=== PATIENT | female | born 1980 | race Two or more races ===

== ENCOUNTER 2020-04-18 07:44 | Outpatient (REF) | payer OTHER, SELFPAY ==
--- NOTE | 2020-04-18 | US_ITS ---
EXAMINATION: PELVIC ULTRASOUND CLINICAL INFORMATION: Post hysterectomy. Pelvic pain. COMPARISON: Previous pelvic ultrasound December [address] of the abdomen and pelvis November 2018 TECHNIQUE: Transabdominal and transvaginal pelvic ultrasound was performed. Transvaginal exam was performed for better visualization of the uterus and ovaries. FINDINGS: The uterus has been removed. The right ovary has been removed. The left ovary is slightly enlarged measuring 3.8 x 4.4 x 1.8 cm and contains multiple simple cysts or follicles. There is no fluid in the pelvis. No pelvic mass is seen. The bladder is not fully distended. The bladder appears irregularly-shaped and the bladder wall may be slightly thickened. There is a hypoechoic area that extends from the right posterior bladder wall posteriorly toward the rectum. This area measures 3 x 1.2 x 0.5 cm in sagittal AP and transverse dimension. It is uncertain whether this represents postsurgical scarring or could represent possible fistula tract or fluid collection/abscess. US/US pelvic complete IMPRESSION:o No pelvic mass post hysterectomy and right oophorectomy. Slightly enlarged left ovary with multiple follicles. Irregularly-shaped bladder which may be slightly thick walled. Hypoechoic area adjacent to the right posterior bladder wall extending to the rectum questionable for postsurgical change, small postoperative fluid collection or abscess, or fistula tract. This could be better evaluated with CT cystogram if clinically indicated.
--- NOTE | 2020-04-18 07:59 | US_ITS ---
EXAMINATION: PELVIC ULTRASOUND CLINICAL INFORMATION: Post hysterectomy. Pelvic pain. COMPARISON: Previous pelvic ultrasound December [address] of the abdomen and pelvis November 2018 TECHNIQUE: Transabdominal and transvaginal pelvic ultrasound was performed. Transvaginal exam was performed for better visualization of the uterus and ovaries. FINDINGS: The uterus has been removed. The right ovary has been removed. The left ovary is slightly enlarged measuring 3.8 x 4.4 x 1.8 cm and contains multiple simple cysts or follicles. There is no fluid in the pelvis. No pelvic mass is seen. The bladder is not fully distended. The bladder appears irregularly-shaped and the bladder wall may be slightly thickened. There is a hypoechoic area that extends from the right posterior bladder wall posteriorly toward the rectum. This area measures 3 x 1.2 x 0.5 cm in sagittal AP and transverse dimension. It is uncertain whether this represents postsurgical scarring or could represent possible fistula tract or fluid collection/abscess. US/US transvaginal IMPRESSION:o No pelvic mass post hysterectomy and right oophorectomy. Slightly enlarged left ovary with multiple follicles. Irregularly-shaped bladder which may be slightly thick walled. Hypoechoic area adjacent to the right posterior bladder wall extending to the rectum questionable for postsurgical change, small postoperative fluid collection or abscess, or fistula tract. This could be better evaluated with CT cystogram if clinically indicated.
--- NOTE | 2020-04-18 07:59 | US_ITS ---
EXAMINATION: US ABDOMEN COMPLETE CLINICAL INFORMATION: Pelvic and perineal pain. COMPARISON: Renal ultrasound 03/01/2019. CT abdomen and pelvis 12/06/2018. Ultrasound abdomen complete 05/31/2015. KUB 05/24/2013. TECHNIQUE: Real-time imaging of the abdominal viscera. FINDINGS: PANCREAS: Normal. ABDOMINAL AORTA: The proximal, mid, and distal segments are normal in caliber. INFERIOR VENA CAVA: Visualized portions are normal. LIVER: Normal. The liver is normal in size. The liver contour is normal. Parenchymal echogenicity is normal. No focal hepatic lesion. There is no intrahepatic biliary duct dilatation seen. GALLBLADDER: Surgically absent. COMMON BILE DUCT: Normal in caliber measuring 0.4 cm in diameter. RIGHT KIDNEY: Normal. No hydronephrosis. No renal calculi or focal parenchymal lesions. The kidney measures 10.1 cm in maximum dimension. LEFT KIDNEY: Normal. No hydronephrosis. No renal calculi or focal parenchymal lesions. The kidney measures 11.2 cm in maximum dimension. SPLEEN: Normal. The spleen measures 10.9 cm in maximum dimension. FREE FLUID: None. US/US abdomen complete IMPRESSION: Unremarkable complete abdominal ultrasound.
[2020-04-18 09:52] LABS: MANUAL DIFF FLAG NO
[2020-04-18 10:09] LABS: Basophils Absolute Auto 0.1 X10*3/uL (0.0-0.2); Basophils Percent Auto 0.5 % (0-2); Eosinophils Absolute Auto 0.3 X10*3/uL (0.0-0.4); Eosinophils Percent Auto 2.5 % (0-4); Hematocrit 41.8 % (37-47); Imm Gran Abs Auto 0.05 X10*3/uL (0.00-0.03); Imm Gran Pct Auto 0.5 % (0.0-0.4); Lymphocytes Absolute Auto 2.9 X10*3/uL (1.2-4.9); Lymphocytes Percent Auto 27.2 % (20-40); Mean Corpuscular HGB Conc 33.5 g/dl (31.0-35.0); Mean Corpuscular Hemoglobin 28.7 pg (27.0-33.0); Mean Corpuscular Volume 85.7 fL (80-98); Mean Platelet Volume 11.1 fL (9.4-12.3); Monocytes Absolute Auto 0.7 X10*3/uL (0.1-1.2); Monocytes Percent Auto 6.3 % (2-11); Neutrophils Absolute Auto 6.7 X10*3/uL (2.0-8.3); Platelet Count 367 X10*3/uL (160-400); Red Blood Count 4.88 X10*6/uL (4.20-5.50); Red Cell Distribution Width 13.1 % (11.0-16.0); White Blood Count 10.6 X10*3/uL (4.8-10.8)
[2020-04-18 10:17] LABS: Alanine Aminotransferase 10 U/L (0-31); Albumin Level 4.9 g/dL (3.5-5.0); Alkaline Phosphatase 91 U/L (39-117); Anion Gap 11 (12-20); Aspartate Amino Transferase 14 U/L (5-31); Bilirubin Total 1.2 mg/dL (0.0-1.0); Blood Urea Nitrogen 11 mg/dL (9-16); Calcium 9.5 mg/dL (8.4-10.2); Carbon Dioxide 27 mmol/L (22-29); Chloride 104 mmol/L (96-108); Estimated Glomerular Filt Rate > 60; Glucose Fasting 98 mg/dL (60-99); Iron 86 mcg/dL (30-160); Percent Iron Saturation 20 % (15-50); Potassium 4.2 mmol/l (3.3-5.1); Sodium 138 mmol/L (135-145); Total Iron Binding Capacity 428 mcg/dL (228-428); Total Protein 7.9 g/dL (6.5-8.0); Unsaturated Iron Binding 342 ug/dL
[2020-04-18 10:42] LABS: TSH reflex Free T4 1.21 mIU/mL (0.32-4.0)
[2020-04-18 10:43] LABS: Estimated Average Glucose 103 mg/dL; Hemoglobin A1c % 5.2 %
== END 2020-04-18 07:45 | disposition home or self-care (01) ==
LOC: HO.US 07:44
PROVIDERS: PCP Physician Assistant; Visit Provider Physician Assistant
DX: R10.2 Pelvic and perineal pain (principal); R10.11 Right upper quadrant pain
CPT/HCPCS: 36415; 76700; 76830; 76856; 80053; 83036; 83540; 84443; 85025

== ENCOUNTER → 2020-05-07 10:52 | Outpatient (BNVA) | payer OTHER, SELFPAY | PROVIDERS: PCP Physician Assistant; Visit Provider Surgery | DX: R10.9 Unspecified abdominal pain (principal); G89.29 Other chronic pain | CPT/HCPCS: 99202 ==

== ENCOUNTER → 2020-05-24 09:53 | Outpatient (BNVA) | payer OTHER, SELFPAY | PROVIDERS: PCP Physician Assistant; Visit Provider Urology | DX: N32.2 Vesical fistula, not elsewhere classified (principal) | CPT/HCPCS: 81002; 99202 ==

== ENCOUNTER 2020-05-25 09:07 | Outpatient (REF) | payer OTHER, SELFPAY ==
--- NOTE | 2020-05-25 09:10 | CT_ITS ---
EXAMINATION: CT ABDOMEN AND PELVIS WITH CONTRAST CLINICAL INFORMATION: Abdominal pain COMPARISON: Previous abdomen and pelvic ultrasound March [address] of the abdomen and pelvis November 2018 TECHNIQUE: Multidetector volumetric images were obtained from the superior aspect of the liver through the pubic symphysis following administration 85 mL of Omnipaque 350 intravenous contrast. Sagittal and coronal reformatted images were obtained on the technologist's workstation. Oral contrast: Yes This CT examination was performed using dose optimization techniques as appropriate, variously including the following: *Automated exposure control *Adjustment of mA and/or kV according to patient size (this includes techniques or standardized protocols for targeted exams where dose is matched to indication/reason for exam; i.e. extremities or head) *Use of iterative reconstruction technique DLP: 476 mGy-cm FINDINGS: LUNG BASES: The visualized lung bases are unremarkable. LIVER, GALLBLADDER, AND BILIARY TREE: There is a small 1 cm low-attenuation lesion high in the dome of the liver that is stable probably representing a cyst. The liver is otherwise unremarkable. The gallbladder has been. There is no biliary duct dilatation. PANCREAS: Unremarkable. SPLEEN: Unremarkable. ADRENAL GLANDS: Unremarkable. KIDNEYS AND URETERS: There is a 1 cm cyst in the right kidney. Kidneys are otherwise unremarkable. BLADDER: There is high attenuation seen dependently in the bladder. Presumably this represents excreted contrast. No air in the bladder is seen. GASTROINTESTINAL TRACT: The small and large bowel are unremarkable. The appendix is unremarkable. ABDOMINAL WALL: No significant hernia is appreciated. LYMPH NODES: Normal. VASCULAR: Unremarkable. PELVIC VISCERA: The uterus has been removed. There is a complex cystic lesion posterior to the bladder in the surgical bed post hysterectomy. This measures approximately 3 cm. It is uncertain whether this could represent a postoperative fluid collection or possibly related to an ovarian cyst. OSSEOUS STRUCTURES: Unremarkable. CT/CT abdomen pelvis w con IMPRESSION: 3 cm complex cystic collection posterior to the bladder in the uterine bed, question representing postoperative fluid collection versus ovarian cyst.
[2020-05-25] MEDS: iohexoL 350 MG/ML 100 ML INFUS..BTL 85 ML IV (10:21)
== END 2020-05-25 09:08 | disposition home or self-care (01) ==
LOC: HO.CT 09:07
PROVIDERS: PCP Physician Assistant; Visit Provider Surgery
DX: R10.9 Unspecified abdominal pain (principal); G89.29 Other chronic pain
CPT/HCPCS: 74177; Q9967

== ENCOUNTER 2020-06-13 10:50 | Outpatient (REF) | payer OTHER, SELFPAY | END 2020-06-13 10:51 | disposition home or self-care (01) | LOC: HO.CT 10:50 | PROVIDERS: Visit Provider Urology | DX: Z13.89 Encounter for screening for other disorder (principal) ==

== ENCOUNTER 2020-06-25 | Outpatient (REF) | payer OTHER, SELFPAY ==
[2020-06-27 09:10] LABS: BV Int Neg Control Negative (Negative); BV Int Pos Control Positive (Positive)
== END 2020-06-25 00:01 | disposition home or self-care (01) ==
LOC: HO.LAB
PROVIDERS: Physician Assistant; Visit Provider Urology
DX: N32.2 Vesical fistula, not elsewhere classified (principal)
CPT/HCPCS: 87480; 87510; 87660

== ENCOUNTER → 2020-07-25 10:35 | Outpatient (BNVA) | payer OTHER, SELFPAY | PROVIDERS: Visit Provider Urology ==

== ENCOUNTER → 2020-07-25 10:36 | Outpatient (BNVA) | payer OTHER, SELFPAY | PROVIDERS: Visit Provider Urology | DX: R39.12 Poor urinary stream (principal) | CPT/HCPCS: 52000; 52332; 81002; Q3014 ==

== ENCOUNTER 2020-09-05 08:00 | Outpatient (RCR) | payer OTHER, SELFPAY ==
--- NOTE | 2020-07-16 11:54 | MHC.PT.EP ---
[facility] [place] Office [place] Office [place] Office [address] Melissa Sosa [address] [phone] F: [phone] F: [phone] F: [phone] F: [phone] Physical Therapy Plan of Care Date of Evaluation: 07/16/20 Date of Surgery: Diagnosis: thoracic and lumbar pain c radiculopathy Assessment: 40 y/o F referred to PT with thoracic and lumbar pain with radiculopathy. 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 Recommend PT 2x/week for 5 weeks to address impairments, implement HEP and optimize functional mobility. Frequency and Duration: The patient will be seen 2x/week for 5 weeks Short Term Goals: 3 weeks: 1. Initiate HEP 2. Pt will improve lumbar AROM to [facility] Group Home Goals: 5 weeks: 1. I with HEP and self management of sx 2. Pt will be able to ambulate > 60min with pain < 3/10 3. Pt will improve B LE strength by one MMT grade to facilitate transitional movements. Treatment Plan: Modalities to reduce pain, spasms and effusion. Manual therapy to restore motion and function. Therapeutic exercise to improve strength and flexibility. Neuromuscular re-education for posture and balance. Therapeutic activities to return to functional activities of daily living. Electronically signed by: Yisel Chavez PT Please sign and return to therapist. Thank you for your referral.
--- NOTE | 2020-09-14 08:51 | MHC.PT.DC ---
[facility] [place] Office [place] Office [place] Office [address] Melissa Sosa [address] [phone] F: [phone] F: [phone] F: [phone] F: [phone] Physical Therapy Discharge Report Diagnosis: thoracic and lumbar pain c radiculopathy Date of Surgery: Date of Evaluation: 07/16/20 Date of Discharge: 09/14/20 Treatments to Date: 7 Cancellations to Date: 0 No Shows to Date: 0 Discharge Status: Improved Function Independent with HEP Discharge Summary: Pt reports improved tolerance for sitting, standing, and walking. She would like to come for neck pain soon and will d/c this chart at this time. Electronically signed by: Yisel Chavez PT Please sign and return to therapist. Thank you for your referral.
== END 2020-09-14 08:53 | disposition home or self-care (01) ==
LOC: HO.PTCHIC 08:00
PROVIDERS: PCP Physician Assistant; Visit Provider Physician Assistant
DX: M54.16 Radiculopathy, lumbar region (principal); M51.9 Unspecified thoracic, thoracolumbar and lumbosacral intervertebral disc disorder
CPT/HCPCS: 97014; 97110; 97112; 97140; 97162

== ENCOUNTER 2021-04-12 11:03 | Emergency (ER) | payer OTHER, SELFPAY ==
[2021-04-12] VITALS (7 sets, daily range): BP systolic 83–123; BP diastolic 40–65; PULSE 65–93; RESP 14–18; TEMP 36.8–37.1; O2SAT 96–99; BMI 32.3
--- NOTE | ~2021-04-12 | US_ITS ---
EXAMINATION: US VENOUS ULTRASOUND WITH DOPPLER LOWER EXTREMITY, RIGHT CLINICAL INFORMATION: Right leg pain COMPARISON: None TECHNIQUE: Ultrasound of the deep veins is performed from the hip to the calf with compression sonography and color and pulse Doppler assessment. Spectral analysis with color-flow imaging is performed. FINDINGS: There is normal venous compression and respiratory variation and augmented flow. The visualized common femoral vein, superficial femoral vein, profunda femoral vein, popliteal vein, and the trifurcation region shows no evidence of deep venous thrombosis. There is no significant popliteal fossa cyst. No popliteal artery aneurysm. If the patient's symptoms persist, followup ultrasound in 5 days 7 days might be of value to exclude proximal propagation from a non-visualized calf vein. US/US venous duplex LE RT IMPRESSION: No acute DVT demonstrated in the right lower extremity.
--- NOTE | ~2021-04-12 | CT_ITS ---
EXAMINATION: CT ABDOMEN AND PELVIS WITH CONTRAST CLINICAL INFORMATION: Diffuse abdominal pain, greatest in the right lower quadrant and nausea and vomiting COMPARISON: Previous CT of the abdomen and pelvis most recent April 2020 TECHNIQUE: Multidetector volumetric images were obtained from the superior aspect of the liver through the pubic symphysis following administration 85 mL of Omnipaque 350 intravenous contrast. Sagittal and coronal reformatted images were obtained on the technologist's workstation. Oral contrast: Yes This CT examination was performed using dose optimization techniques as appropriate, variously including the following: *Automated exposure control *Adjustment of mA and/or kV according to patient size (this includes techniques or standardized protocols for targeted exams where dose is matched to indication/reason for exam; i.e. extremities or head) *Use of iterative reconstruction technique DLP: 722 mGy-cm FINDINGS: LUNG BASES: The visualized lung bases are unremarkable. LIVER, GALLBLADDER, AND BILIARY TREE: The liver is normal in size, shape, and attenuation. There is a 0.8 cm low-attenuation lesion high in the dome of the right lobe of the liver axial image 13 series 3. This is not compatible with a cyst. This is stable from previous exam suggestive of a benign finding. No other focal hepatic lesion or biliary ductal dilatation is present. The gallbladder has been removed. PANCREAS: Unremarkable. SPLEEN: Unremarkable. ADRENAL GLANDS: Unremarkable. KIDNEYS AND URETERS: The kidneys are normal in size, shape, and attenuation. No hydronephrosis, hydroureter, or calculi seen. There is a small 5 mm low-attenuation lesion in the lower pole the right kidney probably representing a cyst. This is stable from previous exam. No imaging follow-up needed. BLADDER: Unremarkable. GASTROINTESTINAL TRACT: The small and large bowel are unremarkable. The appendix is unremarkable. The stomach is unremarkable. ABDOMINAL WALL: No significant hernia is appreciated. LYMPH NODES: There are no enlarged lymph nodes. There are small, small bowel mesentery lymph nodes. This appears unchanged. No other adenopathy. No ascites. VASCULAR: Unremarkable. PELVIC VISCERA: The uterus has been removed. There is a small fluid collection seen just superior to the vaginal cuff that measures 1.5 x 2 cm axial image 67 series 3. This is decreased in size and complexity from previous exam April 2020 when this area measured approximately 2.5 x 3 cm. OSSEOUS STRUCTURES: Unremarkable. CT/CT abdomen pelvis w con IMPRESSION: No acute findings. Normal-appearing appendix. Stable small, small bowel mesentery lymphadenopathy. No enlarged lymph nodes seen. Resolving probable postoperative fluid collection post hysterectomy chest superior to the vaginal cuff now measuring 1.5 cm. Fleischner guidelines were followed.
--- NOTE | ~2021-04-12 | XR_ITS ---
EXAMINATION: XR HIP, RIGHT CLINICAL INFORMATION: Right hip pain COMPARISON: Previous CT of the abdomen and pelvis from earlier the same day TECHNIQUE: Two views of the right hip. FINDINGS: Bone alignment is normal. No fracture or dislocation is seen. Bones of the pelvis are normal. The left hip joint is normal. There is excreted contrast in the bladder. Soft tissues are normal. XR/XR hip RT w PEL1V IMPRESSION: Normal right hip.
--- NOTE | 2021-04-12 11:34 | ED.GENADULT ---
HPI - General Adult General Chief complaint: General Medical <OLIVIA Lee - Last Filed: 04/12/21 22:53> Stated complaint: r leg pain, vomiting/fever <OLIVIA Lee - Last Filed: 04/12/21 22:53> Time Seen by Provider: 04/12/21 11:24 <OLIVIA Lee - Last Filed: 04/12/21 22:53> Source: patient <OLIVIA Lee - Last Filed: 04/12/21 22:53> Mode of arrival: ambulatory <OLIVIA Lee - Last Filed: 04/12/21 22:53> Limitations: no limitations and other (Poor historian) <OLIVIA Lee - Last Filed: 04/12/21 22:53> History of Present Illness HPI narrative: 40-year-old female past medical history significant for recurrent UTIs, GERD, anxiety, iron deficiency anemia, herniated discs, sciatic, asthma presents to the emergency department for multiple complaints including back pain, abdominal pain, right hip pain, fevers/chills and nausea and vomiting X2 days. Patient tells me that she has been experiencing 10-10 back pain that feels like her typical sciatica that is not going away, it radiates down to her right knee, she also tells me that she is having severe right hip pain, she denies trauma to the area. She tells me that this morning was so bad that she could not walk. She tells me that yesterday she had a fever of 110F. And she has been having chills ever since then. She tells me that she is very nauseous, and has been vomiting since yesterday, but she cannot quantify how many times she has vomited. Patient is not an IV drug user. Patient denies chest pain, shortness of breath, paresthesias, numbness or tingling, urinary incontinence, diarrhea, constipation, recent sick contacts, weakness. <OLIVIA Lee Last Filed: 04/12/21 22:53> Onset (ago): day(s) (2) <OLIVIA Lee Last Filed: 04/12/21 22:53> Location: abdomen, right and lower extremity <OLIVIA Lee - Last Filed: 04/12/21 22:53> Radiation: other (back pain radiates to RLE just above the knee ) <OLIVIA Lee - Last Filed: 04/12/21 22:53> Severity: moderate and similar to prior episodes <OLIVIA Lee - Last Filed: 04/12/21 22:53> Severity scale (1-10): 10 <OLIVIA Lee - Last Filed: 04/12/21 22:53> Quality: constant <OLIVIA Lee - Last Filed: 04/12/21 22:53> Pain Consistency: constant <OLIVIA Lee - Last Filed: 04/12/21 22:53> Relieving factors: none <OLIVIA Lee - Last Filed: 04/12/21 22:53> Exacerbating factors: none <OLIVIA Lee - Last Filed: 04/12/21 22:53> Associated symptoms: fever/chills ( my temperature was 110F ), nausea/vomiting and other (abdominal pain ) <OLIVIA Lee - Last Filed: 04/12/21 22:53> Treatments prior to arrival: none <OLIVIA Lee - Last Filed: 04/12/21 22:53> Related Data Home medications: Home Medications Medication Instructions Recorded Confirmed loratadine 10 mg tablet 10 mg PO DAILY 07/25/20 Previous Rx's Medication Instructions Recorded naproxen sodium 220 mg tablet 220 mg PO Q12H PRN 15 Days #30 tab 03/15/20 (Flanax (naproxen)) sennosides 8.6 mg tablet (Natural 17.2 mg PO BEDTIME 30 Days #60 tab 03/28/20 Senna Laxative) albuterol sulfate 2.5 mg (3 mL) INHALATION QID PRN 03/29/20 30 Days #180 ml fluticasone propionate 50 1 spray INTRANASAL DAILY 30 Days 04/23/20 mcg/actuation nasal #9.9 ml spray,suspension docusate sodium 100 mg capsule 100 mg PO DAILY 30 Days #30 cap 06/26/20 (Colace) hydroxyzine HCl 25 mg tablet 25 mg PO BEDTIME 30 Days #30 tab 06/26/20 linaclotide 72 mcg capsule 72 mcg PO DAILY 30 Days #30 cap 06/26/20 (Linzess) metronidazole 500 mg tablet 500 mg PO BID 7 Days #14 tab 06/27/20 triamcinolone acetonide 0.1 % 1 appl TOPICAL DAILY 15 Days #30 g 06/27/20 topical cream lactulose 10 gram/15 mL (15 mL) 10 g (15 mL) PO DAILY 15 Days #225 07/05/20 oral solution ml tamsulosin 0.4 mg capsule 0.4 mg PO BEDTIME 90 Days #90 cap 07/25/20 loratadine 10 mg capsule 10 mg PO DAILY 90 Days #90 cap 08/30/20 albuterol sulfate 90 mcg/actuation 2 puff INHALATION Q6H PRN 30 Days 11/28/20 aerosol inhaler #8.5 g gabapentin 300 mg capsule 300 mg PO BEDTIME 30 Days #30 cap 11/28/20 omeprazole 20 mg capsule,delayed 20 mg PO DAILY #60 cap 11/28/20 release tramadol 50 mg tablet 50 mg PO DAILY PRN 7 Days #7 tab 11/28/20 tizanidine 2 mg tablet 2 mg PO TID #90 tab 02/18/21 cyclobenzaprine 10 mg tablet 10 mg PO BEDTIME PRN #7 tab 04/12/21 lidocaine 5 % topical patch 1 patch TOPICAL DAILY PRN #15 ea 04/12/21 morphine 15 mg immediate release 15 mg PO Q8H PRN #8 tab 04/12/21 tablet <OLVIIA Lee - Last Filed: 04/12/21 22:53> Allergies/adverse reactions: Allergies Allergy/AdvReac Type Severity Reaction Status Date / Time No Known Allergies Allergy Verified 06/26/20 16:58 [No Known Allergies*] <OLIVIA Lee - Last Filed: 04/12/21 22:53> Review of Systems Review of Systems: Constitutional : No Weight loss, + Fever, + Chills, No Fatigue, No Malaise ENT/Mouth : No sore throat, No Rhinorrhea Eyes: No Eye Pain, No Swelling, No Redness Cardiovascular : No Chest Pain, No SOB, No Dyspnea on Exertion, No Orthopnea, No Edema, No Palpitations Respiratory : No Cough, No Sputum, No Wheezing Gastrointestinal : + Nausea, + Vomiting, No Diarrhea, No Constipation, + abdominal Pain, No Hematochezia, No Melena Genitourinary : No Dysuria, No Urinary Frequency, No Hematuria, Musculoskeletal : No joint pain, No Myalgias, No Joint Swelling, + extremity pain Skin : No Skin Lesions, No rash Neuro : No Weakness, No Numbness, No Dizziness, No Headache Psych : No Anxiety/Panic, No Depression All other systems reviewed and are negative <OLIVIA Lee - Last Filed: 04/12/21 22:53> Yes all other systems are reviewed and are negative <OLIVIA Lee - Last Filed: 04/12/21 22:53> [facility] Past Medical History Attestation statement: The following information was validated with the patient. <OLIVIA Lee - Last Filed: 04/12/21 22:53> Source: old records reviewed and nursing notes reviewed <OLIVIA Lee - Last Filed: 04/12/21 22:53> Medical History: Medical History Anxiety Chronic abdominal pain GERD (gastroesophageal reflux disease) UTI (urinary tract infection) <OLIVIA Lee - Last Filed: 04/12/21 22:53> Surgical History: Surgical History History of cholecystectomy History of foot surgery History of hysterectomy <OLIVIA Lee - Last Filed: 04/12/21 22:53> Family History Family History: Family History Father No problems noted. Mother No problems noted. Maternal Grandfather Throat cancer Maternal Aunt Breast cancer <OLIVIA Lee - Last Filed: 04/12/21 22:53> Social History Social History: Social History Alcohol intake: never Patient Tobacco Use Status: Never used Tobacco Use of substances other than those prescribed or required for medical reasons: No Advance Directives: Yes Advance Directives on File: Yes Advance Directives Date on File: 04/13/21 Current occupational status: unemployed and disabled <OLIVIA Lee - Last Filed: 04/12/21 22:53> Physical Exam Vital Signs: Vital Signs: Last Vital Signs Temp 98.3 F 04/13/21 21:53 Pulse 75 04/13/21 21:53 Resp 16 04/13/21 21:53 BP 104/61 04/13/21 21:53 Pulse Ox 98 04/13/21 21:53 BMI result Body Mass Index 32.3 Vital signs stable. <OLIVIA Lee - Last Filed: 04/12/21 22:53> Vital Signs: Last Vital Signs Temp 98.3 F 04/13/21 21:53 Pulse 75 04/13/21 21:53 Resp 16 04/13/21 21:53 BP 104/61 04/13/21 21:53 Pulse Ox 98 04/13/21 21:53 BMI result Body Mass Index 32.3 <OLIVIA Jensen - Last Filed: 04/13/21 11:33> Vital Signs: Last Vital Signs Temp 98.3 F 04/13/21 21:53 Pulse 75 04/13/21 21:53 Resp 16 04/13/21 21:53 BP 104/61 04/13/21 21:53 Pulse Ox 98 04/13/21 21:53 BMI result Body Mass Index 32.3 <Yuli Kam MD - Last Filed: 04/13/21 23:21> Appearance: Alert.? Oriented X3.? No acute distress.? Head: Normocephalic, atraumatic, no step-offs or deformities Eyes: Pupils equal, round and reactive to light.? ENT: Pharynx normal.? Neck: Normal inspection.? Neck supple.? CVS: Normal heart rate and rhythm.? Pulses normal.? Respiratory: No respiratory distress.? Breath sounds normal.? Abdomen: Soft and + diffusely tender.? Skin: Skin warm and dry.? Normal skin color.? Normal skin turgor.? Extremities: No lower extremity edema.?+ right sided calf tenderness on palpation. 5/5 strength to bilateral upper and left lower extremity. Patient unable to lift right leg off of stretcher due to pain. 2+ reflexes equal and bilateral (patellar). Rectal: normal rectal tone Back: No midline tenderness, no C-spine tenderness, full range of motion, no CVA tenderness bilaterally Neuro: Oriented X 3.? No motor deficit.? No sensory deficit. <OLIVIA Lee - Last Filed: 04/12/21 22:53> Course Course Course Narrative: I was informed by the patient's nurse that the patient was seen walking in her room with steady gait. Then, patient eloped. Patient was seen walking with steady gait towards the exit by the patient's nurse and techs. <Yuli Kam MD - Last Filed: 04/13/21 23:21> Reevaluation(s) Reevaluation #1: A baseline anemia is noted, no leukocytosis. Patient's bilirubin is noted to be elevated at 1.7, on April 18, 2020 was 1.2, this does not appear to be new in nature. Patient is having abdominal pain so CT of the abdomen will be done. Urine clean. Patient is COVID negative. Ultrasound negative for DVT. CT of the abdomen and pelvis with no acute findings, however, there is a little bit of postoperative fluid noted status post hysterectomy ( done at [facility] oophorectomy/salpingectomy @ [facility] In June 2019) . It appears as though patient has seen surgery on an outpatient basis for chronic abdominal pain since the hysterectomy. Appears as though at that time patient's pain was generalized and worse in the right lower quadrant, similar to today's presentation. 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 I went back to speak to the patient she tells me that she is having normal bowel movements and she is urinating with decreased urinary stream. She has not noted any changes in the color of her urine, she denies dysuria or recent UTIs. <OLIVIA Lee - Last Filed: 04/12/21 22:53> Time: 15:21 <OLIVIA Lee - Last Filed: 04/12/21 22:53> Reevaluation #2: Spoke to Dr. Turner and shared with him the CT, labs and patients history and physical exam he states this appears to be chronic in nature and can follow up with him on an out patient basis. Normal rectal tone, rectal exam chaperoned by Trever PHOENIX. Very unlikely that this is cauda equina, no midline tenderness, unlikely epidural abscess Patient tells me she is in 10/10 pain to her abdomen and right hip <OLIVIA Lee - Last Filed: 04/12/21 22:53> Time: 15:45 <OLIVIA Lee - Last Filed: 04/12/21 22:53> Reevaluation #3: Xray r. hip normal Went to re-evaluate patient's she still reports 10/10 who right hip pain. He tells me she does not feel comfortable to go home. Patient has gotten morphine, and Dilaudid. I have asked patient multiple times if patient has fallen in patient told me now. Patient also reported to the nurse that she has had no trauma to the area and she has not fallen. She now tells me she was scared to tell me that she fell earlier today. Patient is unable to move, and tells me that she has been this way since this morning, she tells me she fell out of her bed, when she was trying to go to the bathroom. <OLIVIA Lee - Last Filed: 04/12/21 22:53> Time: 20:00 <OLIVIA Lee - Last Filed: 04/12/21 22:53> Additional Reevaluation(s): 2129 Went back into the room to evaluate patient she now tells me that she is having 10/10 pain to the right anterior thigh. Family member at the bedside who is quite upset, requesting that she be given Valium, prednisone and morphine. Explained to the family member that the story has changed about 5-6 times since patient arrived at the emergency department. Initially her main concern was abdominal pain, then she tells me it has back pain, then it was right hip/pain overlying her femur and out is right and. Thigh pain. I also explained to the family member that is unsafe for me to keep administering pain medicines to this patient as her blood pressure is very low, and this can continue to lower her blood pressure. Family member understanding. I gave patient 2 options going to rehab and becoming a case management patient. Her being discharged home. Patient tells me that she needs to speak to her thermoscrew operator before making a decision. 2199 Reevaluated patient again with at the bedside. Patient continues to report 10/10 pain right anterior thigh pain. She continues to make the decision as to what she wants to do. Dr. Falk recommends adding inflammatory markers. Ordered CRP just slightly elevated, not significantly high. ESR pending. 2246 At this time report has been given to Farhana BAKER. only thing pending on this patient is an ESR. At this time I will place patient in physician observation to allow more time to be evaluated by Case Management and Physical therapy as patient desires to go to a intermediate. At time that physician observation was started patient continues to report right anterior thigh pain, worse with movement. No focal neuro deficits. Physical examination unchanged. Vital signs are stable. I have just medicated patient with Toradol. <OLIVIA Lee - Last Filed: 04/12/21 22:53> 2129 Went back into the room to evaluate patient she now tells me that she is having 10/10 pain to the right anterior thigh. Family member at the bedside who is quite upset, requesting that she be given Valium, prednisone and morphine. Explained to the family member that the story has changed about 5-6 times since patient arrived at the emergency department. Initially her main concern was abdominal pain, then she tells me it has back pain, then it was right hip/pain overlying her femur and out is right and. Thigh pain. I also explained to the family member that is unsafe for me to keep administering pain medicines to this patient as her blood pressure is very low, and this can continue to lower her blood pressure. Family member understanding. I gave patient 2 options going to rehab and becoming a case management patient. Her being discharged home. Patient tells me that she needs to speak to her thermoscrew operator before making a decision. 2199 Reevaluated patient again with at the bedside. Patient continues to report 10/10 pain right anterior thigh pain. She continues to make the decision as to what she wants to do. Dr. Falk recommends adding inflammatory markers. Ordered CRP just slightly elevated, not significantly high. ESR pending. 2246 At this time report has been given to Farhana BAKER. only thing pending on this patient is an ESR. At this time I will place patient in physician observation to allow more time to be evaluated by Case Management and Physical therapy as patient desires to go to a intermediate. At time that physician observation was started patient continues to report right anterior thigh pain, worse with movement. No focal neuro deficits. Physical examination unchanged. Vital signs are stable. I have just medicated patient with Toradol. 04/13/21 10am - physician observation continued. Seen by PT today who is recommending short term rehab. Case management to discuss options today. Will continue to monitor. <OLIVIA Jensen - Last Filed: 04/13/21 11:33> Medical Decision Making MDM Narrative Medical decision making narrative: [id number] YO F pmhx recurrent UTIs, GERD, anxiety, iron deficiency anemia, asthma presents to the emergency department for multiple complaints including severe back pain, severe abdominal pain, right hip pain, nausea and vomiting x2 days. Patient tells me she cannot pinpoint her main concern, and she tells me that everything is bothering her. Physical examination with generalized abdominal tenderness upon palpation. She reports pain with range of motion of back, no midline tenderness. She also reports right-sided calf pain upon palpation, positive Homans sign. Lungs are clear. Regular rate and rhythm. Patient tells me she cant lift right leg secondary to pain. No focal neuro deficits. No saddle paresthesias. Sensory intact. Plan at this time is to obtain basic labs, urine, urine , LE US. Patient will be given fluids and Zofran for nausea. Will rule out appendicitis, cholecystitis, DVT although unlikely I will hold on pain medicine as she received 15 mg of IV Toradol on the ambulance. Unlikely that this is a epidural abscess, no midline tenderness, patient is afebrile, she is not an IV drug abuser Unlikely cauda equina patient does not report urinary or bowel incontinence, weakness, no sensory or motor deficits, no focal neuro deficits, no saddle paresthesias. <OLIVIA Lee - Last Filed: 04/12/21 22:53> Lab Data Result diagrams: : 04/12/21 12:05 04/12/21 12:05 <OLIVIA Lee - Last Filed: 04/12/21 22:53> Labs: Lab Results 04/12/21 04/12/21 04/12/21 Range/Units 11:59 12:05 12:05 WBC 9.8 (4.8-10.8) X10*3/uL RBC 4.12 L (4.20-5.50) X10*6/uL Hgb 11.9 L (12.0-16.0) g/dl Hct 35.6 L (37.0-47.0) % MCV 86.4 (80.0-98.0) fL MCH 28.9 (27.0-33.0) pg MCHC 33.4 (31.0-35.0) g/dl RDW 13.2 (11.0-16.0) % Plt Count 244 (160-400) X10*3/uL MPV 10.8 (9.4-12.3) fL Immature Gran % (Auto) 0.5 H (0.0-0.4) % Neut % (Auto) 79.3 H (45-73) % Lymph % (Auto) 12.3 L (20-40) % [place] % (Auto) 6.1 (2-11) % Eos % (Auto) 1.6 (0-4) % Baso % (Auto) 0.2 (0-2) % Lymph # (Auto) 1.2 (1.2-4.9) X10*3/uL [place] # (Auto) 0.6 (0.1-1.2) X10*3/uL Eos # (Auto) 0.2 (0.0-0.4) X10*3/uL Baso # (Auto) 0.0 (0.0-0.2) X10*3/uL Abs Immat Gran (auto) 0.05 H (0.00-0.03) X10*3/uL Absolute Neuts (auto) 7.8 (2.0-8.3) x10*3/uL Absolute Nucleated RBC 0.000 (0.0-0.012) X10*3/uL Nucleated RBC % (auto) 0.0 (0.0-0.2) /100WBC ESR (0-20) MM/HR Sodium 137 (135-145) mmol/L Potassium 3.7 (3.3-5.1) mmol/L Chloride 109 H (96-108) mmol/L Carbon Dioxide 22 (22-29) mmol/L Anion Gap 10 L (12-20) BUN 7 L (9-16) mg/dL Creatinine 0.68 (0.5-1.4) mg/dL Estim Creat Clear Calc 94.4 Estimated GFR > 60 Random Glucose 99 (60-115) mg/dL Calcium 8.0 L D (8.4-10.2) mg/dL Magnesium 1.8 (1.6-2.6) mg/dL Total Bilirubin 1.7 H (0.0-1.0) mg/dL AST 14 (5-31) U/L ALT 14 (0-31) U/L Alkaline Phosphatase 79 (39-117) U/L C-Reactive Protein 0.63 H (< or = 0.50) mg/dL Total Protein 6.0 L D (6.5-8.0) g/dL Albumin 3.7 D (3.5-5.0) g/dL Amylase 38 (28-100) U/L Lipase 16 (8-78) U/L Urine Color Urine Appearance Urine pH (5.0-8.0) Ur Specific [place] (1.005-1.025) Urine Protein (NEG-TRACE) MG/DL Urine Glucose (UA) (NEG) MG/DL Urine Ketones (NEG) MG/DL Urine Blood (NEG) Urine Nitrite (NEG) Ur Leukocyte Esterase (NEG) Urine Test (NEGATIVE) COVID-19 (FELISA) Negative (Negative) COVID-19 Clin Com See Note 04/12/21 04/12/21 04/12/21 Range/Units 13:08 13:08 21:52 WBC (4.8-10.8) X10*3/uL RBC (4.20-5.50) X10*6/uL Hgb (12.0-16.0) g/dl Hct (37.0-47.0) % MCV (80.0-98.0) fL MCH (27.0-33.0) pg MCHC (31.0-35.0) g/dl RDW (11.0-16.0) % Plt Count (160-400) X10*3/uL MPV (9.4-12.3) fL Immature Gran % (Auto) (0.0-0.4) % Neut % (Auto) (45-73) % Lymph % (Auto) (20-40) % [place] % (Auto) (2-11) % Eos % (Auto) (0-4) % Baso % (Auto) (0-2) % Lymph # (Auto) (1.2-4.9) X10*3/uL [place] # (Auto) (0.1-1.2) X10*3/uL Eos # (Auto) (0.0-0.4) X10*3/uL Baso # (Auto) (0.0-0.2) X10*3/uL Abs Immat Gran (auto) (0.00-0.03) X10*3/uL Absolute Neuts (auto) (2.0-8.3) x10*3/uL Absolute Nucleated RBC (0.0-0.012) X10*3/uL Nucleated RBC % (auto) (0.0-0.2) /100WBC ESR 12 (0-20) MM/HR Sodium (135-145) mmol/L Potassium (3.3-5.1) mmol/L Chloride (96-108) mmol/L Carbon Dioxide (22-29) mmol/L Anion Gap (12-20) BUN (9-16) mg/dL Creatinine (0.5-1.4) mg/dL Estim Creat Clear Calc Estimated GFR Random Glucose (60-115) mg/dL Calcium (8.4-10.2) mg/dL Magnesium (1.6-2.6) mg/dL Total Bilirubin (0.0-1.0) mg/dL AST (5-31) U/L ALT (0-31) U/L Alkaline Phosphatase (39-117) U/L C-Reactive Protein (< or = 0.50) mg/dL Total Protein (6.5-8.0) g/dL Albumin (3.5-5.0) g/dL Amylase (28-100) U/L Lipase (8-78) U/L Urine Color YELLOW Urine Appearance CLEAR Urine pH 6.0 (5.0-8.0) Ur Specific [place] <= 1.005 (1.005-1.025) Urine Protein NEG (NEG-TRACE) MG/DL Urine Glucose (UA) NEG (NEG) MG/DL Urine Ketones NEG (NEG) MG/DL Urine Blood NEG (NEG) Urine Nitrite NEG (NEG) Ur Leukocyte Esterase NEG (NEG) Urine Test NEGATIVE (NEGATIVE) COVID-19 (FELISA) (Negative) COVID-19 Clin Com <OLIVIA Lee - Last Filed: 04/12/21 22:53> Lab Results 04/12/21 04/12/21 04/12/21 Range/Units 11:59 12:05 12:05 WBC 9.8 (4.8-10.8) X10*3/uL RBC 4.12 L (4.20-5.50) X10*6/uL Hgb 11.9 L (12.0-16.0) g/dl Hct 35.6 L (37.0-47.0) % MCV 86.4 (80.0-98.0) fL MCH 28.9 (27.0-33.0) pg MCHC 33.4 (31.0-35.0) g/dl RDW 13.2 (11.0-16.0) % Plt Count 244 (160-400) X10*3/uL MPV 10.8 (9.4-12.3) fL Immature Gran % (Auto) 0.5 H (0.0-0.4) % Neut % (Auto) 79.3 H (45-73) % Lymph % (Auto) 12.3 L (20-40) % [place] % (Auto) 6.1 (2-11) % Eos % (Auto) 1.6 (0-4) % Baso % (Auto) 0.2 (0-2) % Lymph # (Auto) 1.2 (1.2-4.9) X10*3/uL [place] # (Auto) 0.6 (0.1-1.2) X10*3/uL Eos # (Auto) 0.2 (0.0-0.4) X10*3/uL Baso # (Auto) 0.0 (0.0-0.2) X10*3/uL Abs Immat Gran (auto) 0.05 H (0.00-0.03) X10*3/uL Absolute Neuts (auto) 7.8 (2.0-8.3) x10*3/uL Absolute Nucleated RBC 0.000 (0.0-0.012) X10*3/uL Nucleated RBC % (auto) 0.0 (0.0-0.2) /100WBC ESR (0-20) MM/HR Sodium 137 (135-145) mmol/L Potassium 3.7 (3.3-5.1) mmol/L Chloride 109 H (96-108) mmol/L Carbon Dioxide 22 (22-29) mmol/L Anion Gap 10 L (12-20) BUN 7 L (9-16) mg/dL Creatinine 0.68 (0.5-1.4) mg/dL Estim Creat Clear Calc 94.4 Estimated GFR > 60 Random Glucose 99 (60-115) mg/dL Calcium 8.0 L D (8.4-10.2) mg/dL Magnesium 1.8 (1.6-2.6) mg/dL Total Bilirubin 1.7 H (0.0-1.0) mg/dL AST 14 (5-31) U/L ALT 14 (0-31) U/L Alkaline Phosphatase 79 (39-117) U/L C-Reactive Protein 0.63 H (< or = 0.50) mg/dL Total Protein 6.0 L D (6.5-8.0) g/dL Albumin 3.7 D (3.5-5.0) g/dL Amylase 38 (28-100) U/L Lipase 16 (8-78) U/L Urine Color Urine Appearance Urine pH (5.0-8.0) Ur Specific [place] (1.005-1.025) Urine Protein (NEG-TRACE) MG/DL Urine Glucose (UA) (NEG) MG/DL Urine Ketones (NEG) MG/DL Urine Blood (NEG) Urine Nitrite (NEG) Ur Leukocyte Esterase (NEG) Urine Test (NEGATIVE) COVID-19 (FELISA) Negative (Negative) COVID-19 Clin Com See Note 04/12/21 04/12/21 04/12/21 Range/Units 13:08 13:08 21:52 WBC (4.8-10.8) X10*3/uL RBC (4.20-5.50) X10*6/uL Hgb (12.0-16.0) g/dl Hct (37.0-47.0) % MCV (80.0-98.0) fL MCH (27.0-33.0) pg MCHC (31.0-35.0) g/dl RDW (11.0-16.0) % Plt Count (160-400) X10*3/uL MPV (9.4-12.3) fL Immature Gran % (Auto) (0.0-0.4) % Neut % (Auto) (45-73) % Lymph % (Auto) (20-40) % [place] % (Auto) (2-11) % Eos % (Auto) (0-4) % Baso % (Auto) (0-2) % Lymph # (Auto) (1.2-4.9) X10*3/uL [place] # (Auto) (0.1-1.2) X10*3/uL Eos # (Auto) (0.0-0.4) X10*3/uL Baso # (Auto) (0.0-0.2) X10*3/uL Abs Immat Gran (auto) (0.00-0.03) X10*3/uL Absolute Neuts (auto) (2.0-8.3) x10*3/uL Absolute Nucleated RBC (0.0-0.012) X10*3/uL Nucleated RBC % (auto) (0.0-0.2) /100WBC ESR 12 (0-20) MM/HR Sodium (135-145) mmol/L Potassium (3.3-5.1) mmol/L Chloride (96-108) mmol/L Carbon Dioxide (22-29) mmol/L Anion Gap (12-20) BUN (9-16) mg/dL Creatinine (0.5-1.4) mg/dL Estim Creat Clear Calc Estimated GFR Random Glucose (60-115) mg/dL Calcium (8.4-10.2) mg/dL Magnesium (1.6-2.6) mg/dL Total Bilirubin (0.0-1.0) mg/dL AST (5-31) U/L ALT (0-31) U/L Alkaline Phosphatase (39-117) U/L C-Reactive Protein (< or = 0.50) mg/dL Total Protein (6.5-8.0) g/dL Albumin (3.5-5.0) g/dL Amylase (28-100) U/L Lipase (8-78) U/L Urine Color YELLOW Urine Appearance CLEAR Urine pH 6.0 (5.0-8.0) Ur Specific [place] <= 1.005 (1.005-1.025) Urine Protein NEG (NEG-TRACE) MG/DL Urine Glucose (UA) NEG (NEG) MG/DL Urine Ketones NEG (NEG) MG/DL Urine Blood NEG (NEG) Urine Nitrite NEG (NEG) Ur Leukocyte Esterase NEG (NEG) Urine Test NEGATIVE (NEGATIVE) COVID-19 (FELISA) (Negative) COVID-19 Clin Com <OLIVIA Jensen - Last Filed: 04/13/21 11:33> Lab Results 04/12/21 04/12/21 04/12/21 Range/Units 11:59 12:05 12:05 WBC 9.8 (4.8-10.8) X10*3/uL RBC 4.12 L (4.20-5.50) X10*6/uL Hgb 11.9 L (12.0-16.0) g/dl Hct 35.6 L (37.0-47.0) % MCV 86.4 (80.0-98.0) fL MCH 28.9 (27.0-33.0) pg MCHC 33.4 (31.0-35.0) g/dl RDW 13.2 (11.0-16.0) % Plt Count 244 (160-400) X10*3/uL MPV 10.8 (9.4-12.3) fL Immature Gran % (Auto) 0.5 H (0.0-0.4) % Neut % (Auto) 79.3 H (45-73) % Lymph % (Auto) 12.3 L (20-40) % [place] % (Auto) 6.1 (2-11) % Eos % (Auto) 1.6 (0-4) % Baso % (Auto) 0.2 (0-2) % Lymph # (Auto) 1.2 (1.2-4.9) X10*3/uL [place] # (Auto) 0.6 (0.1-1.2) X10*3/uL Eos # (Auto) 0.2 (0.0-0.4) X10*3/uL Baso # (Auto) 0.0 (0.0-0.2) X10*3/uL Abs Immat Gran (auto) 0.05 H (0.00-0.03) X10*3/uL Absolute Neuts (auto) 7.8 (2.0-8.3) x10*3/uL Absolute Nucleated RBC 0.000 (0.0-0.012) X10*3/uL Nucleated RBC % (auto) 0.0 (0.0-0.2) /100WBC ESR (0-20) MM/HR Sodium 137 (135-145) mmol/L Potassium 3.7 (3.3-5.1) mmol/L Chloride 109 H (96-108) mmol/L Carbon Dioxide 22 (22-29) mmol/L Anion Gap 10 L (12-20) BUN 7 L (9-16) mg/dL Creatinine 0.68 (0.5-1.4) mg/dL Estim Creat Clear Calc 94.4 Estimated GFR > 60 Random Glucose 99 (60-115) mg/dL Calcium 8.0 L D (8.4-10.2) mg/dL Magnesium 1.8 (1.6-2.6) mg/dL Total Bilirubin 1.7 H (0.0-1.0) mg/dL AST 14 (5-31) U/L ALT 14 (0-31) U/L Alkaline Phosphatase 79 (39-117) U/L C-Reactive Protein 0.63 H (< or = 0.50) mg/dL Total Protein 6.0 L D (6.5-8.0) g/dL Albumin 3.7 D (3.5-5.0) g/dL Amylase 38 (28-100) U/L Lipase 16 (8-78) U/L Urine Color Urine Appearance Urine pH (5.0-8.0) Ur Specific [place] (1.005-1.025) Urine Protein (NEG-TRACE) MG/DL Urine Glucose (UA) (NEG) MG/DL Urine Ketones (NEG) MG/DL Urine Blood (NEG) Urine Nitrite (NEG) Ur Leukocyte Esterase (NEG) Urine Test (NEGATIVE) COVID-19 (FELISA) Negative (Negative) COVID-19 Clin Com See Note 04/12/21 04/12/21 04/12/21 Range/Units 13:08 13:08 21:52 WBC (4.8-10.8) X10*3/uL RBC (4.20-5.50) X10*6/uL Hgb (12.0-16.0) g/dl Hct (37.0-47.0) % MCV (80.0-98.0) fL MCH (27.0-33.0) pg MCHC (31.0-35.0) g/dl RDW (11.0-16.0) % Plt Count (160-400) X10*3/uL MPV (9.4-12.3) fL Immature Gran % (Auto) (0.0-0.4) % Neut % (Auto) (45-73) % Lymph % (Auto) (20-40) % [place] % (Auto) (2-11) % Eos % (Auto) (0-4) % Baso % (Auto) (0-2) % Lymph # (Auto) (1.2-4.9) X10*3/uL [place] # (Auto) (0.1-1.2) X10*3/uL Eos # (Auto) (0.0-0.4) X10*3/uL Baso # (Auto) (0.0-0.2) X10*3/uL Abs Immat Gran (auto) (0.00-0.03) X10*3/uL Absolute Neuts (auto) (2.0-8.3) x10*3/uL Absolute Nucleated RBC (0.0-0.012) X10*3/uL Nucleated RBC % (auto) (0.0-0.2) /100WBC ESR 12 (0-20) MM/HR Sodium (135-145) mmol/L Potassium (3.3-5.1) mmol/L Chloride (96-108) mmol/L Carbon Dioxide (22-29) mmol/L Anion Gap (12-20) BUN (9-16) mg/dL Creatinine (0.5-1.4) mg/dL Estim Creat Clear Calc Estimated GFR Random Glucose (60-115) mg/dL Calcium (8.4-10.2) mg/dL Magnesium (1.6-2.6) mg/dL Total Bilirubin (0.0-1.0) mg/dL AST (5-31) U/L ALT (0-31) U/L Alkaline Phosphatase (39-117) U/L C-Reactive Protein (< or = 0.50) mg/dL Total Protein (6.5-8.0) g/dL Albumin (3.5-5.0) g/dL Amylase (28-100) U/L Lipase (8-78) U/L Urine Color YELLOW Urine Appearance CLEAR Urine pH 6.0 (5.0-8.0) Ur Specific [place] <= 1.005 (1.005-1.025) Urine Protein NEG (NEG-TRACE) MG/DL Urine Glucose (UA) NEG (NEG) MG/DL Urine Ketones NEG (NEG) MG/DL Urine Blood NEG (NEG) Urine Nitrite NEG (NEG) Ur Leukocyte Esterase NEG (NEG) Urine Test NEGATIVE (NEGATIVE) COVID-19 (FELISA) (Negative) COVID-19 Clin Com <Yuli Kam MD - Last Filed: 04/13/21 23:21> Imaging Data Venous US: Attestation: I personally reviewed and interpreted this imaging study as follows: <OLIVIA Lee - Last Filed: 04/12/21 22:53> Radiologist's impression: US/US venous duplex LE RT IMPRESSION: No acute DVT demonstrated in the right lower extremity. <OLIVIA Lee - Last Filed: 04/12/21 22:53> CT scan - abdomen: Attestation: I personally reviewed and interpreted this imaging study as follows: <OLIVIA Lee - Last Filed: 04/12/21 22:53> Radiologist's impression: CT/CT abdomen pelvis w con IMPRESSION: No acute findings. Normal-appearing appendix. Stable small, small bowel mesentery lymphadenopathy. No enlarged lymph nodes seen. Resolving probable postoperative fluid collection post hysterectomy chest superior to the vaginal cuff now measuring 1.5 cm. ? Fleischner guidelines were followed. <OLIVIA Lee - Last Filed: 04/12/21 22:53> Right hip x-ray: Attestation: I personally reviewed and interpreted this imaging study as follows: <OLIVIA Lee - Last Filed: 04/12/21 22:53> Radiologist's impression: FINDINGS: Bone alignment is normal. No fracture or dislocation is seen. Bones of the pelvis are normal. The left hip joint is normal. There is excreted contrast in the bladder. Soft tissues are normal.? XR/XR hip RT w PEL1V IMPRESSION: Normal right hip. ? <OLIVIA Lee - Last Filed: 04/12/21 22:53> Critical Care Time Critical Care Time Critical Care Time: No <OLIVIA Lee - Last Filed: 04/12/21 22:53> Discharge Plan Discharge Clinical Impression: Sciatica, Chronic abdominal pain, Hip pain, right <OLIVIA Lee - Last Filed: 04/12/21 22:53> Patient Disposition: Elopement <OLIVIA Lee - Last Filed: 04/12/21 22:53> Instructions: Sciatica (ED), Abdominal Pain (ED), Hip Pain (ED) <OLIVIA Lee - Last Filed: 04/12/21 22:53> Additional Instructions: Take your medications as prescribed. If you were prescribed antibiotics today, it is important that you take your medication to their entirety, do not skip any doses, do not finish them early. Cyclobenzaprine, and morphine or 2 medications that can make you drowsy, please do not drive or operate anything while on these medications. Morphine is a narcotic, it can cause dependence, you have been educated on alternative treatments such as ibuprofen and Tylenol. X-ray of her right hip was normal, the ultrasound of the right lower extremity showed no blood clot, the CT of the abdomen had no acute findings. Follow-up with your primary care provider this week. You can follow-up with surgery on an outpatient basis. Return to the emergency department with new or worsening symptoms. In case of emergency call 911 <OLIVIA Lee Last Filed: 04/12/21 22:53> Prescriptions: New cyclobenzaprine 10 mg tablet 10 mg PO BEDTIME PRN (Reason: muscle spasm) Qty: 7 RF: 0 lidocaine 5 % adhesive patch,medicated 1 patch topical DAILY PRN (Reason: pain) Qty: 15 RF: 0 morphine 15 mg tablet 15 mg PO Q8H PRN (Reason: pain) Qty: 8 RF: 0 No Action naproxen sodium [Flanax (naproxen)] 220 mg tablet 220 mg PO Q12H PRN (Reason: pain) 15 Days Qty: 30 RF: 1 albuterol sulfate 2.5 mg /3 mL (0.083 %) solution for nebulization 2.5 mg inhalation QID PRN (Reason: shortness of breath or wheezing) 30 Days Qty: 180 RF: 1 fluticasone propionate 50 mcg/actuation spray,suspension 1 spray intranasal DAILY 30 Days Qty: 9.9 RF: 1 triamcinolone acetonide 0.1 % cream 1 appl topical DAILY 15 Days Qty: 30 RF: 0 metronidazole 500 mg tablet 500 mg PO BID 7 Days Qty: 14 RF: 0 lactulose 10 gram/15 mL (15 mL) solution 10 g PO DAILY 15 Days Qty: 225 RF: 0 loratadine 10 mg capsule 10 mg PO DAILY 90 Days Qty: 90 RF: 1 gabapentin 300 mg capsule 300 mg PO BEDTIME 30 Days Qty: 30 RF: 3 albuterol sulfate 90 mcg/actuation HFA aerosol inhaler 2 puff inhalation Q6H PRN (Reason: shortness of breath or wheezing) 30 Days Qty: 8.5 RF: 3 tramadol 50 mg tablet 50 mg PO DAILY PRN (Reason: pain) 7 Days Qty: 7 RF: 0 Hold Instructions: Doctor's Order omeprazole 20 mg capsule,delayed release(DR/EC) 20 mg PO DAILY Qty: 60 RF: 3 tizanidine 2 mg tablet 2 mg PO TID Qty: 90 RF: 2 hydroxyzine HCl 25 mg tablet 25 mg PO BEDTIME 30 Days Qty: 30 RF: 3 docusate sodium [Colace] 100 mg capsule 100 mg PO DAILY 30 Days Qty: 30 RF: 5 Linzess 72 mcg capsule 72 mcg PO DAILY 30 Days Qty: 30 RF: 3 sennosides [Natural Senna Laxative] 8.6 mg tablet 17.2 mg PO BEDTIME 30 Days Qty: 60 RF: 1 tamsulosin 0.4 mg capsule 0.4 mg PO BEDTIME 90 Days Qty: 90 RF: 1 <OLIVIA Lee - Last Filed: 04/12/21 22:53> Referrals: Ad Burrell PA-C [Primary Care Provider] - 2 days Jordan Turner MD [Physician] - 1 week <OLIVIA Lee - Last Filed: 04/12/21 22:53> Stand Alone Forms: Work/School Release <OLIVIA Lee - Last Filed: 04/12/21 22:53>
[2021-04-12 12:11] LABS: MANUAL DIFF FLAG NO
[2021-04-12 12:13] LABS: Basophils Percent Auto 0.2 % (0-2); Eosinophils Absolute Auto 0.2 X10*3/uL (0.0-0.4); Eosinophils Percent Auto 1.6 % (0-4); Hematocrit 35.6 % (37.0-47.0); Hemoglobin 11.9 g/dl (12.0-16.0); Imm Gran Abs Auto 0.05 X10*3/uL (0.00-0.03); Imm Gran Pct Auto 0.5 % (0.0-0.4); Lymphocytes Absolute Auto 1.2 X10*3/uL (1.2-4.9); Lymphocytes Percent Auto 12.3 % (20-40); Mean Corpuscular HGB Conc 33.4 g/dl (31.0-35.0); Mean Corpuscular Hemoglobin 28.9 pg (27.0-33.0); Mean Corpuscular Volume 86.4 fL (80.0-98.0); Mean Platelet Volume 10.8 fL (9.4-12.3); Monocytes Absolute Auto 0.6 X10*3/uL (0.1-1.2); Monocytes Percent Auto 6.1 % (2-11); Neutrophils Absolute Auto 7.8 x10*3/uL (2.0-8.3); Neutrophils Percent Auto 79.3 % (45-73); Platelet Count 244 X10*3/uL (160-400); Red Blood Count 4.12 X10*6/uL (4.20-5.50); Red Cell Distribution Width 13.2 % (11.0-16.0); White Blood Count 9.8 X10*3/uL (4.8-10.8)
[2021-04-12] MEDS: 0.9 % Sodium Chloride 1,000 ML 999 ML IV ×2 (12:16→13:33)
[2021-04-12 12:29] LABS: Alanine Aminotransferase 14 U/L (0-31); Albumin Level 3.7 g/dL (3.5-5.0); Alkaline Phosphatase 79 U/L (39-117); Anion Gap 10 (12-20); Aspartate Amino Transferase 14 U/L (5-31); Bilirubin Total 1.7 mg/dL (0.0-1.0); Blood Urea Nitrogen 7 mg/dL (9-16); Carbon Dioxide 22 mmol/L (22-29); Chloride 109 mmol/L (96-108); Creatinine Clr Calc Pharmacy 94.4; Estimated Glomerular Filt Rate > 60; Glucose Random 99 mg/dL (60-115); Lipase 16 U/L (8-78); Magnesium 1.8 mg/dL (1.6-2.6); Potassium 3.7 mmol/L (3.3-5.1); Sodium 137 mmol/L (135-145)
[2021-04-12 12:30] LABS: COVID-19 Test Negative (Negative)
[2021-04-12] MEDS: ondansetron HCL 4 MG/2 ML VIAL IVPUSH (13:17)
[2021-04-12 13:19] LABS: Appearance Urine CLEAR; Color Urine YELLOW; Glucose Urine UA NEG (NEG); Leukocyte Esterase Urine NEG (NEG); Nitrite Urine NEG (NEG); Specific Gravity - Urine <= 1.005 (1.005-1.025); Urine Blood NEG (NEG); Urine Ketones NEG (NEG); Urine Protein NEG (NEG-TRACE)
[2021-04-12 13:20] LABS: UPreg QC Valid YES; Urine Pregnancy NEGATIVE (NEGATIVE)
[2021-04-12] MEDS: Morphine Sulfate 2 MG/ML CARTRIDGE IVPUSH (13:33)
[2021-04-12 14:16] LABS: Amylase 38 U/L (28-100)
[2021-04-12] MEDS: iohexoL 350 MG/ML 100 ML INFUS..BTL IV (14:20)
[2021-04-12] MEDS: HYDROmorphone HCl 0.5 MG/0.5 ML SYRINGE IVPUSH (17:30)
--- NOTE | 2021-04-12 20:50 | PC.NURSE ---
THIS RN GOING IN WITH HENRRY BAKER TO WITNESS CONVERSATION WITH PATIENT AND MOTHER. HENRRY BAKER EXPLAINING TO THEM EVERY PART OF PATIENTS CARE TODAY. PATIENT AND MOTHER VERBALIZED UNDERSTANDING OF TREATMENT THEY HAVE RECEIVED TODAY. PROVIDER STATING THREATENING EMERGENCY CAN BE FOUND. PATIENT IS UNDERSTANDING BUT CONTINUES TO REPORT PAIN. PATIENT NOW STATING THE PAIN IS IN HER THIGH AND THAT IS WHERE IT HAS ALWAYS BEEN. PATIENT PREVIOUSLY TOLD PROVIDER, ABD THEN BACK, THEN HIP ONCE ALL THE IMAGING AND LABS WERE WITHIN NORMAL LIMITS. MOTHER OFFERING FOR PATIENT TO STAY AT HERE HOME SO SHE DOES NOT HAVE TO WALK UP MANY STAIRS FOR HER HOME. PATIENT STATING SHE NEEDS TO TALK WITH HER PRESERVATIONIST WHO WAS HERE TO VISIT AND COME IN FROM THE WAITING ROOM TO TALK WITH PATIENT.
[2021-04-12 21:52] LABS: C Reactive Protein 0.63 mg/dL (< or = 0.50)
[2021-04-12] MEDS: Ketorolac Tromethamine 30 MG/ML VIAL 15 MG IVPUSH (22:23)
[2021-04-12 23:37] LABS: Erythrocyte Sedimentation Rate 12 MM/HR (0-20)
[2021-04-13 04:53] VITALS: BP 95/54; PULSE 82; RESP 16; TEMP 37.5; O2SAT 95
[2021-04-13 07:33] VITALS: BP 108/55; PULSE 81; RESP 16; TEMP 37.1; O2SAT 97
[2021-04-13] MEDS: Acetaminophen 325 MG TABLET 650 MG PO (12:20)
--- NOTE | 2021-04-13 13:24 | MHC.CM.ED ---
Received case management consult overnight. Patient came to the ER due to leg pain. Work up essentially negative. Physical therapy eval completed. Short term rehab is recommended. Met with patient in regards to discharge planning. Patient is primarily [place]ralt[place] speaking but understand and speaks Thai. 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 PCP verified. Copy of HCP verified to be on file. Patient received 2 Moderna vaccines. List of facilities contracted with [facility] provided. [facility] and [facility] are first 2 choices. Referral made via [employer]. Continue to monitor for d/c needs.
[2021-04-13 15:30] VITALS: BP 95/62; PULSE 70; RESP 16; TEMP 36.8; O2SAT 98
--- NOTE | 2021-04-13 15:40 | MHC.CM.ED ---
[facility] is able to offer a bed. Referral broadcasted in [employer]. No bed offers have been made at this time. Patient aware she will be spending another night in the ER. Continue to monitor for d/c needs.
[2021-04-13 16:14] VITALS: BP 102/67; PULSE 71; RESP 20; TEMP 36.8; O2SAT 98
--- NOTE | 2021-04-13 17:34 | PC.NURSE ---
patient able to ambulate with out difficulty or assist to bathroom using walker. was able to get her self out of bed as well. nurse stood by patient while she ambulated.
[2021-04-13 21:53] VITALS: BP 104/61; PULSE 75; RESP 16; TEMP 36.8; O2SAT 98
--- NOTE | 2021-04-13 23:37 | PC.NURSE ---
At 2315, patient became angry that she hadn't received any pain medication. It was explained to patient that this RN would be in, however, patient ripped out her IV and walked out. No further issues
== END 2021-04-13 23:15 | disposition left against medical advice (07) ==
PROVIDERS: Physician Assistant; Emergency Provider Emergency Medicine; PCP Physician Assistant
DX: M54.41 Lumbago with sciatica, right side (principal); R10.9 Unspecified abdominal pain; M25.551 Pain in right hip; M79.604 Pain in right leg; R50.9 Fever, unspecified; R60.0 Localized edema; Z20.822 Contact with and (suspected) exposure to COVID-19; Z79.899 Other long term (current) drug therapy
CPT/HCPCS: 36415; 73502; 74177; 80053; 81003; 81025; 82150; 83690; 83735; 85025; 85652; 86140; 87635; 93971; 96361; 96374; 96375; 97161; 99284; 99285; J1170; J1885; J2270; J2405; Q9967

== ENCOUNTER 2021-08-10 21:30 | Emergency (ER) | payer OTHER, SELFPAY ==
--- NOTE | 2021-08-10 | ECG_ITS ---
Test Reason : CHEST PAIN Blood Pressure : / mmHG Vent. Rate : 066 BPM Atrial Rate : 066 BPM P-R Int : 150 ms QRS Dur : 080 ms QT Int : 408 ms P-R-T Axes : 068 067 053 degrees QTc Int : 427 ms Normal sinus rhythm Possible Left atrial enlargement Borderline ECG When compared with ECG of 11-OCT-2018 11:50, No significant change was found Referred By: Generic ED Physician Electronically Signed By:Steve Avalos
--- NOTE | ~2021-08-10 | XR_ITS ---
EXAMINATION: XR CHEST CLINICAL INFORMATION: CPR. Chest pain. COMPARISON: None TECHNIQUE: 2 views of the chest were obtained. FINDINGS: Normal symmetric lung volumes. No parenchymal consolidation. No pleural effusion. No pneumothorax. Cardiomediastinal silhouette and pulmonary vascularity are within normal limits. No acute osseous abnormalities. No displaced rib fractures. XR/XR chest 2V IMPRESSION: Unremarkable examination.
[2021-08-10 21:48] VITALS: BP 135/72; PULSE 75; RESP 14; TEMP 36.5; O2SAT 95; BMI 33.3
[2021-08-10 22:55] LABS: MANUAL DIFF FLAG NO
[2021-08-10 22:56] LABS: Basophils Absolute Auto 0.1 X10*3/uL (0.0-0.2); Basophils Percent Auto 0.5 % (0-2); Eosinophils Absolute Auto 0.4 X10*3/uL (0.0-0.4); Eosinophils Percent Auto 3.7 % (0-4); Hematocrit 38.1 % (37.0-47.0); Imm Gran Abs Auto 0.05 X10*3/uL (0.00-0.03); Imm Gran Pct Auto 0.5 % (0.0-0.4); Lymphocytes Percent Auto 28.3 % (20-40); Mean Corpuscular HGB Conc 34.1 g/dl (31.0-35.0); Mean Corpuscular Volume 84.9 fL (80.0-98.0); Monocytes Absolute Auto 0.7 X10*3/uL (0.1-1.2); Monocytes Percent Auto 6.9 % (2-11); Neutrophils Absolute Auto 6.4 x10*3/uL (2.0-8.3); Neutrophils Percent Auto 60.1 % (45-73); Platelet Count 306 X10*3/uL (160-400); Red Blood Count 4.49 X10*6/uL (4.20-5.50); Red Cell Distribution Width 13.1 % (11.0-16.0); White Blood Count 10.7 X10*3/uL (4.8-10.8)
[2021-08-10 23:15] LABS: Alanine Aminotransferase 13 U/L (0-31); Albumin Level 4.4 g/dL (3.5-5.0); Alkaline Phosphatase 86 U/L (39-117); Anion Gap 13 (12-20); Aspartate Amino Transferase 14 U/L (5-31); Bilirubin Total 0.9 mg/dL (0.0-1.0); Blood Urea Nitrogen 10 mg/dL (9-16); Calcium 9.4 mg/dL (8.4-10.2); Carbon Dioxide 22 mmol/L (22-29); Chloride 107 mmol/L (96-108); Creatinine Clr Calc Pharmacy 82.8; Estimated Glomerular Filt Rate > 60; Glucose Random 101 mg/dL (60-115); Potassium 3.9 mmol/L (3.3-5.1); Sodium 138 mmol/L (135-145); Total Protein 7.3 g/dL (6.5-8.0)
[2021-08-10 23:17] LABS: Troponin-I High Sensitivity < 3.5 ng/L (<3.5-17.0)
--- NOTE | 2021-08-10 23:52 | ED_ITS ---
HPI - Chest Pain General Chief Complaint: Chest Pain Stated Complaint: sob chest pain Time Seen by Provider: 08/10/21 23:23 Source: patient Mode of arrival: ambulatory Limitations: language barrier ( patient's 1st language is Indian, she does speak Iraqi, per diem interpreter was used) History of Present Illness HPI narrative: 41-year-old female who presents emergency department for evaluation of chest pain and syncope. Patient states that she was [place] when she got some of setting news 20:00 hours. She states that she then developed a electric shock in her chest pain. She felt like her heart was racing. She then became short of breath in used her inhaler with no relief. She then developed numbness in her hands and feet and eventually developed cramping in these areas. She had no perioral numbness. She then passed out. The fiberglass laminator felt that the patient was unresponsive in started CPR for approximately 2 minutes and the patient woke up. The fiberglass laminator then drove the patient to the emergency department for evaluation. Patient denied being ill in any way prior to developing these symptoms this evening. MD complaint: chest pain Pertinent past history: asthma Onset (ago): hour(s) (3) Timing of current episode: constant Prior episodes: No Onset: other ( Stressful news) Pain location: substernal Pain radiation: none Severity: moderate Pain scale (0-10): 5 Quality: other ( electric shock sensation) Relieving factors: nothing Exacerbating factors: stress Associated symptoms: dyspnea, palpitations ( heart racing) and other ( carpal pe silvia spasm and numbness) Treatment prior to arrival: other ( albuterol inhaler) Risk Factors Coronary artery disease risk factors: none Thoracic aortic dissection risk factors: none Related Data On Oral Contraceptives: No Home Medications Medication Instructions Recorded Confirmed loratadine 10 mg tablet 10 mg PO DAILY 07/25/20 Previous Rx's Medication Instructions Recorded naproxen sodium 220 mg tablet 220 mg PO Q12H PRN 15 Days #30 tab 03/15/20 (Flanax (naproxen)) sennosides 8.6 mg tablet (Natural 17.2 mg PO BEDTIME 30 Days #60 tab 03/28/20 Senna Laxative) albuterol sulfate 2.5 mg (3 mL) INHALATION QID PRN 03/29/20 30 Days #180 ml fluticasone propionate 50 1 spray INTRANASAL DAILY 30 Days 04/23/20 mcg/actuation nasal #9.9 ml spray,suspension docusate sodium 100 mg capsule 100 mg PO DAILY 30 Days #30 cap 06/26/20 (Colace) hydroxyzine HCl 25 mg tablet 25 mg PO BEDTIME 30 Days #30 tab 06/26/20 linaclotide 72 mcg capsule 72 mcg PO DAILY 30 Days #30 cap 06/26/20 (Linzess) metronidazole 500 mg tablet 500 mg PO BID 7 Days #14 tab 06/27/20 triamcinolone acetonide 0.1 % 1 appl TOPICAL DAILY 15 Days #30 g 06/27/20 topical cream lactulose 10 gram/15 mL (15 mL) 10 g (15 mL) PO DAILY 15 Days #225 07/05/20 oral solution ml tamsulosin 0.4 mg capsule 0.4 mg PO BEDTIME 90 Days #90 cap 07/25/20 loratadine 10 mg capsule 10 mg PO DAILY 90 Days #90 cap 08/30/20 gabapentin 300 mg capsule 300 mg PO BEDTIME 30 Days #30 cap 11/28/20 omeprazole 20 mg capsule,delayed 20 mg PO DAILY #60 cap 11/28/20 release tramadol 50 mg tablet 50 mg PO DAILY PRN 7 Days #7 tab 11/28/20 tizanidine 2 mg tablet 2 mg PO TID #90 tab 02/18/21 cyclobenzaprine 10 mg tablet 10 mg PO BEDTIME PRN #7 tab 04/12/21 lidocaine 5 % topical patch 1 patch TOPICAL DAILY PRN #15 ea 04/12/21 morphine 15 mg immediate release 15 mg PO Q8H PRN #8 tab 04/12/21 tablet albuterol sulfate 90 mcg/actuation 2 puff INHALATION Q6H PRN 30 Days 07/18/21 aerosol inhaler #8.5 g Allergies Allergy/AdvReac Type Severity Reaction Status Date / Time No Known Allergies Allergy Verified 06/26/20 16:58 [No Known Allergies*] Review of Systems Review of Systems: Yes all other systems are reviewed and are negative [facility] Past Medical History [facility] Narrative: social history: She denies tobacco, alcohol and drug use. Medical History Anxiety Chronic abdominal pain GERD (gastroesophageal reflux disease) UTI (urinary tract infection) Surgical History History of cholecystectomy History of foot surgery History of hysterectomy Family History Family History Father No problems noted. Mother No problems noted. Maternal Grandfather Throat cancer Maternal Aunt Breast cancer Social History Social History Alcohol intake: never Patient Tobacco Use Status: Never used Tobacco Use of substances other than those prescribed or required for medical reasons: No Advance Directives: Yes Advance Directives on File: Yes Advance Directives Date on File: 04/13/21 Current occupational status: unemployed and disabled Physical Exam Vital Signs: Vital Signs: Last Vital Signs Temp 97.7 F 08/10/21 21:48 Pulse 61 08/11/21 00:35 Resp 20 08/11/21 00:35 BP 123/61 08/11/21 00:35 Pulse Ox 95 08/11/21 00:35 BMI result Body Mass Index 33.3 Const: General: cooperative and no acute distress Orientation/consciousness: oriented to person and oriented to place Limitations: no limitations HEENT: Head: Yes normal to inspection, Yes normocephalic and Yes atraumatic Ears: external ears normal General nose exam: Normal external nose present Face and sinus: Yes normal facial exam Mouth: Normal oral and palatal mucosa present Throat: Yes posterior oropharynx normal Eyes: General: appearance normal, both eyes and all related structures Pupils: Equal, round and reactive pupils present Neck: Neck: Yes normal visual inspection, Yes no lymphadenopathy, Yes trachea midline and Yes supple Chest: Chest palpation & inspection: normal inspection of the chest and tenderness ( anterior chest) Resp: Effort & Inspection: normal respiratory effort and able to speak in complete sentences Auscultation: clear to auscultation bilaterally Cardio: Rate: regular rate Rhythm: regular rhythm Heart sounds: S1 normal heart sound present, S2 normal heart sound present and no murmurs GI: Inspection: Yes normal to inspection Palpation (GI): Soft to palpation, nontender and no guarding Auscultation: normal bowel sounds : General: Yes no CVA tenderness Back/Spine/Pelvis: Back: no CVA tenderness Skin: General skin exam: no rashes or lesions noted Neuro: General: oriented to person and oriented to place Cranial nerves: Yes CN's II-XII intact bilaterally and Yes Equal, round and reactive pupils present Cognition (Neuro): normal cognition Motor exam (neuro): 5/5 motor strength present throughout Extrem: General: Yes normal to inspection Psych: Appearance: grossly normal Speech and movement: Normal speech and movement present Affect: normal affect Attitude: cooperative Thought pr ocess: Normal thought process present Thought content: Normal thought content present Course Course Course Narrative: 41-year-old female who presents emergency department for evaluation of syncopal episode after getting stressful news while she was in [place]. after getting this news, the patient developed tachycardia and dyspnea. She then developed pedal spasm and had syncope episode. She was given 2 minutes of CPR by her fiberglass laminator. Vital signs were normal. Physical examination did reveal chest wall tenderness otherwise was unremarkable. Did order laboratory evaluation EKG and chest x-ray on the patient. Patient was also ordered to get Tylenol 975 mg oral ly and Ativan 2 mg orally. 0001: Laboratory evaluation: CBC and CMP were normal. High sensitivity troponin I was below detectable limits. Twelve EKG was unremarkable. 0131: Patient's chest x-ray revealed no pneumothorax or hemothorax. Patient is feeling better after the above treatment. The patient was discharged home with printed and verbal instructions. MDM - Chest Pain Lab Data Result diagrams: 08/10/21 22:50 08/10/21 22:50 Labs: Lab Results 08/10/21 08/10/21 08/10/21 Range/Units 22:50 22:50 22:50 WBC 10.7 (4.8-10.8) X10*3/uL RBC 4.49 (4.20-5.50) X10*6/uL Hgb 13.0 (12.0-16.0) g/dl Hct 38.1 (37.0-47.0) % MCV 84.9 (80.0-98.0) fL MCH 29.0 (27.0-33.0) pg MCHC 34.1 (31.0-35.0) g/dl RDW 13.1 (11.0-16.0) % Plt Count 306 D (160-400) X10*3/uL MPV 11.0 (9.4-12.3) fL Immature Gran % (Auto) 0.5 H (0.0-0.4) % Neut % (Auto) 60.1 (45-73) % Lymph % (Auto) 28.3 (20-40) % [place] % (Auto) 6.9 (2-11) % Eos % (Auto) 3.7 (0-4) % Baso % (Auto) 0.5 (0-2) % Lymph # (Auto) 3.0 (1.2-4.9) X10*3/uL [place] # (Auto) 0.7 (0.1-1.2) X10*3/uL Eos # (Auto) 0.4 (0.0-0.4) X10*3/uL Baso # (Auto) 0.1 (0.0-0.2) X10*3/uL Abs Immat Gran (auto) 0.05 H (0.00-0.03) X10*3/uL Absolute Neuts (auto) 6.4 (2.0-8.3) x10*3/uL Absolute Nucleated RBC 0.000 (0.0-0.012) X10*3/uL Nucleated RBC % (auto) 0.0 (0.0-0.2) /100WBC Sodium 138 (135-145) mmol/L Potassium 3.9 (3.3-5.1) mmol/L Chloride 107 (96-108) mmol/L Carbon Dioxide 22 (22-29) mmol/L Anion Gap 13 (12-20) BUN 10 (9-16) mg/dL Creatinine 0.78 (0.5-1.4) mg/dL Estim Creat Clear Calc 82.8 Estimated GFR > 60 Random Glucose 101 (60-115) mg/dL Calcium 9.4 D (8.4-10.2) mg/dL Total Bilirubin 0.9 (0.0-1.0) mg/dL AST 14 (5-31) U/L ALT 13 (0-31) U/L Alkaline Phosphatase 86 (39-117) U/L Troponin I High Sens < 3.5 (<3.5-17.0) ng/L Total Protein 7.3 D (6.5-8.0) g/dL Albumin 4.4 (3.5-5.0) g/dL ECG Data ECG #1: Ischemic changes: other Interpretation: 2146 All normal sinus rhythm with a rate of 66, normal CO interval QRS interval and QTC interval, no ST segment elevation, no ST segment depression, no PACs, no PVCs. Discharge Plan Discharge Clinical Impression: Acute hyperventilation, Anxiety, Syncope Patient Disposition: Home, Self-Care Instructions: Hyperventilation (ED) Additional Instructions: Your laboratory evaluation was unremarkable. Your EKG was normal. Your chest x-ray was normal. Your presentation and findings are consistent with hyperventilation syndrome/anxiety which caused due to pass out. Take ibuprofen 200 mg pills, 3 pills every 6 hours as needed for pain. Take Tylenol (acetaminophen) 500 mg pills, 2 pills every 4 to 6 hours as needed for pain. Follow-up with your doctor in 2 days. Please return to the emergency department if your symptoms get worse or if you develop any symptoms that are concerning to you. Prescriptions: No Action naproxen sodium [Flanax (naproxen)] 220 mg tablet 220 mg PO Q12H PRN (Reason: pain) 15 Days Qty: 30 1RF albuterol sulfate 2.5 mg /3 mL (0.083 %) solution for nebulization 2.5 mg inhalation QID PRN (Reason: shortness of breath or wheezing) 30 Days Qty: 180 1RF fluticasone propionate 50 mcg/actuation spray,suspension 1 spray intranasal DAILY 30 Days Qty: 9.9 1RF Rx Instructions: administer into each nostril triamcinolone acetonide 0.1 % cream 1 appl topical DAILY 15 Days Qty: 30 0RF metronidazole 500 mg tablet 500 mg PO BID 7 Days Qty: 14 0RF lactulose 10 gram/15 mL (15 mL) solution 10 g PO DAILY 15 Days Qty: 225 0RF loratadine 10 mg capsule 10 mg PO DAILY 90 Days Qty: 90 1RF gabapentin 300 mg capsule 300 mg PO BEDTIME 30 Days Qty: 30 3RF tramadol 50 mg tablet 50 mg PO DAILY PRN (Reason: pain) 7 Days Qty: 7 0RF Hold Instructions: Doctor's Order omeprazole 20 mg capsule,delayed release(DR/EC) 20 mg PO DAILY Qty: 60 3RF tizanidine 2 mg tablet 2 mg PO TID Qty: 90 2RF albuterol sulfate 90 mcg/actuation HFA aerosol inhaler 2 puff inhalation Q6H PRN (Reason: shortness of breath or wheezing) 30 Days Qty: 8.5 3RF cyclobenzaprine 10 mg tablet 10 mg PO BEDTIME PRN (Reason: muscle spasm) Qty: 7 0RF lidocaine 5 % adhesive patch,medicated 1 patch topical DAILY PRN (Reason: pain) Qty: 15 0RF Rx Instructions: leave on most painful area for up to 12 hrs morphine 15 mg tablet 15 mg PO Q8H PRN (Reason: pain) Qty: 8 0RF hydroxyzine HCl 25 mg tablet 25 mg PO BEDTIME 30 Days Qty: 30 3RF docusate sodium [Colace] 100 mg capsule 100 mg PO DAILY 30 Days Qty: 30 5RF Linzess 72 mcg capsule 72 mcg PO DAILY 30 Days Qty: 30 3RF sennosides [Natural Senna Laxative] 8.6 mg tablet 17.2 mg PO BEDTIME 30 Days Qty: 60 1RF tamsulosin 0.4 mg capsule 0.4 mg PO BEDTIME 90 Days Qty: 90 1RF Print Language: Indian
[2021-08-10] MEDS: Acetaminophen 325 MG TABLET 975 MG PO (23:59)
[2021-08-10] MEDS: LORazepam 1 MG TABLET 2 MG PO (23:59)
[2021-08-11 00:35] VITALS: BP 123/61; PULSE 61; RESP 20; O2SAT 95
== END 2021-08-11 02:06 | disposition home or self-care (01) ==
PROVIDERS: Emergency Provider Emergency Medicine Emergency Medical Services; PCP Physician Assistant
DX: R55 Syncope and collapse (principal); F41.9 Anxiety disorder, unspecified; R06.4 Hyperventilation; R07.9 Chest pain, unspecified; J45.909 Unspecified asthma, uncomplicated
CPT/HCPCS: 36415; 71046; 80053; 84484; 85025; 93005; 99283; 99285

== ENCOUNTER 2022-03-18 11:24 | Emergency (ER) | payer OTHER, SELFPAY ==
[2022-03-18 11:29] VITALS: BP 132/65; PULSE 63; RESP 18; TEMP 36.1; O2SAT 97; BMI 32.3
[2022-03-18 11:44] LABS: Appearance Urine Cloudy; Color Urine Yellow; Glucose Urine UA Negative (Negative); Leukocyte Esterase Urine Small (1+) (Negative); Nitrite Urine Negative (Negative); PH 5.5 (5.0-9.0); Specific Gravity - Urine 1.025 (1.005-1.025); UMIC TRIGGER UA YES; Urine Blood Negative (Negative); Urine Ketones Negative (Negative); Urine Protein Negative (Neg-Trace)
[2022-03-18 11:46] LABS: Bacteria Urine 4+ (None Seen); Hemoglobin 13.9 g/dl (12.0-16.0); Hyaline Casts Urine 0-2 /LPF (0-2); Mean Corpuscular HGB Conc 33.9 g/dl (31.0-35.0); Mean Corpuscular Hemoglobin 29.6 pg (27.0-33.0); Mean Corpuscular Volume 87.2 fL (80.0-98.0); Mean Platelet Volume 10.9 fL (9.4-12.3); Platelet Count 310 X10*3/uL (160-400); RBC Urine 0-2 /HPF (0-2); Red Cell Distribution Width 12.8 % (11.0-16.0); Squamous Epithelial Cell Urine >20 /HPF (0-2); White Blood Count 7.8 X10*3/uL (4.8-10.8)
[2022-03-18 11:57] LABS: Alanine Aminotransferase 14 U/L (0-31); Albumin Level 4.6 g/dL (3.5-5.0); Alkaline Phosphatase 81 U/L (39-117); Anion Gap 13 (12-20); Aspartate Amino Transferase 14 U/L (5-31); Bilirubin Total 0.8 mg/dL (0.0-1.0); Blood Urea Nitrogen 14 mg/dL (9-16); Calcium 9.4 mg/dL (8.4-10.2); Carbon Dioxide 24 mmol/L (22-29); Chloride 108 mmol/L (96-108); Creatinine Clr Calc Pharmacy 81.4; Estimated Glomerular Filt Rate > 60; Glucose Random 103 mg/dL (60-115); Potassium 4.4 mmol/L (3.3-5.1); Sodium 141 mmol/L (135-145); Total Protein 7.3 g/dL (6.5-8.0)
--- NOTE | 2022-03-18 13:05 | ED_ITS ---
HPI - General Adult General Chief complaint: General Medical Stated complaint: Back pain Time Seen by Provider: 03/18/22 11:35 Source: patient Mode of arrival: ambulatory Limitations: no limitations History of Present Illness HPI narrative: 41-year-old female came in for evaluation of lower back pain and left lower abdominal pain with dysuria and frequency urination symptoms started about 2 days ago, no vaginal bleed or discharge, patient is sexually active with 1 partner with no risk for STD., no fever, no chills. No nausea, no vomiting, no diarrhea, no loss of weight. Related Data Home Medications Medication Instructions Recorded Confirmed loratadine 10 mg tablet 10 mg PO DAILY 07/25/20 Previous Rx's Medication Instructions Recorded naproxen sodium 220 mg tablet 220 mg PO Q12H PRN pain 15 days 03/15/20 (Flanax (naproxen)) #30 tabs sennosides 8.6 mg tablet (Natural 17.2 mg PO BEDTIME 30 days #60 tabs 03/28/20 Senna Laxative) albuterol sulfate 2.5 mg/3 mL 2.5 mg (3 mL) inhalation QID PRN 03/29/20 (0.083 %) solution for nebulization shortness of breath or wheezing 30 days #180 mL fluticasone propionate 50 1 spray intranasal DAILY 30 days 04/23/20 mcg/actuation nasal #9.9 mL spray,suspension linaclotide 72 mcg capsule 72 mcg PO DAILY 30 days #30 caps 06/26/20 (Linzess) metronidazole 500 mg tablet 500 mg PO BID 7 days #14 tabs 06/27/20 triamcinolone acetonide 0.1 % 1 appl topical DAILY 15 days #30 06/27/20 topical cream grams lactulose 10 gram/15 mL (15 mL) 10 g (15 mL) PO DAILY 15 days #225 07/05/20 oral solution mL tamsulosin 0.4 mg capsule 0.4 mg PO BEDTIME 90 days #90 caps 07/25/20 gabapentin 300 mg capsule 300 mg PO BEDTIME 30 days #30 caps 11/28/20 omeprazole 20 mg capsule,delayed 20 mg PO DAILY #60 caps 11/28/20 release tizanidine 2 mg tablet 2 mg PO TID #90 tabs 02/18/21 cyclobenzaprine 10 mg tablet 10 mg PO BEDTIME PRN muscle spasm 04/12/21 #7 tabs lidocaine 5 % topical patch 1 patch topical DAILY PRN pain #15 04/12/21 ea morphine 15 mg immediate release 15 mg PO Q8H PRN pain #8 tabs 04/12/21 tablet albuterol sulfate 90 mcg/actuation 2 puff inhalation Q6H PRN 07/18/21 aerosol inhaler shortness of breath or wheezing 30 days #8.5 grams docusate sodium 100 mg capsule 100 mg PO DAILY 30 days #30 caps 08/13/21 (Colace) hydroxyzine HCl 25 mg tablet 25 mg PO BEDTIME 30 days #30 tabs 08/13/21 loratadine 10 mg capsule 10 mg PO DAILY 90 days #90 caps 08/13/21 tramadol 50 mg tablet 50 mg PO DAILY PRN pain 7 days #7 08/13/21 tabs levofloxacin 750 mg tablet 750 mg PO DAILY #10 tabs 03/18/22 Allergies Allergy/AdvReac Type Severity Reaction Status Date / Time No Known Allergies Allergy Verified 06/26/20 16:58 [No Known Allergies*] Review of Systems Review of Systems: All other systems are reviewed and are negative Constitutional: Reports as per HPI and Reports no additional constitutional complaints Eyes: Reports as per HPI and Reports no additional eye complaints Reports system reviewed and no additional complaints, except as documented Cardiovascular: Reports as per HPI and Reports no additional cardiovascular complaints Respiratory: Reports as per HPI and Reports no additional respiratory complaints Gastrointestinal: Reports as per HPI and Reports no additional gastrointestinal complaints Genitourinary: Reports no additional female genitourinary complaints Musculoskeletal: Reports no additional musculoskeletal complaints Skin/Breast: Reports system reviewed and no additional complaints, except as docu Psychiatric: Reports no additional psychiatric complaints Endocrine: Reports no additional endocrine complaints Hematologic/Lymphatic: Reports no additional hematologic/lymphatic complaints Allergic/Immunologic: Reports no additional allergic/immunologic complaints Reports system reviewed and no additional complaints, except as documented and Reports Abnormal speech present [facility] Past Medical History Medical History Anxiety Chronic abdominal pain GERD (gastroesophageal reflux disease) UTI (urinary tract infection) Surgical History History of cholecystectomy History of foot surgery History of hysterectomy Family History Family History Father No problems noted. Mother No problems noted. Maternal Grandfather Throat cancer Maternal Aunt Breast cancer Social History Social History Alcohol intake: never Patient Tobacco Use Status: Never used Tobacco Advance Directives: Yes Advance Directives on File: Yes Advance Directives Date on File: 04/13/21 Current occupational status: unemployed and disabled Physical Exam ED Vital Signs: Vital Signs - 24 hr 03/18/22 11:29 Temperature 96.9 F Pulse Rate 63 Respiratory Rate 18 Blood Pressure 132/65 Pulse Oximetry 97 Oxygen Delivery Method Room Air BMI result Body Mass Index 32.3 Vital signs have been reviewed as appeared to be correct. Blood pressure normal. Heart rate normal. Respiration rate normal. Temperature normal. Oxygen saturation normal. Appearance: Alert. Oriented X3. No acute distress. Head: Normal external exam. Normocephalic. Atraumatic. No [place] signs noted. No raccoon eyes noted Eyes: PERRLA. EOMI. Conjunctiva and sclera normal. Eyelids normal. ENT: TM's Normal. Pharynx normal. Uvula midline. Moist mucous membranes. No trismus noted. No drooling noted. No muffled voice noted. Neck: Normal inspection. Neck supple. FROM. No adenopathy. Thyroid Normal. No meningeal signs. No neck mass noted. CVS: Normal heart rate and rhythm. Heart sound normal. No murmurs noted. Pulses normal throughout. Respiratory: No respiratory distress. Painless inspiration. Breath sounds normal. No wheezes/rales/rhonchi noted. Chest nontender. No accessory muscle usage noted or decreased air movement noted. Abdomen: Soft and nontender. Bowel sounds normal in all 4 quadrants. No distention noted. No organomegaly noted. No visible injury noted. Back: No CVA tenderness. Full range of motion noted. Skin: Skin warm and dry. Normal skin color. Normal skin turgor. No rashe s/lesions/lacerations noted. Extremities: No lower extremity edema. Extremities exhibit normal range of motion. Extremities nontender. Neuro: Oriented X 3. Cranial nerve exam: II-XII are grossly intact No motor deficit. No sensory deficit. Reflexes normal. Course Course Course Narrative: Simple non complicated UTI or start the patient on Levaquin for 10 days with encouraged to drink plenty of fluid. Medical Decision Making Lab Data Lab results reviewed: Yes I reviewed the patient's lab results. Result diagrams: 03/18/22 11:37 03/18/22 11:37 Labs: Lab Results 03/18/22 03/18/22 03/18/22 Range/Units 11:37 11:37 11:37 WBC 7.8 (4.8-10.8) X10*3/uL RBC 4.70 (4.20-5.50) X10*6/uL Hgb 13.9 (12.0-16.0) g/dl Hct 41.0 (37.0-47.0) % MCV 87.2 (80.0-98.0) fL MCH 29.6 (27.0-33.0) pg MCHC 33.9 (31.0-35.0) g/dl RDW 12.8 (11.0-16.0) % Plt Count 310 (160-400) X10*3/uL MPV 10.9 (9.4-12.3) fL Absolute Nucleated RBC 0.000 (0.0-0.012) X10*3/uL Nucleated RBC % (auto) 0.0 (0.0-0.2) /100WBC Sodium 141 (135-145) mmol/L Potassium 4.4 (3.3-5.1) mmol/L Chloride 108 (96-108) mmol/L Carbon Dioxide 24 (22-29) mmol/L Anion Gap 13 (12-20) BUN 14 (9-16) mg/dL Creatinine 0.78 (0.5-1.4) mg/dL Estim Creat Clear Calc 81.4 Estimated GFR > 60 Random Glucose 103 (60-115) mg/dL Calcium 9.4 (8.4-10.2) mg/dL Total Bilirubin 0.8 (0.0-1.0) mg/dL AST 14 (5-31) U/L ALT 14 (0-31) U/L Alkaline Phosphatase 81 (39-117) U/L Total Protein 7.3 (6.5-8.0) g/dL Albumin 4.6 (3.5-5.0) g/dL Urine Color Yellow Urine Appearance Cloudy Urine pH 5.5 (5.0-9.0) Ur Specific [place] 1.025 (1.005-1.025) Urine Protein Negative (Neg-Trace) mg/dL Urine Glucose (UA) Negative (Negative) mg/dL Urine Ketones Negative (Negative) mg/dL Urine Blood Negative (Negative) Urine Nitrite Negative (Negative) Ur Leukocyte Esterase Small (1+) H (Negative) Urine RBC 0-2 (0-2) /HPF Urine WBC 11-20 H (0-5) /HPF Ur Squamous Epith Cells >20 (0-2) /HPF Urine Bacteria 4+ (None Seen) Hyaline Casts 0-2 (0-2) /LPF Discharge Plan Discharge Clinical Impression: Urinary tract infection Patient Disposition: Home, Self-Care Instructions: Urinary Tract Infection in Women (ED) Prescriptions: New levofloxacin 750 mg tablet 750 mg PO DAILY Qty: 10 0RF No Action naproxen sodium [Flanax (naproxen)] 220 mg tablet 220 mg PO Q12H PRN (Reason: pain) 15 Days Qty: 30 1RF albuterol sulfate 2.5 mg /3 mL (0.083 %) solution for nebulization 2.5 mg inhalation QID PRN (Reason: shortness of breath or wheezing) 30 Days Qty: 180 1RF fluticasone propionate 50 mcg/actuation spray,suspension 1 spray intranasal DAILY 30 Days Qty: 9.9 1RF Rx Instructions: administer into each nostril triamcinolone acetonide 0.1 % cream 1 appl topical DAILY 15 Days Qty: 30 0RF metronidazole 500 mg tablet 500 mg PO BID 7 Days Qty: 14 0RF lactulose 10 gram/15 mL (15 mL) solution 10 g PO DAILY 15 Days Qty: 225 0RF gabapentin 300 mg capsule 300 mg PO BEDTIME 30 Days Qty: 30 3RF omeprazole 20 mg capsule,delayed release(DR/EC) 20 mg PO DAILY Qty: 60 3RF tizanidine 2 mg tablet 2 mg PO TID Qty: 90 2RF albuterol sulfate 90 mcg/actuation HFA aerosol inhaler 2 puff inhalation Q6H PRN (Reason: shortness of breath or wheezing) 30 Days Qty: 8.5 3RF hydroxyzine HCl 25 mg tablet 25 mg PO BEDTIME 30 Days Qty: 30 3RF docusate sodium [Colace] 100 mg capsule 100 mg PO DAILY 30 Days Qty: 30 3RF loratadine 10 mg capsule 10 mg PO DAILY 90 Days Qty: 90 1RF tramadol 50 mg tablet 50 mg PO DAILY PRN (Reason: pain) 7 Days Qty: 7 0RF Hold Instructions: Doctor's Order cyclobenzaprine 10 mg tablet 10 mg PO BEDTIME PRN (Reason: muscle spasm) Qty: 7 0RF lidocaine 5 % adhesive patch,medicated 1 patch topical DAILY PRN (Reason: pain) Qty: 15 0RF Rx Instructions: leave on most painful area for up to 12 hrs morphine 15 mg tablet 15 mg PO Q8H PRN (Reason: pain) Qty: 8 0RF Linzess 72 mcg capsule 72 mcg PO DAILY 30 Days Qty: 30 3RF sennosides [Natural Senna Laxative] 8.6 mg tablet 17.2 mg PO BEDTIME 30 Days Qty: 60 1RF tamsulosin 0.4 mg capsule 0.4 mg PO BEDTIME 90 Days Qty: 90 1RF Referrals: Ad Burrell PA-C [Primary Care Provider] -
== END 2022-03-18 13:19 | disposition home or self-care (01) ==
PROVIDERS: Emergency Provider Emergency Medicine; PCP Physician Assistant
DX: N39.0 Urinary tract infection, site not specified (principal); M54.50 Low back pain, unspecified; R35.0 Frequency of micturition; R30.0 Dysuria; Z79.899 Other long term (current) drug therapy
CPT/HCPCS: 36415; 80053; 81001; 85027; 99282; 99283

== ENCOUNTER 2022-03-27 14:24 | Outpatient (REF) | payer MEDICARE, MEDICAID, SELFPAY ==
[2022-03-28 01:22] LABS: CT PCR NOT DETECTED (Not Detect.); NG PCR NOT DETECTED (Not Detect.)
[2022-03-28 13:04] LABS: BV Int Neg Control Negative (Negative); BV Int Pos Control Positive (Positive)
[2022-04-01 07:39] LABS: HPV mRNA E6/E7 rflx Not Detected (Not Detected)
== END 2022-03-27 14:25 | disposition home or self-care (01) ==
LOC: HO.LNP 14:24
PROVIDERS: Visit Provider Advanced Practice Midwife
DX: Z01.419 Encounter for gynecological examination (general) (routine) without abnormal findings (principal); Z11.51 Encounter for screening for human papillomavirus (HPV); R33.9 Retention of urine, unspecified; Z86.19 Personal history of other infectious and parasitic diseases; Z11.3 Encounter for screening for infections with a predominantly sexual mode of transmission
CPT/HCPCS: 87480; 87491; 87510; 87591; 87624; 87660; 88142; 99212

== ENCOUNTER 2022-04-10 08:36 | Emergency (ER) | payer MEDICARE, MEDICAID, SELFPAY ==
[2022-04-10 08:51] VITALS: O2SAT 99
[2022-04-10 08:53] VITALS: BP 123/80; PULSE 67; RESP 16; TEMP 36.7; O2SAT 97; BMI 32.3
--- NOTE | 2022-04-10 09:15 | ED.URI ---
HPI - URI/Sore Throat General Chief Complaint: Upper Respiratory Symptoms Stated Complaint: COLD SYMP,COUGH,FEVER,EXPOSE TO RSV Time Seen by Provider: 04/10/22 08:55 Source: patient Mode of arrival: ambulatory Limitations: no limitations History of Present Illness HPI Narrative: 41 yo female presenting to the ER with cough and congestion for the last 3-4 days. She reports she has been around her granddaughter who has had RSV. She reports diffuse body aches, muscle aches, headaches, congestion in her nose and chest. She has been taking DayQuil and NyQuil along with Motrin and Tylenol with minimal affect. She denies any shortness of breath or chest pain. No nausea, vomiting, abdominal pain. MD elicited complaint: cough and nasal congestion Onset (ago): day(s) (3) Consistency: constant and progressively worsening Severity: severe Description of mucous: clear and watery Exacerbating factors: nothing Relieving factors: nothing Context: sick contacts Associated symptoms: chills, myalgias, headache, rhinorrhea, nasal congestion and cough Treatments prior to arrival: none Related Data Home Medications Medication Instructions Recorded Confirmed loratadine 10 mg tablet 10 mg PO DAILY 07/25/20 Previous Rx's Medication Instructions Recorded sennosides 8.6 mg tablet (Natural 17.2 mg PO BEDTIME 30 days #60 tabs 03/28/20 Senna Laxative) albuterol sulfate 2.5 mg/3 mL 2.5 mg (3 mL) inhalation QID PRN 03/29/20 (0.083 %) solution for nebulization shortness of breath or wheezing 30 days #180 mL fluticasone propionate 50 1 spray intranasal DAILY 30 days 04/23/20 mcg/actuation nasal #9.9 mL spray,suspension linaclotide 72 mcg capsule 72 mcg PO DAILY 30 days #30 caps 06/26/20 (Linzess) lactulose 10 gram/15 mL (15 mL) 10 g (15 mL) PO DAILY 15 days #225 07/05/20 oral solution mL gabapentin 300 mg capsule 300 mg PO BEDTIME 30 days #30 caps 11/28/20 omeprazole 20 mg capsule,delayed 20 mg PO DAILY #60 caps 11/28/20 release tizanidine 2 mg tablet 2 mg PO TID #90 tabs 02/18/21 cyclobenzaprine 10 mg tablet 10 mg PO BEDTIME PRN muscle spasm 04/12/21 #7 tabs lidocaine 5 % topical patch 1 patch topical DAILY PRN pain #15 04/12/21 ea albuterol sulfate 90 mcg/actuation 2 puff inhalation Q6H PRN 07/18/21 aerosol inhaler shortness of breath or wheezing 30 days #8.5 grams docusate sodium 100 mg capsule 100 mg PO DAILY 30 days #30 caps 08/13/21 (Colace) hydroxyzine HCl 25 mg tablet 25 mg PO BEDTIME 30 days #30 tabs 08/13/21 tramadol 50 mg tablet 50 mg PO DAILY PRN pain 7 days #7 08/13/21 tabs levofloxacin 750 mg tablet 750 mg PO DAILY #10 tabs 03/18/22 metronidazole 500 mg tablet 500 mg PO BID 7 days #14 tabs 03/28/22 benzonatate 100 mg capsule 100 mg PO TID PRN cough #20 caps 04/10/22 hydrocodone-homatropine 5 mg-1.5 5 ml PO Q4-6H PRN cough #60 mL 04/10/22 mg/5 mL (5 mL) oral syrup (Hycodan) Allergies Allergy/AdvReac Type Severity Reaction Status Date / Time No Known Allergies Allergy Verified 03/27/22 13:36 [No Known Allergies*] Review of Systems Review of Systems: Constitutional: No Fever, +Chills ENT/Mouth: No sore throat, +Rhinorrhea, No Swallowing Difficulty, +Nasal congestion Eyes: No Eye Pain, No Swelling, No Redness Cardiovascular: No Chest Pain, No SOB, No Orthopnea, No Edema Respiratory: + Cough, No Sputum, No Wheezing, No dyspnea Gastrointestinal: No Nausea, No Vomiting, No Diarrhea, No abdominal Pain Genitourinary: No Dysuria, No Urinary Frequency, No Hematuria Musculoskeletal: + joint pain, + Myalgias Skin: No Skin Lesions, No rash Neuro: + Weakness, No Numbness, No Dizziness, + Headache Heme/Lymph: No Lymphadenopathy PMFSH Past Medical History Medical History (Updated 04/10/22 @ 10:00 by OLIVIA Jensen) Anxiety Chronic abdominal pain GERD (gastroesophageal reflux disease) UTI (urinary tract infection) Surgical History (Updated 03/27/22 @ 14:33 by Katie Shukla CNM) History of cholecystectomy History of foot surgery History of hysterectomy Family History Family History (Updated 03/27/22 @ 13:40 by ADELINE Law) Father No problems noted. Mother No problems noted. Maternal Grandfather Throat cancer Maternal Aunt Breast cancer Paternal Uncle Stomach cancer Paternal Aunt Colon cancer Social History Social History Alcohol intake: never Patient Tobacco Use Status: Never used Tobacco Advance Directives: Yes Advance Directives on File: Yes Advance Directives Date on File: 04/13/21 Current occupational status: unemployed and disabled Physical Exam Vital Signs: Vital Signs: Last Vital Signs Temp 98.1 F 04/10/22 08:53 Pulse 67 04/10/22 08:53 Resp 16 04/10/22 08:53 BP 123/80 04/10/22 08:53 Pulse Ox 97 04/10/22 08:53 O2 Del Method 04/10/22 08:53 BMI result Body Mass Index 32.3 Appearance: Alert. Oriented X3. years like she does not feel well Eyes: Pupils equal, round and reactive to light. ENT: Pharynx normal. Uvula midline, no tonsillar swelling or exudate. nasal congestion with clear nasal discharge Neck: Normal inspection. Neck supple. No lymphadenopathy CVS: Normal heart rate and rhythm. Pulses normal. Respiratory: No respiratory distress. Breath sounds normal. Skin: Skin warm and dry. Normal skin color. Normal skin turgor. No rashes. Extremities: No lower extremity edema. No calf tenderness Neuro: Oriented X 3. Nonfocal Course Course Course Narrative: 41-year-old female presents to the ER for evaluation of cough, congestion, body aches for the last 3-4 days in the setting of being around her granddaughter with RSV. VSS on arrival and lungs are clear throughout. Viral PCR is pending. Reevaluation(s) Reevaluation #1: Viral PCR is negative. We discussed results and symptomatic management of viral illness. Two prescriptions for antitussive agents sent to her pharmacy. She was counseled. Questions were answered. She is stable for discharge home. Patient agrees with plan Medical Decision Making Lab Data Labs: Lab Results 04/10/22 Range/Units 08:56 Influenza Type A (PCR) NEGATIVE (Negative) Influenza Type B (PCR) NEGATIVE (Negative) RSV RNA Qual (PCR) NEGATIVE (Negative) SARS-CoV-2 RNA (RT-PCR) NEGATIVE (Negative) Discharge Plan Discharge Clinical Impression: Acute viral syndrome Patient Disposition: Home, Self-Care Instructions: Viral Syndrome (ED) Additional Instructions: You tested negative for COVID-19, influenza and RSV. You most likely have another viral illness. Treatment is rest and supportive care. Take over the counter cold/flu medications as needed for your symptoms. Take the prescribed medications as needed for cough. Rest and stay hydrated. Make sure you are drinking plenty of water. Follow up with your doctor as needed. If you develop new or worsening symptoms call 911 or come back to the ER for further evaluation. Prescriptions: New benzonatate 100 mg capsule 100 mg PO TID PRN (Reason: cough) Qty: 20 0RF hydrocodone-homatropine [Hycodan] 5-1.5 mg/5 mL (5 mL) syrup 5 ml PO Q4-6H PRN (Reason: cough) Qty: 60 0RF Rx Instructions: Partial Fill upon patient request. No Action albuterol sulfate 2.5 mg /3 mL (0.083 %) solution for nebulization 2.5 mg inhalation QID PRN (Reason: shortness of breath or wheezing) 30 Days Qty: 180 1RF fluticasone propionate 50 mcg/actuation spray,suspension 1 spray intranasal DAILY 30 Days Qty: 9.9 1RF Rx Instructions: administer into each nostril lactulose 10 gram/15 mL (15 mL) solution 10 g PO DAILY 15 Days Qty: 225 0RF gabapentin 300 mg capsule 300 mg PO BEDTIME 30 Days Qty: 30 3RF omeprazole 20 mg capsule,delayed release(DR/EC) 20 mg PO DAILY Qty: 60 3RF tizanidine 2 mg tablet 2 mg PO TID Qty: 90 2RF albuterol sulfate 90 mcg/actuation HFA aerosol inhaler 2 puff inhalation Q6H PRN (Reason: shortness of breath or wheezing) 30 Days Qty: 8.5 3RF hydroxyzine HCl 25 mg tablet 25 mg PO BEDTIME 30 Days Qty: 30 3RF docusate sodium [Colace] 100 mg capsule 100 mg PO DAILY 30 Days Qty: 30 3RF tramadol 50 mg tablet 50 mg PO DAILY PRN (Reason: pain) 7 Days Qty: 7 0RF Hold Instructions: Doctor's Order metronidazole 500 mg tablet 500 mg PO BID 7 Days Qty: 14 0RF Rx Instructions: Take with food, Avoid alcohol and vinegar products cyclobenzaprine 10 mg tablet 10 mg PO BEDTIME PRN (Reason: muscle spasm) Qty: 7 0RF lidocaine 5 % adhesive patch,medicated 1 patch topical DAILY PRN (Reason: pain) Qty: 15 0RF Rx Instructions: leave on most painful area for up to 12 hrs levofloxacin 750 mg tablet 750 mg PO DAILY Qty: 10 0RF Linzess 72 mcg capsule 72 mcg PO DAILY 30 Days Qty: 30 3RF sennosides [Natural Senna Laxative] 8.6 mg tablet 17.2 mg PO BEDTIME 30 Days Qty: 60 1RF
[2022-04-10 09:51] LABS: Influenza A PCR NEGATIVE (Negative); Influenza B PCR NEGATIVE (Negative); Resp Syncy Virus RNA Qual PCR NEGATIVE (Negative); SARS COV2 PCR INHOUSE NEGATIVE (Negative)
[2022-04-10] MEDS: guaiFEN/Codeine SF 200/20/10ML 10 ML LIQUID PO (10:01)
[2022-04-10] MEDS: Ibuprofen 600 MG TABLET PO (10:01)
== END 2022-04-10 10:20 | disposition home or self-care (01) ==
PROVIDERS: Physician Assistant; Emergency Provider Student in an Organized Health Care Education/Training Program; PCP Physician Assistant
DX: B34.9 Viral infection, unspecified (principal); M79.10 Myalgia, unspecified site; R51.9 Headache, unspecified; R05.9 Cough, unspecified; Z20.822 Contact with and (suspected) exposure to COVID-19
CPT/HCPCS: 0241U; 99283

== ENCOUNTER 2022-05-12 10:34 | Outpatient (REF) | payer OTHER, SELFPAY ==
--- NOTE | ~2022-05-12 | US_ITS ---
EXAMINATION: US PELVIS CLINICAL INFORMATION: Urinary retention; history of prior hysterectomy and right oophorectomy. COMPARISON: Pelvic ultrasound dated 04/18/2020. TECHNIQUE: Ultrasound of the pelvis is performed using both transabdominal and transvaginal transducers along with Doppler. Transvaginal imaging is performed due to inadequate visualization transabdominally. FINDINGS: Uterus: The uterus is surgically absent. Adnexa: The right ovary is surgically absent. There is normal color flow to the left adnexa. The left ovary measures 4.1 x 4.0 x 4.5 cm (volume 37.7 mL). The left ovary contains a 3.5 x 2.4 x 3.4 cm dominant, simple cyst. There is no left ovarian torsion. There is no pelvic ascites or fluid collection. US/US pelvic and transvaginal IMPRESSION: 1. The uterus and right ovary are surgically absent. 2. A 3.5 cm dominant, simple left ovarian cyst is incidentally noted. 3. No adnexal mass or pelvic free fluid is seen.
== END 2022-05-12 10:35 | disposition home or self-care (01) ==
LOC: HO.US 10:34
PROVIDERS: PCP Physician Assistant; Visit Provider Advanced Practice Midwife
DX: N32.89 Other specified disorders of bladder (principal); R33.9 Retention of urine, unspecified; Z98.890 Other specified postprocedural states; Z86.19 Personal history of other infectious and parasitic diseases
CPT/HCPCS: 76830; 76856

== ENCOUNTER 2022-09-01 10:36 | Outpatient (REF) | payer OTHER, MEDICAID, SELFPAY ==
[2022-09-01 12:45] LABS: Hematocrit 42.3 % (37.0-47.0); Hemoglobin 13.5 g/dl (12.0-16.0); Mean Corpuscular HGB Conc 31.9 g/dl (31.0-35.0); Mean Corpuscular Volume 87.8 fL (80.0-98.0); Mean Platelet Volume 11.6 fL (9.4-12.3); Platelet Count 283 X10*3/uL (160-400); Red Blood Count 4.82 X10*6/uL (4.20-5.50); Red Cell Distribution Width 13.2 % (11.0-16.0); White Blood Count 9.2 X10*3/uL (4.8-10.8)
[2022-09-01 13:15] LABS: Alanine Aminotransferase 14 U/L (0-31); Albumin Level 4.4 g/dL (3.5-5.0); Alkaline Phosphatase 77 U/L (39-117); Anion Gap 12 (12-20); Aspartate Amino Transferase 14 U/L (5-31); Bilirubin Total 1.1 mg/dL (0.0-1.0); Blood Urea Nitrogen 9 mg/dL (9-16); Calcium 9.1 mg/dL (8.4-10.2); Carbon Dioxide 25 mmol/L (22-29); Chloride 109 mmol/L (96-108); Estimated Glomerular Filt Rate > 60; Glucose Fasting 89 mg/dL (60-99); Iron 89 mcg/dL (30-160); Percent Iron Saturation 28 % (15-50); Potassium 4.7 mmol/L (3.3-5.1); Sodium 141 mmol/L (135-145); Total Iron Binding Capacity 316 mcg/dL (228-428); Unsaturated Iron Binding 227 ug/dL
== END 2022-09-01 10:37 | disposition home or self-care (01) ==
LOC: HO.LAB 10:36
PROVIDERS: PCP Physician Assistant; Visit Provider Physician Assistant
DX: Z13.1 Encounter for screening for diabetes mellitus (principal); D50.9 Iron deficiency anemia, unspecified; J45.20 Mild intermittent asthma, uncomplicated
CPT/HCPCS: 36415; 80053; 83540; 85027

== ENCOUNTER 2023-09-10 09:33 | Emergency (ER) | payer OTHER, SELFPAY ==
[2023-09-10 09:48] VITALS: BP 129/76; PULSE 73; RESP 16; TEMP 36.6; O2SAT 97; BMI 43.5
[2023-09-10 10:05] LABS: MANUAL DIFF FLAG NO
[2023-09-10 10:08] LABS: Basophils Percent Auto 0.2 % (0-2); Eosinophils Absolute Auto 0.1 X10*3/uL (0.0-0.4); Eosinophils Percent Auto 1.1 % (0-4); Hematocrit 41.7 % (37.0-47.0); Hemoglobin 14.5 g/dl (12.0-16.0); Imm Gran Abs Auto 0.04 X10*3/uL (0.00-0.03); Imm Gran Pct Auto 0.6 % (0.0-0.4); Lymphocytes Absolute Auto 1.1 X10*3/uL (1.2-4.9); Lymphocytes Percent Auto 17.2 % (20-40); Mean Corpuscular HGB Conc 34.8 g/dl (31.0-35.0); Mean Corpuscular Hemoglobin 29.6 pg (27.0-33.0); Mean Corpuscular Volume 85.1 fL (80.0-98.0); Mean Platelet Volume 10.7 fL (9.4-12.3); Monocytes Absolute Auto 0.6 X10*3/uL (0.1-1.2); Monocytes Percent Auto 9.2 % (2-11); Neutrophils Absolute Auto 4.8 x10*3/uL (2.0-8.3); Neutrophils Percent Auto 71.7 % (45-73); Platelet Count 316 X10*3/uL (160-400); White Blood Count 6.6 X10*3/uL (4.8-10.8)
[2023-09-10 10:30] LABS: Anion Gap 14 (12-20); Blood Urea Nitrogen 10 mg/dL (9-16); Calcium 9.1 mg/dL (8.4-10.2); Carbon Dioxide 25 mmol/L (22-29); Chloride 104 mmol/L (96-108); Creatinine Clr Calc Pharmacy 93.2; Estimated Glomerular Filt Rate > 60; Glucose Random 106 mg/dL (60-115); Sodium 139 mmol/L (135-145)
[2023-09-10 12:00] VITALS: BP 107/68; PULSE 63; RESP 17; TEMP 36.7; O2SAT 98
--- NOTE | 2023-09-10 12:06 | ED_ITS ---
HPI - Female Genitourinary General Chief complaint: Urogenital-Female Stated complaint: Abd pain, vomiting Time Seen by Provider: 09/10/23 12:06 Source: patient Mode of arrival: ambulatory Limitations: no limitations History of Present Illness HPI Narrative: Patient is a 43 year old assigned female at with a history of recurrent UTI, GERD, and MDD presenting to the emergency department today with foul smelling urine and nausea. Patient states that over the last few days she has had bilateral low back pain that she is concerned are her kidneys, nausea, and foul smelling urine. Patient denies any dizziness, lightheadedness, abdominal pain, fever, chills, blurry vision, double vision, loss of vision, chest pain, difficulty breathing, shortness of breath, night sweats, pain with urination, increased urinary frequency, increased urinary urgency, blood in her urine or stool, syncope or a near syncopal episode, recent trauma or falls, bowel incontinence, bladder incontinence, bowel retention, bladder retention, or any other complaints at this time. MD elicited complaint: flank pain Severity: mild Female Urogenital Radiation: Non-Radiating Severity scale (1-10): 3 Quality of pain: dull Consistency: constant Vaginal discharge: none Vaginal bleeding: none Urinary symptoms: Foul Smelling Urine Exacerbating factors: none Relieving factors: none Associated symptoms: nausea Treatment prior to arrival: none Related Data Previous Rx's ?Medication ?Instructions ?Recorded linaclotide 72 mcg capsule 72 mcg PO DAILY 30 days #30 caps 06/26/20 (Linzess) docusate sodium 100 mg capsule 100 mg PO DAILY 30 days #30 caps 08/13/21 (Colace) albuterol sulfate 2.5 mg/3 mL 2.5 mg (3 mL) inhalation QID PRN 07/28/22 (0.083 %) solution for nebulization shortness of breath or wheezing 30 days #180 mL omeprazole 20 mg capsule,delayed 20 mg PO DAILY #60 caps 09/01/22 release albuterol sulfate 90 mcg/actuation 2 puff inhalation Q6H PRN 11/17/22 aerosol inhaler shortness of breath or wheezing 30 days #8.5 grams cyclobenzaprine 10 mg tablet 10 mg PO BEDTIME PRN muscle spasm 11/17/22 15 days #15 tabs hydroxyzine HCl 25 mg tablet 25 mg PO BEDTIME 30 days #30 tabs 11/27/22 clonazepam 1 mg tablet 1 mg PO DAILY PRN anxiety 30 days 04/01/23 #8 tabs fluticasone propionate 50 1 spray intranasal DAILY 30 days 04/01/23 mcg/actuation nasal #9.9 mL spray,suspension gabapentin 300 mg capsule 300 mg PO BEDTIME 30 days #30 caps 04/01/23 loratadine 10 mg tablet 10 mg PO DAILY 90 days #90 tabs 04/01/23 tramadol 50 mg tablet 50 mg PO DAILY PRN pain 7 days #7 04/01/23 tabs triamcinolone acetonide 0.1 % 1 appl topical DAILY 30 days #80 04/01/23 topical cream grams cefuroxime axetil 250 mg tablet 250 mg PO BID 7 days #14 tabs 09/10/23 Allergies Allergy/AdvReac Type Severity Reaction Status Date / Time No Known Allergies Allergy Verified 09/10/23 09:51 [No Known Allergies*] Review of Systems 2 Constitutional: Constitutional: Reports no additional constitutional complaints, Denies chills, Denies fever(s) and Denies night sweats Eyes: Eyes: Reports no additional eye complaints, Denies blurry vision, Denies change in vision, Denies diplopia, Denies eye discharge, Denies loss of vision and Denies eye pain ENT: Denies dizziness Cardiovascular: Cardiovascular: Reports no additional cardiovascular complaints, Denies chest pain, Denies lightheadedness, Denies Loss of Consciousness and Denies dyspnea Respiratory: Respiratory: Reports no additional respiratory complaints and Denies dyspnea Gastrointestinal: Gastrointestinal: Reports no additional gastrointestinal complaints, Denies abdominal pain, Denies melena, Denies hematochezia, Denies change in bowel habits, Denies change in stool character and Reports nausea Genitourinary: Genitourinary: Denies hematuria, Denies urinary frequency, Denies dysuria, Reports flank pain, Denies urinary incontinence, Denies urinary hesitancy and Denies urinary urgency Musculoskeletal: Musculoskeletal: Reports no additional musculoskeletal complaints, Reports back pain, Denies numbness and Denies tingling Neurologic: Denies dizziness, Denies loss of vision, Denies numbness and Denies tingling Psychiatric: Psychiatric: Reports no additional psychiatric complaints Endocrine: Endocrine: Reports no additional endocrine complaints Hematologic/Lymphatic: Hematologic/Lymphatic: Reports no additional hematologic/lymphatic complaints Allergic/Immunologic: Allergic/Immunologic: Reports no additional allergic/immunologic complaints [facility] Past Medical History Attestation statement: The following information was validated with the patient. Source: old records reviewed and nursing notes reviewed Medical History Chronic abdominal pain GERD (gastroesophageal reflux disease) UTI (urinary tract infection) Surgical History History of hysterectomy History of foot surgery History of cholecystectomy Family History Family History Father No problems noted. Mother No problems noted. Maternal Grandfather Throat cancer Maternal Aunt Breast cancer Paternal Uncle Stomach cancer Paternal Aunt Colon cancer Social History Social History Housing: Apartment Alcohol intake: never Patient Tobacco Use Status: Never used Tobacco e-Cigarette/Vaping Use: Never Used Second Hand Smoke Exposure: No Advance Directives: Yes Advance Directives on File: Yes Advance Directives Date on File: 04/13/21 service: No Current occupational status: unemployed and disabled Cognitive needs: No Hearing needs: No Vision needs: No Physical Exam 2 Vital Signs: Vital Signs: Last Vital Signs Temp 98.1 F 09/10/23 13:13 Pulse 63 09/10/23 13:13 Resp 17 09/10/23 13:13 BP 107/68 09/10/23 13:13 Pulse Ox 98 09/10/23 13:13 O2 Del Method Room Air 09/10/23 13:13 BMI result Body Mass Index 43.5 Const: General: cooperative, no acute distress, alert and awake Nutritional Appearance: well nourished Orientation/consciousness: patient oriented x3 Limitations: no limitations HEENT: Head: Yes normal to inspection and Yes atraumatic Ears: hearing grossly normal bilaterally and external ears normal General nose exam: Normal external nose present, no nasal discharge noted and no epistaxis Face and sinus: Yes normal facial exam, No abrasion and No laceration Mouth: Normal oral and palatal mucosa present, no drooling and no muffled voice Eyes: General: appearance normal, both eyes and all related structures P eriorbital: periorbital findings normal Eyelids: Yes eyelids normal C onjunctivae: conjunctivae normal Pupils: Equal, round and reactive pupils present EOM: EOMs intact bilaterally Neck: Neck: Yes normal visual inspection, Yes full ROM and Yes no lymphadenopathy Chest: Chest palpation & inspection: normal inspection of the chest Resp: Effort & Inspection: normal respiratory effort and able to speak in complete sentences GI: Inspection: Yes normal to inspection Palpation (GI): Soft to palpation, not firm, nontender and no guarding : General: Yes no CVA tenderness Back/Spine/Pelvis: Back: no CVA tenderness Neuro: General: patient oriented x3 and moves all extremities Cranial nerves: Yes Equal, round and reactive pupils present Cognition (Neuro): n ormal cognition Motor exam (neuro): 5/5 motor strength present throughout Sensory Exam: Normal double simultaneous stimulation for sensation C oordination: [id number] test normal Extrem: General: Yes normal to inspection, Yes full ROM and Yes capillary refill normal Psych: Appearance: grossly normal Mental Status: mental status grossly normal Affect: normal affect Attitude: cooperative Thought process: N ormal thought process present Thought content: Normal thought content present Insight: Good insight present (Psych) Medications Administered Discontinued Medications Generic Name Dose Route Start Last Admin Trade Name Freq PRN Reason Stop Dose Admin Sodium Chloride 1,000 mls @ 999 mls/hr 09/10/23 12:15 09/10/23 12:22 Ns IV 09/10/23 13:15 999 mls/hr .Q1H1M TOMMY Administration Ketorolac Tromethamine 15 mg 09/10/23 12:06 09/10/23 12:20 Ketorolac Tromethamine 15 Mg/Ml Vial IVPUSH 09/10/23 12:07 15 mg ONCE ONE Administration Ondansetron HCl 4 mg 09/10/23 12:06 09/10/23 12:20 Ondansetron Hcl 4 Mg/2 Ml Vial IVPUSH 09/10/23 12:07 4 mg ONCE ONE Administration Medical Decision Making Medical Decision Making MDM Narrative: Patient is a 43 year old assigned female at with a history of recurrent UTI, GERD, and MDD presenting to the emergency department today with flank pain and foul smelling urine. Patient's physical exam was unremarkable. Patient's blood work was unremarkable. Patient's urine showed an acute infection. I explained my physical exam findings as well as all test results to the patient. I answered all questions asked by the patient. Patient received IV fluids and pain medication which she stated helped her symptoms significantly. I stressed the importance of the patient taking her medication as prescribed. I stressed the importance of the patient following up with her primary care provider. I stressed the importance of the patient returning to the emergency department immediately if her symptoms were to worsen or if she were to develop any dizziness, shortness of breath, difficulty breathing, chest pain, blurry vision, loss of vision, nausea, vomiting, abdominal pain, fever, chills, back pain, or any other complaints. Patient verbalized agreement and understanding with this treatment plan and discharge. Differential Diagnosis Differential Diagnoses: The differential diagnosis associated with the presentation includes UTI Dysuria Flank pain Admission/Observation Consideration of admission/observation: Escalation of care including admission/observation considered Patient would have been admitted to the hospital had her work up had any findings where hospital admission was appropriate and her clinical presentation warranted hospital admission. Lab Data [facility] Lab Attestation statement: I reviewed the patient's lab results. My interpretation of these results are in the [facility] Rationale portion of this note. 09/10/23 10:03 09/10/23 10:03 Labs: Lab Results 09/10/23 09/10/23 Range/Units 10:03 12:25 WBC 6.6 (4.8-10.8) X10*3/uL RBC 4.90 (4.20-5.50) X10*6/uL Hgb 14.5 (12.0-16.0) g/dl Hct 41.7 (37.0-47.0) % MCV 85.1 (80.0-98.0) fL MCH 29.6 (27.0-33.0) pg MCHC 34.8 (31.0-35.0) g/dl RDW 13.0 (11.0-16.0) % Plt Count 316 (160-400) X10*3/uL MPV 10.7 (9.4-12.3) fL Immature Gran % (Auto) 0.6 H (0.0-0.4) % Neut % (Auto) 71.7 (45-73) % Lymph % (Auto) 17.2 L (20-40) % [place] % (Auto) 9.2 (2-11) % Eos % (Auto) 1.1 (0-4) % Baso % (Auto) 0.2 (0-2) % Lymph # (Auto) 1.1 L (1.2-4.9) X10*3/uL [place] # (Auto) 0.6 (0.1-1.2) X10*3/uL Eos # (Auto) 0.1 (0.0-0.4) X10*3/uL Baso # (Auto) 0.0 (0.0-0.2) X10*3/uL Abs Immat Gran (auto) 0.04 H (0.00-0.03) X10*3/uL Absolute Neuts (auto) 4.8 (2.0-8.3) x10*3/uL Absolute Nucleated RBC 0.000 (0.0-0.012) X10*3/uL Nucleated RBC % (auto) 0.0 (0.0-0.2) /100WBC Sodium 139 (135-145) mmol/L Potassium 4.0 (3.3-5.1) mmol/L Chloride 104 (96-108) mmol/L Carbon Dioxide 25 (22-29) mmol/L Anion Gap 14 (12-20) BUN 10 (9-16) mg/dL Creatinine 0.79 (0.5-1.4) mg/dL Estim Creat Clear Calc 93.2 Estimated GFR > 60 Random Glucose 106 (60-115) mg/dL Calcium 9.1 (8.4-10.2) mg/dL Urine Color Dark Yellow Urine Appearance Cloudy Urine pH 5.5 (5.0-9.0) Ur Specific [place] >= 1.030 H (1.005-1.025) Urine Protein Trace (Neg-Trace) mg/dL Urine Glucose (UA) Negative (Negative) mg/dL Urine Ketones Trace (Negative) mg/dL Urine Blood Negative (Negative) Urine Nitrite Positive H (Negative) Ur Leukocyte Esterase Negative (Negative) Urine RBC 0-2 (0-2) /HPF Urine WBC 6-10 H (0-5) /HPF Ur Squamous Epith Cells >20 (0-2) /HPF Urine Bacteria 4+ (None Seen) Hyaline Casts 0-2 (0-2) /LPF Urine Test NEGATIVE (NEGATIVE) Tests considered The following testing was considered but not selected: I considered a CT of the abdomen/pelvis however, the patient's current clinical presentation does not warrant it. I discussed this with the patient who verbalized understanding and agreement. Prescription Management I considered prescription management with: Antibiotic (patient is prescribed an antibiotic for UTI) Critical Care Time Critical Care Time Critical Care Time: Yes Total Critical Care Time: 66 Attestation: I spent 66 minutes of Critical Care Time with this patient. This does not include time spent on separately reported billable procedures. Discharge Plan Discharge Clinical Impression: Urinary tract infection Patient Disposition: Home, Self-Care Instructions: Urinary Tract Infection in Women (DC) Additional Instructions: Take your antibiotic as prescribed. Follow up with your primary care provider. Return to the emergency department immediately if your symptoms worsen or if you develop any dizziness, shortness of breath, difficulty breathing, chest pain, blurry vision, loss of vision, nausea, vomiting, abdominal pain, fever, chills, back pain, or any other complaints. Prescriptions: New cefuroxime axetil 250 mg tablet 250 mg PO BID 7 Days Qty: 14 0RF No Action docusate sodium [Colace] 100 mg capsule 100 mg PO DAILY 30 Days Qty: 30 3RF albuterol sulfate 2.5 mg /3 mL (0.083 %) solution for nebulization 2.5 mg inhalation QID PRN (Reason: shortness of breath or wheezing) 30 Days Qty: 180 1RF albuterol sulfate 90 mcg/actuation HFA aerosol inhaler 2 puff inhalation Q6H PRN (Reason: shortness of breath or wheezing) 30 Days Qty: 8.5 3RF cyclobenzaprine 10 mg tablet 10 mg PO BEDTIME PRN (Reason: muscle spasm) 15 Days Qty: 15 1RF hydroxyzine HCl 25 mg tablet 25 mg PO BEDTIME 30 Days Qty: 30 0RF tramadol 50 mg tablet 50 mg PO DAILY PRN (Reason: pain) 7 Days Qty: 7 0RF Hold Instructions: Doctor's Order clonazepam 1 mg tablet 1 mg PO DAILY PRN (Reason: anxiety) 30 Days Qty: 8 0RF gabapentin 300 mg capsule 300 mg PO BEDTIME 30 Days Qty: 30 3RF loratadine 10 mg tablet 10 mg PO DAILY 90 Days Qty: 90 1RF fluticasone propionate 50 mcg/actuation spray,suspension 1 spray intranasal DAILY 30 Days Qty: 9.9 3RF Rx Instructions: administer into each nostril triamcinolone acetonide 0.1 % cream 1 appl topical DAILY 30 Days Qty: 80 2RF Linzess 72 mcg capsule 72 mcg PO DAILY 30 Days Qty: 30 3RF omeprazole 20 mg capsule,delayed release(DR/EC) 20 mg PO DAILY Qty: 60 3RF Referrals: Ad Burrell PA-C [Primary Care Provider] - Stand Alone Forms: Work/School Release Interventions: ED Discharge Assessment Last Done: 09/10/23 13:13 Discharge Date/Time: 09/10/23 13:14 Print Language: Nepali
[2023-09-10] MEDS: Ketorolac Tromethamine 15 MG/ML VIAL IVPUSH (12:20)
[2023-09-10] MEDS: ondansetron HCL 4 MG/2 ML VIAL IVPUSH (12:20)
[2023-09-10] MEDS: 0.9 % Sodium Chloride 1,000 ML 999 ML IV (12:22)
[2023-09-10 12:34] LABS: Appearance Urine Cloudy; Color Urine Dark Yellow; Glucose Urine UA Negative (Negative); Leukocyte Esterase Urine Negative (Negative); Nitrite Urine Positive (Negative); PH 5.5 (5.0-9.0); UMIC TRIGGER UACC YES; Urine Blood Negative (Negative); Urine Ketones Trace mg/dL (Negative); Urine Protein Trace mg/dL (Neg-Trace)
[2023-09-10 12:37] LABS: UPreg QC Valid YES; Urine Pregnancy NEGATIVE (NEGATIVE)
[2023-09-10 13:00] LABS: Bacteria Urine 4+ (None Seen); Hyaline Casts Urine 0-2 /LPF (0-2); RBC Urine 0-2 /HPF (0-2); Squamous Epithelial Cell Urine >20 /HPF (0-2); UACC Culture Trigger YES
[2023-09-10 13:01] LABS: Specific Gravity - Urine >= 1.030 (1.005-1.025)
[2023-09-10 13:13] VITALS: BP 107/68; PULSE 63; RESP 17; TEMP 36.7; O2SAT 98
== END 2023-09-10 13:14 | disposition home or self-care (01) ==
PROVIDERS: Emergency Provider Student in an Organized Health Care Education/Training Program; PCP Physician Assistant
DX: N39.0 Urinary tract infection, site not specified (principal)
CPT/HCPCS: 36415; 80048; 81001; 81025; 85025; 87086; 87088; 87186; 96374; 96375; 99284; J1885; J2405

== ENCOUNTER 2023-09-23 13:45 | Outpatient (AMB) | payer OTHER, SELFPAY ==
--- NOTE | 2023-09-23 13:52 | A.OFFVIS_ITS ---
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 Allergies No Known Allergies [No Known Allergies*] Allergy (Verified 09/23/23 13:54) Medication List - Last Reconciled 09/23/23 by Katie Shukla CNM albuterol sulfate 2.5 mg (3 mL) inhalation QID PRN 30 days albuterol sulfate 90 mcg/actuation 2 puffs inhalation Q6H PRN 30 days cefuroxime axetil 250 mg PO BID 7 days clonazepam 1 mg PO DAILY PRN 30 days cyclobenzaprine 10 mg PO BEDTIME PRN 15 days docusate sodium (Colace) 100 mg PO DAILY 30 days fluticasone propionate 50 mcg/actuation 1 spray intranasal DAILY 30 days gabapentin 300 mg PO BEDTIME 30 days hydroxyzine HCl 25 mg PO BEDTIME 30 days linaclotide (Linzess) 72 mcg PO DAILY 30 days loratadine 10 mg PO DAILY 90 days omeprazole 20 mg PO DAILY tramadol 50 mg PO DAILY PRN 7 days triamcinolone acetonide 0.1% 1 appl topical DAILY 30 days Is last menstrual period known: No HPI HPI [employer] annual exam: Details: Patient is here for her backbreaker annual exam her daughter made this appointment as she has been uncomfortable on her left side for quite some time and is scared and thinking it might be cancer from her memory she thought that her hysterectomy removal of her ovary had something to do with something that was ?almost cancer? and so she is afraid. She also is constipated she does use MiraLax but not all the time. She does not like to drink water. She also was not feeling good recently and went to the emergency room about a week ago and she has bruises from where the IV was started in the left arm. She says she is feeling better now she has on the last day of the antibiotics which are blue. [facility] Medical History Chronic abdominal pain GERD (gastroesophageal reflux disease) UTI (urinary tract infection) Surgical History History of hysterectomy History of foot surgery History of cholecystectomy Family History Father No problems noted. Mother No problems noted. Maternal Grandfather Throat cancer Maternal Aunt Breast cancer Paternal Uncle Stomach cancer Paternal Aunt Colon cancer Social History Housing: Apartment Alcohol intake: never Patient Tobacco Use Status: Never used Tobacco e-Cigarette/Vaping Use: Never Used Second Hand Smoke Exposure: No Advance Directives Date on File: 04/13/21 service: No Current occupational status: unemployed and disabled Cognitive needs: No Hearing needs: No Vision needs: No Female Reproductive History Menstrual Age of Menarche: 7 Duration of menses: <3 days control method: none Total pregnancies: 8 Full term: 4 Date of last pap smear: 03/28/22 (negative) History of abnormal pap smear: Yes (11/23/2016) Physical Exam Vital Signs: Last Vital Signs BP 118/62 09/23/23 13:53 BMI result Body Mass Index 33.3 Const General: healthy appearing, comfortable, no acute distress, well developed and alert Nutritional Appearance: average body habitus Orientation/consciousness: patient oriented x3 Limitations: no limitations HEENT Head: Yes normocephalic Neck Neck: Yes normal visual inspection Chest Chest palpation & inspection: normal inspection of the chest Breast/axilla inspection: normal inspection of the breasts and normal inspection of the axillae Breast/axilla palpation: normal palpation of the breasts and normal palpation of the axillae Resp Effort & Inspection: normal respiratory effort GI Inspection: Yes normal to inspection, No Abdominal wall edema and No distended Palpation (GI): Soft to palpation and nontender Other: Uterus and right ovary are surgically absent. Patient is very tender at the scar from vaginal cuff. Discharge was scant and white. External Female Exam: normal external appearance and normal appearance of the urethra Speculum Exam - Vagina: normal appearance of the vagina and normal vaginal discharge Bimanual Exam- Adnexa, other: normal adnexae, no masses, normal and No adnexal tenderness Neuro General: patient oriented x3 Assessment & Plan Assessment & Plan (1) History of hysterectomy: Comment: w bladder ? lift? at [facility] ( multispecialty surgery per pt), followed by urinary retention challenges Code(s): Z90.710 - Acquired absence of both cervix and uterus Category: Surgical (2) History of bladder surgery: Comment: at [facility] w hysterectomy/ removal of 1 ovary Code(s): Z98.890 - Other specified postprocedural states Category: Surgical (3) Breast cancer screening: Code(s): Z12.39 - Encounter for other screening for malignant neoplasm of breast Category: Medical Qualifiers: Breast cancer screening modality: mammogram Qualified Code(s): Z12.31 - Encounter for screening mammogram for malignant neoplasm of breast (4) Hx of human papillomavirus infection: Code(s): Z86.19 - Personal history of other infectious and parasitic diseases Category: Medical (5) Cervical cancer screening: Comment: (patient previously cited history of abnormal paps) 03/27/2022 Pap is negative with negative HPV. Code(s): Z12.4 - Encounter for screening for malignant neoplasm of cervix Category: Medical (6) Pelvic pain: Code(s): R10.2 - Pelvic and perineal pain Category: Medical (7) UTI (urinary tract infection): Comment: Is on last day of antibiotics from er, feels much better. Code(s): N39.0 - Urinary tract infection, site not specified Category: Medical Qualifiers: Urinary tract infection type: site unspecified Hematuria presence: without hematuria Qualified Code(s): N39.0 - Urinary tract infection, site not specified Plan -----Discussed in this visit the following: healthy balanced diet, regular and consistent exercise, getting recommended health screens, doing the best she can for her particular health concerns, kegel exercises, pap smear screening and followup recommendations, mammography screening and SBE, normal changes in cycles in her life stage--- . Reviewed her past records as best I could signed what is in the system,([facility] ) I could not find actual records indicating how she might have been referred to [facility] or if she was or why the surgery was done and what was the finding. patient indicates that there was a lot of people telling her lots of things and it was scary in there was some question about it was almost cancer , so now that she is having less abdominal pain for some time she is afraid that it is cancer and she burst into tears she says her daughter ended up making the appointment because she was worried about her. We will have her sign for records of hysterectomy from [facility] to ascertain details and see her after records are in the ultrasound is done. I am also ordering. Also you that it be discomfort related to other body parts or scar tissue or constipation or certainly from the UTI she is just recovered from. She says she does not drink a lot a water she does not like it. I suggested she invest in a hema filter-- sometimes 1 can be found in [employer] or good- will for less money and then she can save money on buying water. Note after the patient left I was able to find records referral from [facility], to [facility] urogynecology in 2019. I did not find records of the surgery. Orders: Orders CT NG by PCR Today Z20.2 - Contact with and (suspected) exposure to infections with a predominantly sexual mode of transmission MM tomosynthesis screening BI Today N39.0 - Urinary tract infection, site not specified, Z12.31 - Encounter for screening mammogram for malignant neoplasm of breast, Z12.4 - Encounter for screening for malignant neoplasm of cervix, Z86.19 - Personal history of other infectious and parasitic diseases, Z90.710 - Acquired absence of both cervix and uterus, Z98.890 - Other specified postprocedural states US pelvic and transvaginal Today R10.2 - Pelvic and perineal pain, Z12.31 - Encounter for screening mammogram for malignant neoplasm of breast, Z12.4 - Encounter for screening for malignant neoplasm of cervix, Z86.19 - Personal history of other infectious and parasitic diseases, Z90.710 - Acquired absence of both cervix and uterus, Z98.890 - Other specified postprocedural states Pap Smear Today Z01.419 - Encounter for gynecological examination (general) (routine) without abnormal findings Bacterial Vaginosis Panel Today R10.2 - Pelvic and perineal pain Coding Level of Care Code Est Pt Prev Care 40-64y(88432) Diagnoses History of hysterectomy Z90.710 History of bladder surgery Z98.890 Encounter for screening mammogram for malignant neoplasm of breast Z12.31 Breast cancer screening modality: mammogram Hx of human papillomavirus infection Z86.19 Cervical cancer screening Z12.4 Pelvic pain R10.2 Urinary tract infection without hematuria, site unspecified N39.0 Urinary tract infection type: site unspecified Hematuria presence: without hematuria
[2023-09-23 13:53] VITALS: BP 118/62; BMI 33.3
== END 2023-09-23 15:17 | disposition home or self-care (01) ==
PROVIDERS: PCP Physician Assistant; Visit Provider Advanced Practice Midwife
DX: Z01.419 Encounter for gynecological examination (general) (routine) without abnormal findings (principal); N39.0 Urinary tract infection, site not specified; R10.2 Pelvic and perineal pain
CPT/HCPCS: 99396

== ENCOUNTER 2023-09-23 13:45 | Outpatient (REF) | payer OTHER, SELFPAY ==
[2023-09-24 02:38] LABS: CT PCR NOT DETECTED (Not Detect.); NG PCR NOT DETECTED (Not Detect.)
[2023-09-24 09:02] LABS: Bacterial Vaginosis PCR POSITIVE (Negative); Candida Group PCR NOT DETECTED (Not Detect); Candida glab krusei PCR NOT DETECTED (Not Detect); Trichomonas vaginalis PCR NOT DETECTED (Not Detect)
[2023-10-01 07:59] LABS: HPV mRNA E6/E7 rflx Not Detected (Not Detected)
== END 2023-09-23 13:46 | disposition home or self-care (01) ==
LOC: HO.LAB 13:45
PROVIDERS: PCP Physician Assistant; Visit Provider Advanced Practice Midwife
DX: Z01.419 Encounter for gynecological examination (general) (routine) without abnormal findings (principal); R10.2 Pelvic and perineal pain; N39.0 Urinary tract infection, site not specified; Z86.19 Personal history of other infectious and parasitic diseases; Z90.710 Acquired absence of both cervix and uterus; Z98.890 Other specified postprocedural states; Z20.2 Contact with and (suspected) exposure to infections with a predominantly sexual mode of transmission
CPT/HCPCS: 0352U; 0353U; 87624; 88142

== ENCOUNTER 2023-12-02 07:57 | Outpatient (AMB) | payer OTHER, SELFPAY ==
[2023-12-02 08:48] VITALS: BP 112/80; BMI 34.1
--- NOTE | 2023-12-02 08:48 | MHC.PC.OV ---
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 Accompanied by: Significant Other Allergies No Known Allergies [No Known Allergies*] Allergy (Verified 12/02/23 09:00) Medication List - Last Reconciled 12/02/23 by Ad Burrell PA-C albuterol sulfate 90 mcg/actuation 2 puffs inhalation Q6H PRN 30 days albuterol sulfate 2.5 mg (3 mL) inhalation QID PRN 30 days clonazepam 1 mg PO DAILY PRN 30 days cyclobenzaprine 10 mg PO BEDTIME PRN 15 days docusate sodium (Colace) 100 mg PO DAILY 30 days fluticasone propionate 50 mcg/actuation 1 spray intranasal DAILY 30 days gabapentin 300 mg PO BEDTIME 30 days hydroxyzine HCl 25 mg PO BEDTIME 30 days linaclotide (Linzess) 72 mcg PO DAILY 30 days loratadine 10 mg PO DAILY 90 days omeprazole 20 mg PO DAILY triamcinolone acetonide 0.1% 1 appl topical DAILY 30 days Tobacco use date assessed: 12/02/23 Dental Screening Dental Screen Date: 12/02/23 Did you have a dental visit in the last 12 months?: Yes Did you have a dental problem in the last 6 months where you did not have access to dental care?: No Was dental information given to patient?: Patient has dentist HPI PE HPI Details Patient is a 43-year-old female here today for a an annual physical.? Patient has a past medical history significant for asthma, chronic lumbar back pain, anxiety, GERD. .. Concern--> reports having some blurred vision over the last several months. Will like to see an employment program representative for eyes. Did discuss possibly having to see an pitting machine operator for possible corrective lenses. She also reports having right elbow and forearm numbness and tingling over the last few weeks. He denies any trauma to her right upper extremities. PLAN: Will send for EMG testing to evaluate for a cubital tunnel neuropathy .. ..Generalized anxiety disorder: Patient now speaking with a mental therapist though has not been able to see a psychiatrist to prescribe her medication. She reports her anxiety has gotten worse due to a few family deaths. .. ..?Anemia:? Was likely secondary to her dysfunctional uterine bleeding, most recent CBC, iron studies are normalized.? Advised to stop iron supplement.. Has gotten a full hysterectomy with apparently a bladder lift. Having difficulty with urinating s/p surgery. Has followed up with Urology 1 recommended pelvic floor therapy though patient has not done so. Also reporting having chronic abdominal pain secondary to her constipation.? She does use her mother's Linzess and Colace which does help reduce better bowel movements.? Will try to give Rx for Linzess. .. ..Lumbar spine pain:? She does report continued lumbar spine pain even with the use of NSAID and p.r.n. tramadol.? She is willing to return to physical therapy as she was unable to complete a full course.? She has found gabapentin has been helpful. She is also asking for refill on tramadol to use on an as needed basis for her pain Breast cancer screening: Needs mammogram Vaccines: Up-to-date with COVID vaccine, needs Tdap PFSH Medical History Chronic abdominal pain GERD (gastroesophageal reflux disease) UTI (urinary tract infection) Surgical History History of hysterectomy History of foot surgery History of cholecystectomy Family History Father No problems noted. Mother No problems noted. Maternal Grandfather Throat cancer Maternal Aunt Breast cancer Paternal Uncle Stomach cancer Paternal Aunt Colon cancer Social History Housing: Apartment Alcohol intake: never Patient Tobacco Use Status: Never used Tobacco e-Cigarette/Vaping Use: Never Used Second Hand Smoke Exposure: No Advance Directives Date on File: 04/13/21 service: No Current occupational status: unemployed and disabled Cognitive needs: No Hearing needs: No Vision needs: No Female Reproductive History Menstrual Age of Menarche: 7 Questionnaire PHQ-9 Over the last 2 weeks, how often have you been bothered by any of the following problems? 1. Little interest or pleasure in doing things: several days 2. Feeling down, depressed, or hopeless: more than half the days 3. Trouble falling or staying asleep, or sleeping too much: nearly every day 4. Feeling tired or having little energy: more than half the days 5. Poor appetite or overeating: not at all 6. Feeling bad about yourself - or that you are a failure or have let yourself or your family down: not at all 7. Trouble concentrating on things, such as reading the newspaper or watching television: not at all 8. Moving or speaking so slowly that other people could have noticed. Or the opposite - being so fidgety or restless that you have been moving around a lot more than usual: not at all 9. Thoughts that you would be better off or of hurting yourself in some way: not at all Total score: 8 Depression Screening Interpretation: Positive Depression Screening Follow-up: Existing condition and In treatment Depression Screening Done: Yes 10007 - PHQ-9 Billing: Yes Source: Developed by Drs. oRni Alberts, Eugenie Lockett, Ty Becker and colleagues, with an educational rochelle from [employer]. Thrive Questionnaire Date Thrive assessed: 12/02/23 I am a: Patient What is your living situation today?: I have a steady place to live Within the past 12 months, did the food you bought not last and you didn't have the money to get more?: Never true Within the past 12 months, did you worry whether your food would run out before you got money to buy more?: Never true Do you have trouble paying for medicines?: No Do you have trouble getting transportation to medical appointments?: No Do you have trouble paying your heating and electricity bill?: No Do you have trouble taking care of your child, family member or friend?: No Do you have trouble with day-to-day activities such as bathing, preparing meals, shopping, managing finances, etc.?: No Are you currently unemployed and looking for a job?: No Are you interested in more education?: No Please select the resources that you would like help with: None Currently or been in a relationship where the following occur: No concerns reported THRIVE Score: 0 AUDIT C Alcohol Use Questionnaire (AUDIT-C) 1. How often do you have a drink containing alcohol?: Never Total Score: 0 DEON-7 AMB Questionnaire DEON-7 Date DEON - 7 assessed: 12/02/23 Feeling nervous, anxious, or on edge: 1 = Several days Not being able to stop or control worryin = Not at all Worrying too much about different things: 1 = Several days Trouble relaxin = Several days Being so restless that it is hard to sit still: 0 = Not at all Becoming easily annoyed or irritable: 1 = Several days Feeling afraid as if something awful might happen: 1 = Several days Total DEON-7 score (0-4 normal; 5-9 mild; 10-14 moderate; 15-21 severe): 5 Source: Developed by Drs. Roni Alberts, Eugenie Lockett, Ty Becker and colleagues, with an educational rochelle from [employer]. DEON-7 Assessment Billing DEON-7 Assessment Tool: DEON-7 Assessment 84827 Review of Systems Const Reports body aches, Denies chills, Denies excessive sweating, Denies fatigue, Denies fever(s) and Denies headache(s) Eyes Denies blurry vision ENT Denies dysphagia, Denies vertigo, Denies dizziness, Denies headache(s), Denies hearing loss and Denies tinnitus Card Denies chest pain, Denies chest pain with activity, Denies syncope, Denies irregular heart rhythm and Denies dyspnea Resp Denies chest congestion, Denies cough, Denies hemoptysis, Denies dyspnea and Denies wheezing GI Reports abdominal pain, Denies melena, Denies hematochezia, Denies coffee ground emesis, Denies dysphagia, Denies diarrhea, Denies nausea and Denies vomiting Denies urinary frequency, Denies dysuria, Reports pelvic pain, Denies urinary hesitancy and Denies urinary urgency Musc Reports back pain, Reports arthralgias, Denies limited range of motion, Reports muscle cramps, Denies muscle weakness, Reports numbness and Reports radiating pain into limb Skin/Breast Denies rash and Denies skin ulcer Neuro Denies Abnormal speech present, Denies confusion, Denies vertigo, Denies dizziness, Denies syncope, Denies headache(s), Denies memory loss, Reports numbness and Denies seizure-like activity Psych Denies anxiety, Denies confusion, Denies depression, Denies memory loss, Denies panic attacks and Denies paranoia Endo Denies excessive sweating, Denies fatigue, Denies flushing, Denies polydipsia and Denies polyuria Aller/Immun Denies wheezing Physical exam (Primary Care) Vital Signs: Last Vital Signs BP 112/80 12/02/23 08:48 BMI result Body Mass Index 34.1 Tobacco/Smoking Status: Tobacco use Status Tobacco use date assessed 12/02/23 12/02/23 08:56 Patient Tobacco Use Status Never used Tobacco 12/02/23 08:49 e-Cigarette/Vaping Use Never Used 12/02/23 08:49 PHQ-9: PHQ-9 Score PHQ-9: Total score 8 12/02/23 09:29 Depression Screening Interpretation: Positive Depression Screening Follow-up: Existing condition and In treatment Thrive Assessment: Date of Thrive Assessment Date Thrive assessed 12/02/23 12/02/23 08:56 Currently or been in a relationship where the following occur: No concerns reported Const General: cooperative, comfortable, no acute distress, alert and awake; No confusion Orientation/consciousness: oriented to person, oriented to place, patient oriented x3 and No confusion HENMT Head: Yes normocephalic Ears: external ears normal and TM's normal bilaterally Face and sinus: No sinus tenderness Mouth: Normal oral and palatal mucosa present and tongue normal Teeth and gingiva: dentition normal and gingiva normal Throat: Yes posterior oropharynx normal, Yes tonsils normal and Yes uvula midline Eyes Conjunctivae: conjunctivae normal Sclerae: sclerae normal Pupils: Equal, round and reactive pupils present EOM: EOMs intact bilaterally Direct Ophthalmoscopy: No no photophobia Neck Neck: Yes no lymphadenopathy, No tender and Yes no JVD Thyroid: Thyroid normal Carotids: no bruits Chest Chest palpation & inspection: no tenderness Resp Effort & Inspection: normal respiratory effort, no audible wheezes, not labored and no stridor Auscultation: no crackles, no rales, no rhonchi and no wheezes Cardio Jugular venous distension: no JVD Rate: regular rate, not bradycardic and not tachycardic Rhythm: regular rhythm Bruits: no carotid bruits Peripheral pulses: Peripheral pulses 2+ throughout GI Inspection: Yes normal to inspection, No abdominal wall ecchymosis and No visible herniation Palpation (GI): Soft to palpation, nontender, no guarding, not rigid and No hepatosplenomegaly present Auscultation: normoactive bowel sounds General: Yes no CVA tenderness Back/Spine/Pelvis Back: no CVA tenderness and No back tenderness Cervical Spine: cervical ROM normal Thoracic/Lumbar Spine: thoracic and lumbar spine normal to inspection, straight leg raise negative bilaterally, No thoraco-lumbar ROM limited and No lumbar spinal tenderness Skin Lesions: no lesions Rashes: no rashes Wounds: no wounds Neuro General: oriented to person, oriented to place, patient oriented x3, CN's II-XI intact bilaterally and No confusion Cranial nerves: Yes Equal, round and reactive pupils present and Yes Normal accommodation reflex present Cognition (Neuro): normal cognition Speech: No Abnormal speech present Gait exam (Neuro): Normal gait present Motor exam (neuro): 5/5 motor strength present throughout Extrem Right upper extremity: full ROM; no cyanosis Left upper extremity: full ROM; no cyanosis Right lower extremity: no edema Left lower extremity: no edema Psych Appearance: grossly normal Mental Status: mental status grossly normal Affect: normal affect Attitude: cooperative Thought process: Normal thought process present Immunizations Boostrix Tdap 2.5 Lf unit-8 mcg-5 Lf/0.5 mL intramuscular syringe Performing Provider: Ad Burrell PA-C [facility] Administered by: CAL Howell on 12/02/23 09:40 Dose Route Admin Location Dispensed Lot Number Expiration Date 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 Eligible 12/02/23 Private Assessment and Plan Assessment & Plan (1) Annual physical exam: Code(s): Z00.00 - Encounter for general adult medical examination without abnormal findings (2) Anxiety: Code(s): F41.9 - Anxiety disorder, unspecified Plan: Patient reports it anxiety has been elevated as of late. Does report some recent in her family. Has been speaking with a mental health therapist whom she likes. She does have clonazepam to which he uses on an as needed basis. We did discuss the habit-forming nature of benzodiazepines and patient does not understand the long-term effects of these medications (3) Cervical disc disease: Code(s): M50.90 - Cervical disc disorder, unspecified, unspecified cervical region Plan: Patient has a history of cervical disc disease. Does report some left-sided neck pain that radiates into the left side of her head with some decreased range of motion of the cervical spine. Will consider physical therapy though would like to do physical therapy for her pelvic floor. Continues with gabapentin p.r.n. use of tramadol. Likely benefit from some formal physical therapy for her neck. (4) History of hysterectomy: Comment: 2019, bladder ? lift? at [facility] ( multispecialty surgery per pt), followed by urinary retention challenges Code(s): Z90.710 - Acquired absence of both cervix and uterus Plan: Patient is history of full hysterectomy with bladder lift. Reports having incomplete better emptying and difficulties with initiating urine. She would like to do some therapy for her pelvic floor for her urinary retention. (5) Incomplete emptying of bladder: Code(s): R33.9 - Retention of urine, unspecified Plan: As above patient has had a full hysterectomy with a bladder lift. Since surgery has been having difficulties with incomplete bladder emptying and initiating urination. (6) Asthma: Code(s): J45.909 - Unspecified asthma, uncomplicated Qualifiers: Asthma complication type: uncomplicated Asthma persistence: intermittent Asthma severity: mild Qualified Code(s): J45.20 - Mild intermittent asthma, uncomplicated Plan: Patient's asthma has been fairly well controlled though during seasonal allergy times her asthma worsens. Does have an albuterol inhaler that she uses on a p.r.n. basis. Does have a nebulizer at home to which she seldomly uses. (7) Breast cancer screening: Code(s): Z12.39 - Encounter for other screening for malignant neoplasm of breast Qualifiers: Breast cancer screening modality: mammogram Qualified Code(s): Z12.31 - Encounter for screening mammogram for malignant neoplasm of breast Plan: Needs up-to-date mammogram (8) MDD (major depressive disorder), recurrent episode, moderate: Code(s): F33.1 - Major depressive disorder, recurrent, moderate Plan: Patient PHQ-9 positive for major depressive disorder which has been existing condition for her. Not interested in in starting SSRI therapy though would like her anxiety managed by medication. She is now seeing a psychiatrist. Otherwise denies any SI or HI (9) Right hand paresthesia: Code(s): R20.2 - Paresthesia of skin Plan: Patient reporting right hand forearm and elbow numbness and tingling. Will send for EMG testing to evaluate for carpal or cubital tunnel neuropathy. (10) Blurred vision, bilateral: Code(s): H53.8 - Other visual disturbances Orders: Orders OT Evaluation and Treatment Today R20.2 - Paresthesia of skin XR cervical spine 3V Today M50.90 - Cervical disc disorder, unspecified, unspecified cervical region Comprehensive [place]. Panel Fast Today Z13.1 - Encounter for screening for diabetes mellitus IRON PROFILE Today D50.9 - Iron deficiency anemia, unspecified TDaP Immunization Today H53.8 - Other visual disturbances, Z23 - Encounter for immunization NE electromyogram (EMG) Today R20.2 - Paresthesia of skin Complete Blood Count no Diff Today D50.9 - Iron deficiency anemia, unspecified PT Evaluation and Treatment Today R33.9 - Retention of urine, unspecified Referrals Gastroenterology Referral K59.09 - Other constipation Ophthalmology Referral H53.8 - Other visual disturbances Medications: New tramadol 50 mg PO BID 7 days PRN 14 tabs 0RF pain M50.90 - Cervical disc disorder, unspecified, unspecified cervical region Refilled triamcinolone acetonide 0.1% 1 appl topical DAILY 30 days 80 grams 2RF L30.9 - Dermatitis, unspecified albuterol sulfate 2.5 mg (3 mL) inhalation QID 30 days PRN 180 mL 1RF shortness of breath or wheezing J45.909 - Unspecified asthma, uncomplicated linaclotide (Linzess) 72 mcg PO DAILY 30 days 30 caps 3RF K59.09 - Other constipation omeprazole 20 mg PO DAILY 60 caps 3RF albuterol sulfate 90 mcg/actuation 2 puffs inhalation Q6H 30 days PRN 8.5 grams 3RF shortness of breath or wheezing J45.909 - Unspecified asthma, uncomplicated gabapentin 300 mg PO BEDTIME 30 days 30 caps 3RF M54.16 - Radiculopathy, lumbar region fluticasone propionate 50 mcg/actuation administer into each nostril 1 spray intranasal DAILY 30 days 9.9 mL 3RF H10.13 - Acute atopic conjunctivitis, bilateral, J30.9 - Allergic rhinitis, unspecified docusate sodium (Colace) 100 mg PO DAILY 30 days 30 caps 3RF K59.09 - Other constipation loratadine 10 mg PO DAILY 90 days 90 tabs 1RF T78.40XA - Allergy, unspecified, initial encounter Coding Level of Care Code Est Pt Prev Care 40-64y(20613) Diagnoses Annual physical exam Z00.00 Anxiety F41.9 Cervical disc disease M50.90 History of hysterectomy Z90.710 Incomplete emptying of bladder R33.9 Mild intermittent asthma without complication J45.20 Asthma complication type: uncomplicated Asthma persistence: intermittent Asthma severity: mild Encounter for screening mammogram for malignant neoplasm of breast Z12.31 Breast cancer screening modality: mammogram MDD (major depressive disorder), recurrent episode, moderate F33.1 Right hand paresthesia R20.2 Blurred vision, bilateral H53.8 Additional Codes DEON-7 Assessment Billing - DEON-7 Assessment Tool: DEON-7 Assessment [id number] ([id number])
== END 2023-12-02 09:30 | disposition home or self-care (01) ==
PROVIDERS: PCP Physician Assistant; Visit Provider Physician Assistant
DX: Z00.00 Encounter for general adult medical examination without abnormal findings (principal); F33.1 Major depressive disorder, recurrent, moderate; F41.9 Anxiety disorder, unspecified; Z23 Encounter for immunization; M50.90 Cervical disc disorder, unspecified, unspecified cervical region; Z90.710 Acquired absence of both cervix and uterus; R33.9 Retention of urine, unspecified; J45.20 Mild intermittent asthma, uncomplicated; Z12.31 Encounter for screening mammogram for malignant neoplasm of breast; R20.2 Paresthesia of skin; H53.8 Other visual disturbances
CPT/HCPCS: 90471; 90715; 99396

== ENCOUNTER 2023-12-02 09:37 | Outpatient (REF) | payer OTHER, SELFPAY ==
--- NOTE | ~2023-12-02 | XR_ITS ---
EXAMINATION: CERVICAL SPINE 3 VIEWS CLINICAL INFORMATION: Cervical disc disease. COMPARISON: None. TECHNIQUE: Frontal, odontoid and lateral views of the cervical spine are submitted. FINDINGS: Vertebral body heights and alignment are normal. There is mild reversal of the normal lordotic curvature. The cervical disc spaces are well-maintained. No acute fracture or spondylolisthesis is seen. The posterior elements are intact. The dens is intact. No prevertebral soft tissue swelling is seen. XR/XR cervical spine 3V IMPRESSION: 1. There is mild reversal of the normal lordotic curvature, which can be associated with muscle spasm. 2. The cervical disc spaces are well-maintained. 3. No acute fracture or spondylolisthesis is seen. Electronically signed by: Doroteo Flores MD 12/30/2023 08:48 PM EDT
[2023-12-02 10:21] LABS: Hematocrit 39.7 % (37.0-47.0); Hemoglobin 13.4 g/dl (12.0-16.0); Mean Corpuscular HGB Conc 33.8 g/dl (31.0-35.0); Mean Corpuscular Hemoglobin 29.3 pg (27.0-33.0); Mean Corpuscular Volume 86.9 fL (80.0-98.0); Mean Platelet Volume 11.1 fL (9.4-12.3); Platelet Count 327 X10*3/uL (160-400); Red Blood Count 4.57 X10*6/uL (4.20-5.50); Red Cell Distribution Width 13.2 % (11.0-16.0); White Blood Count 8.5 X10*3/uL (4.8-10.8)
[2023-12-02 10:57] LABS: Alanine Aminotransferase 13 U/L (0-31); Albumin Level 4.4 g/dL (3.5-5.0); Alkaline Phosphatase 90 U/L (39-117); Anion Gap 11 (12-20); Aspartate Amino Transferase 14 U/L (5-31); Bilirubin Total 0.5 mg/dL (0.0-1.0); Blood Urea Nitrogen 12 mg/dL (9-16); Carbon Dioxide 28 mmol/L (22-29); Chloride 106 mmol/L (96-108); Estimated Glomerular Filt Rate > 60; Glucose Fasting 104 mg/dL (60-99); Iron 52 mcg/dL (30-160); Percent Iron Saturation 17 % (15-50); Potassium 3.9 mmol/L (3.3-5.1); Sodium 141 mmol/L (135-145); Total Iron Binding Capacity 302 mcg/dL (228-428); Total Protein 7.5 g/dL (6.5-8.0); Unsaturated Iron Binding 250 ug/dL
== END 2023-12-02 09:38 | disposition home or self-care (01) ==
LOC: HO.XRAY 09:37
PROVIDERS: PCP Physician Assistant; Visit Provider Physician Assistant
DX: Z13.1 Encounter for screening for diabetes mellitus (principal); D50.9 Iron deficiency anemia, unspecified; M50.90 Cervical disc disorder, unspecified, unspecified cervical region
CPT/HCPCS: 36415; 72040; 80053; 83540; 85027

== ENCOUNTER 2023-12-04 10:24 | Outpatient (REF) | payer OTHER, SELFPAY ==
--- NOTE | ~2023-12-04 | US_ITS ---
EXAMINATION: US PELVIS CLINICAL INFORMATION: Pelvic pain COMPARISON: Ultrasound examination of the pelvis on 05/12/2022 TECHNIQUE: Ultrasound of the pelvis is performed using both transabdominal and transvaginal transducers along with Doppler. Transvaginal imaging is performed due to inadequate visualization transabdominally. FINDINGS: Transabdominal and transvaginal ultrasound examination of the pelvis were performed. Uterus: Surgically absent. Right ovary: Surgically absent. Left ovary: 2.8 x 2.1 x 2.4 cm (SAG x AP x TRV), calculated volume of 4.2 mL, with normal echotexture. Previously 4.1 x 4.0 x 4.5 cm (SAG x AP x TRV), calculated volume of 37.7 mL Left ovarian simple cyst is seen measuring 2.2 x 1.3 x 2.2 cm in size (previously 3.5 x 2.4 x 3.4 cm). Interval appearance of left adnexal hypoechoic tubular shaped lesion measuring 2.4 cm in AP diameter, 4.8 cm in width, 5.4 cm in vertical height. Small left adnexal free fluid is present. Limited view of the urinary bladder shows no abnormality. US/US pelvic and transvaginal IMPRESSION: 1. Interval appearance of left adnexal hypoechoic tubular shaped lesion. Findings may represent hydrosalpinx. 2. Interval appearance of Small left adnexal free fluid collection. 3. Unchanged, Status post hysterectomy and right oophorectomy. 4. Interval decrease in size of left ovarian simple cyst. Electronically signed by: Ara Rubio MD 12/22/2023 11:07 AM EDT
== END 2023-12-04 10:25 | disposition home or self-care (01) ==
LOC: HO.US 10:24
PROVIDERS: PCP Physician Assistant; Visit Provider Advanced Practice Midwife
DX: R10.2 Pelvic and perineal pain (principal); Z90.710 Acquired absence of both cervix and uterus; Z98.890 Other specified postprocedural states; Z86.19 Personal history of other infectious and parasitic diseases
CPT/HCPCS: 76830; 76856

== ENCOUNTER 2024-01-13 10:20 | Outpatient (AMB) | payer OTHER, SELFPAY ==
[2024-01-13 10:22] VITALS: BP 118/70; BMI 34.1
--- NOTE | 2024-01-13 10:22 | MHC.OFFVIS ---
Vital Signs 01/13/24 10:22 Height 4 ft 11 in Weight 169 lb BMI 34.1 BP 118/70 Intake Visit Reasons: ultrasound results Information Interpreted: clinical only Area Attendant: Area Attendant Present Allergies No Known Allergies [No Known Allergies*] Allergy (Verified 01/13/24 10:26) Is last menstrual period known: No Post menopausal: Yes HPI HPI ultrasound results: Details: Patient is here for follow-up of pelvic pain that she had when she was seen in August of 2023 I ordered an ultrasound to follow-up on that as she had been nervous that perhaps there was something scary that was going on after her hysterectomy she remembered having a complicated hysterectomy with lots of surgeons involved and she said that she was told there was something that could have been cancerous. She then did not have the ultrasound until the end of November of this year she reports that she went away in the interim She is here to discuss the results of the ultrasound but says that she is not having the pain anymore [facility] Medical History Chronic abdominal pain GERD (gastroesophageal reflux disease) UTI (urinary tract infection) Surgical History History of hysterectomy History of foot surgery History of cholecystectomy Family History Father No problems noted. Mother No problems noted. Maternal Grandfather Throat cancer Maternal Aunt Breast cancer Paternal Uncle Stomach cancer Paternal Aunt Colon cancer Social History Housing: Apartment Alcohol intake: never Patient Tobacco Use Status: Never used Tobacco e-Cigarette/Vaping Use: Never Used Second Hand Smoke Exposure: No Advance Directives Date on File: 04/13/21 service: No Current occupational status: unemployed and disabled Cognitive needs: No Hearing needs: No Vision needs: No Female Reproductive History Menstrual Age of Menarche: 7 control method: none Total pregnancies: 8 Full term: 4 Date of last pap smear: 03/28/22 (negative) History of abnormal pap smear: Yes Physical Exam Vital Signs: Last Vital Signs BP 118/70 01/13/24 10:22 BMI result Body Mass Index 34.1 Results Reviewed Results Reviewed: Name: Cielo Barreto Age/Sex: 43/F Attending: Katie Shukla CNM : 1980 Submitted by: Katie Shukla CNM Copies to: Ad Burrell PA-C MR #: [id number] Status: DEP REF Collected: 09/23/23 Location: .LAB Received: 09/24/23 Interpretation Satisfactory for evaluation. No endocervical cells seen. Negative for intraepithelial lesion or malignancy. Coccobacilli consistent with shift in vaginal jewels. HPV mRNA E6/E7: NOT DETECTED This assay detects E6/E7 viral messenger RNA (mRNA) from 14 high-risk HPV types (16, 18, 31, 33, 35, 39, 45, 51, 52, 56, 58, 59, 66, 68) HPV testing performed by [facility], [place], [place]. See reference laboratory portion of the EMR for entire report. Clinical Information LMP: Postmenopausal Previous PAP test: 2021, , 2016, abnormal Material Received ThinPrep-Cervical Copies To Ad Burrell PA-C [address] [place] [address] Dr[address] [place] [address] Katie Shukla CNM [address] [address] Electronically Signed By: Essie Espinal 10/12/23 3914 The Pap Test is a screening procedure with the inherent possibility of both false negative and false positive results. Results should be interpreted in the context of historic and current clinical findings. Reliability of the Pap Test is enhanced by performing the test on a Patient: Cielo Barreto Age/Sex: 43/F MR#: [id number] Page 1 of 2 Gynecologic Cytology [id number] regular repetitive basis. Patient: Cielo Barreto Age/Sex: 43/F MR#: [id number] Patient: Cielo Barreto MR#: [id number] : 1980 Acct:[id number] Age/Sex: 43 / F ADM Date: 12/04/23 Loc: HO.US Attending Dr: Katie Shukla CNM Ordering Physician: Katie Shukla CNM Date of Service: 12/04/23 Procedure(s): US pelvic and transvaginal Accession Number(s): [id number] cc: Ad Burrell PA-C; Katie Shukla CNM~ EXAMINATION: US PELVIS CLINICAL INFORMATION: Pelvic pain COMPARISON: Ultrasound examination of the pelvis on 05/12/2022 TECHNIQUE: Ultrasound of the pelvis is performed using both transabdominal and transvaginal transducers along with Doppler. Transvaginal imaging is performed due to inadequate visualization transabdominally. FINDINGS: Transabdominal and transvaginal ultrasound examination of the pelvis were performed. Uterus: Surgically absent. Right ovary: Surgically absent. Left ovary: 2.8 x 2.1 x 2.4 cm (SAG x AP x TRV), calculated volume of 4.2 mL, with normal echotexture. Previously 4.1 x 4.0 x 4.5 cm (SAG x AP x TRV), calculated volume of 37.7 mL Left ovarian simple cyst is seen measuring 2.2 x 1.3 x 2.2 cm in size (previously 3.5 x 2.4 x 3.4 cm). Interval appearance of left adnexal hypoechoic tubular shaped lesion measuring 2.4 cm in AP diameter, 4.8 cm in width, 5.4 cm in vertical height. Small left adnexal free fluid is present. Limited view of the urinary bladder shows no abnormality. US/US pelvic and transvaginal IMPRESSION: 1. Interval appearance of left adnexal hypoechoic tubular shaped lesion. Findings may represent hydrosalpinx. 2. Interval appearance of Small left adnexal free fluid collection. 3. Unchanged, Status post hysterectomy and right oophorectomy. 4. Interval decrease in size of left ovarian simple cyst. Electronically signed by: Ara Rubio MD 12/22/2023 11:07 AM EDT Dictated By: Ara Rubio Signed By: <Electronically signed by Ara Rubio in OV> 12/22/23 1107 DD/ 1031 TD/TT: 12/04/23 1042 [employer] De[employer] Operator: Patient: Cielo Barreto MR#: [id number] : 1980 Acct:[id number] Age/Sex: 41 / F ADM Date: 05/12/22 Loc: HO.US Attending Dr: Katie Shukla CNM Ordering Physician: Katie Shukla CNM Date of Service: 05/12/22 Procedure(s): US pelvic and transvaginal Accession Number(s): [id number] cc: Katie Shukla CNM~ EXAMINATION: US PELVIS CLINICAL INFORMATION: Urinary retention; history of prior hysterectomy and right oophorectomy. COMPARISON: Pelvic ultrasound dated 04/18/2020. TECHNIQUE: Ultrasound of the pelvis is performed using both transabdominal and transvaginal transducers along with Doppler. Transvaginal imaging is performed due to inadequate visualization transabdominally. FINDINGS: Uterus: The uterus is surgically absent. Adnexa: The right ovary is surgically absent. There is normal color flow to the left adnexa. The left ovary measures 4.1 x 4.0 x 4.5 cm (volume 37.7 mL). The left ovary contains a 3.5 x 2.4 x 3.4 cm dominant, simple cyst. There is no left ovarian torsion. There is no pelvic ascites or fluid collection. US/US pelvic and transvaginal IMPRESSION: 1. The uterus and right ovary are surgically absent. 2. A 3.5 cm dominant, simple left ovarian cyst is incidentally noted. 3. No adnexal mass or pelvic free fluid is seen. Dictated By: Doroteo Flores MD Signed By: <Electronically signed by Doroteo Flores MD in OV> 05/14/22 1350 DD/ 1131 TD/TT: [employer] De[employer] Operator: KEN Assessment & Plan Assessment & Plan (1) Hydrosalpinx: Comment: left; Discussed with supply chain analyst. Plan is to have patient sign for records of surgery from [facility], follow-up ultrasound 3 months from the original finding and follow-up with Dr. Armas. Code(s): N70.11 - Chronic salpingitis Category: Medical (2) History of hysterectomy: Comment: bladder ? lift? at [facility] ( multispecialty surgery per pt), followed by urinary retention challenges Code(s): Z90.710 - Acquired absence of both cervix and uterus Category: Surgical (3) History of bladder surgery: Comment: at [facility] w hysterectomy/ removal of 1 ovary Code(s): Z98.890 - Other specified postprocedural states Category: Surgical Plan Patient reported that her hysterectomy was in June of 2018 however I can not find records a referral that would have occurred at that time patient says her primary care provider has all the records however I can not find them anywhere in this current system and I also searched in [employer] for records of surgery or referral for surgery. Review of the records reveals that she had a visit in February of 2019 for a colposcopy for an abnormal Pap. I reviewed her ultrasound findings with her and the findings of the possible hydrosalpinx. She is concerned and wants to know what to do about this. I reviewed this finding with Dr. Armas. We will have her sign for the records which could not be found in [employer] or in the current [employer] system. And we will also repeat the ultrasound in 3 months from the previous ultrasound and she will have a follow-up visit with Dr. Zerbe it is possible the hydrosalpinx may resolve she is not in any pain at this current time. Patient is in agreement with this plan. Patient accompanied to the front desk assistant to sign for request of records in to order everything. Orders: Orders US pelvic and transvaginal 2 Months N70.11 - Chronic salpingitis, Z90.710 - Acquired absence of both cervix and uterus, Z98.890 - Other specified postprocedural states Coding Level of Care Code Est Pt Level 3 (53207) Diagnoses Hydrosalpinx N70.11 History of hysterectomy Z90.710 History of bladder surgery Z98.890 Time Spent (min) 50 Comment 100% of time spent trying to review patient history and find the records and consult and mohinder
== END 2024-01-13 11:42 | disposition home or self-care (01) ==
PROVIDERS: PCP Physician Assistant; Visit Provider Advanced Practice Midwife
DX: N70.11 Chronic salpingitis (principal); Z90.710 Acquired absence of both cervix and uterus; Z98.890 Other specified postprocedural states
CPT/HCPCS: 99213

== ENCOUNTER → 2024-01-13 10:20 | Outpatient (BNVA) | payer OTHER, SELFPAY | PROVIDERS: PCP Physician Assistant; Visit Provider Advanced Practice Midwife | DX: N70.11 Chronic salpingitis (principal); Z90.710 Acquired absence of both cervix and uterus; Z98.890 Other specified postprocedural states | CPT/HCPCS: 99212 ==

== ENCOUNTER 2024-02-20 22:41 | Emergency (ER) | payer OTHER, SELFPAY ==
--- NOTE | 2024-02-20 | ECG_ITS ---
Test Reason : WEAKNESS Blood Pressure : / mmHG Vent. Rate : 073 BPM Atrial Rate : 073 BPM P-R Int : 140 ms QRS Dur : 074 ms QT Int : 370 ms P-R-T Axes : 058 047 046 degrees QTc Int : 407 ms Normal sinus rhythm Possible Left atrial enlargement Borderline ECG When compared with ECG of 10-AUG-2021 21:46, No significant change was found Referred By: Generic ED Physician Electronically Signed By:Steve Avalos
[2024-02-20 22:44] VITALS: BP 150/93; PULSE 80; RESP 18; TEMP 36.6; O2SAT 96; BMI 35.1
[2024-02-20 23:20] LABS: MANUAL DIFF FLAG NO
[2024-02-20 23:25] LABS: Basophils Absolute Auto 0.1 X10*3/uL (0.0-0.2); Basophils Percent Auto 0.5 % (0-2); Eosinophils Absolute Auto 0.8 X10*3/uL (0.0-0.4); Eosinophils Percent Auto 6.6 % (0-4); Hematocrit 40.5 % (37.0-47.0); Imm Gran Abs Auto 0.08 X10*3/uL (0.00-0.03); Imm Gran Pct Auto 0.7 % (0.0-0.4); Lymphocytes Absolute Auto 2.4 X10*3/uL (1.2-4.9); Lymphocytes Percent Auto 19.8 % (20-40); Mean Corpuscular HGB Conc 34.6 g/dl (31.0-35.0); Mean Corpuscular Hemoglobin 29.2 pg (27.0-33.0); Mean Corpuscular Volume 84.6 fL (80.0-98.0); Mean Platelet Volume 10.6 fL (9.4-12.3); Monocytes Absolute Auto 0.4 X10*3/uL (0.1-1.2); Neutrophils Absolute Auto 8.3 x10*3/uL (2.0-8.3); Neutrophils Percent Auto 69.4 % (45-73); Platelet Count 352 X10*3/uL (160-400); Red Blood Count 4.79 X10*6/uL (4.20-5.50)
--- NOTE | 2024-02-20 23:33 | ED.GENADULT ---
HPI - General Adult General Chief complaint: Weakness Stated complaint: left sided body pain Time Seen by Provider: 02/20/24 23:24 History of Present Illness ED Provider: Murphy RAMSEY narrative: The patient is a 43-year-old woman who says that she was at [employer] this evening. She has been feeling well and had participated in singing with the choir. She says that after singing there was preaching. She says that while the preacher was preaching she started to feel pain in the left side of her head and also on the left side of her body. She also felt a sense of blurred vision and a pulsing pain left side of her head. She had nausea but no vomiting. She says that she is somewhat photophobic. She says she has never had an episode like this before. Related Data Previous Rx's ?Medication ?Instructions ?Recorded cyclobenzaprine 10 mg tablet 10 mg PO BEDTIME PRN muscle spasm 11/17/22 15 days #15 tabs hydroxyzine HCl 25 mg tablet 25 mg PO BEDTIME 30 days #30 tabs 11/27/22 clonazepam 1 mg tablet 1 mg PO DAILY PRN anxiety 30 days 04/01/23 #8 tabs albuterol sulfate 2.5 mg/3 mL 2.5 mg (3 mL) inhalation QID PRN 12/02/23 (0.083 %) solution for nebulization shortness of breath or wheezing 30 days #180 mL albuterol sulfate 90 mcg/actuation 2 puff inhalation Q6H PRN 12/02/23 aerosol inhaler shortness of breath or wheezing 30 days #8.5 grams docusate sodium 100 mg capsule 100 mg PO DAILY 30 days #30 caps 12/02/23 (Colace) fluticasone propionate 50 1 spray intranasal DAILY 30 days 12/02/23 mcg/actuation nasal #9.9 mL spray,suspension gabapentin 300 mg capsule 300 mg PO BEDTIME 30 days #30 caps 12/02/23 linaclotide 72 mcg capsule 72 mcg PO DAILY 30 days #30 caps 12/02/23 (Linzess) omeprazole 20 mg capsule,delayed 20 mg PO DAILY #60 caps 12/02/23 release tramadol 50 mg tablet 50 mg PO BID PRN pain 7 days #14 12/02/23 tabs triamcinolone acetonide 0.1 % 1 appl topical DAILY 30 days #80 12/02/23 topical cream grams loratadine 10 mg tablet 10 mg PO DAILY 90 days #90 tabs 12/17/23 Allergies Allergy/AdvReac Type Severity Reaction Status Date / Time No Known Allergies Allergy Verified 02/20/24 22:44 [No Known Allergies*] Review of Systems Review of Systems: Yes all other systems are reviewed and are negative [facility] Past Medical History Medical History Chronic abdominal pain GERD (gastroesophageal reflux disease) UTI (urinary tract infection) Surgical History History of hysterectomy History of foot surgery History of cholecystectomy Family History Family History Father No problems noted. Mother No problems noted. Maternal Grandfather Throat cancer Maternal Aunt Breast cancer Paternal Uncle Stomach cancer Paternal Aunt Colon cancer Social History Social History Housing: Apartment Alcohol intake: never Patient Tobacco Use Status: Never used Tobacco e-Cigarette/Vaping Use: Never Used Second Hand Smoke Exposure: No Advance Directives: Yes Advance Directives on File: Yes Advance Directives Date on File: 04/13/21 service: No Current occupational status: unemployed and disabled Cognitive needs: No Hearing needs: No Vision needs: No Physical Exam ED Vital Signs: Vital Signs - 24 hr 02/20/24 22:44 02/21/24 00:32 02/21/24 01:15 Temperature 97.8 F 97.4 F 97.4 F Pulse Rate 80 68 79 Respiratory Rate 18 18 16 Blood Pressure 150/93 H 105/57 L 110/64 Pulse Oximetry 96 98 98 Oxygen Delivery Method Room Air Room Air Room Air BMI result Body Mass Index 35.1 Const Other: The patient is awake and alert. She does not appear in obvious distress. Her mental status seems clear. His speech seems clear. She did not seem obviously uncomfortable or in any respiratory difficulty. HENMT Other: Face is symmetrical. Mucous membranes moist. Tongue is midline. Eyes Other: Pupils are round, equal, and reactive to light. Extraocular movements are intact. Conjunctivae clear. Resp Effort & Inspection: normal respiratory effort Auscultation: clear to auscultation bilaterally Cardio Rate: regular rate Rhythm: regular rhythm Heart sounds: S1 normal heart sound present and S2 normal heart sound present GI Other: Abdomen is soft and seems nontender Skin Other: Skin is dry and unremarkable Neuro Other: The patient is awake and alert. Mental status seems normal. Orientation seems normal. There is no facial asymmetry. Pupils are round equal. Eye movements are intact. Face is symmetrical. Speech is clear. She seems to move her extremities symmetrically. She walked steadily and without a footdrop. Extrem Other: No peripheral edema. No calf swelling or tenderness. No calf asymmetry. She seems to have generalized tenderness in the left arm and the left leg without any particular focal area of tenderness. Medications Administered Discontinued Medications Generic Name Dose Route Start Last Admin Trade Name Freq PRN Reason Stop Dose Admin Diphenhydramine HCl 25 mg 02/20/24 23:38 02/20/24 23:58 Diphenhydramine Hcl 50 Mg/Ml Vial IVPUSH 02/20/24 23:39 25 mg ONCE ONE Administration Ketorolac Tromethamine 10 mg 02/20/24 23:38 02/20/24 23:57 Ketorolac Tromethamine 15 Mg/Ml Vial IVPUSH 02/20/24 23:39 10 mg ONCE ONE Administration Lorazepam 1 mg 02/20/24 23:38 02/20/24 23:58 Lorazepam 2 Mg/Ml Vial IVPUSH 02/20/24 23:39 1 mg ONCE ONE Administration Metoclopramide HCl 10 mg 02/20/24 23:38 02/20/24 23:58 Metoclopramide Hcl 10 Mg/2 Ml Vial IVPUSH 02/20/24 23:39 10 mg ONCE ONE Administration Medical Decision Making Medical Decision Making [facility] Narrative: The patient is a 43-year-old female who presents to the emergency room after develop symptoms while at [employer] this evening. She describes left-sided headache associated with dizziness and also associated with pain in the left arm in the left leg. She also said that she felt weak on the left side of her body. There is a associated nausea, dizziness, and blurred vision. Her exam was complicated because it was difficult to distinguish any weakness in her extremities from pain. Seemed to me that she was moving the left side of her body fairly normally. I did not feel there was any left-sided facial weakness and when doing simple tasks she seemed to be moving her left arm normally. My overall impression was that this was not some kind of a stroke syndrome. Perhaps this is some kind of migraine phenomenon. She was treated with a IV metoclopramide, diphenhydramine, ketorolac, and lorazepam. She fell asleep and was sleeping quite heavily. I went to re-evaluate her. I was able to wake her up. She said that she was feeling better. I felt she was appropriate for discharge to follow up with the regular doctor. At discharge she was observed to walk without significant assistance and to walk without a footdrop or other signs of obvious left leg weakness. Lab Data 02/20/24 23:08 02/20/24 23:08 Labs: Lab Results 02/20/24 Range/Units 23:08 WBC 12.0 H (4.8-10.8) X10*3/uL RBC 4.79 (4.20-5.50) X10*6/uL Hgb 14.0 (12.0-16.0) g/dl Hct 40.5 (37.0-47.0) % MCV 84.6 (80.0-98.0) fL MCH 29.2 (27.0-33.0) pg MCHC 34.6 (31.0-35.0) g/dl RDW 13.0 (11.0-16.0) % Plt Count 352 (160-400) X10*3/uL MPV 10.6 (9.4-12.3) fL Immature Gran % (Auto) 0.7 H (0.0-0.4) % Neut % (Auto) 69.4 (45-73) % Lymph % (Auto) 19.8 L (20-40) % [place] % (Auto) 3.0 (2-11) % Eos % (Auto) 6.6 H (0-4) % Baso % (Auto) 0.5 (0-2) % Lymph # (Auto) 2.4 (1.2-4.9) X10*3/uL [place] # (Auto) 0.4 (0.1-1.2) X10*3/uL Eos # (Auto) 0.8 H (0.0-0.4) X10*3/uL Baso # (Auto) 0.1 (0.0-0.2) X10*3/uL Abs Immat Gran (auto) 0.08 H (0.00-0.03) X10*3/uL Absolute Neuts (auto) 8.3 (2.0-8.3) x10*3/uL Absolute Nucleated RBC 0.000 (0.0-0.012) X10*3/uL Nucleated RBC % (auto) 0.0 (0.0-0.2) /100WBC Hold Purple Top SEE NOTE Hold Blue Top SEE NOTE Sodium 139 (135-145) mmol/L Potassium 3.7 (3.3-5.1) mmol/L Chloride 106 (96-108) mmol/L Carbon Dioxide 23 (22-29) mmol/L Anion Gap 14 (12-20) BUN 9 (9-16) mg/dL Creatinine 0.79 (0.5-1.4) mg/dL Estim Creat Clear Calc 82.4 Estimated GFR > 60 Random Glucose 124 H (60-115) mg/dL Calcium 9.3 D (8.4-10.2) mg/dL Total Bilirubin 0.9 (0.0-1.0) mg/dL AST 28 (5-31) U/L ALT 20 (0-31) U/L Alkaline Phosphatase 86 (39-117) U/L Troponin I High Sens 4.3 (<3.5-17.0) ng/L Total Protein 7.8 (6.5-8.0) g/dL Albumin 4.6 (3.5-5.0) g/dL Beta HCG, Quant < 2 mIU/mL Independent Interpretation I performed an independent interpretation of an: EKG Interpretation: EKG at 23:01 shows normal sinus rhythm at 73 beats per minute. No definite acute changes. Similar to a previous EKG. Discharge Plan Discharge Clinical Impression: Headache, Left arm pain, Left leg pain Patient Disposition: Home, Self-Care Additional Instructions: Please rest and take it easy tonight. Resume your normal medications in the morning. Please plan on following up with your regular doctor to discuss this episode further. Return to the emergency room if significantly worse. Prescriptions: No Action cyclobenzaprine 10 mg tablet 10 mg PO BEDTIME PRN (Reason: muscle spasm) 15 Days Qty: 15 1RF hydroxyzine HCl 25 mg tablet 25 mg PO BEDTIME 30 Days Qty: 30 0RF clonazepam 1 mg tablet 1 mg PO DAILY PRN (Reason: anxiety) 30 Days Qty: 8 0RF loratadine 10 mg tablet 10 mg PO DAILY 90 Days Qty: 90 1RF triamcinolone acetonide 0.1 % cream 1 appl topical DAILY 30 Days Qty: 80 2RF albuterol sulfate 90 mcg/actuation HFA aerosol inhaler 2 puff inhalation Q6H PRN (Reason: shortness of breath or wheezing) 30 Days Qty: 8.5 3RF albuterol sulfate 2.5 mg /3 mL (0.083 %) solution for nebulization 2.5 mg inhalation QID PRN (Reason: shortness of breath or wheezing) 30 Days Qty: 180 1RF tramadol 50 mg tablet 50 mg PO BID PRN (Reason: pain) 7 Days Qty: 14 0RF gabapentin 300 mg capsule 300 mg PO BEDTIME 30 Days Qty: 30 3RF fluticasone propionate 50 mcg/actuation spray,suspension 1 spray intranasal DAILY 30 Days Qty: 9.9 3RF Rx Instructions: administer into each nostril docusate sodium [Colace] 100 mg capsule 100 mg PO DAILY 30 Days Qty: 30 3RF Linzess 72 mcg capsule 72 mcg PO DAILY 30 Days Qty: 30 3RF omeprazole 20 mg capsule,delayed release(DR/EC) 20 mg PO DAILY Qty: 60 3RF Referrals: Ad Burrell PA-C [Primary Care Provider] - (Left-sided body pain) Interventions: ED Discharge Assessment Last Done: 02/21/24 01:15 Discharge Date/Time: 02/21/24 01:16 Print Language: Azeri
[2024-02-20 23:41] LABS: Alanine Aminotransferase 20 U/L (0-31); Albumin Level 4.6 g/dL (3.5-5.0); Alkaline Phosphatase 86 U/L (39-117); Anion Gap 14 (12-20); Aspartate Amino Transferase 28 U/L (5-31); Bilirubin Total 0.9 mg/dL (0.0-1.0); Blood Urea Nitrogen 9 mg/dL (9-16); Calcium 9.3 mg/dL (8.4-10.2); Carbon Dioxide 23 mmol/L (22-29); Chloride 106 mmol/L (96-108); Creatinine Clr Calc Pharmacy 82.4; Estimated Glomerular Filt Rate > 60; Glucose Random 124 mg/dL (60-115); Potassium 3.7 mmol/L (3.3-5.1); Sodium 139 mmol/L (135-145); Total Protein 7.8 g/dL (6.5-8.0)
[2024-02-20 23:46] LABS: Troponin-I High Sensitivity 4.3 ng/L (<3.5-17.0)
[2024-02-20] MEDS: Ketorolac Tromethamine 15 MG/ML VIAL 10 MG IVPUSH (23:57)
[2024-02-20] MEDS: Metoclopramide HCl 10 MG/2 ML VIAL IVPUSH (23:58)
[2024-02-20] MEDS: LORazepam 2 MG/ML VIAL 1 MG IVPUSH (23:58)
[2024-02-20] MEDS: diphenhydrAMINE HCL 50 MG/ML VIAL 25 MG IVPUSH (23:58)
[2024-02-21 00:17] LABS: HCG Quantitative < 2 mIU/mL
[2024-02-21 00:32] VITALS: BP 105/57; PULSE 68; RESP 18; TEMP 36.3; O2SAT 98
[2024-02-21 01:15] VITALS: BP 110/64; PULSE 79; RESP 16; TEMP 36.3; O2SAT 98
== END 2024-02-21 01:16 | disposition home or self-care (01) ==
PROVIDERS: Emergency Provider Emergency Medicine; PCP Physician Assistant
DX: R51.9 Headache, unspecified (principal); M79.602 Pain in left arm; M79.605 Pain in left leg; D50.9 Iron deficiency anemia, unspecified; R10.2 Pelvic and perineal pain; Z79.899 Other long term (current) drug therapy
CPT/HCPCS: 36415; 80053; 84484; 84702; 85025; 93005; 96374; 96375; 99284; J1200; J1885; J2060; J2765

== ENCOUNTER → 2024-02-20 23:01 | Outpatient (BNV) | payer OTHER, SELFPAY | PROVIDERS: Emergency Provider Emergency Medicine; PCP Physician Assistant; Visit Provider Internal Medicine Cardiovascular Disease | DX: R94.31 Abnormal electrocardiogram [ECG] [EKG] (principal); R53.1 Weakness | CPT/HCPCS: 93010 ==

== ENCOUNTER 2024-03-07 11:03 | Outpatient (REF) | payer OTHER, SELFPAY | END 2024-03-07 11:04 | disposition home or self-care (01) | LOC: HO.US 11:03 | PROVIDERS: PCP Physician Assistant; Visit Provider Advanced Practice Midwife | DX: N70.11 Chronic salpingitis (principal); Z90.710 Acquired absence of both cervix and uterus; Z98.890 Other specified postprocedural states | CPT/HCPCS: 76830; 76856 ==

== ENCOUNTER 2024-06-14 08:45 | Outpatient (AMB) | payer OTHER, SELFPAY ==
[2024-06-14 08:47] VITALS: BP 110/76; BMI 34.9
--- NOTE | 2024-06-14 08:47 | MHC.OFFVIS ---
Vital Signs 06/14/24 08:47 Height 4 ft 11 in Weight 173 lb BMI 34.9 BP 110/76 Intake Visit Reasons: US follow up/DO NOT RS Audioprosthologist Required: No Information Interpreted: non-clinical & clinical Accompanied by: Spouse Allergies No Known Allergies [No Known Allergies*] Allergy (Verified 06/14/24 08:48) Is last menstrual period known: No (hysterectomy) HPI Comments Details: The patient is presenting for follow-up after admission and emergency room visit from [facility] in [facility]. Pelvic ultrasound done on 03/07 at [facility] showed the following The uterus is not seen as it has been removed The right ovary is not seen as it has been removed The left ovary measures 3.9 x 3.8 x 2.6 cm for a volume of 20.2 cc and contains a 2.7 cm cyst. There is a tubular cystic structure seen in the left adnexa measuring 8.9 x 1.8 x 4.2 cm consistent with a hydrosalpinx which appears larger than prior when it measured 2.4 x 4.8 x 5.4 cm. There is no free pelvic fluid. The patient recently started developing left pelvic pain went to the emergency room at [facility] where an ultrasound showed a complex 6 ovarian cyst measuring 6.7 cm this was followed by a CT scan of abdomen and pelvis which showed 7.2 x 6 tubular fluid attenuation collection measuring up to 2.6 cm suspect hydrosalpinx but the impression was large left adnexal or pelvic complex cyst or large cyst with the adjacent hydro salpinx as described. Last vaginal co testing was done in 09/17 and was negative No recent screening mammogram [facility] Medical History (Updated 06/14/24 @ 09:31 by Luis Armas MD) Chronic abdominal pain GERD (gastroesophageal reflux disease) UTI (urinary tract infection) Surgical History (Updated 06/14/24 @ 09:30 by Luis Armas MD) History of hysterectomy History of foot surgery History of cholecystectomy Family History Father No problems noted. Mother No problems noted. Maternal Grandfather Throat cancer Maternal Aunt Breast cancer Paternal Uncle Stomach cancer Paternal Aunt Colon cancer Social History Housing: Apartment Alcohol intake: never Patient Tobacco Use Status: Never used Tobacco e-Cigarette/Vaping Use: Never Used Second Hand Smoke Exposure: No Advance Directives Date on File: 04/13/21 service: No Current occupational status: unemployed and disabled Cognitive needs: No Hearing needs: No Vision needs: No Female Reproductive History Menstrual Age of Menarche: 7 Review of Systems Const All systems reviewed & are unremarkable except as noted in HPI and below Reports as per HPI and Reports no additional complaints GI Reports no additional complaints Reports no additional complaints Physical Exam Vital Signs: Last Vital Signs BP 110/76 06/14/24 08:47 BMI result Body Mass Index 34.9 Assessment & Plan Assessment & Plan (1) Adnexal mass: Comment: Left side Code(s): N94.89 - Other specified conditions associated with female genital organs and menstrual cycle Category: Medical Plan: Will order screening mammogram and tumor markers including CA 125, CEA, CA 19-9, LDH, AFP. Discussed with the patient the left adnexal complex mass by Ultrasound and CT scan. The differential diagnosis discussed with the patient includes the following but not limited to: benign and malignant gynecological and non-gynecological. Will refer to Gyne Onc for further management. Appointment scheduled with Dr. Horn on 06/26/2024 at 10:00, the patient is aware Orders: Orders MM tomosynthesis screening BI Today N94.89 - Other specified conditions associated with female genital organs and menstrual cycle, Z12.31 - Encounter for screening mammogram for malignant neoplasm of breast Alpha Fetoprotein Today N83.299 - Other ovarian cyst, unspecified side, N94.89 - Other specified conditions associated with female genital organs and menstrual cycle Lactate Dehydrogenase Today N83.299 - Other ovarian cyst, unspecified side, N94.89 - Other specified conditions associated with female genital organs and menstrual cycle Inhibin B Today N94.89 - Other specified conditions associated with female genital organs and menstrual cycle CA-125 Today N83.299 - Other ovarian cyst, unspecified side, N94.89 - Other specified conditions associated with female genital organs and menstrual cycle Carcinoembryonic Antigen Today N83.299 - Other ovarian cyst, unspecified side, N94.89 - Other specified conditions associated with female genital organs and menstrual cycle Carbohydrate Antigen 19-9 Today N83.299 - Other ovarian cyst, unspecified side, N94.89 - Other specified conditions associated with female genital organs and menstrual cycle Inhibin A Today N94.89 - Other specified conditions associated with female genital organs and menstrual cycle Coding Level of Care Code Est Pt Level 3 (74394) Diagnoses Adnexal mass N94.89
--- OUTSIDE RECORDS SUMMARY | 2024-06-14 09:15 | XMS_ITS | Continuity of Care Document ---
Author Organization [facility] ter Address [address] [place] [id number]- Care Team Providers Care Newspaper Correspondent Name Role Phone [place] ALYCIA Nadine Primary Care Physician Encounter [facility] Date(s): 06/09/24 - 06/11/[address] [address]- Discharge Disposition: A-D/C Home Attending Physician: Abraham Turner DO Admitting Physician: Abraham Turner DO Referring Physician: Not on Staff, Referring MD Encounter Type: Disch Obv Allergies, Adverse Reactions, Alerts No Known Allergies Medications albuterol 0.083% inhalation solution 3 mL = 2.5 mg, Inhalation, Every 6 hours, PRN Wheezing/Shortness of Breath, # 120 each, 0 Refills, Maintenance, 06/13/19 11:30:00 AM EST, Solution Start Date: 06/13/19 Status: Ordered Quantity: 120.0 Unit: each Repeat number: 1 busPIRone 10 mg oral tablet 10 mg, 1, tablet, By Mouth, 2 times a day Start Date: 06/10/24 Status: Ordered Repeat number: 1 clonazePAM 1 mg oral tablet 1 tablet = 1 mg, By Mouth, 2 times a day, PRN as needed Start Date: 06/10/24 Status: Ordered Repeat number: 1 FLUoxetine 20 mg oral capsule 20 mg, 1, capsule, By Mouth, Daily in AM, Maintenance, 06/10/24 9:07:00 AM EST, Partial fill upon patient request if the prescription is for a schedule II opioid drug. Start Date: 06/10/24 Status: Ordered Repeat number: 1 fluticasone 50 mcg/inh nasal spray 1 sprays = 50 mcg, Nares, Both, Daily, Maintenance, 06/10/24 9:08:00 AM EST, [place], Partial fill upon patient request if the prescription is for a schedule II opioid drug. Start Date: 06/10/24 Status: Ordered Repeat number: 1 gabapentin 300 mg oral capsule 300 mg, 1, capsule, By Mouth, Daily at bedtime, Maintenance, 06/10/24 9:05:00 AM EST, Partial fill upon patient request if the prescription is for a schedule II opioid drug. Start Date: 06/10/24 Status: Ordered Repeat number: 1 ibuprofen 600 mg oral tablet 600 mg, 1, tablet, By Mouth, 4 times a day, PRN, # 30 tablet, Refills 0, Tot. Refills 0, Maintenance, for pain, 06/11/24 9:51:00 AM EST, Route to Pharmacy Electronically, [facility]/pharmacy #[id number], Partial fill upon patient request if the prescription is for a schedule II opioid drug., 150, cm, 06/11/24 7:12:00 EST, Height, 73, kg, 06/10/24 10:34:00 EST, Dry Weight Start Date: 06/11/24 Status: Ordered Quantity: 30.0 Unit: tablet Repeat number: 1 loratadine 10 mg oral tablet 10 mg, 1, tablet, By Mouth, Daily, Maintenance, 06/10/24 9:09:00 AM EST, Partial fill upon patient request if the prescription is for a schedule II opioid drug. Start Date: 06/10/24 Status: Ordered Repeat number: 1 MiraLax oral powder for reconstitution = 17 Gm, By Mouth, Daily, PRN Constipation, dissolve in 4 to 8 oz of beverage, # 510 Gm, 0 Refills,Maintenance, 06/11/24 9:53:00 AM EST, REC Powder, [facility]/pharmacy #[id number], Partial fill upon patient request if the prescription is for a schedule II opioid drug., 17 Gm By Mouth Daily,PRN:Constipation,Instr:dissolve in 4 to 8 oz of beverage, 150, cm, 06/11/24 7:12:00 EST, Height, 73, kg, 06/10/24 10:34:00 EST, Dry Weight Start Date: 06/11/24 Status: Ordered Quantity: 510.0 Unit: g Repeat number: 1 ondansetron 4 mg oral tablet 1 tablet = 4 mg, By Mouth, Every 8 hours, # 12 tablet, 0 Refills, Maintenance, 06/11/24 9:52:00 AM EST, Tablet, [facility]/pharmacy #[id number], Partial fill upon patient request if the prescription is for a schedule II opioid drug., 150, cm, 06/11/24 7:12:00 EST, Height, 73, kg, 06/10/24 10:34:00 EST, Dry Weight Start Date: 06/11/24 Status: Ordered Quantity: 12.0 Unit: tablet Repeat number: 1 oxyCODONE 5 mg oral capsule 1 capsule = 5 mg, By Mouth, Every 6 hours, PRN as needed for pain, # 7 capsule, 0 Refills, Maintenance, 06/11/24 9:51:00 AM EST, Capsule, [facility]/pharmacy #[id number], Partial fill upon patient request if the prescription is for a schedule II opioid drug., 150, cm, 06/11/24 7:12:00 EST, Height, 73, kg, 06/10/24 10:34:00 EST, Dry Weight Start Date: 06/11/24 Status: Ordered Quantity: 7.0 Unit: capsule Repeat number: 1 oxyCODONE 5 mg oral tablet 5 mg, Tablet, By Mouth, Every 6 hours, PRN for Pain , Severe, Routine, 06/10/24 8:40:00 AM EST Start Date: 06/10/24 Stop Date: 06/12/24 Status: Discontinued Repeat number: 1 PredniSONE By Mouth, Daily in AM, 0 Refills, Maintenance, 06/17/19 9:09:00 AM EST Start Date: 06/17/19 Status: Ordered Repeat number: 1 PriLOSEC OTC 20 mg oral delayed release tablet 1 tablet = 20 mg, By Mouth, Daily, 0 Refills, Maintenance, 06/17/19 9:08:00 AM EST, CR Tablet Start Date: 06/17/19 Status: Ordered Repeat number: 1 ProAir HFA 90 mcg/inh inhalation aerosol with adapter 2, puffs, Inhalation, Every 4 hours, PRN, # 8.5 Gm, Refills 0, Maintenance, 06/17/19 9:03:00 AM EST,Aerosol Start Date: 06/17/19 Status: Ordered Quantity: 8.5 Unit: g Repeat number: 1 Tramadol = 50 mg, By Mouth, 2 times a day, PRN Pain , Moderate, 0 Refills, Maintenance, 06/13/19 11:30:00 AM EST Start Date: 06/13/19 Status: Ordered Repeat number: 1 triamcinolone 0.1% topical cream 1 application, Topically, Daily, Maintenance, 06/10/24 9:06:00 AM EST, [place], Partial fill upon patient request if the prescription is for a schedule II opioid drug. Start Date: 06/10/24 Stop Date: 07/10/24 Status: Ordered Repeat number: 1 Tylenol 325 mg oral tablet 975 mg, By Mouth, Every 6 hours, PRN, # 50 tablet, Refills 0, Tot. Refills 0, Maintenance, Pain , Moderate, 06/11/24 9:51:00 AM EST, Route to Pharmacy Electronically, [facility]/pharmacy #[id number], Partial fill upon patient request if the prescription is for a schedule II opioid drug., 150, cm, 06/11/24 7:12:00 EST, Height, 73, kg, 06/10/24 10:34:00 EST, Dry Weight Start Date: 06/11/24 Status: Ordered Quantity: 50.0 Unit: tablet Repeat number: 1 Vitamin D3 1000 intl units oral capsule 1 capsule = 1,000 International_Units, By Mouth, Daily, # 100 capsule, 0 Refills, Maintenance, 06/17/19 9:06:00 AM EST, Capsule Start Date: 06/17/19 Status: Ordered Quantity: 100.0 Unit: capsule Repeat number: 1 Problem List Condition Confirmation Course Effective Dates Status [facility] at Informant Obese class I Confirmed Active Results Radiology Reports * Exam Date Time Procedure Performing Provider Status 06/10/24 3:38 AM US Pelvic Doppler Comp Usha Saravia (Verified) Notes: (US Pelvic Doppler Comp) Reason For Exam: Pelvic Pain;Other: RESULT: US Pelvic Doppler Comp US Pelvic Transabdominal, US Pelvic Doppler Comp Hx of Present Illness: abd pain; Reason: Other:; Pelvic Pain; Clinical Question(s): Torsion; Order Comment: US Pelvic Non-Ob Comp Prep COMPARISON: None TECHNIQUE: Transabdominal pelvic ultrasound with grayscale, color Doppler, and spectral Doppler analysis. FINDINGS: UTERUS: Surgically absent. RIGHT OVARY: Surgically absent. LEFT OVARY: Size: 8.8 x 6.3 x 5.9 cm, volume 172.8 cc. Morphology: Normal echotexture. Normal arterial and venous waveforms. A few cysts within the left ovary with internal septation. The largest measures up to 6.7 cm with linear reticular echoes but no internal vascularity. ADNEXA: Trace free fluid in the left adnexa, likely physiologic. IMPRESSION: No evidence of ovarian torsion. A few cysts within the left ovary measuring up to 6.7 cm with linear internal echoes, may be hemorrhagic cysts. O-RADS Category 2. Recommend follow-up US in 2-3 months. Reference: ACR O-RADS US v2022. https://pubs.rsna.org/doi/10.1148/radiol.594188 I have personally reviewed the images and I agree with this report. WSN: [id number] Ordering Physician: Wei Marino Dictated By: Cody Nelson MD Dictated Date/Time: 06/10/24 7:28 am Reviewed By: Hung Amador MD Signed By: Hung Amador MD Signed Date/Time: 06/10/24 7:33 am Transcribed By: LYLA Transcribed Date/Time: 06/10/24 4:00 am * Exam Date Time Procedure Performing Provider Status 06/10/24 3:38 AM US Pelvic Transabdominal Lo Saravia; Auth (Verified) Notes: (US Pelvic Transabdominal) Reason For Exam: Pelvic Pain;Other: RESULT: US Pelvic Transabdominal US Pelvic Transabdominal, US Pelvic Doppler Comp Hx of Present Illness: abd pain; Reason: Other:; Pelvic Pain; Clinical Question(s): Torsion; Order Comment: US Pelvic Non-Ob Comp Prep COMPARISON: None TECHNIQUE: Transabdominal pelvic ultrasound with grayscale, color Doppler, and spectral Doppler analysis. FINDINGS: UTERUS: Surgically absent. RIGHT OVARY: Surgically absent. LEFT OVARY: Size: 8.8 x 6.3 x 5.9 cm, volume 172.8 cc. Morphology: Normal echotexture. Normal arterial and venous waveforms. A few cysts within the left ovary with internal septation. The largest measures up to 6.7 cm with linear reticular echoes but no internal vascularity. ADNEXA: Trace free fluid in the left adnexa, likely physiologic. IMPRESSION: No evidence of ovarian torsion. A few cysts within the left ovary measuring up to 6.7 cm with linear internal echoes, may be hemorrhagic cysts. O-RADS Category 2. Recommend follow-up US in 2-3 months. Reference: ACR O-RADS US v2022. https://pubs.rsna.org/doi/10.1148/radiol.474557 I have personally reviewed the images and I agree with this report. WSN: [id number] Ordering Physician: Wei Marino Dictated By: Cody Nelson MD Dictated Date/Time: 06/10/24 7:28 am Reviewed By: Hung Amador MD Signed By: Hung Amador MD Signed Date/Time: 06/10/24 7:33 am Transcribed By: LYLA Transcribed Date/Time: 06/10/24 4:00 am Vital Signs Most recent to oldest [Reference Range]: 1 2 3 Height 150 cm (06/11/24 7:12 AM) 150 cm (06/11/24 4:06 AM) 150 cm (06/10/24 8:24 PM) Weight 73 kg (06/10/24 10:34 AM) 80.2 kg (06/10/24 8:58 AM) 80.2 kg (06/10/24 2:14 AM) Oxygen Saturation [94-100 %] 97 % (06/11/24 7:12 AM) 97 % (06/11/24 4:06 AM) 99 % (06/10/24 8:24 PM) Pulse Rate [55-90 bpm] 70 bpm (06/11/24 7:12 AM) 61 bpm (06/11/24 4:06 AM) 64 bpm (06/10/24 8:24 PM) Body Mass Index [18.5-24.99 kg/m2] 32.44 kg/m2 *>HHI* (06/10/24 10:34 AM) 35.64 kg/m2 *>HHI* (06/10/24 8:58 AM) 35.64 kg/m2 *>HHI* (06/10/24 2:14 AM) Blood Pressure [90-138/55-84 mm Hg] 108/73mm Hg (06/11/24 7:12 AM) 106/61mm Hg (06/11/24 4:06 AM) 121/82mm Hg (06/10/24 8:24 PM) Respiratory Rate [16-30 br/min] 19 br/min (06/11/24 7:12 AM) 18 br/min (06/11/24 5:27 AM) 20 br/min (06/11/24 4:06 AM) Temperature [96.8-100.4 DegF] 97.7 DegF (06/11/24 7:12 AM) 97.8 DegF (06/11/24 4:06 AM) 97.9 DegF (06/10/24 8:24 PM) Mode of Delivery (Oxygen) Room air (06/11/24 7:12 AM) Room air (06/11/24 4:06 AM) Room air (06/10/24 8:24 PM) Blood pressure sites Arm, right (06/11/24 4:06 AM) Arm, right (06/10/24 8:24 PM) Arm, right (06/10/24 3:46 PM) Temperature Route Oral (06/11/24 7:12 AM) Oral (06/11/24 4:06 AM) Oral (06/10/24 8:24 PM) Dry Weight 73 kg (06/10/24 10:34 AM) 80.2 kg (06/10/24 8:58 AM) 80.2 kg (06/10/24 2:14 AM) Weight Obtained Via Patient/family state d (06/09/24 10:39 PM) Dry Weight Obtained Via Patient/family s tated (06/09/24 10:39 PM) Social History Social History Type Response Smoking Status Former smoker, quit more than 30 days ago entered on: 12/24/18 Sex Sex Representation Female (finding) History and physical note * Stacey HOLT, Katya: PERFORM, MODIFY, MODIFY Event Display: History and Physical Hospital Authored Date: [id number] Patient: ??CEDRIC WEBER ? Age:??44 Years?Sex:??Female?:??1980?? History of Present Illness The patient is a 44 year-old female who presents following a visit at [facility] for LLQ pain and evaluation of left ovarian cyst. They did a CT and ultrasound at [facility] which noted a left adnexalcyst. She was told that they would not be able to operate on her at [facility] as there was concern thatthe cyst could be malignant. She was discharged from the ED and was told to present to [facility] forevaluation.??The patient has been having pain for the past 1 week, the pain feels similar to contractions and she feels like she needs to push. She??has??also experiencing pain with urination for thepast 1 week. At first she thought??she was constipated but she has since had several??bowel movements. Last bowel movement was yesterday. She is reporting dizziness and nausea, improved after anti-emetics. She denies fevers, chills, chest pain, shortness of breath.? Medical History: Asthma, Chronic back pain Medications: Gabapentin, Claritin, Bisacodyl,??Albuterol Surgical History:?? - Transvaginal hysterectomy, RSO, LS, Guevara's culdoplasty, AP repair, mid- urethral sling, cystoscopy??(2019) - Gallbladder () Allergies: No known drug allergies Obstetrical History: Review of Systems Review of systems as per HPI Physical Exam Vitals & Measurements T:??97.7?F?? HR:??71??(Peripheral)?? RR:??16?? BP:??115/64?? SpO2:??95%?? HT:??150??cm?? WT:??80.2??kg?? BMI:??35.64?? Constitutional:??Appears uncomfortable,??constantly shifting positions on exam bed,??moaning??in pain Respirations:??Saturating appropriately on room air?? Abdomen/GI:??Soft, tender to palpation of the LLQ,?? no guarding, no rebound tenderness.?? Gynecologic:?External Genitalia: normal exam, without lesions, without atrophic changes ??Bimanual examination: Surgically absent cervix, fullness to palpation of the left adnexa. Tender to palpation??of the??left adnexa.?? Skin:??No rash or jaundice. Normal for ethnicity. Neurological/Psychiatric:??Appearance appropriate, mood and affect stable. Assessment/Plan Assessment:??The patient is a 44 year-old female who presents to the [facility] Emergency Department from [facility] for evaluation of LLQ pain. The patient is afebrile, normotensive to mildly hypertensive, regular rate. Labs obtained by the Emergency Department showed:??WBC 11.1, H/H 12.7/37.0, 292. BMP WNL. CA-125 9 (WNL), Blood <1.??On review of records from [facility], a CTscan demonstrated a large left adnexal or pelvic complex cyst with the adjacent hydrosalpinx. No other acute abnormalities were noted within the abdomen or pelvis. A repeat pelvic ultrasound that wasobtained at [facility] showed a 6.7cm left ovarian cyst with linear internal echoes without evidence of ovarian torsion. On both the radiology read and on review of images with attending physician, theovarian cyst appears to be hemorrhagic in nature. We discussed with the patient that we suspect thecyst to be hemorrhagic and there is low suspicion at this time for malignancy based on images. We discussed that hemorrhagic cysts can resolve on their own without intervention. Acknowledged that hemorrhagic cysts can be painful, but many patients get relief over time with supportive pain control. In some cases, they can rupture which leads to a drop in hemoglobin. Discussed that ovarian cysts can lead to ovarian torsion which would require surgical management. At this time, plan to admit the patient for pain control with serial CBC to monitor H/H. She was instructed to be NPO in the event she need surgical management.? Abdominal pain (R10.9):? - Admit for pain control - Pain: Tylenol/Ibuprofen/Oxycodone - Nausea: IV Zofran - Diet: NPO in case she needs surgical management - IVF 125 ml/hr while NPO - Serial CBC q6 hours (p) UA with reflex culture ?? Ovarian cyst (N83.209):? Pelvic ultrasound 06/10/2024:??No evidence of ovarian torsion.??A few??cysts??within the left ovary measuring up to 6.7cm??with linear internal echoes,??may be hemorrhagic cysts.??O-RADS??Category??2.Recommend follow-up US in 2-3??months. ?? Seen and discussed with Dr. Lloyd, PGY4, and Dr. Turner, attending physician. Active Problem List Active Problem List Obese class II: (Medical) Allergies NKA No Known Medication Allergies Family History Father (): Hypertension Mother: High cholesterol; Hypertension Other (Uncle): Heart attack; Stroke Other (Aunt): Cancer of breast; Cancer of colon; Cancer of ovary; Cancer of skin Hospital Progress note * Seng Felix DO: PERFORM Event Display: Progress Note Hospital Authored Date: [id number] Patient: ??CEDRIC WEBER ? Age:??44 Years?Sex:??Female?:??1980?? Subjective In to see patient now that she is on Ayala 3B. Reporting 9/10 pain described as contraction-like and come in waves. Each episode lasts about 3-6 minutes. Pain located on left side. Patient voices she does not want morphine again as it made her nauseous. She is accompanied by a close family friend who she sees as a mother to her.?? Physical Exam Vitals & Measurements T:??97.4?F?? HR:??67??(Peripheral)?? RR:??16?? BP:??120/82?? SpO2:??99%?? HT:??150??cm?? WT:??80.2??kg?? BMI:??35.64?? Constitutional: Well-nourished, well-developed. Ooxe-yt-jvazayas distress in setting of pain. Alertand oriented to person, place, and time. HEENT: Head normocephalic, atraumatic. External ears and nose are unremarkable. Cardiovascular: Chest is symmetric, with no visible pulsations or deformities. Pulmonary: Breathing is unlabored.??Good air movement. Gastrointestinal: Patient pointed to left flank pain that radiates a bit to her lower back. Deferred palpation for now. Musculoskeletal: Bilateral upper and lower extremities are without deformity. Psychiatric: Alert and cooperative. Mood, affect, and speech are congruent and stable. Assessment/Plan Assessment:? The patient is a 44 year-old female who presented??to the [facility] Emergency Department from [facility] for evaluation of LLQ pain. Pelvic U/S done here revealed likely hemorrhagic cyst. Results were discussed with her.??Acknowledged that hemorrhagic cysts can be painful, but many patients get relief over time with supportive pain control. In some cases, they can rupture which leads to a drop in hemoglobin. Discussed that ovarian cysts can lead to ovarian torsion which would require surgical management. At this time, plan to admit the patient for pain control with serial CBC to monitorH/H. ?? Ovarian cyst (N83.209):? - Pelvic U/S from 06/10/2024:??No evidence of ovarian torsion.??A few??cysts??within the left ovary measuring up to 6.7cm??with linear internal echoes,??may be hemorrhagic cysts.??O-RADS??Category??2. - Recommend follow-up US in 2-3??months. ?? Abdominal pain (R10.9):? - Admitted for pain control - Pain: Tylenol/Toradol/Oxycodone - Nausea: IV Zofran - Diet: Regular - Serial CBC q6 hours - UA with reflex culture (p) ?? Intake and Output Intake and Output Results?? No results in record. ? Radiology: ?? (06/10/2024 03:38 EST US Pelvic Transabdominal) Reason For Exam Pelvic Pain;Other: ?? RESULT: US Pelvic Transabdominal US Pelvic Transabdominal, US Pelvic Doppler Comp ?? Hx of Present Illness: abd pain; Reason: Other:; Pelvic Pain; Clinical Question(s): Torsion; Order Comment: US Pelvic Non-Ob Comp Prep ?? COMPARISON: None ?? TECHNIQUE: Transabdominal pelvic ultrasound with grayscale, color Doppler, and spectral Doppler analysis. ?? FINDINGS: ?? UTERUS:?? Surgically absent. ?? RIGHT OVARY:?? Surgically absent. ?? LEFT OVARY:?? Size: 8.8 x 6.3 x 5.9 cm, volume 172.8 cc. ?? Morphology: Normal echotexture. Normal arterial and venous waveforms. ?? A few cysts within the left ovary with internal septation. The largest measures up to 6.7 cm with linear reticular echoes but no internal vascularity. ?? ADNEXA: Trace free fluid in the left adnexa, likely physiologic. ? IMPRESSION:? No evidence of ovarian torsion. ?? A few cysts within the left ovary measuring up to 6.7 cm with linear internal echoes, may be hemorrhagic cysts. O-RADS Category 2. Recommend follow-up US in 2-3 months. Reference: ACR O-RADS US v2022. https://pubs.rsna.org/doi/10.1148/radiol.071960 ? I have personally reviewed the images and I agree with this report. WSN: [id number] ? Ordering Physician: Wei Marino? Signature Line Dictated By: ?Cody Nelson MD Dictated Date/Time: ?06/10/24 7:28 am Reviewed By: ?Hung Amador MD Signed By: ? Hung Amador MD Signed Date/Time: ? 06/10/24 7:33 am Transcribed By: ? CSB Transcribed Date/Time: ?06/10/24 4:00 am [1] [1]??US Pelvic Transabdominal; Hung Amador MD 06/10/2024 03:38 EST Note * Peyton Sanders RN: PERFORM Event Display: Discharge/Transfer Note Hospital Authored Date: [id number] Nursing Discharge Note Entered On: 06/11/2024 11:05 EST Performed On: 06/11/2024 11:04 EST by Peyton Sanders RN Nursing Discharge Note 2 Discharge Time : 06/11/2024 10:44 EST Discharge Level of Care at Discharge : Home/Skilled Nursing/Foster Care Patient Left Unit Via : Wheelchair Patient Accompanied Off Unit with : Responsible adult DC Instructions Provided & Signed by Pt : Yes Patient Understands D/C Instructions : Yes Patient Instructions Discharge Signed : Yes Did Pt have Specialty Bed or Wound Vac : No Peyton Sanders RN - 06/11/2024 11:04 EST * Elysia Mendez MD: PERFORM Event Display: Discharge/Transfer Note Hospital Authored Date: [id number] Patient: ??CEDRIC WEBER ? Age:??44 Years?Sex:??Female?:??1980?? Admit Date Admission Date: 06/09/2024 Discharge Date 06/11/2024 Discharge Diagnoses Abdominal pain, 06/10/2024 Ovarian cyst, 06/10/2024 [facility] Course Cedric Weber is a 44 yo who presented to the [facility] Emergency Department from [facility] forevaluation of LLQ pain in the setting of an ovarian cyst. Pelvic U/S done here revealed likely hemorrhagic cyst, ORADS 2. 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 Her pain was well controlled on Tylenol, Ibuprofen, and Oxycodone. Her Hgb remained stable throughouther admission. 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 Objective/Physical Exam on Day of Discharge Vitals & Measurements T:??97.7?F?? HR:??70??(Peripheral)?? RR:??19?? BP:??108/73?? SpO2:??97%?? HT:??150??cm?? WT:??73??kg?? BMI:??32.44?? Constitutional:??Well-appearing. No acute distress. Respiratory:??Comfortable work of breathing on room air Cardiovascular:??No signs of fluid overload, skin warm and well perfused Abdomen/GI:??Soft, non-distended, mildly tender to palpation in RLQ without rebound or guarding.?? Extremities:??Normal ROM Skin:??No rash or jaundice. Neurological/Psychiatric:??Mood and affect congruent and stable.?? Assessment/Plan Assessment:??The patient is a 44 year-old female who presented??to the [facility] Emergency Department from [facility] for evaluation of LLQ pain. Pelvic U/S done here revealed likely hemorrhagic cyst. Results were discussed with her.??Acknowledged that hemorrhagic cysts can be painful, but many patients get relief over time with supportive pain control. In some cases, they can rupture which leads to a drop in hemoglobin. Discussed that ovarian cysts can lead to ovarian torsion which would require surgical management.??Her Hgb is stable and her pain is well controlled. No indication for surgical intervention at this time.??Return precautions reviewed. Plan for discharge with outpatient follow-up with ObGyn provider, Dr. Armas. ?? Ovarian cyst (N83.209):? Pelvic U/S from 06/10/2024:??No evidence of ovarian torsion.??A few??cysts??within the left ovary measuring up to 6.7cm??with linear internal echoes,??may be hemorrhagic cysts.??O-RADS??Category??2. Recommend follow-up US in 2-3??months.??No need for surgical intervention at this time.??Patient follo ws with Dr. Armas??and has her next appointment on 06/14. - Pain: Tylenol/Ibuprofen/Oxycodone - Nausea: PO Zofran - Hgb stable - UA with reflex culture pending, will call with positive results ?? Patient was seen by and plan of care discussed with Dr. Nicole,??attending physician Discharge Medications ???Acetaminophen (Tylenol 325 mg oral tablet)???Albuterol (ProAir HFA 90 mcg/inh inhalation aerosolwith adapter)???Albuterol (albuterol 0.083% inhalation solution)???BusPIRone (busPIRone 10 mg oral tablet)???Cholecalciferol (Vitamin D3 1000 intl units oral capsule)???Clonazepam (clonazePAM 1 mg oral tablet)???Fluoxetine (FLUoxetine 20 mg oral capsule)???Fluticasone Nasal (fluticasone 50 mcg/inh nasal spray)???Gabapentin (gabapentin 300 mg oral capsule)???Ibuprofen (ibuprofen 600 mg oral tablet)???Loratadine (loratadine 10 mg oral tablet)???Omeprazole (PriLOSEC OTC 20 mg oral delayed release t ablet)???Ondansetron (ondansetron 4 mg oral tablet)???Oxycodone (oxyCODONE 5 mg oral capsule)???Polyethylene Glycol 3350 (MiraLax oral powder for reconstitution)???PredniSONE???Tramadol???Triamcinolone Topical (triamcinolone 0.1% topical cream) Patient Instructions You were seen for pain in your left lower abdomen and found to have a suspected hemorrhagic ovariancyst. Your blood levels remained stable and your pain was controlled with Tylenol, Ibuprofen, and Oxycodone. You??had??a sample of??your urine sent to check for infection. This has??not??resulted yetbut??we will??call??you??if it does show??signs of infection.??You were discharged with plan for outpatient follow-up with your ObGyn Dr.??Chanda,??which you have scheduled for 06/14. Please call his office with any increasing pain, dizziness, lightheadedness, or significant nausea and vomiting.?? * Essie Bourne RN: PERFORM Event Display: Patient Education/Instruction Authored Date: [id number] Inpatient Adult Discharge Instructions. [address] [address] Name: CEDRIC WEBER : 1980?? Visit: 06/09/2024 22:34?? Current Date: 06/11/2024 10:07 ?? Account: [id number]?? Inpatient Adult Discharge Instructions We would like to thank you for allowing us to assist you with your healthcare needs. The following includes patient education materials and information regarding your injury/illness. Our entire staffstrives to provide an excellent experience for our patients and their families. PLEASE ENSURE YOU FOLLOW-UP PER THE INSTRUCTIONS BELOW! ?? YOUR OPINION IS IMPORTANT TO US! Please complete the survey you may receive by mail or email. Your feedback will be used to make improvements to the healthcare experiences of our patients and their families. Surveys are administered by [employer] ?? If further treatment with your primary care physician or another doctor is recommended, it is important for you to keep the appointment. Call your primary care physician or return to the Emergency Department immediately if your condition worsens, fails to improve, or new symptoms develop. If you need to find a doctor, you can call [facility] [employer] Link for a referral at [phone] or toll free at [phone] ([phone]) or log in to [email or web address].. ?? [facility], in keeping with [facility] guidance, no longer requires face masks for staff, patientsor visitors in most situations. Similiar to time spent indoors at other locations, there is the chance that you were exposed to repiratory viruses during your time with us (such as flu or COVID-19). If you develop symptoms concerning for a viral respiratory infection, please seek testing (and treatment if indicated) from your medical provider or home test kit. ?? You can view and manage your care through the patient portal or by using a health care donte of your choosing. [employer] is a website that allows you to securely view your medical information including your hospital discharge summary, office visit summaries, medications and follow-up visits. You can also request appointments, renew medications, and request access to your medical information using a health care donte of your choosing, or just ask a question. You can enroll at [email or web address] or register during your next office visit. You have been discharged from [facility], Patient Care Unit: D3B??. If you have any questions regarding these instructions, including results of studies pending, afteryou leave, please call us and we will be happy to assist you 17/11. [facility] Your Care Team Attending Physician Abraham Turner DO?? Consulting Providers Abraham Turner DO?? Discharging Providers Elysia Mendez MD Your Diagnosis Abdominal pain Ovarian cyst Tests Performed Below is a partial list of the tests performed during your hospitalization. You may have had other tests and procedures not included in this list. Please discuss all test results with your provider. Basic Metabolic Panel CA 125 CBC CBC w/ Differential Complete Urinalysis/Reflex Culture HOLD GREEN TUBE Serum Quantitative US Pelvic Doppler Comp US Pelvic Transabdominal Basic Metabolic Panel?? Beta HCG Serum (Females Only) ( Serum Quantitative)?? CA 125?? CBC?? CBC w/ Differential?? Complete Urinalysis/Reflex Culture?? Hold Green Top Tube (HOLD GREEN TUBE)?? Hold Lavender Tube (BB)?? US Pelvic Doppler Comp?? US Pelvic Transabdominal?? Primary Care Provider Nadine Brink CRNA? Advance Directive Health Care Proxy on File No Discharge Vitals Temperature: 97.7 DegF Height: 150 cm Pulse Rate: 70 bpm Weight: 73 kg Respiratory Rate: 19 br/min Body Mass Index:??32.44 kg/m2??Critical Systolic Blood Pressure: 108 mm Hg Body surface area: 1.74 Diastolic Blood Pressure: 73 mm Hg ?? Oxygen Saturation: 97 % ?? Studies Pending All studies ordered during this hospital stay have been completed unless listed below. Please discuss all pending results with your provider listed above in these instructions. ?? CBC?? Hold Lavender Tube (BB)?? What to do next Instructions From Your Doctor You were seen for pain in your left lower abdomen and found to have a suspected hemorrhagic ovariancyst. Your blood levels remained stable and your pain was controlled with Tylenol, Ibuprofen, and Oxycodone. You??had??a sample of??your urine sent to check for infection. This has??not??resulted yetbut??we will??call??you??if it does show??signs of infection.??You were discharged with plan for outpatient follow-up with your ObGyn Dr.??Chanda,??which you have scheduled for 06/14. Please call his office with any increasing pain, dizziness, lightheadedness, or significant nausea and vomiting.? Orders? 06/11/24 9:56:00 EST?? Discharge Medications WEBERCEDRIC :1980 Visit Date:06/09/2024 Medications: Please continue your medications until treatment is completed or stopped by your provider. Medications not listed below should be discontinued. Discuss any questions related to medications with your provider. What How Much When Instructions Next Dose New Acetaminophen (Tylenol 325 mg oral tablet) 975 Milligram Oral Every 6 hours as needed for Pain , Moderate Pickup at [facility]/pharmacy #06/11 11am New Ondansetron (ondansetron 4 mg oral tablet) 1 tab(s) Oral Every 8 hours Pickup at [facility]/pharmacy #[id number] as needed New Polyethylene Glycol 3350 (MiraLax oral powder for reconstitution) 17 gram Oral Daily as needed for Constipation dissolve in 4 to 8 oz of beverage ?? Pickup at [facility]/pharmacy #06/12 9am Changed Albuterol (albuterol 0.083% inhalation solution) 3 Milliliter Inhalation Every 6 hours as needed for Wheezing/Shortness of Breath resume home schedule Changed Albuterol (ProAir HFA 90 mcg/ inh inhalation aerosol with adapter) 2 puff(s) Inhalation Every 4 hours as needed for for wheezing resume home schedule Unchanged BusPIRone (busPIRone 10 mg oral tablet) 1 tab(s) Oral Twice a day resume home schedule Unchanged Cholecalciferol (Vitamin D3 1000 intl units oral capsule) 1 capsule Oral Daily resume home schedule Unchanged Clonazepam (clonazePAM 1 mg oral tablet) 1 tab(s) Oral Twice a day as needed for as needed resume home schedule Unchanged Fluoxetine (FLUoxetine 20 mg oral capsule) 1 capsule Oral Daily in the morning resume home schedule Unchanged Fluticasone Nasal (fluticasone 50 mcg/ inh nasal spray) 1 spray(s) Nares, Both Daily resume home schedule Unchanged Gabapentin (gabapentin 300 mg oral capsule) 1 capsule Oral Daily at Bedtime resume home schedule Unchanged Ibuprofen (ibuprofen 600 mg oral tablet) 1 tab(s) Oral 4 times a day as needed for for pain Pickup at [facility]/pharmacy #2070 resume home schedule Unchanged Loratadine (loratadine 10 mg oral tablet) 1 tab(s) Oral Daily resume home schedule Unchanged Omeprazole (PriLOSEC OTC 20 mg oral delayed release tablet) 1 tab(s) Oral Daily resume home schedule Unchanged Oxycodone (oxyCODONE 5 mg oral capsule) 1 capsule Oral Every 6 hours as needed for as needed for pain Pickup at [facility]/pharmacy #06/11 11 am Unchanged PredniSONE Oral Daily in the morning resume home schedule Unchanged Tramadol 50 Milligram Oral Twice a day as needed for Pain , Moderate resume home schedule Unchanged Triamcinolone Topical (triamcinolone 0.1% topical cream) 1 donte Topically Daily Duration: 30 Days resume home schedule Pharmacy Information [facility]/pharmacy #[id number]: [address], [place] [phone] Prescription Given During Visit Acetaminophen (Tylenol 325 mg oral tablet) - 975 mg, By Mouth, Every 6 hours, # 50 tablet, 0 Refills, [facility]/pharmacy #2070, [address] [place] [address] [phone]?? Ibuprofen (ibuprofen 600 mg oral tablet) - 1 tablet = 600 mg, By Mouth, 4 times a day, # 30 tablet,0 Refills, [facility]/pharmacy #2070, [address] [place] [address] [phone]?? Ondansetron (ondansetron 4 mg oral tablet) - 1 tablet = 4 mg, By Mouth, Every 8 hours, # 12 tablet,0 Refills, [facility]/pharmacy #2070, [address] [place] [address] [phone]?? Oxycodone (oxyCODONE 5 mg oral capsule) - 1 capsule = 5 mg, By Mouth, Every 6 hours, # 7 capsule, 0Refills, [facility]/pharmacy #2070, [address] [place] [address] [phone]?? Polyethylene Glycol 3350 (MiraLax oral powder for reconstitution) - 17 Gm, By Mouth, Daily, # 510 Gm, 0 Refills, dissolve in 4 to 8 oz of beverage, [facility]/pharmacy #207, [address] [place] [address] [phone]?? Laboratory Results Below is a partial list of the most recent Laboratory test results done prior to this discharge. You may have had other tests and procedures not included in this list. Please discuss all test resultswith your provider. Est Creatinine Clearance - 62.30 mL/min (06/10/2024) Basic Metabolic Panel (06/10/2024) ???Sodium - 136 mmol/L???Potassium - 3.8 mmol/L???Chloride - 101 mmol/L???Bicarbonate Level - 23 mmol/L???Anion Gap - 12 mmol/L???Glucose Level - 86 mg/dL???BUN - 13 mg/dL???Creatinine-Blood - 0.78 mg/dL???Estimated GFR Creatinine - 95 ML/MIN/1.73 M2???Calcium - 9.5 mg/dL CA 125 (06/10/2024) ???Canc Ant-125 - 9 units/mL CBC (06/11/2024) ???WBC - 7.8 k/mm3???RBC - 4.01 m/mm3???Hgb - 11.7 Gm/dL???Hct - 34.3 %???MCV - 85.5 femtoliters???MCH - 29.2 pg???MCHC - 34.1 Gm/dL???Platelet Count - 254 k/mm3???RDW-SD - 41.0 femtoliters???MPV - 10.6 femtoliters???Nucleated RBC (Automated) - 0.0 #/100 WBC'S???Abs. NRBC - 0.0 k/mm3 CBC w/ Differential (06/10/2024) ???WBC - 11.1 k/mm3???RBC - 4.36 m/mm3???Hgb - 12.7 Gm/dL???Hct - 37.0 %???MCV - 84.9 femtoliters???MCH - 29.1 pg???MCHC - 34.3 Gm/dL???Platelet Count - 292 k/mm3???RDW-SD - 40.1 femtoliters???MPV - 11.0 femtoliters???Nucleated RBC (Automated) - 0.0 #/100 WBC'S???Abs. NRBC - 0.0 k/mm3???Abs. Neut -7.0 k/mm3???Abs. Lymph - 2.7 k/mm3???Abs. [place] - 0.7 k/mm3???Abs. Eo - 0.6 k/mm3???Abs. Baso - 0.1 k/mm3???Neut % - 62.9 %???Lymph % - 24.4 %???[place]osevelt % - 6.0 %???Eos % - 5.4 %???Baso % - 0.5 %???Imm Gran - 0.8 %???Abs. Imm Gran - 0.1 k/mm3 Complete Urinalysis/Reflex Culture (06/10/2024) ???Appear/Color, Urine - LIGHT YELLOW???Clarity - CLEAR???Specific [place], Urine - 1.028???pH, Urine - 6.0???Albumin, Urine - TRACE???Glucose, Urine - NEGATIVE???Ketones, Urine - NEGATIVE???Bilirubin, Urine - NEGATIVE???Hemoglobin, Urine - NEGATIVE???Nitrite, Urine - NEGATIVE???Leukocyte, Urine - N EGATIVE???Urobilinogen - NORMAL???WBC's, Urine - NONE SEEN???RBC's, Urine - NONE SEEN???Squamous Epith - 4 /HPF???Budding Yeast - SLIGHT???Culture Indication - CULTURE NOT INDICATED HOLD GREEN TUBE (06/10/2024) ???Hold Green Top - SPECIMEN DISCARDED AFTER 1 WEEK Serum Quantitative (06/10/2024) ? ?Blood - <1 mIU/mL You will be contacted within 72 hours with your results. Allergies (NKA means No Known Allergies) NKA No Known Medication Allergies Problems Active Problems??(1) Obese class I?? Education Materials Below is the list of Educational Leaflet Providered with your Discharge Instructions. Valuables and Belongings I fully understand and agree that [facility] accepts no responsibility for all my personal property including clothing, toilet articles, radios, jewelry, dentures, hearing aids, rings, money, or any other property that is in my possession or is brought to me after admission. I understand certain valuables may be placed in a hospital safe for a short period of time. I understand that the hospital is not liable for loss or damage due to accident, fire, or other natural occurrence while said property is in the safe. I accept full responsibility for any personal property that I keep with me, and will not hold the hospital responsible in case of loss or disappearance. I acknowledge that i have been encouraged to send valuables and belongings home. ?? Date for Pt to Sign Valuables/Belongings: 06/10/24 09:03:00 ?? Other Discharge Information ? Pulmonary Rehab Status?? Pulmonary Rehab Discharge Status?? Respiratory Rate: 19 br/min ? Common Emergency Awareness Tips IS IT A STROKE? Act FAST and Check for these signs: FACE Does the face look uneven? ARM Does one arm drift down? SPEECH Does their speech sound strange? TIME Call at any sign of stroke ?? Heart Attack Signs Chest discomfort: Most heart attacks involve discomfort in the center of the chest and lasts more than a few minutes, or goes away and comes back. It can feel like uncomfortable pressure, squeezing, fullness or pain. Discomfort in upper body: Symptoms can include pain or discomfort in one or both arms, back, neck, jaw or stomach. Shortness of breath: With or without discomfort. Other signs: Breaking out in a cold sweat, nausea, or lightheaded. Remember, MINUTES DO MATTER. If you experience any of these heart attack warning signs, call to get immediate medical attention! ?? Smoking can increase your chances of developing chronic health problems and can cause harmful effects to other family members in your house. If you smoke, you are strongly encouraged to quit. Please call [facility] [employer] Link at [phone] or [phone]-[facility] ([phone]) or log in to [email or web address] for referrals to smoking cessation programs. ?? 747 Suicide & Crisis Lifeline is available 17/11 if you or someone you know needs to find a reason to keep living. By calling 085 you'll be connected to a skilled, trained counselor at a crisis center in your area. INPATIENT DISCHARGE INSTRUCTIONS SIGNATURE CEDRIC DAVIES Location:[facility] Registration Date and Time:06/09/2024 22:34 EST Primary Care Physician: Nadine Brink CRNA, Attending Physician: Abraham Turner DO, CEDRIC STARKS, have received the above patient education materials/instructions and have verbalized understanding. If ambulance or transport services are being used I further acknowledge being given a choice of service. ?? If you need to contact me, please call me at this number: . Patient/Dowel Setting Machine Operator Name: Patient/Dowel Setting Machine Operator Signature: Relationship to Patient: Witness Name/Signature: Date: Patient Care team information Care Team Personnel Name: Maritza Casas RN Position: S RN Member Role: Primary Care Nurse Name: Peyton Sanders RN Position: S RN Member Role: Primary Care Nurse Care Team Related Persons Name: LUCIANO TORRES Insurance Providers Guarantor name: CEDRIC TIA Health Plan Information #: 2 Payer: [employer] Member Number: [id number] Policy Number: BENJY Group Number: [id number] Health Plan Information #: 1 Payer: [employer] Member Number: [id number] Policy Number: BENJY Group Number: NA
--- OUTSIDE RECORDS SUMMARY | 2024-06-14 09:15 | XMS_ITS | Encounter Summary ---
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 Encounter Details Date Type Department Care Team (Late st Contact Info) Description 06/09/2024 4:18 PM EST - 06/09/2024 9:19 PM EST Emergency [facility] Emergency [address] [place] [address] Maria Antonia Duncan Rico, DO [address] [place] [address] Complex ovarian cyst (Primary Dx) Discharge Disposition: Home or Self Care Social History Tobacco Use Types Packs/Day Years Used Date Smoking Tobacco: Former Cigarettes Q uit: 12/12/2014 Smokeless Tobacco: Never Alcohol Use Standard Drinks/Week Comments No 0 (1 standard drink = 0.6 oz pur e alcohol) Comments Unknown Sex and Gender Information Value Date Recorded Sex Assigned at Female 06/09/2024 5:01 PM EST Legal Sex Female 3:32 PM EST Gender Identity Female 06/09/2024 5:01 PM EST Sexual Orientation Straight 06/09/2024 5: 01 PM EST documented as of this encounter Last Filed Vital Signs Vital Sign Reading Time Taken Comments Blood Pressure 122/76 06/09/2024 9:07 PM EST Pulse 82 06/09/2024 9:07 PM EST Temperature 36.6 ??C (97.9 ??F) 06/09/2024 9:07 PM ES T Respiratory Rate 18 06/09/2024 9:07 PM EST Oxygen Saturation 99% 06/09/2024 9:07 PM EST Inhaled Oxygen Concentration - - Weight 68 kg (150 lb) 06/09/2024 1:33 PM EST Height 149.9 cm (4' 11 ) 06/09/2024 1:33 PM EST Body Mass Index 30.3 06/09/2024 1:33 PM EST documented in this encounter Functional Status * Are you deaf or do you have serious difficulty hearing? Answer Date of Assessment Author No 06/09/2024 4:37 PM EST Wallace Jarquin RN * Are you blind or do you have serious difficulty seeing, even when wearing glasses? Answer Date of Assessment Author No 06/09/2024 4:37 PM EST Wallace Jarquin RN * Do you have serious difficulty walking or climbing stairs? Answer Date of Assessment Author No 06/09/2024 4:37 PM EST Wallace Jarquin RN * Do you have serious difficulty dressing or bathing? Answer Date of Assessment Author No 06/09/2024 4:37 PM Wallace Doherty RN * Because of a physical, mental, or emotional condition, do you have serious difficulty doing errandsalone such as visiting the doctor? Answer Date of Assessment Author No 06/09/2024 4:37 PM EST Wallace Jarquin RN documented as of this encounter Mental Status * Because of a physical, mental, or emotional condition, do you have serious difficulty concentrating, remembering, or making decisions? (5 years old or older) Answer Entry Date Author No 06/09/2024 4:37 PM Wallace Doherty RN documented in this encounter Discharge Instructions * Discharge Instructions* Maria Antonia Duncan DO - 06/09/2024 8:54 PM EST You have a large left ovarian cyst measuring up to 6.7cm. Our [employer] recommends follow up with yourgynecologist for further evaluation and potential biopsy of this ovarian cyst. Concerns that this may be oncological in nature. If your pain remains uncontrolled despite medication please return to the ED. documented in this encounter Medications at Time of Discharge acetaminophen (TYLENOL) 500 mg tablet Take 2 tablets (1,000 mg total) by mouth every 8 (eight) hours for 10 days. 60 tablet 06/09/2024 06/19/2024 ibuprofen (ADVIL,MOTRIN) 600 mg tablet Take 1 tablet (600 mg total) by mouth 3 (three) times a day for 10 days. 30 tablet 06/09/2024 06/19/2024 oxyCODONE (ROXICODONE) 5 mg immediate release tabletIndications :Complex ovarian cyst Take 1 tablet (5 mg total) by mouth every 6 (six) hours if needed for severe pain. Max Daily Amount: 20 mg 15 tablet 06/09/2024 documented as of this encounter Ordered Prescriptions Prescription Sig Dispense Quantity Refills Last Filled Start Date End Date ibuprofen (ADVIL,MOTRIN) 600 mg tablet Take 1 tablet (600 mg total) by mouth 3 (three) times a day for 10 days. 30 tablet 06/09/2024 acetaminophen (TYLENOL) 500 mg tablet Take 2 tablets (1,000 mg total) by mouth every 8 (eight) hours for 10 days. 60 tablet 06/09/2024 5 oxyCODONE (ROXICODONE) 5 mg immediate release tabletIndications: Complex ovarian cyst Take 1 tablet (5 mg total) by mouth every 6 (six) hours if needed for severe pain. Max Daily Amount: 20 mg 15 tablet 06/09/2024 acetaminophen (TYLENOL) 500 mg tablet Take 2 tablets (1,000 mg total) by mouth every 8 (eight) hours for 10 days. 60 tablet 06/09/2024 5 ibuprofen (ADVIL,MOTRIN) 600 mg tablet Take 1 tablet (600 mg total) by mouth 3 (three) times a day for 10 days. 30 tablet 06/09/2024 5 oxyCODONE (ROXICODONE) 5 mg immediate release tabletIndications: Complex ovarian cyst Take 1 tablet (5 mg total) by mouth every 6 (six) hours if needed for severe pain. Max Daily Amount: 20 mg 15 tablet 06/09/2024 5 documented in this encounter Discharge Disposition Disposition Code Departure Means Destination Comment s Home or Self Care documented in this encounter Progress Notes * Mariah Holbrook RN - 06/09/2024 1:12 PM EST She is having lower abdominal cramping and lower back pain with come numbness her legs. She was recently diagnosed with hydrosalpinx but they can't see her until July 12. She states that he pain is too bad to wait. 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 HPI: This is a 44-year-old female presented hospital today for left suprapubic pain. Patient statesthis goes on and off. This been going for past week or so. Patient was diagnosed with an ovarian cyst from her SOCIAL MEDIA ANALYST office. She does have a follow-up appointment in July 12 however the pain has been persistent and she is unable to tolerate the pain therefore she present to the ER for further evaluation. Denies any bleeding denies any vaginal discharge. ROS: I have performed a ROS with the pertinent positives and negatives documented in the history ofpresent illness. Previous History Past Medical History: Diagnosis Date Allergic rhinitis 10/12/2015 DX:Allergic rhinitis Asthma DX:Asthma Chronic pain syndrome 10/12/2015 DX:Chronic pain syndrome Constipation 07/27/2015 DX:Constipation Depression DX:Depression Foot pain 07/27/2015 DX:Foot pain; COMMENT: 05/25/15 Referred to Podiatry - Dr Doroteo Hansen GERD (gastroesophageal reflux disease) 07/27/2015 DX:GERD (gastroesophageal reflux disease) Kidney stones DX:Kidney stones Lumbago DX:Lumbago Pityriasis rosea 06/18/2016 DX:Pityriasis rosea Past Surgical History: Procedure Laterality Date BUNIONECTOMY Right 05/21/2017 PROCEDURE: BUNION SURGERY, SIMPLE REMOVAL; COMMENT: Right roberto bunionectomy CHOLECYSTECTOMY 01/1998 PROCEDURE: HISTORICAL CHOLECYSTECTOMY OTHER SURGICAL HISTORY Right 05/21/2017 PROCEDURE: KY RIGO W/WO LNGTH SHRT/CORRJ METAR XCP 1ST EA; COMMENT: Reverse roberto Woodruff's bunionectomy TUBAL LIGATION PROCEDURE: HISTORICAL TUBAL LIGATION Social History Tobacco Use Smoking status: Former Current packs/day: 0.00 Types: Cigarettes Quit date: 12/12/2014 Years since quittin.4 Smokeless tobacco: Never Substance Use Topics Alcohol use: No Drug use: No Family History Problem Relation Name Age of Onset Asthma Mother smoker, etoh use, Depression Mother Breast cancer Aunt has No Known Allergies. No current facility-administered medications on file prior to encounter. No current outpatient medications on file prior to encounter. Physical Exam ED Triage Vitals [06/09/24 1333] Temp Heart Rate Resp BP 36.5 ??C (97.7 ??F) 86 16 (!) 120/92 SpO2 Temp Source Heart Rate Source Patient Position 97 % Oral -- Sitting BP Location FiO2 (%) -- -- General: Pleasant, no distress, interacting appropriately Head: Normacephalic, atraumatic ENT: oral mucosa moist, neck supple, no tracheal deviation Cardiovascular: regular rate, regular rhythm, no murmurs, rubbing, gallops Respiratory: CTAB, no wheeze, rales, rhonchi Gastrointestinal: Soft, non distended, left suprapubic pain on palpation Extremities: No limb pain or swelling, no calf tenderness Neurological: Awake and alert, no facial droop noted Skin: Warm and dry Psychiatric: Appropriate mood and thoughts Results Labs Reviewed COMPREHENSIVE METABOLIC PANEL - Abnormal Result Value Sodium 138 Potassium 3.9 Chloride 107 CO2 23 Anion Gap 8 Glucose 119 (*) BUN 7 Creatinine 0.70 eGFR 109 BUN/Creatinine Ratio 10.0 Calcium 9.6 AST (SGOT) 14 ALT (SGPT) 17 Alkaline Phosphatase 95 Total Protein 7.2 Albumin 3.9 Total Bilirubin 0.7 CBC WITH AUTO DIFFERENTIAL - Abnormal WBC 9.1 RBC 4.70 Hemoglobin 13.4 Hematocrit 40.6 MCV 86.6 MCH 28.6 MCHC 33.0 RDW 13.0 Platelets 292 MPV 11.0 NRBC 0.0 NRBC Absolute 0.00 Neutrophils Relative 65.3 Lymphocytes Relative 21.7 Monocytes Relative 4.7 Eosinophils Relative 6.5 Basophils Relative 0.7 Immature Granulocytes Relative 1.1 Neutrophils Absolute 5.96 Lymphocytes Absolute 1.98 Monocytes Absolute 0.43 Eosinophils Absolute 0.59 (*) Basophils Absolute 0.06 Immature Granulocytes Absolute 0.10 (*) URINALYSIS WITH REFLEX MICROSCOPIC AND CULTURE - Normal Specific [place] Urine 1.016 pH, Urine 5.5 Leukocytes, Urine Negative Nitrite, Urine Negative Protein, Urine Negative Glucose, Urine Negative Ketones, Urine Negative Urobilinogen, Urine 0.2 Bilirubin, Urine Negative Blood, Urine Negative POC , URINE DIAGNOSTIC - Normal HCG, Ur POC Negative POC hCG Int QC Pass? Yes EXPIRATION DATE POC 3306019 LOT NUMBER POC [id number] CBC AND DIFFERENTIAL Narrative: The following orders were created for panel order CBC and differential. Procedure Abnormality Status --------- ------ CBC auto differential[[id number]] Abnormal Final result Please view results for these tests on the individual orders. URINALYSIS WITH REFLEX MICROSCOPIC AND CULTURE Narrative: The following orders were created for panel order Urinalysis with reflex microscopic and culture. Procedure Abnormality Status --------- ------ Urinalysis with reflex m...[[id number]] Normal Final result Woods urine culture tube[[id number]] Final result Please view results for these tests on the individual orders. Abnormal Labs Reviewed COMPREHENSIVE METABOLIC PANEL - Abnormal; Notable for the following components: Result Value Glucose 119 (*) All other components within normal limits CBC WITH AUTO DIFFERENTIAL - Abnormal; Notable for the following components: Eosinophils Absolute 0.59 (*) Immature Granulocytes Absolute 0.10 (*) All other components within normal limits CT Abdomen Pelvis w Contrast Final Result Impression: 1. Large left adnexal or pelvic complex cyst or large cyst with the adjacent hydrosalpinx as described above. This is seen on same day pelvic ultrasound and follow-up ultrasound in 3-6 months recommended. Alternatively, if further imaging characterization is clinically warranted, nonemergent MRI could be considered. 2. No other acute abnormalities within the abdomen or pelvis. This document has been electronically signed by: Earl Rod MD on 06/09/2024 19:45:16 US Pelvis Non OB Complete w Transvaginal Final Result Impression: 1. Complex left ovarian cyst measuring up to 6.7 cm. Consider follow-up ultrasound in 3-6 months. No sonographic evidence of torsion. 2. Prior hysterectomy and right oophorectomy. This document has been electronically signed by: Earl Rod MD on 06/09/2024 17:18:34 I have discussed the incidental/abnormal imaging and/or lab abnormalities with the patient and haveinstructed them the need for further evaluation and workup with their primary care doctor. I have provided the patient with a paper copy of the abnormality. The laboratory results, imaging results and other diagnostic exam results were reviewed in the EMR. EKG Interpretation Critical Care Time None ? Medical Decision Making Medications ketorolac (TORADOL) injection 15 mg (15 mg intravenous Given 06/09/24 174) oxyCODONE (ROXICODONE) immediate release tablet 5 mg (5 mg oral Given 06/09/241849) sodium chloride 0.9 % flush 10 mL (10 mL intravenous Given 06/09/241907) iopamidoL (ISOVUE-370) 370 mg iodine /mL (76 %) injection 90 mL (90 mL intravenous Given 06/09/241907) ED Course as of 06/09/242056 [facility] Jun 09, [id number] I consulted Dr. Rome. Recommend patient be worked up additional for other cause of her lower abdominal pain. Will plan to give patient additional dose of oxycodone here for her pain. Will plan to obtain CT abdomen pelvis. She recommends patient follow-up with [facility] for humane officer oncology for further evaluation of this complex cyst. She is concerned that this may be oncological in nature. [TC] 1832 This is a 44-year-old female presented hospital today for intermittent left suprapubic pain that raise to the back. Transvaginal ultrasound did show 6.7 cm complex ovarian cyst. Will obtain a CT abdomen pelvis to assess for other cause of her abdominal pain. [TC] [address] Turner at [facility] who recommends further [employer] DES[employer] evaluation at our facility to further assess this complex cyst. They unfortunately do not have any beds available for transfer. Discussed this with patient that there is option for transfer to other hospital. However she would prefer to stay locally if possible. Discussed with Dr. Rome who shared that she does not recommend any emergent gynocological procedure at this time. She recommends pain control and for patient to follow up in clinic with [facility] Block Operator Onc. Discuss this with patient. She is agree able for discharge with pain medicine. She will decide whether to go to [facility] tonight v.s. tomorrow. She is still having some pain. [TC] 2055 CT imaging shows the large left ovarian cyst no other pathologies. [TC] 2055 Patient will be discharge report will be printed and provided to her pain medicine will be sent to pharmacy. Return percaution provided. [TC] ED Course User Index [TC] Maria Antonia Duncan DO Clinical Impressions as of 06/09/242056 Complex ovarian cyst Procedures Procedures Diagnosis 1. Complex ovarian cyst oxyCODONE (ROXICODONE) 5 mg immediate release tablet Disposition Discharge ED Prescriptions Medication Sig Dispense Start Date End Date Auth. Provider oxyCODONE (ROXICODONE) 5 mg immediate release tablet Take 1 tablet (5 mg total) by mouth every 6 (six) hours if needed for severe pain. Max Daily Amount: 20 mg 15 tablet 06/09/2024 -- Maria Antonia Duncan DO ibuprofen (ADVIL,MOTRIN) 600 mg tablet Take 1 tablet (600 mg total) by mouth 3 (three) times a day for 10 days. 30 tablet 06/09/2024 06/19/2024 Maria Antonia Duncan DO acetaminophen (TYLENOL) 500 mg tablet Take 2 tablets (1,000 mg total) by mouth every 8 (eight) hours for 10 days. 60 tablet 06/09/2024 06/19/2024 Maria Antonia Duncan DO Physician Attestation Maria Antonia Duncan DO 06/09/24 1625 Maria Antonia Duncan, 06/09/24 183 Maria Antonia Duncan DO 06/09/242056 documented in this encounter Plan of Treatment Not on file documented as of this encounter Procedures Procedure Name Priority Date/Time Associated Diagnosis Comments CT ABDOMEN PELVIS W CONTRAST STAT 06/09/2024 7:19 PM EST URINALYSIS WITH REFLEX MICROSCOPIC AND CULTURE STAT 06/09/2024 5:36 PM EST WOODS URINE CULTURE TUBE STAT 06/09/2024 5:36 PM EST URINALYSIS WITH REFLEX MICROSCOPIC AND CULTURE STAT 06/09/2024 5:36 PM EST POC , URINE DIAGNOSTIC STAT 06/09/2024 5:36 PM EST US PELVIS NON OB COMPLETE W TRANSVAGINAL STAT 06/09/2024 4:56 PM EST CBC WITH AUTO DIFFERENTIAL STAT 06/09/2024 1:38 PM EST CBC AND DIFFERENTIAL STAT 06/09/2024 1:38 PM EST COMPREHENSIVE METABOLIC PANEL STAT 06/09/2024 1:38 PM EST documented in this encounter Results * CT Abdomen Pelvis w Contrast (06/09/2024 7:19 PM EST) Anatomical Region Laterality Modality Body Computed Tomogra phy 06/09/2024 7:45 PM EST Impressions 06/09/2024 7:45 PM EST Impression: 1. Large left adnexal or pelvic complex cyst or large cyst with the adjacent hydrosalpinx as described above. This is seen on same day pelvic ultrasound and follow-up ultrasound in 3-6 months recommended. Alternatively, if further imaging characterization is clinically warranted, nonemergent MRI could be considered. 2. No other acute abnormalities within the abdomen or pelvis. This document has been electronically signed by: Earl Rod MD on 06/09/2024 19:45:16 Narrative 06/09/2024 7:45 PM EST INDICATION: Abdominal abscess/infection suspected Exam: Contrast-enhanced CT abdomen and pelvis with multiplanar reformats. Comparison: Same-day pelvic ultrasound. Findings: CT abdomen: Lung bases appear clear. Liver is free of focal lesions and ductal dilatation. Gallbladder is absent. Spleen appears unremarkable. Pancreas and adrenal glands appear unremarkable. Kidneys appear unremarkable bilaterally. No free intraperitoneal fluid or retroperitoneal masses or adenopathy. Abdominal aorta is normal caliber. Bowel loops reveal no abnormal wall thickening or distention. The appendix is unremarkable. No significant diverticular disease. CT pelvis: There is a fairly large multiloculated left adnexal or pelvic cyst, versus adjacent cysts or are left hydrosalpinx, with largest cystic component measuring up to 7.2 x 6.0 cm oblique AP and transverse dimension (3; 140, 14 Hounsfield units density). Anterior to this is a somewhat tubular fluid attenuation collection measuring up to 2.6 cm (3; 132 and 602; 51), suspect hydrosalpinx. Uterus is surgically absent. No other pelvic masses or adenopathy. Urinary bladder is free of gross filling defects. Osseous structures reveal no destructive osseous lesions. Procedure Note Earl Rod MD - 06/09/2024 INDICATION: Abdominal abscess/infection suspected Exam: Contrast-enhanced CT abdomen and pelvis with multiplanarreformats. Comparison: Same-day pelvic ultrasound. Findings: CT abdomen: Lung bases appear clear. Liver is free of focal lesions and ductal dilatation. Gallbladder is absent. Spleen appears unremarkable. Pancreas and adrenal glands appear unremarkable. Kidneys appear unremarkable bilaterally. No free intraperitoneal fluid or retroperitoneal masses or adenopathy. Abdominal aorta is normal caliber. Bowel loops reveal no abnormal wall thickening or distention. Theappendix is unremarkable. No significant diverticular disease. CT pelvis: There is a fairly large multiloculated left adnexal or pelvic cyst, versus adjacent cysts or are left hydrosalpinx, with largestcystic component measuring up to 7.2 x 6.0 cm oblique AP and transversedimension (3; 140, 14 Hounsfield units density). Anterior to this is a somewhat tubular fluid attenuation collection measuring up to 2.6 cm (3; 132 and 602; 51), suspect hydrosalpinx. Uterus is surgically absent. No other pelvic masses or adenopathy. Urinary bladder is free of gross filling defects. Osseous structures reveal no destructive osseous lesions. IMPRESSION: Impression: 1. Large left adnexal or pelvic complex cyst or large cyst with the adjacent hydrosalpinx as described above. This is seen on same daypelvic ultrasound and follow-up ultrasound in 3-6 months recommended. Alternatively, if further imaging characterization is clinically warranted, nonemergent MRI could be considered. 2. No other acute abnormalities within the abdomen or pelvis. This document has been electronically signed by: Earl Rod MD on 06/09/2024 19:45:16 us Maria Antonia Duncan DO IMG CT PROCEDURES Final R esult * POC , urine manually resulted (06/09/2024 5:36 PM EST) HCG, Ur POC Negative Negative POC hCG Int QC Pass? Yes Yes EXPIRATION DATE POC [id number] LOT NUMBER POC [id number] Urine Urine specimen obtained by clean catch procedure / Unknown 06/09/2024 5:36 PM EST Chidinatalie Gómez Dakota DO POINT OF CARE TEST ENTER/ EDIT ORDERABLES Final Result * Woods urine culture tube (06/09/2024 5:36 PM EST) Pathologist [facility] Extra Tube Hold for add-ons. 06/09/2024 7:01 PM [facility] Comment:Auto resulted. Urine Urine specimen obtained by clean catch procedure / Unknown Non-blood Collection / Unknown 06/09/2024 5:36 PM EST 06/09/2024 6:00 PM EST Roni BAKER LAB URINE ORDERABLES Rain l Result [facility] [address] [place] [address], [place] [phone] * Urinalysis with reflex microscopic and culture (06/09/2024 5:36 PM EST) [facility] Specific [place] Urine 1.016 1.003 - 1.030 LAB URINALYSIS - AUTOMATED METHOD 06/09/2024 6:05 PM [facility] pH, Urine 5.5 5.0 - 8.0 pH LAB URINALYSIS - AUTOMATED METHOD 06/09/2024 6:05 PM [facility] Leukocytes, Urine Negative Negative LAB URINALYSIS - AUTOMATED METHOD 06/09/2024 6:05 PM [facility] Nitrite, Urine Negative Negative LAB URINALYSIS - AUTOMATED METHOD 06/09/2024 6:05 PM [facility] Protein, Urine Negative <=Trace mg/dL LAB URINALYSIS - AUTOMATED METHOD 06/09/2024 6:05 PM [facility] Glucose, Urine Negative Negative mg/dL LAB URINALYSIS - AUTOMATED METHOD 06/09/2024 6:05 PM [facility] Ketones, Urine Negative Negative mg/dL LAB URINALYSIS - AUTOMATED METHOD 06/09/2024 6:05 PM [facility] Urobilinogen, Urine 0.2 0.2 - 1.0 mg/dL LAB URINALYSIS - AUTOMATED METHOD 06/09/2024 6:05 PM [facility] Bilirubin, Urine Negative Negative LAB URINALYSIS - AUTOMATED METHOD 06/09/2024 6:05 PM [facility] Blood, Urine Negative Negative LAB URINALYSIS - AUTOMATED METHOD 06/09/2024 6:05 PM [facility] Urine Urine specimen obtained by clean catch procedure / Unknown Non-blood Collection / Unknown 06/09/2024 5:36 PM EST 06/09/2024 6:00 PM EST us Roni BAKER LAB URINE ORDERABLES Rain haji Result [facility] [address] [place] [address], * US Pelvis Non OB Complete w Transvaginal (06/09/2024 4:56 PM EST) Anatomical Region Laterality Modality Body, Pelvis Ultrasound 06/09/2024 5:18 PM EST Impressions 06/09/2024 5:18 PM EST Impression: 1. Complex left ovarian cyst measuring up to 6.7 cm. Consider follow-up ultrasound in 3-6 months. No sonographic evidence of torsion. 2. Prior hysterectomy and right oophorectomy. This document has been electronically signed by: Earl Rod MD on 06/09/2024 17:18:34 Narrative 06/09/2024 5:18 PM EST INDICATION: eval for torsion/cyst please US pelvis transabdominal and transvaginal Comparison: None Findings: Transabdominal scanning performed for overall anatomy. Transvaginal scanning performed for additional detail. Uterus is surgically absent. Right ovary is surgically absent. Left ovary enlarged , measuring up to 7.2 cm cm. Normal color flow . A large complex cyst measures 6.7 x 5.0 x 5.5 cm. This reveals perhaps thin internal septations and lace-like internal echotexture, possible hemorrhagic cyst. Doppler interrogation reveals no definable internal blood flow. No definable mural nodules. Consider follow-up ultrasound in 3-6 months. No free fluid Procedure Note Earl Rod MD - 06/09/2024 INDICATION: eval for torsion/cyst please US pelvis transabdominal and transvaginal Comparison: None Findings: Transabdominal scanning performed for overall anatomy. Transvaginal scanning performed for additional detail. Uterus is surgically absent. Right ovary is surgically absent. Left ovary enlarged , measuring up to 7.2 cm cm. Normal color flow . A large complex cyst measures 6.7 x 5.0 x 5.5 cm. This reveals perhapsthin internal septations and lace-like internal echotexture, possible hemorrhagic cyst. Doppler interrogation reveals no definable internal blood flow. No definable mural nodules. Consider follow-up ultrasound in 3-6 months. No free fluid IMPRESSION: Impression: 1. Complex left ovarian cyst measuring up to 6.7 cm. Consider follow-up ultrasound in 3-6 months. No sonographic evidence of torsion. 2. Prior hysterectomy and right oophorectomy. This document has been electronically signed by: Earl Rod MD on 06/09/2024 17:18:34 us Ting Mani Duncan DO IMG US PROCEDURES Final R esult * (ABNORMAL) CBC auto differential (06/09/2024 1:38 PM EST) WBC 9.1 4.8 - 10.8 K/mcL LAB HEMETOLOGY METHOD 06/09/2024 2:11 PM EST [facility] RBC 4.70 3.80 - 4.80 M/mcL LAB HEMETOLOGY METHOD 06/09/2024 2:11 PM [facility] Hemoglobin 13.4 11.5 - 16.0 g/dL LAB HEMETOLOGY METHOD 06/09/2024 2:11 PM [facility] Hematocrit 40.6 35.0 - 47.0 % LAB HEMETOLOGY METHOD 06/09/2024 2:11 PM [facility] MCV 86.6 79.0 - 98.0 FL LAB HEMETOLOGY METHOD 06/09/2024 2:11 PM [facility] MCH 28.6 27.0 - 32.0 pcg LAB HEMETOLOGY METHOD 06/09/2024 2:11 PM [facility] MCHC 33.0 32.0 - 37.0 g/dL LAB HEMETOLOGY METHOD 06/09/2024 2:11 PM [facility] RDW 13.0 11.0 - 15.0 % LAB HEMETOLOGY METHOD 06/09/2024 2:11 PM [facility] Platelets 292 130 - 400 K/mcL LAB HEMETOLOGY METHOD 06/09/2024 2:11 PM [facility] MPV 11.0 7.0 - 11.0 FL LAB HEMETOLOGY METHOD 06/09/2024 2:11 PM [facility] NRBC 0.0 <1.0 % LAB HEMETOLOGY METHOD 06/09/2024 2:11 PM [facility] NRBC Absolute 0.00 <0.10 K/mcL LAB HEMETOLOGY METHOD 06/09/2024 2:11 PM [facility] Neutrophils Relative 65.3 % LAB HEMETOLOGY METHOD 06/09/2024 2:11 PM [facility] Lymphocytes Relative 21.7 % LAB HEMETOLOGY METHOD 06/09/2024 2:11 PM [facility] Monocytes Relative 4.7 % LAB HEMETOLOGY METHOD 06/09/2024 2:11 PM EST [facility] Eosinophils Relative 6.5 % LAB HEMETOLOGY METHOD 06/09/2024 2:11 PM [facility] Basophils Relative 0.7 % LAB HEMETOLOGY METHOD 06/09/2024 2:11 PM [facility] Immature Granulocytes Relative 1.1 % LAB HEMETOLOGY METHOD 06/09/2024 2:11 PM [facility] Neutrophils Absolute 5.96 1.50 - 7.00 K/mcL LAB HEMETOLOGY METHOD 06/09/2024 2:11 PM [facility] Lymphocytes Absolute 1.98 1.00 - 5.00 K/mcL LAB HEMETOLOGY METHOD 06/09/2024 2:11 PM [facility] Monocytes Absolute 0.43 0.20 - 1.00 K/mcL LAB HEMETOLOGY METHOD 06/09/2024 2:11 PM [facility] Eosinophils Absolute 0.59(H) 0.00 - 0.50 K/mcL LAB HEMETOLOGY METHOD 06/09/2024 2:11 PM [facility] Basophils Absolute 0.06 0.00 - 0.20 K/mcL LAB HEMETOLOGY METHOD 06/09/2024 2:11 PM [facility] Immature Granulocytes Absolute 0.10(H) 0.00 - 0.03 K/mcL LAB HEMETOLOGY METHOD 06/09/2024 2:11 PM [facility] Blood Venous blood specimen / Unknown Venipuncture / Unknown 06/09/2024 1:38 PM EST 06/09/2024 1:52 PM EST us Roni BAKER LAB BLOOD ORDERABLES Rain l Result [facility] [address] [place] [address], [place] [phone] * (ABNORMAL) Comprehensive metabolic panel (06/09/2024 1:38 PM EST) Sodium 138 133 - 145 mmol/L LAB CHEMISTRY METHOD 06/09/2024 2:37 PM [facility] Potassium 3.9 3.5 - 5.5 mmol/L LAB CHEMISTRY METHOD 06/09/2024 2:37 PM [facility] Chloride 107 96 - 110 mmol/L LAB CHEMISTRY METHOD 06/09/2024 2:37 PM [facility] CO2 23 21 - 32 mmol/L LAB CHEMISTRY METHOD 06/09/2024 2:37 PM [facility] Anion Gap 8 3 - 11 LAB CHEMISTRY METHOD 06/09/2024 2:37 PM [facility] Glucose 119(H) 70 - 100 mg/dL LAB CHEMISTRY METHOD 06/09/2024 2:37 PM [facility] BUN 7 5 - 25 mg/dL LAB CHEMISTRY METHOD 06/09/2024 2:37 PM [facility] Creatinine 0.70 0.50 - 1.10 mg/dL LAB CHEMISTRY METHOD 06/09/2024 2:37 PM [facility] eGFR 109 >=60 mL/min/1. 73m2 LAB CHEMISTRY METHOD 06/09/2024 2:37 PM [facility] Comment:Calculation based on the??Chronic Kidney Disease Epidemiology Collaboration (CKD-EPI) equation refit??without adjustment for race. BUN/Creatinine Ratio 10.0 LAB CHEMISTRY METHOD 06/09/2024 2:37 PM [facility] Calcium 9.6 8.5 - 10.5 mg/dL LAB CHEMISTRY METHOD 06/09/2024 2:37 PM [facility] AST (SGOT) 14 10 - 42 unit/L LAB CHEMISTRY METHOD 06/09/2024 2:37 PM [facility] ALT (SGPT) 17 10 - 60 unit/L LAB CHEMISTRY METHOD 06/09/2024 2:37 PM EST [facility] Alkaline Phosphatase 95 42 - 121 unit/L LAB CHEMISTRY METHOD 06/09/2024 2:37 PM EST [facility] Total Protein 7.2 6.0 - 8.0 g/dL LAB CHEMISTRY METHOD 06/09/2024 2:37 PM EST [facility] Albumin 3.9 3.2 - 5.0 g/dL LAB CHEMISTRY METHOD 06/09/2024 2:37 PM [facility] Total Bilirubin 0.7 0.0 - 1.4 mg/dL LAB CHEMISTRY METHOD 06/09/2024 2:37 PM EST [facility] Blood Venous blood specimen / Unknown Venipuncture / Unknown 06/09/2024 1:38 PM EST 06/09/2024 1:52 PM EST us Roni BAKER LAB BLOOD ORDERABLES Rain haji Result [facility] [address] [place] [address], documented in this encounter Visit Diagnoses Diagnosis Complex ovarian cyst- Primary documented in this encounter Administered Medications Inactive Administered Medications - up to 3 most recent administrations Medication Order MAR Action Action Date Dose Rate Site iopamidoL (ISOVUE-370) 370 mg iodine /mL (76 %) injection 90 mL 90 mL, intravenous, Once in imaging, Starting on Ekta 06/09/24 at 1908, For 1 dose Given 06/09/2024 7:08 PM EST 90 mL ketorolac (TORADOL) injection 15 mg 15 mg, intravenous, Once, On Ekta 06/09/24 at 1629, For 1 dose Given 06/09/2024 5:40 PM EST 15 mg oxyCODONE (ROXICODONE) immediate release tablet 5 mg 5 mg, oral, Once, On Ekta 06/09/24 at 1824, For 1 dose Given 06/09/2024 6:50 PM EST 5 mg sodium chloride 0.9 % flush 10 mL 10 mL, intravenous, Once, On Ekta 06/09/24 at 1909, For 1 dose Given 06/09/2024 7:08 PM EST 10 mL documented in this encounter Discontinued Medications Medication Sig Discontinue Reason Start Date End Da te oxyCODONE (ROXICODONE) 5 mg immediate release tabletIndications:Comple x ovarian cyst Take 1 tablet (5 mg total) by mouth every 6 (six) hours if needed for severe pain. Max Daily Amount: 20 mg 06/09/2024 06/09/2024 ibuprofen (ADVIL,MOTRIN) 600 mg tablet Take 1 tablet (600 mg total) by mouth 3 (three) times a day for 10 days. 06/09/2024 06/09/2024 acetaminophen (TYLENOL) 500 mg tablet Take 2 tablets (1,000 mg total) by mouth every 8 (eight) hours for 10 days. 06/09/2024 06/09/2024 documented as of this encounter Active and Recently Administered Medications Times are shown in EST. Scheduled Medication Order 06/07/2024 06/08/2024 06/09/2024 iopamidoL (ISOVUE-370) 370 mg iodine /mL (76 %) injection 90 mL (COMPLETED) 90 mL, intravenous, Once in imaging, Starting on Ekta 06/09/24 at 1908, For 1 dose 1908 (Given - Provid er: Alison Bourgeois) ketorolac (TORADOL) injection 15 mg (COMPLETED) 15 mg, intravenous, Once, On Ekta 06/09/24 at 1629, For 1 dose 1740 (Given - Provid er: Maribel Beach RN - Comment: pt was in [place] then needed a line) oxyCODONE (ROXICODONE) immediate release tablet 5 mg (COMPLETED) 5 mg, oral, Once, On Ekta 06/09/24 at 1824, For 1 dose 1850 (Given - Provid er: Luisa Jarquin RN) sodium chloride 0.9 % flush 10 mL (COMPLETED) 10 mL, intravenous, Once, On Ekta 06/09/24 at 1909, For 1 dose 1908 (Given - Provid er: Alison Bourgeois) documented in this encounter Care Teams Tube Dispatcher Relationship Specialty Start Date End Date Physician, No Pcp PCP - General 06/09/24 documented as of this encounter
--- OUTSIDE RECORDS SUMMARY | 2024-06-14 09:15 | XMS_ITS | Clinical Summary ---
Author Organization [facility] Address [address] [place] [address] Phone Care Team Providers Care Rn Forensic Name Role Phone Physician, No Pcp Primary Care Provider Unavaila ble Allergies No known active allergies Medications oxyCODONE (ROXICODONE) 5 mg immediate release tabletIndicati ons:Complex ovarian cyst Take 1 tablet (5 mg total) by mouth every 6 (six) hours if needed for severe pain. Max Daily Amount: 20 mg 15 tablet 5 Active acetaminophen (TYLENOL) 500 mg tablet Take 2 tablets (1,000 mg total) by mouth every 8 (eight) hours for 10 days. 60 tablet 5 06/19/19 25 Active ibuprofen (ADVIL,MOTRIN) 600 mg tablet Take 1 tablet (600 mg total) by mouth 3 (three) times a day for 10 days. 30 tablet 5 06/19/19 25 Active oxyCODONE (ROXICODONE) 5 mg immediate release tabletIndicati ons:Complex ovarian cyst Take 1 tablet (5 mg total) by mouth every 6 (six) hours if needed for severe pain. Max Daily Amount: 20 mg 15 tablet 5 06/09/19 25 Discontinued ibuprofen (ADVIL,MOTRIN) 600 mg tablet Take 1 tablet (600 mg total) by mouth 3 (three) times a day for 10 days. 30 tablet 5 06/09/19 25 Discontinued acetaminophen (TYLENOL) 500 mg tablet Take 2 tablets (1,000 mg total) by mouth every 8 (eight) hours for 10 days. 60 tablet 5 06/09/19 25 Discontinued Encounters Date Type Department Care Team Description 06/09/2024 4:18 PM EST - 06/09/2024 9:19 PM EST Emergency [facility] [address] [place] [address] Dakota Chidinatalie Gómez DO Complex ovarian cyst (Primary Dx) Discharge Disposition: Home or Self Care from Last 3 Months Surgical History Surgery Date Site/Laterality Comments CHOLECYSTECTOMY 01/1998 PROCEDURE: HISTORICAL CHOLECYSTECTOMY TUBAL LIGATION PROCEDURE: HISTORICAL TUBAL LIGATION BUNIONECTOMY 05/21/2017 Right PROCEDURE: BUNION SURGERY, SIMPLE REMOVAL; COMMENT: Right roberto bunionectomy OTHER SURGICAL HISTORY 05/21/2017 Right PROCEDURE: MT OSTEOT W/WO LNGTH SHRT/CORRJ METAR XCP 1ST EA; COMMENT: Reverse roberto Woodruff's bunionectomy Medical History Medical History Date Comments Asthma DX:Asthma Depression DX:Depression Lumbago DX:Lumbago Foot pain 07/27/2015 DX:Foot pain; CO MMENT: 05/25/15 Referred to Podiatry - Dr Doroteo Hansen GERD (gastroesophageal reflux disease) 07/27/2015 DX:GERD (gastroesophageal reflux disease) Constipation 07/27/2015 DX:Constipation Allergic rhinitis 10/12/2015 DX:Allergic rh initis Chronic pain syndrome 10/12/2015 DX:Chronic pain syndrome Pityriasis rosea 06/18/2016 DX:Pityriasis r osea Kidney stones DX:Kidney stones Family History Medical History Relation Name Comments Breast cancer Aunt Asthma Mother smoker, etoh us e, Depression Mother Relation Name Status Comments Aunt Daughter 1 Alive Daughter 2 Alive Daughter 3 Alive Father Mother Alive Son Alive Social History Tobacco Use Types Packs/Day Years [...] Orientation Straight 06/09/2024 5: 01 PM EST Obstetrics History Last Filed Vital Signs Vital Sign Reading [...] Mass Index 30.3 06/09/2024 1:33 PM EST Plan of Treatment Health Maintenance Due Date Last Done Comments Breast Cancer Screening 1979 Hepatitis B Vaccines (1 of 3 - 19+ 3-dose series) 1998 Pneumococcal Vaccine: Pediatrics (0 to 5 Years) and At-Risk Patients (6 to 64 Years) (1 of 2 - PCV) 1998 Cervical Cancer Screening: Pap Smear 2000 COVID-19 Vaccine ( season) 2023 09/20/2020, 08/22/2020 Influenza Vaccine (#1) 2023 , 03/07/2019, 02/25/2018, Additional history exists Colorectal Cancer Screening: Colonoscopy 06/10/2024 Depression Screening 06/10/2024 HIV Screening 06/10/2024 Hepatitis C Screening 06/10/2024 Social Influencers of Health Screening 06/10/2024 DTaP,Tdap,and Td Vaccines (2 - Td or Tdap) 12/01/2033 12/02/2023 HIB Vaccines Aged Out No longer eligi ble based on patient's age to complete this topic HPV Vaccines Aged Out No longer eligi ble based on patient's age to complete this topic Hepatitis A Vaccines Aged Out No long er eligible based on patient's age to complete this topic IPV Vaccines Aged Out No longer eligi ble based on patient's age to complete this topic MMR Vaccines Aged Out No longer eligi ble based on patient's age to complete this topic Meningococcal ACWY Vaccine Aged Out N o longer eligible based on patient's age to complete this topic Meningococcal B Vacine Aged Out No lo nger eligible based on patient's age to complete this topic RSV Immunization Patients Under 20 months Aged Out No longer eligible based on patient's age to complete this topic Varicella Vaccines Aged Out No longer eligible based on patient's age to complete this topic Procedures Procedure Name Priority Date/Time Associated Diagnosis Comments CT ABDOMEN PELVIS W CONTRAST STAT 06/09/2024 7:19 PM EST POC , URINE DIAGNOSTIC STAT 06/09/2024 5:36 PM EST WOODS URINE CULTURE TUBE STAT 06/09/2024 5:36 PM EST URINALYSIS WITH REFLEX MICROSCOPIC AND CULTURE STAT 06/09/2024 5:36 PM EST URINALYSIS WITH REFLEX MICROSCOPIC AND CULTURE STAT 06/09/2024 5:36 PM EST US PELVIS NON OB COMPLETE W TRANSVAGINAL STAT 06/09/2024 4:56 PM EST CBC WITH AUTO DIFFERENTIAL STAT 06/09/2024 1:38 PM EST COMPREHENSIVE METABOLIC PANEL STAT 06/09/2024 1:38 PM EST CBC AND DIFFERENTIAL STAT 06/09/2024 1:38 PM EST from Last 3 Months Results * CT Abdomen Pelvis w Contrast [...] Earl Rod MD on 06/09/2024 19:45:16 us Chidi Mnai Gómez Duncan DO IMG CT PROCEDURES Final R esult * Urinalysis with reflex microscopic and culture (06/09/2024 5:36 PM EST) Specific Rodessa Urine 1.016 1.003 - 1.030 LAB URINALYSIS - AUTOMATED METHOD 06/09/2024 6:05 PM [facility] pH, Urine 5.5 5.0 - 8.0 pH LAB URINALYSIS - AUTOMATED METHOD 06/09/2024 6:05 PM [facility] Leukocytes, Urine Negative Negative LAB URINALYSIS - AUTOMATED METHOD 06/09/2024 6:05 PM [facility] Nitrite, Urine Negative Negative LAB URINALYSIS - AUTOMATED METHOD 06/09/2024 6:05 PM [facility] Protein, Urine Negative <=Trace mg/dL LAB URINALYSIS - AUTOMATED METHOD 06/09/2024 6:05 PM [facility] Glucose, Urine Negative Negative mg/dL LAB URINALYSIS - AUTOMATED METHOD 06/09/2024 6:05 PM [facility] Ketones, Urine Negative Negative mg/dL LAB URINALYSIS - AUTOMATED METHOD 06/09/2024 6:05 PM [facility] Urobilinogen, Urine 0.2 0.2 - 1.0 mg/dL LAB URINALYSIS - AUTOMATED METHOD 06/09/2024 6:05 PM [facility] Bilirubin, Urine Negative Negative LAB URINALYSIS - AUTOMATED METHOD 06/09/2024 6:05 PM [facility] Blood, Urine Negative Negative LAB URINALYSIS - AUTOMATED METHOD 06/09/2024 6:05 PM EST [facility] Urine Urine specimen obtained by clean catch procedure / Unknown Non-blood Collection / Unknown 06/09/2024 5:36 PM EST 06/09/2024 6:00 PM EST Roni BAKER LAB URINE ORDERABLES Rain l Result [facility] [address] [place] [address], [place] [phone] * Woods urine culture tube (06/09/2024 5:36 PM EST) Extra Tube Hold for add-ons. 06/09/2024 7:01 PM EST [facility] Comment:Auto resulted. Urine Urine specimen obtained by clean catch procedure / Unknown Non-blood Collection / Unknown 06/09/2024 5:36 PM EST 06/09/2024 6:00 PM EST Roni BAKER LAB URINE ORDERABLES Rain l Result Performing Organization Address City/[facility]/ZIP Co de Phone Number [facility] [address] [place] [address], [place] [phone] * POC , urine manually resulted (06/09/2024 5:36 PM EST) HCG, Ur POC Negative Negative POC hCG Int QC Pass? Yes Yes EXPIRATION DATE POC [id number] LOT NUMBER POC [id number] Urine Urine specimen obtained by clean catch procedure / Unknown 06/09/2024 5:36 PM EST Maria Antonia Duncan DO POINT OF CARE TEST ENTER/ EDIT ORDERABLES Final Result * US Pelvis Non OB Complete w [...] Earl Rod MD on 06/09/2024 17:18:34 us Maria Antonia Duncan DO IMG US PROCEDURES Final R esult * (ABNORMAL) CBC auto differential (06/09/2024 1:38 PM EST) [facility] WBC 9.1 4.8 - 10.8 K/mcL LAB HEMETOLOGY METHOD 06/09/2024 2:11 PM [facility] RBC 4.70 3.80 - 4.80 M/mcL LAB HEMETOLOGY METHOD 06/09/2024 2:11 PM [facility] Hemoglobin 13.4 11.5 - 16.0 g/dL LAB HEMETOLOGY METHOD 06/09/2024 2:11 PM [facility] Hematocrit 40.6 35.0 - 47.0 % LAB HEMETOLOGY METHOD 06/09/2024 2:11 PM [facility] MCV 86.6 79.0 - 98.0 FL LAB HEMETOLOGY METHOD 06/09/2024 2:11 PM [facility] MCH 28.6 27.0 - 32.0 pcg LAB HEMETOLOGY METHOD 06/09/2024 2:11 PM [facility] MCHC 33.0 32.0 - 37.0 g/dL LAB HEMETOLOGY METHOD 06/09/2024 2:11 PM [facility] RDW 13.0 11.0 - 15.0 % LAB HEMETOLOGY METHOD 06/09/2024 2:11 PM [facility] Platelets 292 130 - 400 K/mcL LAB HEMETOLOGY METHOD 06/09/2024 2:11 PM [facility] MPV 11.0 7.0 - 11.0 FL LAB HEMETOLOGY METHOD 06/09/2024 2:11 PM [facility] NRBC 0.0 <1.0 % LAB HEMETOLOGY METHOD 06/09/2024 2:11 PM [facility] NRBC Absolute 0.00 <0.10 K/mcL LAB HEMETOLOGY METHOD 06/09/2024 2:11 PM [facility] Neutrophils Relative 65.3 % LAB HEMETOLOGY METHOD 06/09/2024 2:11 PM [facility] Lymphocytes Relative 21.7 % LAB HEMETOLOGY METHOD 06/09/2024 2:11 PM [facility] Monocytes Relative 4.7 % LAB HEMETOLOGY METHOD 06/09/2024 2:11 PM [facility] Eosinophils Relative 6.5 % LAB HEMETOLOGY METHOD 06/09/2024 2:11 PM [facility] Basophils Relative 0.7 % LAB HEMETOLOGY METHOD 06/09/2024 2:11 PM [facility] Immature Granulocytes Relative 1.1 % LAB HEMETOLOGY METHOD 06/09/2024 2:11 PM [facility] Neutrophils Absolute 5.96 1.50 - 7.00 K/mcL LAB HEMETOLOGY METHOD 06/09/2024 2:11 PM [facility] Lymphocytes Absolute 1.98 1.00 - 5.00 K/mcL LAB HEMETOLOGY METHOD 06/09/2024 2:11 PM [facility] Monocytes Absolute 0.43 0.20 - 1.00 K/mcL LAB HEMETOLOGY METHOD 06/09/2024 2:11 PM [facility] Eosinophils Absolute 0.59(H) 0.00 - 0.50 K/mcL LAB HEMETOLOGY METHOD 06/09/2024 2:11 PM [facility] Basophils Absolute 0.06 0.00 - 0.20 K/mcL LAB HEMETOLOGY METHOD 06/09/2024 2:11 PM [facility] Immature Granulocytes Absolute 0.10(H) 0.00 - 0.03 K/mcL LAB HEMETOLOGY METHOD 06/09/2024 2:11 PM [facility] Blood Venous blood specimen / Unknown Venipuncture / Unknown 06/09/2024 1:38 PM EST 06/09/2024 1:52 PM EST us Roni BAKER LAB BLOOD ORDERABLES Rain l Result [facility] [address] [place] [address], * (ABNORMAL) Comprehensive metabolic panel (06/09/2024 1:38 PM EST) Sodium 138 133 - 145 mmol/L LAB CHEMISTRY METHOD 06/09/2024 2:37 PM [facility] Potassium 3.9 3.5 - 5.5 mmol/L LAB CHEMISTRY METHOD 06/09/2024 2:37 PM [facility] Chloride 107 96 - 110 mmol/L LAB CHEMISTRY METHOD 06/09/2024 2:37 PM [facility] CO2 23 21 - 32 mmol/L LAB CHEMISTRY METHOD 06/09/2024 2:37 PM [facility] Anion Gap 8 3 - 11 LAB CHEMISTRY METHOD 06/09/2024 2:37 PM [facility] Glucose 119(H) 70 - 100 mg/dL LAB CHEMISTRY METHOD 06/09/2024 2:37 PM [facility] BUN 7 5 - 25 mg/dL LAB CHEMISTRY METHOD 06/09/2024 2:37 PM [facility] Creatinine 0.70 0.50 - 1.10 mg/dL LAB CHEMISTRY METHOD 06/09/2024 2:37 PM [facility] eGFR 109 >=60 mL/min/1. 73m2 LAB CHEMISTRY METHOD 06/09/2024 2:37 PM [facility] Comment:Calculation based on the??Chronic Kidney Disease Epidemiology Collaboration (CKD-EPI) equation refit??without adjustment for race. BUN/Creatinine Ratio 10.0 LAB CHEMISTRY METHOD 06/09/2024 2:37 PM [facility] Calcium 9.6 8.5 - 10.5 mg/dL LAB CHEMISTRY METHOD 06/09/2024 2:37 PM [facility] AST (SGOT) 14 10 - 42 unit/L LAB CHEMISTRY METHOD 06/09/2024 2:37 PM [facility] ALT (SGPT) 17 10 - 60 unit/L LAB CHEMISTRY METHOD 06/09/2024 2:37 PM [facility] Alkaline Phosphatase 95 42 - 121 unit/L LAB CHEMISTRY METHOD 06/09/2024 2:37 PM [facility] Total Protein 7.2 6.0 - 8.0 g/dL LAB CHEMISTRY METHOD 06/09/2024 2:37 PM [facility] Albumin 3.9 3.2 - 5.0 g/dL LAB CHEMISTRY METHOD 06/09/2024 2:37 PM [facility] Total Bilirubin 0.7 0.0 - 1.4 mg/dL LAB CHEMISTRY METHOD 06/09/2024 2:37 PM [facility] Blood Venous blood specimen / Unknown Venipuncture / Unknown 06/09/2024 1:38 PM EST 06/09/2024 1:52 PM EST us Roni BAKER LAB BLOOD ORDERABLES Rain haji Result [facility] [address] [place] [address], [place] [phone] from Last 3 Months Insurance MEDICAID - [place] Care Teams Rn Forensic Relationship Specialty Start Date End Date Physician, No Pcp PCP - General 06/09/24
== END 2024-06-14 10:34 | disposition home or self-care (01) ==
LOC: HO.HWS 08:45
PROVIDERS: PCP Physician Assistant; Visit Provider Obstetrics & Gynecology
DX: N94.89 Other specified conditions associated with female genital organs and menstrual cycle (principal)
CPT/HCPCS: 99213

== ENCOUNTER → 2024-06-14 08:45 | Outpatient (BNVA) | payer OTHER, SELFPAY | PROVIDERS: PCP Physician Assistant; Visit Provider Obstetrics & Gynecology ==

== ENCOUNTER 2024-06-14 09:50 | Outpatient (REF) | payer OTHER, SELFPAY ==
--- OUTSIDE RECORDS SUMMARY | 2024-06-14 10:36 | XMS_ITS | Encounter Summary ---
Author Organization [facility] Address [address] [place] [address] Care Team Providers Care Choirmaster Name Role Phone Luis Rowan MD Primary Care Provider Un available Community, Pcp Primary Care Provider Unavailabl e Encounter Details Date Type Department Care Team Description 10/25/2015 Release of Information Medical Records [address] [place] [id number] Abstract, Provider Social History Tobacco Use Types Packs/Day Years Used Date Smoking Tobacco: Former Smokeless Tobacco: Never Comments:stopped 8 months Alcohol Use Standard Drinks/Week Comments No 0 (1 standard drink = 0.6 oz pur e alcohol) Sex Assigned at Date Recorded Not on file documented as of this encounter Plan of Treatment Not on file documented as of this encounter Visit Diagnoses Not on filedocumented in this encounter Care Teams Choirmaster Relationship Specialty Start Date End Date Luis Rowan MD PCP - General Internal Medicine 07/05/1504/21 Community, Pcp PCP - General Internal Medicine 04/22/18 documented as of this encounter
--- OUTSIDE RECORDS SUMMARY | 2024-06-14 10:36 | XMS_ITS | Encounter Summary ---
Author Organization [facility] Address [address] [place] [address] Care Team Providers Care Brazer Assembler Name Role Phone Luis Rowan MD Primary Care Provider Un available Community, Pcp Primary Care Provider Unavailabl e Encounter Details Date Type Department Care Team Description 09/14/2017 Orders Only Medical Records [address] [place] [address] Primitivo Menendez PA-C [address] [place] [address] Social History Tobacco Use Types Packs/Day Years Used Date Smoking Tobacco: Former Cigarettes Q uit: 12/12/2014 Smokeless Tobacco: Never Comments:stopped 8 months Alcohol Use Standard Drinks/Week Comments No 0 (1 standard drink = 0.6 oz pur e alcohol) Sex Assigned at Date Recorded Not on file documented as of this encounter Plan of Treatment Not on file documented as of this encounter Procedures Procedure Name Priority Date/Time Associated Diagnosis Comments OUTSIDE SLEEP STUDY Routine 09/08/2017 documented in this encounter Results * OUTSIDE SLEEP STUDY (09/08/2017) Primitivo Menendez PA-C PULMONOLOGY documented in this encounter Visit Diagnoses Not on filedocumented in this encounter Care Teams Brazer Assembler Relationship Specialty Start Date End Date Luis Rowan MD PCP - General Internal Medicine 07/05/1504/21 Community, Pcp PCP - General Internal Medicine 04/22/18 documented as of this encounter
--- OUTSIDE RECORDS SUMMARY | 2024-06-14 10:36 | XMS_ITS | Encounter Summary ---
Author Organization [employer] [employer] [facility] Address [address] [place] [address] Care Team Providers Care Chief Fundraising Officer Name Role Phone Luis Rowan MD Primary Care Provider Un available Community, Pcp Primary Care Provider Unavailabl e Encounter Details Date Type Department Care Team Description 02/26/2016 Release of Information Medical Records [address] [place] [id number] Abstract, Provider Social History Tobacco Use Types [...] on filedocumented in this encounter Care Teams Chief Fundraising Officer Relationship Specialty Start Date End Date Luis Rowan MD PCP - General Internal Medicine 07/05/1504/21 Community, Pcp PCP - General Internal Medicine 04/22/18 documented as of this encounter
--- OUTSIDE RECORDS SUMMARY | 2024-06-14 10:36 | XMS_ITS | Clinical Summary ---
Author Organization [facility] Address [address] [place] [address] Phone Care Team Providers Care Materials Clerk Name Role Phone Physician, No Pcp Primary [...] EST - 06/09/2024 9:19 PM EST Emergency [facility] Emergency [address] [place] [address] [place] Chidinatalie Gómez DO Complex ovarian cyst (Primary Dx) Discharge Disposition: Home or Self Care from Last 3 Months Surgical History Surgery Date Site/Laterality Comments CHOLECYSTECTOMY 01/1998 PROCEDURE: HISTORICAL CHOLECYSTECTOMY TUBAL LIGATION PROCEDURE: HISTORICAL TUBAL LIGATION BUNIONECTOMY 05/21/2017 Right PROCEDURE: BUNION SURGERY, SIMPLE REMOVAL; COMMENT: Right roberto bunionectomy OTHER SURGICAL HISTORY 05/21/2017 Right PROCEDURE: CO OSTEOT W/WO LNGTH SHRT/CORRJ METAR XCP 1ST [...] Rod MD on 06/09/2024 19:45:16 us Chidi Mani Gómez Duncan DO IMG CT PROCEDURES Final R esult * Urinalysis with reflex microscopic and culture (06/09/2024 5:36 PM EST) Specific [place] Urine 1.016 1.003 - 1.030 LAB URINALYSIS - AUTOMATED METHOD 06/09/2024 6:[address] [facility] pH, Urine 5.5 5.0 - 8.0 pH LAB URINALYSIS - AUTOMATED METHOD 06/09/2024 6:[address] [facility] Leukocytes, Urine Negative Negative LAB URINALYSIS - AUTOMATED METHOD 06/09/2024 6:[address] [facility] Nitrite, Urine Negative Negative LAB URINALYSIS - AUTOMATED METHOD 06/09/2024 6:[address] [facility] Protein, Urine Negative <=Trace mg/dL LAB URINALYSIS - AUTOMATED METHOD 06/09/2024 6:[address] [facility] Glucose, Urine Negative Negative mg/dL LAB URINALYSIS - AUTOMATED METHOD 06/09/2024 6:[address] [facility] Ketones, Urine Negative Negative mg/dL LAB URINALYSIS - AUTOMATED METHOD 06/09/2024 6:[address] [facility] Urobilinogen, Urine 0.2 0.2 - 1.0 mg/dL LAB URINALYSIS - AUTOMATED METHOD 06/09/2024 6:[address] [facility] Bilirubin, Urine Negative Negative LAB URINALYSIS - AUTOMATED METHOD 06/09/2024 6:[address] [facility] Blood, Urine Negative Negative LAB URINALYSIS - AUTOMATED METHOD 06/09/2024 6:05 PM EST [facility] Urine Urine specimen obtained by clean catch procedure / Unknown Non-blood Collection / Unknown 06/09/2024 5:36 PM EST 06/09/2024 6:00 PM EST Roni BAKER LAB URINE ORDERABLES Rain l Result [facility] [address] [place] [address], [place] [phone] * Woods urine culture tube (06/09/2024 5:36 PM EST) Extra Tube Hold for add-ons. 06/09/2024 7:01 PM EST [facility] Comment:Auto resulted. Urine Urine specimen obtained by clean catch procedure / Unknown Non-blood Collection / Unknown 06/09/2024 5:36 PM EST 06/09/2024 6:00 PM EST Roni BAKER LAB URINE ORDERABLES Rain l Result Performing Organization Address City/[facility]/ZIP Co de Phone Number [facility] [address] [place] [address], [place] [phone] * POC , urine manually resulted (06/09/2024 5:36 PM EST) HCG, Ur POC Negative Negative POC hCG Int QC Pass? Yes Yes EXPIRATION DATE POC [id number] LOT NUMBER POC [id number] Urine Urine specimen obtained by clean catch [...] CBC auto differential (06/09/2024 1:38 PM EST) [facility] WBC 9.1 4.8 - 10.8 K/mcL LAB HEMETOLOGY METHOD 06/09/2024 2:[address] [facility] RBC 4.70 3.80 - 4.80 M/mcL LAB HEMETOLOGY METHOD 06/09/2024 2:[address] [facility] Hemoglobin 13.4 11.5 - 16.0 g/dL LAB HEMETOLOGY METHOD 06/09/2024 2:[address] [facility] Hematocrit 40.6 35.0 - 47.0 % LAB HEMETOLOGY METHOD 06/09/2024 2:[address] [facility] MCV 86.6 79.0 - 98.0 FL LAB HEMETOLOGY METHOD 06/09/2024 2:[address] [facility] MCH 28.6 27.0 - 32.0 pcg LAB HEMETOLOGY METHOD 06/09/2024 2:[address] [facility] MCHC 33.0 32.0 - 37.0 g/dL LAB HEMETOLOGY METHOD 06/09/2024 2:[address] [facility] RDW 13.0 11.0 - 15.0 % LAB HEMETOLOGY METHOD 06/09/2024 2:[address] [facility] Platelets 292 130 - 400 K/mcL LAB HEMETOLOGY METHOD 06/09/2024 2:[address] [facility] MPV 11.0 7.0 - 11.0 FL LAB HEMETOLOGY METHOD 06/09/2024 2:[address] [facility] NRBC 0.0 <1.0 % LAB HEMETOLOGY METHOD 06/09/2024 2:[address] [facility] NRBC Absolute 0.00 <0.10 K/mcL LAB HEMETOLOGY METHOD 06/09/2024 2:[address] [facility] Neutrophils Relative 65.3 % LAB HEMETOLOGY METHOD 06/09/2024 2:[address] [facility] Lymphocytes Relative 21.7 % LAB HEMETOLOGY METHOD 06/09/2024 2:[address] [facility] Monocytes Relative 4.7 % LAB HEMETOLOGY METHOD 06/09/2024 2:[address] [facility] Eosinophils Relative 6.5 % LAB HEMETOLOGY METHOD 06/09/2024 2:[address] [facility] Basophils Relative 0.7 % LAB HEMETOLOGY METHOD 06/09/2024 2:[address] [facility] Immature Granulocytes Relative 1.1 % LAB HEMETOLOGY METHOD 06/09/2024 2:[address] [facility] Neutrophils Absolute 5.96 1.50 - 7.00 K/mcL LAB HEMETOLOGY METHOD 06/09/2024 2:[address] [facility] Lymphocytes Absolute 1.98 1.00 - 5.00 K/mcL LAB HEMETOLOGY METHOD 06/09/2024 2:[address] [facility] Monocytes Absolute 0.43 0.20 - 1.00 K/mcL LAB HEMETOLOGY METHOD 06/09/2024 2:[address] [facility] Eosinophils Absolute 0.59(H) 0.00 - 0.50 K/mcL LAB HEMETOLOGY METHOD 06/09/2024 2:[address] [facility] Basophils Absolute 0.06 0.00 - 0.20 K/mcL LAB HEMETOLOGY METHOD 06/09/2024 2:[address] [facility] Immature Granulocytes Absolute 0.10(H) 0.00 - 0.03 K/mcL LAB HEMETOLOGY METHOD 06/09/2024 2:[address] [facility] Blood Venous blood specimen / Unknown Venipuncture / Unknown 06/09/2024 1:38 PM EST 06/09/2024 1:52 PM EST us Roni BAKER LAB BLOOD ORDERABLES Rain l Result [facility] [address] [place] [address], * (ABNORMAL) Comprehensive metabolic panel (06/09/2024 1:38 PM EST) Sodium 138 133 - 145 mmol/L LAB CHEMISTRY METHOD 06/09/2024 2:[address] [facility] Potassium 3.9 3.5 - 5.5 mmol/L LAB CHEMISTRY METHOD 06/09/2024 2:[address] [facility] Chloride 107 96 - 110 mmol/L LAB CHEMISTRY METHOD 06/09/2024 2:[address] [facility] CO2 23 21 - 32 mmol/L LAB CHEMISTRY METHOD 06/09/2024 2:[address] [facility] Anion Gap 8 3 - 11 LAB CHEMISTRY METHOD 06/09/2024 2:[address] [facility] Glucose 119(H) 70 - 100 mg/dL LAB CHEMISTRY METHOD 06/09/2024 2:[address] [facility] BUN 7 5 - 25 mg/dL LAB CHEMISTRY METHOD 06/09/2024 2:[address] [facility] Creatinine 0.70 0.50 - 1.10 mg/dL LAB CHEMISTRY METHOD 06/09/2024 2:[address] [facility] eGFR 109 >=60 mL/min/1. 73m2 LAB CHEMISTRY METHOD 06/09/2024 2:[address] [facility] Comment:Calculation based on the??Chronic Kidney Disease Epidemiology Collaboration (CKD-EPI) equation refit??without adjustment for race. BUN/Creatinine Ratio 10.0 LAB CHEMISTRY METHOD 06/09/2024 2:[address] [facility] Calcium 9.6 8.5 - 10.5 mg/dL LAB CHEMISTRY METHOD 06/09/2024 2:[address] [facility] AST (SGOT) 14 10 - 42 unit/L LAB CHEMISTRY METHOD 06/09/2024 2:[address] [facility] ALT (SGPT) 17 10 - 60 unit/L LAB CHEMISTRY METHOD 06/09/2024 2:[address] [facility] Alkaline Phosphatase 95 42 - 121 unit/L LAB CHEMISTRY METHOD 06/09/2024 2:[address] [facility] Total Protein 7.2 6.0 - 8.0 g/dL LAB CHEMISTRY METHOD 06/09/2024 2:[address] [facility] Albumin 3.9 3.2 - 5.0 g/dL LAB CHEMISTRY METHOD 06/09/2024 2:[address] [facility] Total Bilirubin 0.7 0.0 - 1.4 mg/dL LAB CHEMISTRY METHOD 06/09/2024 2:[address] [facility] Blood Venous blood specimen / Unknown Venipuncture / Unknown 06/09/2024 1:38 PM EST 06/09/2024 1:52 PM EST us Roni BAKER LAB BLOOD ORDERABLES Rain haji Result [facility] [address] [place] [address], [place] [phone] from Last 3 Months Insurance MEDICAID - [place] Care Teams Materials Clerk Relationship Specialty Start Date End Date Physician, No Pcp PCP - General 06/09/24
--- OUTSIDE RECORDS SUMMARY | 2024-06-14 10:36 | XMS_ITS | Encounter Summary ---
Author Organization [facility] Address [address] [place] [address] Care Team Providers Care Licensed And Certified Midwife Name Role Phone Luis Rowan MD Primary Care Provider Un available Community, Pcp Primary Care Provider Unavailabl e Encounter Details Date Type Department Care Team Description 01/16/2017 Transfer Records Medical Records [address] [place] [address] Abstract, Provider Social History Tobacco Use Types [...] on filedocumented in this encounter Care Teams Licensed And Certified Midwife Relationship Specialty Start Date End Date Luis Rowan MD PCP - General Internal Medicine 07/05/1504/21 Community, Pcp PCP - General Internal Medicine 04/22/18 documented as of this encounter
--- OUTSIDE RECORDS SUMMARY | 2024-06-14 10:36 | XMS_ITS | Encounter Summary ---
Author Organization [employer] [facility] Address [address] [place] [address] Care Team Providers Care Sales Department Supervisor Name Role Phone Luis Rowan MD Primary Care Provider Un available Community, Pcp Primary Care Provider Unavailabl e Encounter Details Date Type Department Care Team Description 07/06/2015 Release of Information Medical Records [address] [place] [address] Abstract, Provider Social History Tobacco Use Types Packs/Day Years Used Date Smoking Tobacco: Never Assessed Sex Assigned at Date Recorded Not on file documented as of this encounter Plan of Treatment Not on file documented as of this encounter Visit Diagnoses Not on filedocumented in this encounter Care Teams Sales Department Supervisor Relationship Specialty Start Date End Date Luis Rowan MD PCP - General Internal Medicine 07/05/1504/21 Community, Pcp PCP - General Internal Medicine 04/22/18 documented as of this encounter
--- OUTSIDE RECORDS SUMMARY | 2024-06-14 10:36 | XMS_ITS | Encounter Summary ---
Author Organization [facility] Address [address] [place] [address] Care Team Providers Care Concrete Worker Name Role Phone Physician, No Pcp Primary Care Provider Unavaila ble Reason for Visit * Reason Comments Abdominal Pain Diagnosed with hydro salpinx at her [employer] SUPERINTENDENT. Encounter Details Date Type Department Care Team (Late st Contact Info) Description 06/09/2024 4:18 PM EST - 06/09/2024 9:19 PM EST Emergency [facility] Emergency [address] [place] [address] Maria Antonia Duncan Rico, DO [address] [place] [address] Complex ovarian cyst (Primary Dx) Discharge Disposition: [...] ovarian cyst measuring up to 6.7cm. Our RESEARCH PHARMACIST recommends follow up with yourgynecologist for further [...] Abdominal Pain Diagnosed with hydrosalpinx at her [employer] SUPERINTENDENT. HPI: This is a 44-year-old female presented hospital today for left suprapubic pain. Patient statesthis goes on and off. This been going for past week or so. Patient was diagnosed with an ovarian cyst from her [employer] SUPERINTENDENT office. She does have a follow-up appointment [...] CHOLECYSTECTOMY OTHER SURGICAL HISTORY Right 05/21/2017 PROCEDURE: SD RIGO W/WO LNGTH SHRT/CORRJ METAR XCP 1ST EA; COMMENT: Reverse roberto Wodoruff's bunionectomy TUBAL LIGATION PROCEDURE: HISTORICAL TUBAL LIGATION [...] REFLEX MICROSCOPIC AND CULTURE - Normal Specific [place] Urine 1.016 pH, Urine 5.5 Leukocytes, Urine Negative Nitrite, Urine Negative Protein, Urine Negative Glucose, Urine Negative Ketones, Urine Negative Urobilinogen, Urine 0.2 Bilirubin, Urine Negative Blood, Urine Negative POC , URINE DIAGNOSTIC - Normal HCG, Ur POC Negative POC hCG Int QC Pass? Yes EXPIRATION DATE POC [id number] LOT NUMBER POC [id number] CBC AND DIFFERENTIAL Narrative: The following orders were created for panel order CBC and differential. Procedure Abnormality Status --------- ------ CBC auto differential[[id number]] Abnormal Final result Please view results for these tests on the individual orders. URINALYSIS WITH REFLEX MICROSCOPIC AND CULTURE Narrative: The following orders were created for panel order Urinalysis with reflex microscopic and culture. Procedure Abnormality Status --------- ------ Urinalysis with reflex m...[[id number]] Normal Final result Woods urine culture tube[[id number]] Final result Please view results for these [...] Given 06/09/241907) ED Course as of 06/09/242056 [facility] Jun 09, [id number] I consulted Dr. Rome. Recommend patient be worked up additional for other cause of her lower abdominal pain. Will plan to give patient additional dose of oxycodone here for her pain. Will plan to obtain CT abdomen pelvis. 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 Turner at [facility] who recommends further RESEARCH PHARMACIST evaluation at our facility to further assess [...] patient to follow up in clinic with [facility] Real Estate Sales Associate Onc. Discuss this with patient. She is [...] QC Pass? Yes Yes EXPIRATION DATE POC [id number] LOT NUMBER POC [id number] Urine Urine specimen obtained by clean catch procedure / Unknown 06/09/2024 5:36 PM EST Chidinatalie Gómez Dakota DO POINT OF CARE TEST ENTER/ EDIT ORDERABLES Final Result * Woods urine culture tube (06/09/2024 5:36 PM EST) Pathologist [facility] Extra Tube Hold for add-ons. 06/09/2024 7:01 PM [facility] Comment:Auto resulted. Urine Urine specimen obtained by clean catch procedure / Unknown Non-blood Collection / Unknown 06/09/2024 5:36 PM EST 06/09/2024 6:00 PM EST Roni BAKER LAB URINE ORDERABLES Rain l Result [facility] [address] [place] [address], [place] [phone] * Urinalysis with reflex microscopic and culture (06/09/2024 5:36 PM EST) [facility] Specific [place] Urine 1.016 1.003 - 1.030 LAB URINALYSIS - AUTOMATED METHOD 06/09/2024 6:05 PM [facility] pH, Urine 5.5 5.0 - 8.0 pH LAB URINALYSIS - AUTOMATED METHOD 06/09/2024 6:05 PM [facility] Leukocytes, Urine Negative Negative LAB URINALYSIS - AUTOMATED METHOD 06/09/2024 6:05 PM [facility] Nitrite, Urine Negative Negative LAB URINALYSIS - AUTOMATED METHOD 06/09/2024 6:05 PM [facility] Protein, Urine Negative <=Trace mg/dL LAB URINALYSIS - AUTOMATED METHOD 06/09/2024 6:05 PM [facility] Glucose, Urine Negative Negative mg/dL LAB URINALYSIS - AUTOMATED METHOD 06/09/2024 6:05 PM [facility] Ketones, Urine Negative Negative mg/dL LAB URINALYSIS - AUTOMATED METHOD 06/09/2024 6:05 PM [facility] Urobilinogen, Urine 0.2 0.2 - 1.0 mg/dL LAB URINALYSIS - AUTOMATED METHOD 06/09/2024 6:05 PM [facility] Bilirubin, Urine Negative Negative LAB URINALYSIS - AUTOMATED METHOD 06/09/2024 6:05 PM [facility] Blood, Urine Negative Negative LAB URINALYSIS - AUTOMATED METHOD 06/09/2024 6:05 PM [facility] Urine Urine specimen obtained by clean catch procedure / Unknown Non-blood Collection / Unknown 06/09/2024 5:36 PM EST 06/09/2024 6:00 PM EST us Roni BAKER LAB URINE ORDERABLES Rain haji Result [facility] [address] [place] [address], * [place] Pelvis Non OB Complete w [...] This document has been electronically signed by: Eral Rod MD on 06/09/2024 17:18:34 us Ting Mani Duncan DO IMG US PROCEDURES Final R esult * (ABNORMAL) CBC auto differential (06/09/2024 1:38 PM EST) WBC 9.1 4.8 - 10.8 K/mcL LAB HEMETOLOGY METHOD 06/09/2024 2:11 PM EST [facility] RBC 4.70 3.80 - 4.80 M/mcL LAB HEMETOLOGY METHOD 06/09/2024 2:11 PM [facility] Hemoglobin 13.4 11.5 - 16.0 g/dL LAB HEMETOLOGY METHOD 06/09/2024 2:11 PM [facility] Hematocrit 40.6 35.0 - 47.0 % LAB HEMETOLOGY METHOD 06/09/2024 2:11 PM [facility] MCV 86.6 79.0 - 98.0 FL LAB HEMETOLOGY METHOD 06/09/2024 2:11 PM [facility] MCH 28.6 27.0 - 32.0 pcg LAB HEMETOLOGY METHOD 06/09/2024 2:11 PM [facility] MCHC 33.0 32.0 - 37.0 g/dL LAB HEMETOLOGY METHOD 06/09/2024 2:11 PM [facility] RDW 13.0 11.0 - 15.0 % LAB HEMETOLOGY METHOD 06/09/2024 2:11 PM [facility] Platelets 292 130 - 400 K/mcL LAB HEMETOLOGY METHOD 06/09/2024 2:11 PM [facility] MPV 11.0 7.0 - 11.0 FL LAB HEMETOLOGY METHOD 06/09/2024 2:11 PM [facility] NRBC 0.0 <1.0 % LAB HEMETOLOGY METHOD 06/09/2024 2:11 PM [facility] NRBC Absolute 0.00 <0.10 K/mcL LAB HEMETOLOGY METHOD 06/09/2024 2:11 PM [facility] Neutrophils Relative 65.3 % LAB HEMETOLOGY METHOD 06/09/2024 2:11 PM [facility] Lymphocytes Relative 21.7 % LAB HEMETOLOGY METHOD 06/09/2024 2:11 PM [facility] Monocytes Relative 4.7 % LAB HEMETOLOGY METHOD 06/09/2024 2:11 PM EST [facility] Eosinophils Relative 6.5 % LAB HEMETOLOGY METHOD 06/09/2024 2:11 PM [facility] Basophils Relative 0.7 % LAB HEMETOLOGY METHOD 06/09/2024 2:11 PM [facility] Immature Granulocytes Relative 1.1 % LAB HEMETOLOGY METHOD 06/09/2024 2:11 PM [facility] Neutrophils Absolute 5.96 1.50 - 7.00 K/mcL LAB HEMETOLOGY METHOD 06/09/2024 2:11 PM [facility] Lymphocytes Absolute 1.98 1.00 - 5.00 K/mcL LAB HEMETOLOGY METHOD 06/09/2024 2:11 PM [facility] Monocytes Absolute 0.43 0.20 - 1.00 K/mcL LAB HEMETOLOGY METHOD 06/09/2024 2:11 PM [facility] Eosinophils Absolute 0.59(H) 0.00 - 0.50 K/mcL LAB HEMETOLOGY METHOD 06/09/2024 2:11 PM [facility] Basophils Absolute 0.06 0.00 - 0.20 K/mcL LAB HEMETOLOGY METHOD 06/09/2024 2:11 PM [facility] Immature Granulocytes Absolute 0.10(H) 0.00 - 0.03 K/mcL LAB HEMETOLOGY METHOD 06/09/2024 2:11 PM [facility] Blood Venous blood specimen / Unknown Venipuncture / Unknown 06/09/2024 1:38 PM EST 06/09/2024 1:52 PM EST us Roni BAKER LAB BLOOD ORDERABLES Rain l Result [facility] [address] [place] [address], [place] [phone] * (ABNORMAL) Comprehensive metabolic panel (06/09/2024 1:38 PM EST) Sodium 138 133 - 145 mmol/L LAB CHEMISTRY METHOD 06/09/2024 2:37 PM [facility] Potassium 3.9 3.5 - 5.5 mmol/L LAB CHEMISTRY METHOD 06/09/2024 2:37 PM [facility] Chloride 107 96 - 110 mmol/L LAB CHEMISTRY METHOD 06/09/2024 2:37 PM [facility] CO2 23 21 - 32 mmol/L LAB CHEMISTRY METHOD 06/09/2024 2:37 PM [facility] Anion Gap 8 3 - 11 LAB CHEMISTRY METHOD 06/09/2024 2:37 PM [facility] Glucose 119(H) 70 - 100 mg/dL LAB CHEMISTRY METHOD 06/09/2024 2:37 PM [facility] BUN 7 5 - 25 mg/dL LAB CHEMISTRY METHOD 06/09/2024 2:37 PM [facility] Creatinine 0.70 0.50 - 1.10 mg/dL LAB CHEMISTRY METHOD 06/09/2024 2:37 PM [facility] eGFR 109 >=60 mL/min/1. 73m2 LAB CHEMISTRY METHOD 06/09/2024 2:37 PM [facility] Comment:Calculation based on the??Chronic Kidney Disease Epidemiology Collaboration (CKD-EPI) equation refit??without adjustment for race. BUN/Creatinine Ratio 10.0 LAB CHEMISTRY METHOD 06/09/2024 2:37 PM [facility] Calcium 9.6 8.5 - 10.5 mg/dL LAB CHEMISTRY METHOD 06/09/2024 2:37 PM [facility] AST (SGOT) 14 10 - 42 unit/L LAB CHEMISTRY METHOD 06/09/2024 2:37 PM [facility] ALT (SGPT) 17 10 - 60 unit/L LAB CHEMISTRY METHOD 06/09/2024 2:37 PM EST [facility] Alkaline Phosphatase 95 42 - 121 unit/L LAB CHEMISTRY METHOD 06/09/2024 2:37 PM EST [facility] Total Protein 7.2 6.0 - 8.0 g/dL LAB CHEMISTRY METHOD 06/09/2024 2:37 PM EST [facility] Albumin 3.9 3.2 - 5.0 g/dL LAB CHEMISTRY METHOD 06/09/2024 2:37 PM [facility] Total Bilirubin 0.7 0.0 - 1.4 mg/dL LAB CHEMISTRY METHOD 06/09/2024 2:37 PM EST [facility] Blood Venous blood specimen / Unknown Venipuncture / Unknown 06/09/2024 1:38 PM EST 06/09/2024 1:52 PM EST us Roni BAKER LAB BLOOD ORDERABLES Rain haji Result [facility] [address] [place] [address], documented in this encounter Visit Diagnoses Diagnosis [...] Bourgeois) documented in this encounter Care Teams Concrete Worker Relationship Specialty Start Date End Date Physician, No Pcp PCP - General 06/09/24 documented as of this encounter
--- OUTSIDE RECORDS SUMMARY | 2024-06-14 10:36 | XMS_ITS | Encounter Summary ---
Author Organization [facility] [employer] [facility] Address [address] [place] [address] Care Team Providers Care [employer] Humanities Teacher Name Role Phone Luis Rowan MD Primary Care Provider Un available Community, Pcp Primary Care Provider Unavailabl e Encounter Details Date Type Department Care Team Description 01/17/2017 Release of Information Medical Records [address] [place] [id number] Abstract, Provider Social History Tobacco Use Types [...] on filedocumented in this encounter Care Teams Middle [employer] Humanities Teacher Relationship Specialty Start Date End Date Luis Rowan MD PCP - General Internal Medicine 07/05/1504/21 Community, Pcp PCP - General Internal Medicine 04/22/18 documented as of this encounter
--- OUTSIDE RECORDS SUMMARY | 2024-06-14 10:36 | XMS_ITS | Clinical Summary ---
Author Organization [facility] Address [address] [place] [address] Care Team Providers Care Used Car Renovator Name Role Phone Community, Pcp Primary Care Provider Unavailabl e Allergies No known active allergies Medications Medication Sig Dispensed Refills Start Date End Date Status omeprazole (PRILOSEC) 20 MG capsule Take 1 Cap by mouth daily. 0 Active fluticasone 50 MCG/ACT nasal spray 1 [place] by Each Nare route 2 times daily. 0 Active hydrOXYzine (ATARAX) 10 MG/5ML syrup Take 5 mL by mouth 3 times daily. 450 mL 11 06/25/2016 Active methocarbamol (ROBAXIN) 750 MG tablet TAKE 1 TAB BY MOUTH 3 TIMES DAILY. 30 Tab 0 01/19/2017 Active ALBUTEROL SULFATE 108 (90 BASE) MCG/ACT Aero Soln Inhale 2 Puffs into the lungs every 4 hours as needed for Wheezing or Shortness of Breath. 1 Inhaler 5 05/06/2017 Active montelukast (SINGULAIR) 10 MG tablet Take 1 Tab by mouth at bedtime. 90 Tab 1 08/12/2017 Active Calcium Carbonate-Vitamin D 600-400 MG-UNIT Tab Take 1 Tab by mouth 2 times daily. TAKE 1 TAB BY MOUTH 2 TIMES DAILY. 60 Tab 5 11/25/2017 Active loratadine (CLARITIN) 10 MG tablet Take 1 Tab by mouth daily as needed for Allergies. 30 Tab 5 11/25/2017 Active ibuprofen (ADVIL,MOTRIN) 600 MG tablet Take 1 Tab by mouth every 6 hours as needed for Pain. 60 Tab 1 11/25/2017 Active polyethylene glycol (GLYCOLAX) powder Take 17 g by mouth daily. 200 g 3 11/25/2017 Active FLOVENT HFA 44 MCG/ACT inhaler INHALE 1 PUFF INTO THE LUNGS 2 TIMES DAILY. 1 Inhaler 3 01/18/2018 Active cyclobenzaprine (FLEXERIL) 10 MG tablet Take 1 Tab by mouth 3 times daily as needed for Muscle spasms. 30 Tab 0 02/25/2018 Active Active Problems Problem Noted Date Snoring 09/14/2017 Overview: 08/2017 Home Sleep Study did not reveal sleep apnea. Dermoid cyst of left ovary 03/12/2017 Allergic rhinitis 10/12/2015 Chronic pain syndrome 10/12/2015 Foot pain 07/27/2015 Overview: 05/25/15 Referred to Podiatry - Dr Doroteo Hansen GERD (gastroesophageal reflux disease) 0 07/27/2015 Constipation 07/27/2015 Asthma Depression Overview: 10/01/12 - [facility] Counseling Lumbago Resolved Problems Problem Noted Date Resolved Date Pityriasis rosea 06/18/2016 03/10/2018 Immunizations Name Administration Dates Next Due Influenza (> 6 Months) 02/27/2014 Influenza Vaccine-quadrivalent 4 Years Plus 04/2017 Family History Medical History Relation Name Comments CA Breast Aunt Asthma Mother smoker, etoh us e, Depression/Anxiety Mother Relation Name Status Comments Aunt Daughter [...] Assigned at Date Recorded Not on file Last Filed Vital Signs Vital Sign Reading Time Taken Comments Blood Pressure 100/60 02/25/2018 10:41 AM EDT Pulse 88 02/25/2018 10:41 AM EDT Temperature 36.5 ??C (97.7 ??F) 02/25/2018 10:41 AM E DT Respiratory Rate 16 02/25/2018 10:41 AM EDT Oxygen Saturation 100% 08/07/2015 9:53 AM EDT Inhaled Oxygen Concentration - - Weight 77.8 kg (171 lb 9.6 oz) 02/25/2018 10:41 AM EDT Height 149.9 cm (4' 11 ) 02/25/2018 10:41 AM EDT Body Mass Index 34.66 02/25/2018 10:41 AM EDT Plan of Treatment Health Maintenance Due Date Last Done Comments Covid-19 Vaccine (#1) 1979 DEPRESSION SCREEN 1991 DTAP/TDAP/TD (1 - Tdap) 1998 PNEUMOCOCCAL VACCINE FOR HIG H RISK PATIENTS (#1) 1998 BASELINE HEALTH EXAM 40-64 2019 07/16/2015, MAMMOGRAM 2019 CERVICAL CANCER SCREENING 02/06/2020 02/05/2017 CHOLESTEROL SCREENING 07/15/2020 07/16/2015 , 01/31/2015 (External Completion), 10/12/2012 (External Completion) INFLUENZA (#1) 2023 02/25/2018, 02/27/2014 BMI CHECK/ADVISE 04/27/2024 11/25/2017, 01/2018, 02/05/2017, Additional history exists Care Teams Used Car Renovator Relationship Specialty Start Date End Date Community, Pcp PCP - General Internal Medicine 04/22/18
--- OUTSIDE RECORDS SUMMARY | 2024-06-14 10:36 | XMS_ITS | Encounter Summary ---
Author Organization [facility] Address [address] [place] [address] Care Team Providers Care Ball Mill Mixer Name Role Phone Luis Rowan MD Primary Care Provider Un available Community, Pcp Primary Care Provider Unavailabl e Reason for Visit * Reason Onset Date Comments refill request 08/12/2017 duloxetine (CYMB ROBERT) 30 MG capsule Encounter Details Date Type Department Care Team Description 08/12/2017 Telephone Adult [address] [phone] Radha Hugo DO refill request (duloxetine (CYMBALTA) 30 MG capsule ) Social History Tobacco Use Types Packs/Day Years Used Date Smoking Tobacco: Former Cigarettes Q uit: 12/12/2014 Smokeless Tobacco: Never Comments:stopped 8 months Alcohol Use Standard Drinks/Week Comments No 0 (1 standard drink = 0.6 oz pur e alcohol) Sex Assigned at Date Recorded Not on file documented as of this encounter Miscellaneous Notes * Telephone Encounter - Kathy Briseno M.A. - 08/12/2017 3:48 PM EDT Yulissa was causing side effects per reason why it was discontinued * Telephone Encounter - Griselda Bautista - 08/12/2017 2:04 PM EDT Incoming fax states patient would like 90 day supply, this medication appears to have been discontinued. documented in this encounter Plan of Treatment Not on file documented as of this encounter Visit Diagnoses Not on filedocumented in this encounter Care Teams Ball Mill Mixer Relationship Specialty Start Date End Date Luis Rowan MD PCP - General Internal Medicine 07/05/1504/21 [facility], [facility] PCP - General Internal Medicine 04/22/18 documented as of this encounter
--- OUTSIDE RECORDS SUMMARY | 2024-06-14 10:36 | XMS_ITS | Encounter Summary ---
Author Organization [facility] Address [address] [place] [address] Care Team Providers Care Public Service Director Name Role Phone Luis Rowan MD Primary Care Provider Un available Community, Pcp Primary Care Provider Unavailabl e Reason for Visit * Reason Onset Date Comments Medical Records 01/08/2017 Encounter Details Date Type Department Care Team Description 01/08/2017 Telephone OBGYN - [place] [address] [place] [address] America Crooks CNM [address] [place] [address] Medical Records Social History Tobacco Use Types Packs/Day Years Used Date Smoking Tobacco: Former Cigarettes Q uit: 12/12/2014 Smokeless Tobacco: Never Comments:stopped 8 months Alcohol Use Standard Drinks/Week Comments No 0 (1 standard drink = 0.6 oz pur e alcohol) Sex Assigned at Date Recorded Not on file documented as of this encounter Miscellaneous Notes * Telephone Encounter - America Navarro - 01/08/2017 10:34 AM EDT Pt signed [place] for [facility], faxed accordingly documented in this encounter Plan of Treatment Not on file documented as of this encounter Visit Diagnoses Not on filedocumented in this encounter Care Teams Public Service Director Relationship Specialty Start Date End Date Luis Rowan MD PCP - General Internal Medicine 07/05/1504/21 [facility], Pcp PCP - General Internal Medicine 04/22/18 documented as of this encounter
[2024-06-14 12:13] LABS: Lactate Dehydrogenase 151 U/L (122-220)
[2024-06-14 12:35] LABS: Carcinoembryonic Antigen < 1.73 ng/mL
[2024-06-15 10:34] LABS: Alpha Fetoprotein 2.8 ng/mL
[2024-06-15 17:19] LABS: CA-125 10 U/mL (<35)
[2024-06-16 10:29] LABS: Carbohydrate Antigen 19-9 4 U/mL (<34)
[2024-06-21 19:03] LABS: Inhibin B <10 pg/mL
== END 2024-06-14 09:51 | disposition home or self-care (01) ==
LOC: HO.LAB 09:50
PROVIDERS: PCP Physician Assistant; Visit Provider Obstetrics & Gynecology
DX: N94.89 Other specified conditions associated with female genital organs and menstrual cycle (principal); N83.299 Other ovarian cyst, unspecified side
CPT/HCPCS: 36415; 82105; 82378; 83520; 83615; 86301; 86304; 86336; 99212

== ENCOUNTER 2024-07-14 10:58 | Outpatient (AMB) | payer OTHER, SELFPAY ==
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
[2024-07-14 11:33] VITALS: BP 120/82; PULSE 74; O2SAT 96; BMI 35.2
== END 2024-07-14 12:28 | disposition home or self-care (01) ==
LOC: HO.HMCH 10:59
PROVIDERS: PCP Physician Assistant; Visit Provider Physician Assistant
DX: R10.9 Unspecified abdominal pain (principal); F33.1 Major depressive disorder, recurrent, moderate; E66.812 Obesity, class 2; Z68.35 Body mass index [BMI] 35.0-35.9, adult; N83.292 Other ovarian cyst, left side; Z13.1 Encounter for screening for diabetes mellitus; G47.33 Obstructive sleep apnea (adult) (pediatric); M79.7 Fibromyalgia; F41.1 Generalized anxiety disorder

== ENCOUNTER → 2024-07-14 10:58 | Outpatient (BNVA) | payer OTHER, SELFPAY | PROVIDERS: PCP Physician Assistant; Visit Provider Physician Assistant | DX: N83.292 Other ovarian cyst, left side (principal); E66.812 Obesity, class 2; M79.7 Fibromyalgia; F33.1 Major depressive disorder, recurrent, moderate; F41.1 Generalized anxiety disorder | CPT/HCPCS: 96127; 99212 ==

== ENCOUNTER 2024-07-25 12:21 | Outpatient (AMB) | payer OTHER, SELFPAY ==
--- NOTE | 2024-07-25 13:28 | A.OFFVIS_ITS ---
Vital Signs 07/25/24 13:31 Height 4 ft 11 in Weight 174 lb BMI 35.1 BP 128/74 Blood Pressure Location Lt brachial Position Sitting Pulse 66 Pulse Oximetry (%) 99 Oxygen Delivery Method Room Air Intake Visit Reasons: chronic constipation Intake Note: New consult for Chronic constipation. Patient cc: abdominal pain with bloating and gassy, chronic constipation, and hoarseness. Asphalt Spreader Operator Required: Yes Asphalt Spreader Operator Name: C interpeter Accompanied by: Self / Same As Patient Allergies No Known Allergies [No Known Allergies*] Allergy (Verified 07/25/24 13:28) HPI HPI chronic constipation: Details: 44-year-old female with past medical history of GERD, fibromyalgia, obesity, MITCH, adnexal mass, MDD, eczema, allergies, history of hysterectomy, constipation, GERD, history of cholecystectomy is here today for initial consultation. Patient was sent to us by her PCP. Patient has been having constipation for over 25 years. Placed on stool softener and MiraLax by PCP. Patient reports that she continues to be constipated. Patient however reports postprandial loose stools depending on what she eats. Patient reports that when she eats out she will have diarrhea specially with fast food like tacos or hamburgers. History of cholecystectomy 1997 and reports be symptoms since then. Patient also reports postprandial abdominal bloating. Reports rectal discomfort and burning specially when she is constipated. Denies melena, hematochezia, unintentional weight loss or ribbon like stools. Patient reports acid reflux, states that symptoms even when she takes omeprazole. [facility] Medical History (Updated 07/19/24 @ 07:39 by Ad Burrell PA-C) Chronic abdominal pain GERD (gastroesophageal reflux disease) UTI (urinary tract infection) Surgical History History of hysterectomy History of foot surgery History of cholecystectomy Family History Father No problems noted. Mother No problems noted. Maternal Grandfather Throat cancer Maternal Aunt Breast cancer Paternal Uncle Stomach cancer Paternal Aunt Colon cancer Social History Housing: Apartment Alcohol intake: never Patient Tobacco Use Status: Never used Tobacco e-Cigarette/Vaping Use: Never Used Second Hand Smoke Exposure: No Advance Directives Date on File: 04/13/21 service: No Current occupational status: unemployed and disabled Cognitive needs: No Hearing needs: No Vision needs: No Female Reproductive History Menstrual Age of Menarche: 7 Review of Systems Const Denies weight gain and Denies weight loss ENT Reports no additional complaints, Denies dysphagia and Denies odynophagia Card Reports no additional complaints Resp Reports no additional complaints GI Reports abdominal pain, Denies belching, Denies melena, Reports bloating, Denies change in bowel habits, Reports constipation, Denies dysphagia, Denies excessive flatus, Denies dyspepsia, Denies heartburn, Denies diarrhea, Reports loose stools, Denies nausea, Denies odynophagia and Denies vomiting Reports no additional complaints Musc Reports no additional complaints Neuro Reports no additional complaints Psych Reports no additional complaints Endo Reports no additional complaints Physical Exam Vital Signs: Last Vital Signs Pulse 66 07/25/24 13:31 BP 128/74 07/25/24 13:31 Pulse Ox 99 07/25/24 13:31 Oxygen Delivery Method Room Air 07/25/24 13:31 BMI result Body Mass Index 35.1 Const General: healthy appearing, no acute distress and well developed Nutritional Appearance: well nourished Orientation/consciousness: patient oriented x3 Resp Effort & Inspection: normal respiratory effort, able to speak in complete sentences, no tracheal deviation and symmetric chest movement Auscultation: clear to auscultation bilaterally Cardio Rate: regular rate GI Inspection: Yes normal to inspection and No distended Palpation (GI): Soft to palpation, not firm, nontender and No hepatosplenomegaly present Auscultation: normal bowel sounds General: Yes no CVA tenderness Back/Spine/Pelvis Back: no CVA tenderness Skin General skin exam: elasticity normal, turgor normal and dry skin Neuro General: patient oriented x3 Psych Appearance: grossly normal Mental Status: mental status grossly normal Assessment & Plan Assessment & Plan (1) Constipation: Code(s): K59.00 - Constipation, unspecified Category: Medical Qualifiers: Constipation type: other constipation type Qualified Code(s): K59.09 - Other constipation (2) GERD (gastroesophageal reflux disease): Code(s): K21.9 - Gastro-esophageal reflux disease without esophagitis Category: Medical Qualifiers: Esophagitis presence: without esophagitis Qualified Code(s): K21.9 - Gastro-esophageal reflux disease without esophagitis (3) Postprandial diarrhea: Code(s): K52.9 - Noninfective gastroenteritis and colitis, unspecified (4) Postprandial abdominal bloating: Code(s): R14.0 - Abdominal distension (gaseous) Plan Discussed with patient the importance of avoiding dietary triggers in late night snacking. No longer taking omeprazole as it was not working. Start taking pantoprazole 40 mg daily. Patient states that omeprazole with not helping. However reports that it was working for her. History of constipation, patient was encouraged to take fiber daily and Senokot and stool softener in the evening. Increase fluid intake and activity to promote better bowel motility. Will check thyroid study, vomiting min B 12, folate, vitamin-D level. Patient will follow-up in the office in 3 months, sooner on as needed basis. Next visit we will discuss possible going for colonoscopy if she agrees. Patient is agreeable to current plan of care and verbalizes understanding of instructions. She was given the opportunity to ask questions and all questions answered. Thank you for allowing me to participate in her care Orders: Orders Vitamin B12 and Folate 07/25/24 R19.7 - Diarrhea, unspecified Vitamin D 25-OH (D2 and D3) 07/25/24 K52.9 - Noninfective gastroenteritis and colitis, unspecified TSH reflex Free T4 07/25/24 K59.00 - Constipation, unspecified Medications: New sennosides (Natural Senna Laxative) 17.2 mg (2 x 8.6 mg) PO BEDTIME 60 tabs 3RF constipation K59.00 - Constipation, unspecified pantoprazole take one tablet half an hour before breakfast 40 mg PO DAILY 30 tabs 3RF K21.9 - Gastro-esophageal reflux disease without esophagitis hydrocortisone 2.5% (Proctosol HC) 1 appl [place] BID-QID PRN 30 grams 0RF hemorrhoids Discontinued omeprazole Discontinued Reason: Doctor's Order 20 mg PO DAILY 60 caps 2RF linaclotide Discontinued Reason: Doctor's Order 72 mcg PO DAILY 30 days 30 caps 3RF K59.09 - Other constipation Coding Level of Care Code New Pt Level 4 (59416) Complex EM visit Add On G2211 Diagnoses Other constipation K59.09 Constipation type: other constipation type Gastroesophageal reflux disease without esophagitis K21.9 Esophagitis presence: without esophagitis Postprandial diarrhea K52.9 Postprandial abdominal bloating R14.0 Time Spent (min) 45 Comment 30 minutes spent with patient and additional 15 minutes spent reviewing her records
[2024-07-25 13:31] VITALS: BP 128/74; PULSE 66; O2SAT 99; BMI 35.1
--- OUTSIDE RECORDS SUMMARY | 2024-07-25 14:02 | XMS_ITS | Clinical Summary ---
Author Organization [facility] Address [address] [place] [address] Phone Care Team Providers Care Airway Traffic Controller Name Role Phone Physician, No Pcp Primary Care Provider Unavaila ble Allergies No known active allergies Medications oxyCODONE (ROXICODONE) 5 mg immediate release tabletIndication s:Complex ovarian cyst Take 1 tablet (5 mg total) by mouth every 6 (six) hours if needed for severe pain. Max Daily Amount: 20 mg 15 tablet 06/09/2024 Active Encounters Date Type Department Care Team Description 06/09/2024 4:18 PM EST - 06/09/2024 9:19 PM EST Emergency Emergency [address] [place] [address] Maria Antonia Duncan DO Complex ovarian cyst (Primary Dx) Discharge Disposition: Home or Self Care from Last 3 Months Surgical History Surgery Date Site/Laterality Comments CHOLECYSTECTOMY 01/1998 PROCEDURE: HISTORICAL CHOLECYSTECTOMY TUBAL LIGATION PROCEDURE: HISTORICAL TUBAL LIGATION BUNIONECTOMY 05/21/2017 Right PROCEDURE: BUNION SURGERY, SIMPLE REMOVAL; COMMENT: Right roberto bunionectomy OTHER SURGICAL HISTORY 05/21/2017 Right PROCEDURE: MS OSTEOT W/WO LNGTH SHRT/CORRJ METAR XCP 1ST EA; COMMENT: Reverse roberto Tailor's bunionectomy Medical History Medical History Date Comments Asthma DX:Asthma Depression DX:Depression Lumbago DX:Lumbago Foot pain 07/27/2015 DX:Foot pain; CO MMENT: 05/25/15 Referred to Podiatry - Dr Doroteo aHnsen GERD (gastroesophageal reflux disease) 07/27/2015 DX:GERD (gastroesophageal [...] Screening: Pap Smear 2000 COVID-19 Vaccine ( - 2023- season) 2023 09/20/2020, 08/22/2020 Influenza Vaccine (#1) [...] MD on 06/09/2024 19:45:16 us Chidi Mani Duncan DO IMG CT PROCEDURES Final R esult * Urinalysis with reflex microscopic and culture (06/09/2024 5:36 PM EST) Specific [place] Urine 1.016 1.003 - 1.030 LAB URINALYSIS - AUTOMATED METHOD 06/09/2024 6:05 PM EST [facility] pH, Urine 5.5 5.0 - 8.0 pH LAB URINALYSIS - AUTOMATED METHOD 06/09/2024 6:05 PM EST [facility] Leukocytes, Urine Negative Negative LAB URINALYSIS - AUTOMATED METHOD 06/09/2024 6:05 PM [facility] Nitrite, Urine Negative Negative LAB URINALYSIS - AUTOMATED METHOD 06/09/2024 6:05 PM [facility] Protein, Urine Negative <=Trace mg/dL LAB URINALYSIS - AUTOMATED METHOD 06/09/2024 6:05 PM [facility] Glucose, Urine Negative Negative mg/dL LAB URINALYSIS - AUTOMATED METHOD 06/09/2024 6:05 PM [facility] Ketones, Urine Negative Negative mg/dL LAB URINALYSIS - AUTOMATED METHOD 06/09/2024 6:05 PM [facility] Urobilinogen, Urine 0.2 0.2 - 1.0 mg/dL LAB URINALYSIS - AUTOMATED METHOD 06/09/2024 6:05 PM [facility] Bilirubin, Urine Negative Negative LAB URINALYSIS - AUTOMATED METHOD 06/09/2024 6:05 PM [facility] Blood, Urine Negative Negative LAB URINALYSIS - AUTOMATED METHOD 06/09/2024 6:05 PM [facility] Urine Urine specimen obtained by clean catch procedure / Unknown Non-blood Collection / Unknown 06/09/2024 5:36 PM EST 06/09/2024 6:00 PM EST us Roni BAKER LAB URINE ORDERABLES Rain l Result [facility] [address] [place] [address], * Woods urine culture tube (06/09/2024 5:36 PM EST) Extra Tube Hold for add-ons. 06/09/2024 7:01 PM [facility] Comment:Auto resulted. Urine Urine specimen obtained by clean catch procedure / Unknown Non-blood Collection / Unknown 06/09/2024 5:36 PM EST 06/09/2024 6:00 PM EST us Roni BAKER LAB URINE ORDERABLES Rain l Result [facility] [address] [place] [address], [place] [phone] * POC , urine manually resulted (06/09/2024 5:36 PM EST) HCG, Ur POC Negative Negative POC hCG Int QC Pass? Yes Yes EXPIRATION DATE POC [id number] LOT NUMBER POC [id number] Urine Urine specimen obtained by clean catch procedure / Unknown 06/09/2024 5:36 PM EST us Maria Antonia Duncan DO POINT OF CARE [...] document has been electronically signed by: Earl oRd MD on 06/09/2024 17:18:34 Narrative 06/09/2024 5:18 [...] MD on 06/09/2024 17:18:34 us Ting Mani Rico Duncan DO IMG US PROCEDURES Final R esult * (ABNORMAL) CBC auto differential (06/09/2024 1:38 PM EST) WBC 9.1 4.8 - 10.8 K/mcL LAB HEMETOLOGY METHOD 06/09/2024 2:11 PM EST [facility] RBC 4.70 3.80 - 4.80 M/mcL LAB HEMETOLOGY METHOD 06/09/2024 2:11 PM EST [facility] Hemoglobin 13.4 11.5 - 16.0 g/dL LAB HEMETOLOGY METHOD 06/09/2024 2:11 PM EST [facility] Hematocrit 40.6 35.0 - 47.0 % LAB HEMETOLOGY METHOD 06/09/2024 2:11 PM [facility] MCV 86.6 79.0 - 98.0 FL LAB HEMETOLOGY METHOD 06/09/2024 2:11 PM [facility] MCH 28.6 27.0 - 32.0 pcg LAB HEMETOLOGY METHOD 06/09/2024 2:11 PM [facility] MCHC 33.0 32.0 - 37.0 g/dL LAB HEMETOLOGY METHOD 06/09/2024 2:11 PM [facility] RDW 13.0 11.0 - 15.0 % LAB HEMETOLOGY METHOD 06/09/2024 2:11 PM [facility] Platelets 292 130 - 400 K/mcL LAB HEMETOLOGY METHOD 06/09/2024 2:11 PM [facility] MPV 11.0 7.0 - 11.0 FL LAB HEMETOLOGY METHOD 06/09/2024 2:11 PM [facility] NRBC 0.0 <1.0 % LAB HEMETOLOGY METHOD 06/09/2024 2:11 PM [facility] NRBC Absolute 0.00 <0.10 K/mcL LAB HEMETOLOGY METHOD 06/09/2024 2:11 PM [facility] Neutrophils Relative 65.3 % LAB HEMETOLOGY METHOD 06/09/2024 2:11 PM [facility] Lymphocytes Relative 21.7 % LAB HEMETOLOGY METHOD 06/09/2024 2:11 PM [facility] Monocytes Relative 4.7 % LAB HEMETOLOGY METHOD 06/09/2024 2:11 PM [facility] Eosinophils Relative 6.5 % LAB HEMETOLOGY METHOD 06/09/2024 2:11 PM [facility] Basophils Relative 0.7 % LAB HEMETOLOGY METHOD 06/09/2024 2:11 PM [facility] Immature Granulocytes Relative 1.1 % LAB HEMETOLOGY METHOD 06/09/2024 2:11 PM [facility] Neutrophils Absolute 5.96 1.50 - 7.00 K/mcL LAB HEMETOLOGY METHOD 06/09/2024 2:11 PM EST [facility] Lymphocytes Absolute 1.98 1.00 - 5.00 K/mcL LAB HEMETOLOGY METHOD 06/09/2024 2:11 PM EST [facility] Monocytes Absolute 0.43 0.20 - 1.00 K/mcL LAB HEMETOLOGY METHOD 06/09/2024 2:11 PM EST [facility] Eosinophils Absolute 0.59(H) 0.00 - 0.50 K/mcL LAB HEMETOLOGY METHOD 06/09/2024 2:11 PM EST [facility] Basophils Absolute 0.06 0.00 - 0.20 K/mcL LAB HEMETOLOGY METHOD 06/09/2024 2:11 PM [facility] Immature Granulocytes Absolute 0.10(H) 0.00 - 0.03 K/[facility] LAB HEMETOLOGY METHOD 06/09/2024 2:11 PM EST [facility] Blood Venous blood specimen / Unknown Venipuncture / Unknown 06/09/2024 1:38 PM EST 06/09/2024 1:52 PM EST us Roni BAKER LAB BLOOD ORDERABLES Rain l Result [facility] [address] [place] [address], * (ABNORMAL) Comprehensive metabolic panel (06/09/2024 1:38 PM EST) Sodium 138 133 - 145 mmol/L LAB CHEMISTRY METHOD 06/09/2024 2:37 PM EST [facility] Potassium 3.9 3.5 - 5.5 mmol/L LAB CHEMISTRY METHOD 06/09/2024 2:37 PM EST [facility] Chloride 107 96 - 110 mmol/L LAB CHEMISTRY METHOD 06/09/2024 2:37 PM [facility] CO2 23 21 - 32 mmol/L LAB CHEMISTRY METHOD 06/09/2024 2:37 PM [facility] Anion Gap 8 3 - 11 LAB CHEMISTRY METHOD 06/09/2024 2:37 PM [facility] Glucose 119(H) 70 - 100 mg/dL LAB CHEMISTRY METHOD 06/09/2024 2:37 PM [facility] BUN 7 5 - 25 mg/dL LAB CHEMISTRY METHOD 06/09/2024 2:37 PM [facility] Creatinine 0.70 0.50 - 1.10 mg/dL LAB CHEMISTRY METHOD 06/09/2024 2:37 PM [facility] eGFR 109 >=60 mL/min/1. 73m2 LAB CHEMISTRY METHOD 06/09/2024 2:37 PM [facility] Comment:Calculation based on the??Chronic Kidney Disease Epidemiology Collaboration (CKD-EPI) equation refit??without adjustment for race. BUN/Creatinine Ratio 10.0 LAB CHEMISTRY METHOD 06/09/2024 2:37 PM [facility] Calcium 9.6 8.5 - 10.5 mg/dL LAB CHEMISTRY METHOD 06/09/2024 2:37 PM [facility] AST (SGOT) 14 10 - 42 unit/L LAB CHEMISTRY METHOD 06/09/2024 2:37 PM [facility] ALT (SGPT) 17 10 - 60 unit/L LAB CHEMISTRY METHOD 06/09/2024 2:37 PM [facility] Alkaline Phosphatase 95 42 - 121 unit/L LAB CHEMISTRY METHOD 06/09/2024 2:37 PM [facility] Total Protein 7.2 6.0 - 8.0 g/dL LAB CHEMISTRY METHOD 06/09/2024 2:37 PM [facility] Albumin 3.9 3.2 - 5.0 g/dL LAB CHEMISTRY METHOD 06/09/2024 2:37 PM EST [facility] Total Bilirubin 0.7 0.0 - 1.4 mg/dL LAB CHEMISTRY METHOD 06/09/2024 2:37 PM EST [facility] Blood Venous blood specimen / Unknown Venipuncture / Unknown 06/09/2024 1:38 PM EST 06/09/2024 1:52 PM EST us Roni BAKER LAB BLOOD ORDERABLES Rain haji Result [facility] [address] [place] [address], from Last 3 Months Insurance MEDICAID - [place] Care Teams Airway Traffic Controller Relationship Specialty Start Date End Date Physician, No Pcp PCP - General 06/09/24
== END 2024-07-25 14:18 | disposition home or self-care (01) ==
LOC: HO.HGI 12:22
PROVIDERS: PCP Physician Assistant; Visit Provider Nurse Practitioner Family
DX: K59.09 Other constipation (principal); K21.9 Gastro-esophageal reflux disease without esophagitis; K52.9 Noninfective gastroenteritis and colitis, unspecified; R14.0 Abdominal distension (gaseous)
CPT/HCPCS: 99204; G2211

== ENCOUNTER → 2024-07-25 12:21 | Outpatient (BNVA) | payer OTHER, SELFPAY | PROVIDERS: PCP Physician Assistant; Visit Provider Nurse Practitioner Family | DX: K21.9 Gastro-esophageal reflux disease without esophagitis (principal); E66.9 Obesity, unspecified; K59.09 Other constipation; K52.9 Noninfective gastroenteritis and colitis, unspecified; R14.0 Abdominal distension (gaseous); Z90.49 Acquired absence of other specified parts of digestive tract; Z68.35 Body mass index [BMI] 35.0-35.9, adult | CPT/HCPCS: 99202 ==

== ENCOUNTER 2024-08-02 12:49 | Outpatient (REF) | payer OTHER, SELFPAY ==
[2024-08-02 13:39] LABS: Hematocrit 40.3 % (37.0-47.0); Hemoglobin 13.4 g/dl (12.0-16.0); Mean Corpuscular HGB Conc 33.3 g/dl (31.0-35.0); Mean Corpuscular Hemoglobin 28.7 pg (27.0-33.0); Mean Corpuscular Volume 86.3 fL (80.0-98.0); Platelet Count 334 X10*3/uL (160-400); Red Blood Count 4.67 X10*6/uL (4.20-5.50); Red Cell Distribution Width 13.2 % (11.0-16.0); White Blood Count 7.7 X10*3/uL (4.8-10.8)
[2024-08-02 13:41] LABS: Appearance Urine Clear; Color Urine Yellow; Glucose Urine UA Negative (Negative); Leukocyte Esterase Urine Negative (Negative); Nitrite Urine Negative (Negative); PH 6.5 (5.0-9.0); Urine Blood Negative (Negative); Urine Ketones Negative (Negative); Urine Protein Negative (Neg-Trace)
[2024-08-02 14:21] LABS: Iron 92 mcg/dL (30-160); Percent Iron Saturation 29 % (15-50); Total Iron Binding Capacity 314 mcg/dL (228-428); Unsaturated Iron Binding 222 ug/dL
[2024-08-02 14:36] LABS: TSH reflex Free T4 0.93 uIU/mL (0.32-4.0)
[2024-08-02 14:58] LABS: Folate 7.1 ng/mL (> or = 4.0); Vitamin B12 238 pg/mL (200-900)
--- OUTSIDE RECORDS SUMMARY | 2024-08-02 15:27 | XMS_ITS | Encounter Summary ---
Author Organization [facility] Address [address] [place] [address] Care Team Providers Care Hydroelectric Operator Name Role Phone Luis Rowan MD Primary Care Provider Un available Community, Pcp Primary Care Provider Unavailabl e Encounter Details Date Type Department Care Team Description 05/28/2017 Orders Only Medical Records [address] [place] [address] Anabell Stafford DPM Social History Tobacco Use Types Packs/Day Years [...] Name Priority Date/Time Associated Diagnosis Comments OUTSIDE PATHOLOGY Routine 05/21/2017 documented in this encounter Results * OUTSIDE PATHOLOGY (05/21/2017) Anabell Stafford DPM OUTSIDE LAB documented in this encounter Visit Diagnoses Not on filedocumented in this encounter Care Teams Hydroelectric Operator Relationship Specialty Start Date End Date Luis Rowan MD PCP - General Internal Medicine 07/05/1504/21 Community, Pcp PCP - General Internal Medicine 04/22/18 documented as of this encounter
--- OUTSIDE RECORDS SUMMARY | 2024-08-02 15:27 | XMS_ITS | Encounter Summary ---
Author Organization [facility] Address [address] [place] [address] Care Team Providers Care Investment Counselor Name Role Phone Luis Rowan MD Primary Care Provider Un available Community, Pcp Primary Care Provider Unavailabl e Encounter Details Date Type Department Care Team Description 01/17/2017 Release of Information Medical Records [address] [place] [id number] Abstract, Provider Social History Tobacco Use Types [...] on filedocumented in this encounter Care Teams Investment Counselor Relationship Specialty Start Date End Date Luis Rowan MD PCP - General Internal Medicine 07/05/1504/21 Community, Pcp PCP - General Internal Medicine 04/22/18 documented as of this encounter
--- OUTSIDE RECORDS SUMMARY | 2024-08-02 15:27 | XMS_ITS | Encounter Summary ---
[facility] Address [address] [place] [address] Care Team Providers Care Window Decorator Name Role Phone Luis Rowan MD Primary Care Provider Un available Community, Pcp Primary Care Provider Unavailabl e Encounter Details Date Type Department Care Team Description 05/08/2017 [facility] Medical Records [address] [place] [id number] Abstract, Provider Social History Tobacco Use Types [...] on filedocumented in this encounter Care Teams Window Decorator Relationship Specialty Start Date End Date Luis Rowan MD PCP - General Internal Medicine 07/05/1504/21 Community, Pcp PCP - General Internal Medicine 04/22/18 documented as of this encounter
--- OUTSIDE RECORDS SUMMARY | 2024-08-02 15:27 | XMS_ITS | Encounter Summary ---
Author Organization [facility] Address [address] [place] [address] Care Team Providers Care Revenue Cycle Administrator Name Role Phone Luis Rowan MD Primary Care Provider Un available Community, Pcp Primary Care Provider Unavailabl e Encounter Details Date Type Department Care Team Description 06/09/2016 Vegetable I Farmworker Report Medical Records [address] [place] [id number] Roni Ferrara Social History Tobacco Use Types Packs/Day Years [...] on filedocumented in this encounter Care Teams Revenue Cycle Administrator Relationship Specialty Start Date End Date Luis Rowan MD PCP - General Internal Medicine 07/05/1504/21 Community, Pcp PCP - General Internal Medicine 04/22/18 documented as of this encounter
--- OUTSIDE RECORDS SUMMARY | 2024-08-02 15:27 | XMS_ITS | Clinical Summary ---
Author Organization [facility] Address [address] [place] [address] Phone Care Team Providers Care Filling And Stapling Machine Operator Name Role Phone Physician, No Pcp Primary [...] EST - 06/09/2024 9:19 PM EST [facility] Emergency [address] [place] [address] Maria Antonia Duncan DO Complex [...] age to complete this topic Meningococcal B Vaccine Aged Out No l onger eligible based on patient's age to complete [...] and culture (06/09/2024 5:36 PM EST) Specific [place] Urine 1.016 1.003 - 1.030 LAB URINALYSIS - AUTOMATED METHOD 06/09/2024 6:05 PM EST [facility] pH, Urine 5.5 5.0 - 8.0 pH LAB URINALYSIS - AUTOMATED METHOD 06/09/2024 6:05 PM EST [facility] Leukocytes, Urine Negative Negative LAB URINALYSIS - AUTOMATED METHOD 06/09/2024 6:05 PM [facility] Nitrite, Urine Negative Negative LAB URINALYSIS - AUTOMATED METHOD 06/09/2024 6:05 PM [facility] Protein, Urine Negative <=Trace mg/dL LAB URINALYSIS - AUTOMATED METHOD 06/09/2024 6:05 PM [facility] Glucose, Urine Negative Negative mg/dL LAB URINALYSIS - AUTOMATED METHOD 06/09/2024 6:05 PM [facility] Ketones, Urine Negative Negative mg/dL LAB URINALYSIS - AUTOMATED METHOD 06/09/2024 6:05 PM [facility] Urobilinogen, Urine 0.2 0.2 - 1.0 mg/dL LAB URINALYSIS - AUTOMATED METHOD 06/09/2024 6:05 PM [facility] Bilirubin, Urine Negative Negative LAB URINALYSIS - AUTOMATED METHOD 06/09/2024 6:05 PM [facility] Blood, Urine Negative Negative LAB URINALYSIS - AUTOMATED METHOD 06/09/2024 6:05 PM [facility] Urine Urine specimen obtained by clean catch procedure / Unknown Non-blood Collection / Unknown 06/09/2024 5:36 PM EST 06/09/2024 6:00 PM EST us Roni BAKRE LAB URINE ORDERABLES Rain l Result [facility] [address] [place] [address], * Woods urine culture tube (06/09/2024 5:36 PM EST) Extra Tube Hold for add-ons. 06/09/2024 7:01 PM [facility] Comment:Auto resulted. Urine Urine specimen obtained by clean catch procedure / Unknown Non-blood Collection / Unknown 06/09/2024 5:36 PM EST 06/09/2024 6:00 PM EST us Roni BAKER LAB URINE ORDERABLES Rain l Result [facility] [address] [place] [address], [place] [phone] * POC , urine manually resulted (06/09/2024 5:36 PM EST) HCG, Ur POC Negative Negative POC hCG Int QC Pass? Yes Yes EXPIRATION DATE POC [id number] LOT NUMBER POC [id number] Urine Urine specimen obtained by clean catch [...] K/mcL LAB HEMETOLOGY METHOD 06/09/2024 2:11 PM [facility] RBC 4.70 3.80 - 4.80 M/mcL LAB HEMETOLOGY METHOD 06/09/2024 2:11 PM [facility] Hemoglobin 13.4 11.5 - 16.0 g/dL LAB HEMETOLOGY METHOD 06/09/2024 2:11 PM [facility] Hematocrit 40.6 35.0 - 47.0 % LAB HEMETOLOGY METHOD 06/09/2024 2:11 PM [facility] MCV 86.6 79.0 - 98.0 FL LAB HEMETOLOGY METHOD 06/09/2024 2:11 PM [facility] MCH 28.6 27.0 - 32.0 pcg LAB HEMETOLOGY METHOD 06/09/2024 2:11 PM [facility] MCHC 33.0 32.0 - 37.0 g/dL LAB HEMETOLOGY METHOD 06/09/2024 2:11 PM [facility] RDW 13.0 11.0 - 15.0 % LAB HEMETOLOGY METHOD 06/09/2024 2:11 PM [facility] Platelets 292 130 - 400 K/mcL LAB HEMETOLOGY METHOD 06/09/2024 2:11 PM [facility] MPV 11.0 7.0 - 11.0 FL LAB HEMETOLOGY METHOD 06/09/2024 2:11 PM [facility] NRBC 0.0 <1.0 % LAB HEMETOLOGY METHOD 06/09/2024 2:11 PM [facility] NRBC Absolute 0.00 <0.10 K/mcL LAB HEMETOLOGY METHOD 06/09/2024 2:11 PM [facility] Neutrophils Relative 65.3 % LAB HEMETOLOGY METHOD 06/09/2024 2:11 PM [facility] Lymphocytes Relative 21.7 % LAB HEMETOLOGY METHOD 06/09/2024 2:11 PM [facility] Monocytes Relative 4.7 % LAB HEMETOLOGY METHOD 06/09/2024 2:11 PM [facility] Eosinophils Relative 6.5 % LAB HEMETOLOGY METHOD 06/09/2024 2:11 PM [facility] Basophils Relative 0.7 % LAB HEMETOLOGY METHOD 06/09/2024 2:11 PM [facility] Immature Granulocytes Relative 1.1 % LAB HEMETOLOGY METHOD 06/09/2024 2:11 PM [facility] Neutrophils Absolute 5.96 1.50 - 7.00 K/mcL LAB HEMETOLOGY METHOD 06/09/2024 2:11 PM EST [facility] Lymphocytes Absolute 1.98 1.00 - 5.00 K/mcL LAB HEMETOLOGY METHOD 06/09/2024 2:11 PM EST [facility] Monocytes Absolute 0.43 0.20 - 1.00 K/[facility] LAB HEMETOLOGY METHOD 06/09/2024 2:11 PM EST [facility] Eosinophils Absolute 0.59(H) 0.00 - 0.50 K/[facility] HEMETOLOGY METHOD 06/09/2024 2:11 PM EST [facility] Basophils Absolute 0.06 0.00 - 0.20 K/mcL LAB HEMETOLOGY METHOD 06/09/2024 2:11 PM EST [facility] Immature Granulocytes Absolute 0.10(H) 0.00 - 0.03 [facility] HEMETOLOGY METHOD 06/09/2024 2:11 PM EST [facility] Blood Venous blood specimen / Unknown Venipuncture / Unknown 06/09/2024 1:38 PM EST 06/09/2024 1:52 PM EST us Roni BAKER LAB BLOOD ORDERABLES Rain l Result [facility] [address] [place] [address], * (ABNORMAL) Comprehensive metabolic panel (06/09/2024 1:38 PM EST) Sodium 138 133 - 145 mmol/L LAB CHEMISTRY METHOD 06/09/2024 2:37 PM EST [facility] Potassium 3.9 3.5 - 5.5 mmol/L LAB CHEMISTRY METHOD 06/09/2024 2:37 PM EST [facility] Chloride 107 96 - 110 mmol/L LAB CHEMISTRY METHOD 06/09/2024 2:37 PM [facility] CO2 23 21 - 32 mmol/L LAB CHEMISTRY METHOD 06/09/2024 2:37 PM [facility] Anion Gap 8 3 - 11 LAB CHEMISTRY METHOD 06/09/2024 2:37 PM [facility] Glucose 119(H) 70 - 100 mg/dL LAB CHEMISTRY METHOD 06/09/2024 2:37 PM [facility] BUN 7 5 - 25 mg/dL LAB CHEMISTRY METHOD 06/09/2024 2:37 PM [facility] Creatinine 0.70 0.50 - 1.10 mg/dL LAB CHEMISTRY METHOD 06/09/2024 2:37 PM [facility] eGFR 109 >=60 mL/min/1. 73m2 LAB CHEMISTRY METHOD 06/09/2024 2:37 PM [facility] Comment:Calculation based on the??Chronic Kidney Disease Epidemiology Collaboration (CKD-EPI) equation refit??without adjustment for race. BUN/Creatinine Ratio 10.0 LAB CHEMISTRY METHOD 06/09/2024 2:37 PM [facility] Calcium 9.6 8.5 - 10.5 mg/dL LAB CHEMISTRY METHOD 06/09/2024 2:37 PM [facility] AST (SGOT) 14 10 - 42 unit/L LAB CHEMISTRY METHOD 06/09/2024 2:37 PM [facility] ALT (SGPT) 17 10 - 60 unit/L LAB CHEMISTRY METHOD 06/09/2024 2:37 PM [facility] Alkaline Phosphatase 95 42 - 121 unit/L LAB CHEMISTRY METHOD 06/09/2024 2:37 PM [facility] Total Protein 7.2 6.0 - 8.0 g/dL LAB CHEMISTRY METHOD 06/09/2024 2:37 PM [facility] Albumin 3.9 3.2 - 5.0 g/dL LAB CHEMISTRY METHOD 06/09/2024 2:37 PM EST [facility] Total Bilirubin 0.7 0.0 - 1.4 mg/dL LAB CHEMISTRY METHOD 06/09/2024 2:37 PM EST [facility] Blood Venous blood specimen / Unknown Venipuncture / Unknown 06/09/2024 1:38 PM EST 06/09/2024 1:52 PM EST us Roni BAKER LAB BLOOD ORDERABLES Rain haji Result [facility] [address] [place] [address], from Last 3 Months Insurance MEDICAID - [place] Care Teams Filling And Stapling Machine Operator Relationship Specialty Start Date End Date Physician, No Pcp PCP - General 06/09/24
--- OUTSIDE RECORDS SUMMARY | 2024-08-02 15:27 | XMS_ITS | Encounter Summary ---
Author Organization [facility] Address [address] [place] [address] Care Team Providers Care Service Person Name Role Phone Luis Rowan MD Primary Care Provider Un available Community, Pcp Primary Care Provider Unavailabl e Encounter Details Date Type Department Care Team Description 08/25/2017 Orders Only Medical Records [address] [place] [address] Primitivo Menendez PA-C [address] [place] [address] Social History Tobacco Use Types Packs/Day Years [...] Associated Diagnosis Comments OUTSIDE SLEEP STUDY Routine 08/22/2017 documented in this encounter Results * OUTSIDE SLEEP STUDY (08/22/2017) Primitivo Menendez PA-C PULMONOLOGY documented in this encounter Visit Diagnoses Not on filedocumented in this encounter Care Teams Service Person Relationship Specialty Start Date End Date Luis Rowan MD PCP - General Internal Medicine 07/05/1504/21 Community, Pcp PCP - General Internal Medicine 04/22/18 documented as of this encounter
--- OUTSIDE RECORDS SUMMARY | 2024-08-02 15:27 | XMS_ITS | Clinical Summary ---
Author Organization [facility] Address [address] [place] [address] Care Team Providers Care Flat Surfacer Jewel Name Role Phone Community, Pcp Primary Care Provider Unavailabl e Allergies No known active allergies Medications Medication Sig Dispensed Refills Start Date End Date Status omeprazole (PRILOSEC) 20 MG capsule Take 1 Cap by mouth daily. 0 Active fluticasone 50 MCG/ACT nasal spray 1 [place] by Each Nare route 2 times daily. [...] Constipation 07/27/2015 Asthma Depression Overview: 10/01/12 - [facility] Lumbago Resolved Problems Problem Noted Date [...] , 01/31/2015 (External Completion), 10/12/2012 (External Completion) BMI CHECK/ADVISE 04/27/2024 11/25/2017, 01/2018, 02/05/2017, Additional history exists INFLUENZA (Season Ended) 2024 02/25/2018, 06/2013 Care Teams Flat Surfacer Jewel Relationship Specialty Start Date End Date Community, Pcp PCP - General Internal Medicine 04/22/18
--- OUTSIDE RECORDS SUMMARY | 2024-08-02 15:27 | XMS_ITS | Encounter Summary ---
Author Organization [facility] Address [address] [place] [address] Care Team Providers Care Credit Investigator Name Role Phone Community, Pcp Primary Care Provider Unavailabl e Reason for Visit * Reason Onset Date Comments Information Needed 09/08/2018 Encounter Details Date Type Department Care Team Description 09/08/2018 Telephone OBGYN - [place] [address] [place], [place] [phone] America Crooks CNM [address] [place], [place] [phone] Information Needed Social History Tobacco Use Types Packs/Day Years Used Date Smoking Tobacco: Former Cigarettes Q uit: 12/12/2014 Smokeless Tobacco: Never Comments:stopped 8 months Alcohol Use Standard Drinks/Week Comments No 0 (1 standard drink = 0.6 oz pur e alcohol) Sex Assigned at Date Recorded Not on file documented as of this encounter Miscellaneous Notes * Telephone Encounter - America Navarro - 09/08/2018 12:46 PM EDT Per pt services, pt would need to write a letter of appeal, no guarantees of re- instatement. Pt aware. * Telephone Encounter - America Navarro - 09/08/2018 12:07 PM EDT Pt called legal examiner to schedule problem visit; message sent to patient services regarding dismissal status documented in this encounter Plan of Treatment Not on file documented as of this encounter Visit Diagnoses Not on filedocumented in this encounter Care Teams Credit Investigator Relationship Specialty Start Date End Date Community, Pcp PCP - General Internal Medicine 04/22/18 documented as of this encounter
--- OUTSIDE RECORDS SUMMARY | 2024-08-02 15:27 | XMS_ITS | Encounter Summary ---
Author Organization [facility] Address [address] [place] [address] Care Team Providers Care Unix Consultant Name Role Phone Luis Rowan MD Primary Care Provider Un available Community, Pcp Primary Care Provider Unavailabl e Reason for Visit * Reason Onset Date Comments refill request 08/12/2017 duloxetine (CYMB ROBERT) 30 MG capsule Encounter Details Date Type Department Care Team Description 08/12/2017 Telephone Adult [address] [phone] Radha Hugo DO refill request (duloxetine (CYMBALTA) [...] on filedocumented in this encounter Care Teams Unix Consultant Relationship Specialty Start Date End Date Luis Rowan MD PCP - General Internal Medicine 07/05/1504/21 [facility] PCP - General Internal Medicine 04/22/18 documented as of this encounter
--- OUTSIDE RECORDS SUMMARY | 2024-08-02 15:27 | XMS_ITS | Encounter Summary ---
Author Organization [facility] Address [address] [place] [address] Care Team Providers Care Booking Agent Name Role Phone Luis Rowan MD Primary Care Provider Un available Community, Pcp Primary Care Provider Unavailabl e Encounter Details Date Type Department Care Team Description 02/06/2017 Business Doc Medical Records [address] [place] [id number] Abstract, Provider Social History Tobacco Use Types [...] on filedocumented in this encounter Care Teams Booking Agent Relationship Specialty Start Date End Date Luis Rowan MD PCP - General Internal Medicine 07/05/1504/21 Community, Pcp PCP - General Internal Medicine 04/22/18 documented as of this encounter
--- OUTSIDE RECORDS SUMMARY | 2024-08-02 15:27 | XMS_ITS | Encounter Summary ---
Author Organization [facility] Address [address] [place] [address] Care Team Providers Care Duck Operator Name Role Phone Luis Rowan MD Primary Care Provider Un available Community, Pcp Primary Care Provider Unavailabl e Encounter Details Date Type Department Care Team Description 02/26/2016 Release of Information Medical Records [address] [place] [phone] Abstract, Provider Social History Tobacco Use Types [...] on filedocumented in this encounter Care Teams Duck Operator Relationship Specialty Start Date End Date Luis Rowan MD PCP - General Internal Medicine 07/05/1504/21 Community, Pcp PCP - General Internal Medicine 04/22/18 documented as of this encounter
[2024-08-06 17:29] LABS: Vitamin D 25-OH, D2 <4 ng/mL; Vitamin D 25-OH, D3 15 ng/mL; Vitamin D 25-OH, Total 15 ng/mL (30-100)
== END 2024-08-02 12:50 | disposition home or self-care (01) ==
LOC: HO.LAB 12:49
PROVIDERS: Absent Provider Nurse Practitioner Family; PCP Physician Assistant; Visit Provider Physician Assistant
DX: K21.9 Gastro-esophageal reflux disease without esophagitis (principal); D50.9 Iron deficiency anemia, unspecified; R30.0 Dysuria; R10.9 Unspecified abdominal pain; E66.812 Obesity, class 2; K52.9 Noninfective gastroenteritis and colitis, unspecified
CPT/HCPCS: 36415; 81003; 82306; 82607; 82746; 83540; 84443; 85027

== ENCOUNTER → 2024-09-13 07:55 | Outpatient (RCR) | payer OTHER, SELFPAY ==
--- NOTE | 2020-04-24 09:46 | MHC.PT.EP ---
[facility] [place] Office [place] Office [place] Office [address] Melissa Sosa [address] [phone] F: [phone] F: [phone] F: [phone] F: [phone] Physical Therapy Plan of Care Date of Evaluation: 04/24/20 Date of Surgery: none Diagnosis: thoracic, thoracolumbar, lumbosacral intervertebral disorder. Assessment: Patient is a 39 year old R handed female who presents with s/s consistent with thoracolumbar pain. She is not currently working and is fairly sedentary at this time. She notes bending over really causes a lot of pain which results in her being bedbound at times. Patient past medical history includes GERD, cancer, anxiety. Current impairments include pain, ROM, strength, safety, independence, activity tolerance and functional mobility. Functional limitations include decreased ability to walk, stand, sleep, transfer, negotiate stairs, and perform weight bearing activities.. Patient is motivated with good rehab potential. Skilled PT will address impairments and functional limitations in order to achieve goals. Frequency and Duration: The patient will be seen 2x/week for 5 weeks Short Term Goals: I with HEP - 2 weeks Symmetrical innom - 3 weeks Able to walk 20 minutes without increased pain - 3 weeks Skilled Nursing Goals: Hip strength 4/5 grossly - 5 weeks Oswestry 20% or less - 5 weeks Treatment Plan: Modalities to reduce pain, spasms and effusion. Manual therapy to restore motion and function. Therapeutic exercise to improve strength and flexibility. Neuromuscular re-education for posture and balance. Therapeutic activities to return to functional activities of daily living. Electronically signed by: Dileep Hoffmann, PT Please sign and return to therapist. Thank you for your referral.
--- NOTE | 2020-05-21 11:36 | MHC.PT.DC ---
[facility] [place] Office [place] Office [place] Office [address] Melissa Sosa [address] [facility] [phone] F: [phone] F: [phone] F: [phone] F: [phone] Physical Therapy Discharge Report Diagnosis: Intervertebral Disorder Date of Surgery: none Date of Evaluation: 04/24/20 Date of Discharge: 05/21/20 Treatments to Date: 1 Cancellations to Date: No Shows to Date: Discharge Status: Patient Elected to Stop Discharge Summary: Pt did not return after evaluation. Electronically signed by: Dileep Hoffmann PT Please sign and return to therapist. Thank you for your referral.
== END | disposition home or self-care (01) ==
LOC: HO.PTCHIC 04-24 08:05
PROVIDERS: Visit Provider Physician Assistant
DX: M54.16 Radiculopathy, lumbar region (principal); M51.9 Unspecified thoracic, thoracolumbar and lumbosacral intervertebral disc disorder
CPT/HCPCS: 97110; 97140; 97162

== ENCOUNTER → 2024-09-27 10:42 | Outpatient (REF) | payer OTHER, SELFPAY | LOC: HO.SL 10:42 | PROVIDERS: PCP Physician Assistant; Visit Provider Physician Assistant | DX: G47.33 Obstructive sleep apnea (adult) (pediatric) (principal) | CPT/HCPCS: 95806 ==

== ENCOUNTER → 2024-09-27 11:01 | Outpatient (BNV) | payer OTHER, SELFPAY | PROVIDERS: PCP Physician Assistant; Visit Provider Internal Medicine | DX: G47.33 Obstructive sleep apnea (adult) (pediatric) (principal) | CPT/HCPCS: 95806 ==

== ENCOUNTER 2024-11-27 11:16 | Emergency (ER) | payer OTHER, SELFPAY ==
--- NOTE | ~2024-11-27 | CT_ITS ---
CLINICAL HISTORY: R flank pain Exam: CT Abdomen and Pelvis Without IV Contrast Comparison: US pelvis: Transabdominal and Transvaginal with ovarian color Doppler and arterial and venous pulse doppler spectral analysis: Comparison: Findings: The uterus is normal in size Endometrial thickness is The RIGHT ovary measures The LEFT ovary measures Bilateral ovarian spectral Doppler signals are normal with continuous diastolic flow indicating low resistance. No solid ovarian masses. No free fluid Impression: 03/07/2024 ultrasound, ultrasound 05/12/2022 Findings: The liver density is homogeneous No biliary abnormalities. The gallbladder is surgically absent. The spleen is normal in size No pancreatic ductal dilatation No hydronephrosis. A 2 mm nonobstructing calculus is located in a minor calyx of the left kidney. No signs of urinary tract obstruction. Right ovarian vein phlebolith is incidentally noted adjacent to the right ureter. Normal bowel caliber No secondary signs of acute appendicitis No free fluid/free air The abdominal aorta caliber is normal Bladder outline is smooth. Uterus is not visualized and presumed to be surgically absent. [id number] left adnexal ovarian cysts are present, 1 measures 2.6 cm in the axial plane in diameter and an additional 5.3 cm cyst with septations or loculations is also present measured in the axial plane. No suspicious skeletal lesions Impression : Loculated or aggregated left ovarian cyst is present in the left adnexa measuring 5.4 x 3.8 cm in the sagittal plane Consider nonurgent ultrasound follow-up for characterization if symptomatic, but the cysts have decreased in size when compared to 05/12/2022 and have not markedly changed from 03/07/2024. This document has been electronically signed by: Russ Barrow MD on 11/27/2024 14:35:00
[2024-11-27 11:22] VITALS: BP 132/69; PULSE 72; RESP 18; TEMP 36.6; O2SAT 99; BMI 34.3
--- NOTE | 2024-11-27 11:22 | ED_ITS ---
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 Denies fevers. Denies diarrhea or constipation. Related Data Previous Rx's ?Medication ?Instructions ?Recorded hydroxyzine HCl 25 mg tablet 25 mg PO BEDTIME 30 days #30 tabs 11/27/22 albuterol sulfate 90 mcg/actuation 2 puff inhalation Q 6H PRN 07/14/24 aerosol inhaler shortness of breath or wheez ing 30 days #8.5 grams docusate sodium 100 mg capsule 100 mg PO DAILY 30 days #30 caps 07/14/24 (Colace) gabapentin 300 mg capsule 300 mg PO BEDTIME 30 days #3 0 caps 07/14/24 loratadine 10 mg tablet 10 mg PO DAILY 90 days #90 t abs 07/14/24 tramadol 50 mg tablet 50 mg PO BID PRN pain 7 days #14 07/14/24 tabs hydrocortisone 2.5 % topical cream 1 appl VT BID-QID P RN hemorrhoids 07/25/24 with perineal applicator #30 grams (Proctosol HC) sennosides 8.6 mg tablet (Natural 17.2 mg (2 x 8.6 mg) PO BEDTIME 07/25/24 Senna Laxative) constipation #60 tabs pantoprazole 40 mg tablet,delayed 40 mg PO QAM #90 tab s 08/01/24 release cholecalciferol (vitamin D3) 50 50 mcg PO DAILY #90 ca ps 08/08/24 mcg (2,000 unit) capsule clonazepam 1 mg tablet 1 mg PO DAILY PRN anxiety 7 days 08/16/24 #7 tabs cyclobenzaprine 10 mg tablet 10 mg PO BEDTIME PRN musc le spasm 08/22/24 15 days #15 tabs CPAP (CPAP Machine/Device) #1 ea 10/12/24 albuterol sulfate 2.5 mg/3 mL 2.5 mg (3 mL) inhalation QID PRN 10/25/24 (0.083 %) solution for nebulization shortness of breat h or wheezing 30 days #180 mL fluticasone propionate 50 See Rx Instructions .Route 0 10/25/24 mcg/actuation nasal .COMPLEX #32 mL spray,suspension triamcinolone acetonide 0.1 % 1 appl topical DAILY 30 days #80 10/25/24 topical cream grams cefpodoxime 200 mg tablet 200 mg PO BID #20 tabs 11/27 ondansetron 4 mg disintegrating 4 mg PO Q8H PRN nausea and 11/27/24 tablet vomiting #10 tabs phenazopyridine 200 mg tablet 200 mg PO TID 6 doses #6 tabs 11/27/24 Allergies Allergy/AdvReac Type Severity Reaction Status Date / Time No Known Allergies (No Known Allergy Verified 11/27/24 11:25 Allergies*) Review of Systems 2 Review of Systems: As per hPI Yes all other systems are reviewed and are negative Constitutional: Constitutional: Reports as per HPI PMFSH Past Medical History Medical History (Updated 11/27/24 @ 15:51 by Melanie Javier NP) Chronic abdominal pain GERD (gastroesophageal reflux disease) UTI (urinary tract infection) Surgical History History of hysterectomy History of foot surgery History of cholecystectomy Family History Family History Father No problems noted. Mother No problems noted. Maternal Grandfather Throat cancer Maternal Aunt Breast cancer Paternal Uncle Stomach cancer Paternal Aunt Colon cancer Social History Social History Housing: Apartment Alcohol intake: never Patient Tobacco Use Status: Never used Tobacco e-Cigarette/Vaping Use: Never Used Second Hand Smoke Exposure: No Advance Directives: Yes Advance Directives on File: Yes Advance Directives Date on File: 04/13/21 Do you have a plan to hurt others: No Plan service: No Current occupational status: unemployed and disabled Cognitive needs: No Hearing needs: No Vision needs: No Physical Exam 2 Vital Signs: Vital Signs: Last Vital Signs Temp 97.6 F 08/03/25 14:03 Pulse 95 11/27/24 14:03 Resp 16 11/27/24 14:03 BP 112/46 L 11/27/24 14:03 Pulse Ox 97 11/27/24 14:03 O2 Del Method Room Air 11/27/24 14:03 BMI result Body Mass Index 34.3 Vital signs have been reviewed and appear to be correct. Blood pressure normal. Heart rate normal. Respiratory rate normal. Temperature normal. Oxygen saturation normal. Const: General: cooperative, healthy appearing and no acute distress O rientation/consciousness: oriented to person, oriented to place, oriented to time and patient oriented x3 Limitations: no limitations HEENT: Head: Yes normocephalic and Yes atraumatic Ears: external ears normal General nose exam: Normal external nose present Face and sinus: Yes face symmetric Mouth: oropharynx normal and moist mucous membranes Throat: Yes uvula midline Eyes: Pupils: Equal, round and reactive pupils present Neck: Neck: Yes normal visual inspection and Yes supple Resp: Effort & Inspection: normal respiratory effort and able to speak in complete sentences Auscultation: clear to auscultation bilaterally Cardio: Rate: regular rate Rhythm: regular rhythm Heart sounds: S1 normal heart sound present and S2 normal heart sound present GI: Palpation (GI): Soft to palpation and nontender Auscultation: n ormoactive bowel sounds : General: Yes CVA tenderness on the right Back/Spine/Pelvis: Back: CVA tenderness Skin: General skin exam: elasticity normal and turgor normal Neuro: General: oriented to person, oriented to place, oriented to time, patient oriented x3, moves all extremities, no focal motor deficits and CN's II- XI intact bilaterally Cranial nerves: Yes Equal, round and reactive pupils present Cognition (Neuro): normal cognition Extrem: General: Yes full ROM, Yes no pedal edema and Yes no calf tenderness Psych: Mental Status: mental status grossly normal Affect: normal affect Thought process: Normal thought process present Course Course Course Narrative: This is an RME performed by Shell Swanson CNP: Additional HPI, ROS, PE not included below will be deferred to primary provider. Patient is a 44-year-old female who presents emergency department for evaluation. The past week she has been experiencing bilateral ?kidney pain? to her back intermittent episodes of dizzy lightheadedness, nausea and vomiting were able to tolerate some oral intake. Reports that her urine is very dark in color and odorous. Plan: Serum labs, urinalysis Medications Administered Discontinued Medications Generic Name Dose Route Start Last Admin Trade Name Mayo PRN Reason Stop Dose Admin Ketorolac Tromethamine 30 mg 11/27/24 13:47 11/27/24 14:04 Ketorolac Tromethamine 30 Mg/Ml Vial IM 11/27/24 13:48 30 mg ONCE ONE Administration Ondansetron HCl 4 mg 11/27/24 13:47 11/27/24 14:04 Ondansetron Odt 4 Mg Tab.Pawandis TRANSLINGU 11/27/24 13:48 4 mg ONCE ONE Administration Medical Decision Making Medical Decision Making [facility] Narrative: Patient is a 44-year-old Citizen [place]-speaking female with history of fibromyalgia, MITCH, GERD, IgA, asthma, recurrent UTIs, status post hysterectomy, depression and anxiety presenting to the emergency department with complaint of right flank pain as well as dark urine with foul odor and nausea and vomiting for the past week. On exam patient is awake, A+Ox3, VS WNL, afebrile, normal neurological exam without focal deficits, physical exam findings as above. Given reported symptoms and physical exam findings, initial differential includes but is not limited to renal colic, UTI, pyelonephritis, hydronephrosis, ureteral calculi. Labs unremarkable. UA notable for 1+ leukocytes, 21-50 WBCs, trace bacteria. CT A/P notable for no evidence of obstructing calculi or hydronephrosis. My interpretation is in agreement with the radiologist's interpretation. Given CVA tenderness on exam will treat for pyelonephritis with cefpodoxime. Will also send prescription for phenazopyridine and Zofran. Advised follow up with PCP. Return precautions discussed. Patient verbalized understanding of and agreement with plan. In-person splitter tender was utilized for all interactions, assessments, and discussions. Differential Diagnosis Differential Diagnoses: The differential diagnosis associated with the presentation includes as per [facility] Admission/Observation Consideration of admission/observation: Escalation of care including admission/observation considered Patient would have been admitted to the hospital had their clinical presentation warranted hospital admission. Lab Data [facility] Lab Attestation statement: I reviewed the patient's lab results. as per [facility] 11/27/24 11:39 11/27/24 11:39 Labs: Lab Results 11/27/24 Range/Units 11:39 WBC 8.4 (4.8-10.8) X10*3/uL RBC 4.40 (4.20-5.50) X10*6/uL Hgb 12.6 (12.0-16.0) g/dl Hct 37.3 (37.0-47.0) % MCV 84.8 (80.0-98.0) fL MCH 28.6 (27.0-33.0) pg MCHC 33.8 (31.0-35.0) g/dl RDW 13.4 (11.0-16.0) % Plt Count 265 (160-400) X10*3/uL MPV 10.6 (9.4-12.3) fL Immature Gran % (Auto) 0.6 H (0.0-0.4) % Neut % (Auto) 67.0 (45-73) % Lymph % (Auto) 20.4 (20-40) % [place] % (Auto) 6.5 (2-11) % Eos % (Auto) 4.9 H (0-4) % Baso % (Auto) 0.6 (0-2) % Lymph # (Auto) 1.7 (1.2-4.9) X10*3/uL [place] # (Auto) 0.5 (0.1-1.2) X10*3/uL Eos # (Auto) 0.4 (0.0-0.4) X10*3/uL Baso # (Auto) 0.1 (0.0-0.2) X10*3/uL Abs Immat Gran (auto) 0.05 H (0.00-0.03) X10*3/uL Absolute Neuts (auto) 5.6 (2.0-8.3) x10*3/uL Absolute Nucleated RBC 0.000 (0.0-0.012) X10*3/uL Nucleated RBC % (auto) 0.0 (0.0-0.2) /100WBC Sodium 141 (135-145) mmol/L Potassium 4.2 (3.3-5.1) mmol/L Chloride 110 H (96-108) mmol/L Carbon Dioxide 25 (22-29) mmol/L Anion Gap 10 L (12-20) BUN 15 (9-16) mg/dL Creatinine 0.62 (0.5-1.4) mg/dL Estim Creat Clear Calc 102.7 Estimated GFR > 60 Random Glucose 98 (60-115) mg/dL Calcium 8.8 (8.4-10.2) mg/dL Total Bilirubin 0.7 (0.0-1.0) mg/dL AST 18 (5-31) U/L ALT 19 (0-31) U/L Alkaline Phosphatase 96 (39-117) U/L Total Protein 7.0 (6.5-8.0) g/dL Albumin 4.4 (3.5-5.0) g/dL Lipase 26 (8-78) U/L Urine Color Yellow Urine Appearance Clear Urine pH 8.0 (5.0-9.0) Ur Specific [place] 1.020 (1.005-1.025) Urine Protein Negative (Neg-Trace) mg/dL Urine Glucose (UA) Negative (Negative) mg/dL Urine Ketones Negative (Negative) mg/dL Urine Blood Negative (Negative) Urine Nitrite Negative (Negative) Ur Leukocyte Esterase Small (1+) H (Negative) Urine RBC 0-2 (0-2) /HPF Urine WBC 21-50 H (0-5) /HPF Ur Squamous Epith Cells 11-20 (0-2) /HPF Urine Bacteria Trace (None Seen) Hyaline Casts 0-2 (0-2) /LPF Urine Test NEGATIVE (NEGATIVE) Independent Interpretation I performed an independent interpretation of an: CT Scan Interpretation: CT A/P notable for no evidence of obstructing calculi or hydronephrosis. Radiology Impression Discussion of test interpretation with radiology: I have reviewed the radiologist's reading. Radiologist Impression: Impression : Loculated or aggregated left ovarian cyst is present in the left adnexa measuring 5.4 x 3.8 cm in the sagittal plane Consider nonurgent ultrasound follow-up for characterization if symptomatic, but the cysts have decreased in size when compared to 05/12/2022 and have not markedly changed from 03/07/2024. External Record Review External record reviewed: Inpatient record, Office record and Outpatient record Prescription Management I considered prescription management with: Pain Medication, Antibiotic and Other Discharge Plan Discharge Clinical Impression: Pyelonephritis Patient Disposition: Home, Self-Care Instructions: Kidney Infection (ED) Additional Instructions: You have been evaluated in the emergency department today for your urinary symptoms. Your evaluation, including urinalysis, suggests that your symptoms are due to a kidney infection. Please take your prescribed antibiotics for the full course of medication as directed. You have been prescribed ondansetron for nausea and phenazopyridine for pain. Please follow-up with your primary care provider within 2 days. Return to the emergency department if you experience fevers 100.4? F or greater, worsening or uncontrolled pain, vomiting, flank pain, or for any other concerning symptoms. Prescriptions: New cefpodoxime 200 mg tablet 200 mg PO BID Qty: 20 0RF Rx Instructions: must administer with a meal/food phenazopyridine 200 mg tablet 200 mg PO TID Qty: 6 0RF ondansetron 4 mg tablet,disintegrating 4 mg PO Q8H PRN (Reason: nausea and vomiting) Qty: 10 0RF No Action hydroxyzine HCl 25 mg tablet 25 mg PO BEDTIME 30 Days Qty: 30 0RF pantoprazole 40 mg tablet,delayed release (DR/EC) 40 mg PO QAM Qty: 90 1RF cholecalciferol (vitamin D3) 50 mcg (2,000 unit) capsule 50 mcg PO DAILY Qty: 90 3RF clonazepam 1 mg tablet 1 mg PO DAILY PRN (Reason: anxiety) 7 Days Qty: 7 0RF cyclobenzaprine 10 mg tablet 10 mg PO BEDTIME PRN (Reason: muscle spasm) 15 Days Qty: 15 3RF (DME) CPAP Machine/Device Device See Rx Instructions .Route Qty: 1 0RF Rx Instructions: Need for pressure setting 6-12cm H2o fluticasone propionate 50 mcg/actuation spray,suspension See Rx Instructions .ROUTE .COMPLEX Qty: 32 0RF Dose Instruction: USE 1 SPRAY INTRANASALLY DAILY FOR 30 DAYS ADMINISTER INTO EACH NOSTRIL Rx Instructions: USE 1 SPRAY INTRANASALLY DAILY FOR 30 DAYS ADMINISTER INTO EACH NOSTRIL albuterol sulfate 2.5 mg /3 mL (0.083 %) solution for nebulization 2.5 mg inhalation QID PRN (Reason: shortness of breath or wheezing) 30 Days Qty: 180 1RF triamcinolone acetonide 0.1 % cream 1 appl topical DAILY 30 Days Qty: 80 2RF albuterol sulfate 90 mcg/actuation HFA aerosol inhaler 2 puff inhalation Q6H PRN (Reason: shortness of breath or wheezing) 30 Days Qty: 8.5 3RF docusate sodium [Colace] 100 mg capsule 100 mg PO DAILY 30 Days Qty: 30 3RF gabapentin 300 mg capsule 300 mg PO BEDTIME 30 Days Qty: 30 3RF loratadine 10 mg tablet 10 mg PO DAILY 90 Days Qty: 90 1RF tramadol 50 mg tablet 50 mg PO BID PRN (Reason: pain) 7 Days Qty: 14 1RF sennosides [Natural Senna Laxative] 8.6 mg tablet 17.2 mg PO BEDTIME Qty: 60 3RF hydrocortisone [Proctosol HC] 2.5 % cream with perineal applicator 1 appl VT BID-QID PRN (Reason: hemorrhoids) Qty: 30 0RF Print Language: Citizen Of [place]
[2024-11-27 11:44] LABS: MANUAL DIFF FLAG NO
[2024-11-27 11:46] LABS: Appearance Urine Clear; Glucose Urine UA Negative (Negative); Hematocrit 37.3 % (37.0-47.0); Hemoglobin 12.6 g/dl (12.0-16.0); Imm Gran Abs Auto 0.05 X10*3/uL (0.00-0.03); Imm Gran Pct Auto 0.6 % (0.0-0.4); Lymphocytes Absolute Auto 1.7 X10*3/uL (1.2-4.9); Mean Corpuscular HGB Conc 33.8 g/dl (31.0-35.0); Mean Corpuscular Hemoglobin 28.6 pg (27.0-33.0); Mean Corpuscular Volume 84.8 fL (80.0-98.0); NRBC Abs Auto 0.000 X10*3/uL (0.0-0.012); NRBC Pct Auto 0.0 /100WBC (0.0-0.2); PH 8.0 (5.0-9.0); Platelet Count 265 X10*3/uL (160-400); Red Blood Count 4.40 X10*6/uL (4.20-5.50); Specific Gravity - Urine 1.020 (1.005-1.025); UMIC TRIGGER UACC YES; White Blood Count 8.4 X10*3/uL (4.8-10.8)
[2024-11-27 11:48] LABS: UACC Culture Trigger YES; UPreg QC Valid YES
[2024-11-27 12:03] LABS: Alanine Aminotransferase 19 U/L (0-31); Albumin Level 4.4 g/dL (3.5-5.0); Alkaline Phosphatase 96 U/L (39-117); Anion Gap 10 (12-20); Aspartate Amino Transferase 18 U/L (5-31); Blood Urea Nitrogen 15 mg/dL (9-16); Calcium 8.8 mg/dL (8.4-10.2); Carbon Dioxide 25 mmol/L (22-29); Chloride 110 mmol/L (96-108); Creatinine Clr Calc Pharmacy 102.7; Estimated Glomerular Filt Rate > 60; Lipase 26 U/L (8-78); Potassium 4.2 mmol/L (3.3-5.1); Sodium 141 mmol/L (135-145); Total Protein 7.0 g/dL (6.5-8.0)
--- OUTSIDE RECORDS SUMMARY | 2024-11-27 13:23 | XMS_ITS | Encounter Summary ---
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 Name Role Phone Unknown, Unknown Primary Care Provider Kartik collins Encounter Details Date Type Department Care Team (Late st Contact Info) Description 03/11/2017 Procedure Pass [facility], Ct Scan - [address] [address] Social History Tobacco Use Types Packs/Day Years Used Date Smoking Tobacco: Never Smokeless Tobacco: Never Alcohol Use Standard Drinks/Week Comments No 0 (1 standard drink = 0.6 oz pur e alcohol) Comments No Sex and Gender Information Value Date Recorded Sex Assigned at Female 05/04/2017 9:38 AM EST Legal Sex Female 9:23 PM EDT Gender Identity Female 05/04/2017 9:38 AM EST Sexual Orientation Straight 05/04/2017 9: 38 AM EST documented as of this encounter Plan of Treatment Not on file documented as of this encounter Visit Diagnoses Not on filedocumented in this encounter Care Teams Wire Machine Operator Relationship Specialty Start Date End Date Unknown, Unknown, PCP - General 03/11/17 documented as of this encounter Additional Source Comments The information contained in this document represents components of the legal health record. It is not the complete legal health record.[facility]
[2024-11-27 14:03] VITALS: BP 112/46; PULSE 95; RESP 16; TEMP 36.4; O2SAT 97
[2024-11-27 16:16] VITALS: BP 120/70; PULSE 62; RESP 16; TEMP 36.1; O2SAT 96
== END 2024-11-27 16:17 | disposition home or self-care (01) ==
PROVIDERS: Nurse Practitioner Family; Emergency Provider Emergency Medicine Emergency Medical Services; PCP Physician Assistant
DX: N12 Tubulo-interstitial nephritis, not specified as acute or chronic (principal); R11.2 Nausea with vomiting, unspecified; G47.33 Obstructive sleep apnea (adult) (pediatric); K21.9 Gastro-esophageal reflux disease without esophagitis; J45.909 Unspecified asthma, uncomplicated; Z87.440 Personal history of urinary (tract) infections; Z90.710 Acquired absence of both cervix and uterus
CPT/HCPCS: 36415; 74176; 80053; 81001; 81025; 83690; 85025; 87086; 87088; 87186; 96372; 99284; J1885

== ENCOUNTER → 2024-11-27 13:47 | Outpatient (BNV) | payer OTHER, SELFPAY | PROVIDERS: Emergency Provider Emergency Medicine Emergency Medical Services; PCP Physician Assistant; Visit Provider Radiology Diagnostic Radiology | DX: N83.292 Other ovarian cyst, left side (principal) | CPT/HCPCS: 74176 ==

== ENCOUNTER 2025-01-24 19:26 | Emergency (ER) | payer OTHER, SELFPAY ==
--- NOTE | ~2025-01-24 | CT_ITS ---
CLINICAL HISTORY: RLQ pain CT Abdomen and Pelvis W Contrast COMPARISON: CT/SR - CT ABDOMEN PELVIS WO IV CON - 11/27/24 13:49 EDT FINDINGS: Normal liver. Splenomegaly. Nonobstructing bilateral renal calculi. No visible ureteral calculi. No hydronephrosis. Normal adrenal glands. Normal pancreas. Status post cholecystectomy. No abnormal biliary dilation. No evidence of bowel obstruction or colitis. Normal appendix. Unremarkable bladder. Similar chronic left ovarian cysts. Right ovary is not visualized. Status post hysterectomy. No ascites. No pneumoperitoneum. No lymphadenopathy. No acute fracture. No abdominal aortic aneurysm. IMPRESSION: No acute findings. Nonemergent/incidental findings above. This document has been electronically signed by: Obdulio Price MD on 01/25/2025 01:42:05
[2025-01-24 19:39] VITALS: BP 139/87; PULSE 74; RESP 16; TEMP 36.6; O2SAT 99; BMI 32.3
--- NOTE | 2025-01-24 19:40 | ED_ITS ---
HPI - Abdominal Pain General Chief Complaint: Abdominal Pain Stated Complaint: Sent fr UC hernia or appendix? Time Seen by Provider: 01/24/25 23:04 Source: patient, RN notes reviewed and old records reviewed Mode of arrival: ambulatory Limitations: no limitations Related Data Previous Rx's ?Medication ?Instructions ?Recorded hydroxyzine HCl 25 mg tablet 25 mg PO BEDTIME 30 days #30 tabs 11/27/22 albuterol sulfate 90 mcg/actuation 2 puff inhalation Q 6H PRN 07/14/24 aerosol inhaler shortness of breath or wheez ing 30 days #8.5 grams gabapentin 300 mg capsule 300 mg PO BEDTIME 30 days #3 0 caps 07/14/24 loratadine 10 mg tablet 10 mg PO DAILY 90 days #90 t abs 07/14/24 tramadol 50 mg tablet 50 mg PO BID PRN pain 7 days #14 07/14/24 tabs hydrocortisone 2.5 % topical cream 1 appl VA BID-QID P RN hemorrhoids 07/25/24 with perineal applicator #30 grams (Proctosol HC) pantoprazole 40 mg tablet,delayed 40 mg PO QAM #90 tab s 08/01/24 release cholecalciferol (vitamin D3) 50 50 mcg PO DAILY #90 ca ps 08/08/24 mcg (2,000 unit) capsule clonazepam 1 mg tablet 1 mg PO DAILY PRN anxiety 7 days 08/16/24 #7 tabs cyclobenzaprine 10 mg tablet 10 mg PO BEDTIME PRN musc le spasm 08/22/24 15 days #15 tabs CPAP (CPAP Machine/Device) #1 ea 10/12/24 albuterol sulfate 2.5 mg/3 mL 2.5 mg (3 mL) inhalation QID PRN 10/25/24 (0.083 %) solution for nebulization shortness of breat h or wheezing 30 days #180 mL fluticasone propionate 50 See Rx Instructions .Route 0 10/25/24 mcg/actuation nasal .COMPLEX #32 mL spray,suspension triamcinolone acetonide 0.1 % 1 appl topical DAILY 30 days #80 10/25/24 topical cream grams cefpodoxime 200 mg tablet 200 mg PO BID #20 tabs 11/27 ondansetron 4 mg disintegrating 4 mg PO Q8H PRN nausea and 08/03/25 tablet vomiting #10 tabs phenazopyridine 200 mg tablet 200 mg PO TID 6 doses #6 tabs 11/27/24 docusate sodium 100 mg capsule 100 mg PO DAILY 30 days #30 caps 12/23/24 (Colace) sennosides 8.6 mg tablet (senna) 17.2 mg (2 x 8.6 mg) PO DAILY for 12/23/24 constipation #60 tabs Allergies Allergy/AdvReac Type Severity Reaction Status Date / Time No Known Allergies (No Known Allergy Verified 01/24/25 19:41 Allergies*) [facility] Past Medical History Medical History (Updated 11/28/24 @ 00:01 by Brad Cortez) Chronic abdominal pain GERD (gastroesophageal reflux disease) UTI (urinary tract infection) Surgical History History of hysterectomy History of foot surgery History of cholecystectomy Family History Family History Father No problems noted. Mother No problems noted. Maternal Grandfather Throat cancer Maternal Aunt Breast cancer Paternal Uncle Stomach cancer Paternal Aunt Colon cancer Social History Social History Housing: Apartment Alcohol intake: never Patient Tobacco Use Status: Never used Tobacco e-Cigarette/Vaping Use: Never Used Second Hand Smoke Exposure: No Advance Directives: Yes Advance Directives on File: Yes Advance Directives Date on File: 04/13/21 Do you have a plan to hurt others: No Plan service: No Current occupational status: unemployed and disabled Cognitive needs: No Hearing needs: No Vision needs: No Physical Exam ED Vital Signs: Vital Signs - 24 hr 01/24/25 19:39 01/24/25 22:09 Temperature 98 F 97.8 F Pulse Rate 74 75 Respiratory Rate 16 16 Blood Pressure 139/87 135/78 Pulse Oximetry 99 98 Oxygen Delivery Method Room Air Room Air BMI result Body Mass Index 32.3 Course Course Course Narrative: This is an RME: Additional HPI, ROS, PE not included below will be deferred to primary provider. RME assessment and note performed by: Essie Akhtar PA-C This is a [id number], with a history of diabetes, MDD, fibromyalgia, MITCH, GERD, who presents emergency department with complaints of abdominal pain. History of total hysterectomy. Patient reports that pain started last night and your umbilical area. Was at urgent Care and pain worsened with palpation to the lower abdomen. She has tenderness palpation in the right lower quadrant and left lower quadrant. Plan: Labs, UA, further ER evaluation needed. Medical Decision Making Lab Data 01/24/25 20:36 01/24/25 20:36 Labs: Lab Results 01/24/25 01/24/25 Range/Units 20:36 22:11 WBC 6.1 (4.8-10.8) X10*3/uL RBC 4.73 (4.20-5.50) X10*6/uL Hgb 13.7 (12.0-16.0) g/dl Hct 39.6 (37.0-47.0) % MCV 83.7 (80.0-98.0) fL MCH 29.0 (27.0-33.0) pg MCHC 34.6 (31.0-35.0) g/dl RDW 13.2 (11.0-16.0) % Plt Count 287 (160-400) X10*3/uL MPV 10.4 (9.4-12.3) fL Immature Gran % (Auto) 0.5 H (0.0-0.4) % Neut % (Auto) 56.7 (45-73) % Lymph % (Auto) 28.4 (20-40) % [place] % (Auto) 10.7 (2-11) % Eos % (Auto) 3.0 (0-4) % Baso % (Auto) 0.7 (0-2) % Lymph # (Auto) 1.7 (1.2-4.9) X10*3/uL [place] # (Auto) 0.7 (0.1-1.2) X10*3/uL Eos # (Auto) 0.2 (0.0-0.4) X10*3/uL Baso # (Auto) 0.0 (0.0-0.2) X10*3/uL Abs Immat Gran (auto) 0.03 (0.00-0.03) X10*3/uL Absolute Neuts (auto) 3.4 (2.0-8.3) x10*3/uL Absolute Nucleated RBC 0.000 (0.0-0.012) X10*3/uL Nucleated RBC % (auto) 0.0 (0.0-0.2) /100WBC ESR 10 (0-20) MM/HR Sodium 141 (135-145) mmol/L Potassium 3.7 (3.3-5.1) mmol/L Chloride 107 (96-108) mmol/L Carbon Dioxide 24 (22-29) mmol/L Anion Gap 14 (12-20) BUN 10 (9-16) mg/dL Creatinine 0.73 (0.5-1.4) mg/dL Estim Creat Clear Calc 84.4 Estimated GFR > 60 Random Glucose 97 (60-115) mg/dL Calcium 9.8 D (8.4-10.2) mg/dL Magnesium 2.0 (1.6-2.6) mg/dL Total Bilirubin 0.9 (0.0-1.0) mg/dL Direct Bilirubin 0.2 (0.0-0.5) mg/dL AST 22 (5-31) U/L ALT 20 (0-31) U/L Alkaline Phosphatase 96 (39-117) U/L C-Reactive Protein 0.56 H (< or = 0.50) mg/dL Total Protein 7.9 (6.5-8.0) g/dL Albumin 5.1 H (3.5-5.0) g/dL Lipase 20 (8-78) U/L Urine Color Yellow Urine Appearance Clear Urine pH 5.0 (5.0-9.0) Ur Specific [place] 1.025 (1.005-1.025) Urine Protein Negative (Neg-Trace) mg/dL Urine Glucose (UA) Negative (Negative) mg/dL Urine Ketones Negative (Negative) mg/dL Urine Blood Negative (Negative) Urine Nitrite Negative (Negative) Ur Leukocyte Esterase Negative (Negative) Discharge Plan Discharge Prescriptions: No Action hydroxyzine HCl 25 mg tablet 25 mg PO BEDTIME 30 Days Qty: 30 0RF pantoprazole 40 mg tablet,delayed release (DR/EC) 40 mg PO QAM Qty: 90 1RF cholecalciferol (vitamin D3) 50 mcg (2,000 unit) capsule 50 mcg PO DAILY Qty: 90 3RF clonazepam 1 mg tablet 1 mg PO DAILY PRN (Reason: anxiety) 7 Days Qty: 7 0RF cyclobenzaprine 10 mg tablet 10 mg PO BEDTIME PRN (Reason: muscle spasm) 15 Days Qty: 15 3RF (DME) CPAP Machine/Device Device See Rx Instructions .Route Qty: 1 0RF Rx Instructions: Need for pressure setting 6-12cm H2o fluticasone propionate 50 mcg/actuation spray,suspension See Rx Instructions .ROUTE .COMPLEX Qty: 32 0RF Dose Instruction: USE 1 SPRAY INTRANASALLY DAILY FOR 30 DAYS ADMINISTER INTO EACH NOSTRIL Rx Instructions: USE 1 SPRAY INTRANASALLY DAILY FOR 30 DAYS ADMINISTER INTO EACH NOSTRIL albuterol sulfate 2.5 mg /3 mL (0.083 %) solution for nebulization 2.5 mg inhalation QID PRN (Reason: shortness of breath or wheezing) 30 Days Qty: 180 1RF triamcinolone acetonide 0.1 % cream 1 appl topical DAILY 30 Days Qty: 80 2RF sennosides [senna] 8.6 mg tablet 17.2 mg PO DAILY Qty: 60 3RF docusate sodium [Colace] 100 mg capsule 100 mg PO DAILY 30 Days Qty: 30 3RF cefpodoxime 200 mg tablet 200 mg PO BID Qty: 20 0RF Rx Instructions: must administer with a meal/food phenazopyridine 200 mg tablet 200 mg PO TID Qty: 6 0RF ondansetron 4 mg tablet,disintegrating 4 mg PO Q8H PRN (Reason: nausea and vomiting) Qty: 10 0RF albuterol sulfate 90 mcg/actuation HFA aerosol inhaler 2 puff inhalation Q6H PRN (Reason: shortness of breath or wheezing) 30 Days Qty: 8.5 3RF gabapentin 300 mg capsule 300 mg PO BEDTIME 30 Days Qty: 30 3RF loratadine 10 mg tablet 10 mg PO DAILY 90 Days Qty: 90 1RF tramadol 50 mg tablet 50 mg PO BID PRN (Reason: pain) 7 Days Qty: 14 1RF hydrocortisone [Proctosol HC] 2.5 % cream with perineal applicator 1 appl VA BID-QID PRN (Reason: hemorrhoids) Qty: 30 0RF Print Language: Norwegian
[2025-01-24 20:41] LABS: Hematocrit 39.6 % (37.0-47.0); Hemoglobin 13.7 g/dl (12.0-16.0); Imm Gran Abs Auto 0.03 X10*3/uL (0.00-0.03); Imm Gran Pct Auto 0.5 % (0.0-0.4); Lymphocytes Absolute Auto 1.7 X10*3/uL (1.2-4.9); MANUAL DIFF FLAG NO; Mean Corpuscular HGB Conc 34.6 g/dl (31.0-35.0); Mean Corpuscular Hemoglobin 29.0 pg (27.0-33.0); Mean Corpuscular Volume 83.7 fL (80.0-98.0); NRBC Abs Auto 0.000 X10*3/uL (0.0-0.012); NRBC Pct Auto 0.0 /100WBC (0.0-0.2); Platelet Count 287 X10*3/uL (160-400); Red Blood Count 4.73 X10*6/uL (4.20-5.50); White Blood Count 6.1 X10*3/uL (4.8-10.8)
[2025-01-24 20:55] LABS: Alanine Aminotransferase 20 U/L (0-31); Albumin Level 5.1 g/dL (3.5-5.0); Alkaline Phosphatase 96 U/L (39-117); Anion Gap 14 (12-20); Aspartate Amino Transferase 22 U/L (5-31); Blood Urea Nitrogen 10 mg/dL (9-16); Calcium 9.8 mg/dL (8.4-10.2); Carbon Dioxide 24 mmol/L (22-29); Chloride 107 mmol/L (96-108); Creatinine Clr Calc Pharmacy 84.4; Estimated Glomerular Filt Rate > 60; Lipase 20 U/L (8-78); Magnesium 2.0 mg/dL (1.6-2.6); Potassium 3.7 mmol/L (3.3-5.1); Sodium 141 mmol/L (135-145); Total Protein 7.9 g/dL (6.5-8.0)
--- NOTE | 2025-01-24 22:04 | PC.NURSE ---
pt provided instructions and cup for urine sample. plan of care ongoing
[2025-01-24 22:09] VITALS: BP 135/78; PULSE 75; RESP 16; TEMP 36.6; O2SAT 98
--- OUTSIDE RECORDS SUMMARY | 2025-01-24 22:13 | XMS_ITS | Clinical Summary ---
Author Organization [facility] Address [address] [place] [id number] Phone Care Team Providers Care Supervisor [employer] Name Role Phone Unknown, Unknown MD Primary Care Provider Unavai lable Allergies No known active allergies Medications ALBUTEROL INHL Activ e ibuprofen (ADVIL,MOTRIN) 800 MG tablet Active LORATADINE (CLARITIN ORAL) Acti ve Social History Tobacco Use Types Packs/Day Years [...] Orientation Straight 05/04/2017 9: 38 AM EST Last Filed Vital Signs Vital Sign Reading Time Taken Comments Blood Pressure 101/56 03/12/2017 1:45 AM EST Pulse 67 03/12/2017 1:45 AM EST Temperature 36.5 C (97.7 F) 03/12/2017 1:45 AM EST Respiratory Rate 18 03/12/2017 1:45 AM EST Oxygen Saturation 98% 03/11/2017 10:45 PM EST Inhaled Oxygen Concentration - - Weight 77.1 kg (170 lb) 03/11/2017 7:10 PM EST Height 149.9 cm (4' 11 ) 03/11/2017 10:54 PM EST Body Mass Index 34.34 03/11/2017 7:10 PM EST Plan of Treatment Not on file Medical Devices Not on file Insurance [place] [employer] B [facility] MEDICARE PART A & B Care Teams Supervisor [employer] Relationship Specialty Start Date End Date Unknown, Unknown, PCP - General 03/11/17 Additional Source Comments The information contained in this document represents components of the legal health record. It is not the complete legal health record.[facility]
--- OUTSIDE RECORDS SUMMARY | 2025-01-24 22:13 | XMS_ITS | Encounter Summary ---
Author Organization [facility] Address [address] [place] [address] Phone Care Team Providers Care Cask Maker Name Role Phone Unknown, Unknown Primary Care Provider Kartik collins Encounter Details Date Type Department Care Team (Late st Contact Info) Description 03/11/2017 Procedure Pass [facility], Ct Scan - [address] [address] Social History Tobacco Use Types Packs/Day Years [...] on filedocumented in this encounter Care Teams Cask Maker Relationship Specialty Start Date End Date Unknown, Unknown, PCP - General 03/11/17 documented as of this encounter Additional Source Comments The information contained in this document represents components of the legal health record. It is not the complete legal health record.[facility]
[2025-01-24 22:20] LABS: Appearance Urine Clear; Glucose Urine UA Negative (Negative); PH 5.0 (5.0-9.0); Specific Gravity - Urine 1.025 (1.005-1.025)
--- NOTE | 2025-01-24 23:21 | ED_ITS ---
HPI - Abdominal Pain General Chief Complaint: Abdominal Pain Stated Complaint: Sent fr UC hernia or appendix? 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 She did not take anything for the pain but the pain did not improve prompting her to go to urgent care this morning. She had increased pain to palpation in the left and right lower abdomen at urgent care and came for further evaluation of pain and concern for appendicitis. She reports she feels a little ball in her abdomen near her belly button and that the pain radiates to her back bilaterally. She also complains of dizziness for one week. She had one episode of diarrhea last night but otherwise has had normal bowel movements. No blood in her stool. She has been eating and drinking normally. She denies any nausea or vomiting, constipation, fevers, chills, or sweats. She has not had pain like this before. The patient is status post cholecystectomy and total hysterectomy MD elicited complaint: abdominal pain Location: periumbilical, RLQ and LLQ Radiation: back Associated symptoms: diarrhea Related Data Previous Rx's ?Medication ?Instructions ?Recorded hydroxyzine HCl 25 mg tablet 25 mg PO BEDTIME 30 days #30 tabs 11/27/22 albuterol sulfate 90 mcg/actuation 2 puff inhalation Q 6H PRN 07/14/24 aerosol inhaler shortness of breath or wheez ing 30 days #8.5 grams gabapentin 300 mg capsule 300 mg PO BEDTIME 30 days #3 0 caps 07/14/24 loratadine 10 mg tablet 10 mg PO DAILY 90 days #90 t abs 07/14/24 tramadol 50 mg tablet 50 mg PO BID PRN pain 7 days #14 07/14/24 tabs hydrocortisone 2.5 % topical cream 1 appl KS BID-QID P RN hemorrhoids 07/25/24 with perineal applicator #30 grams (Proctosol HC) pantoprazole 40 mg tablet,delayed 40 mg PO QAM #90 tab s 08/01/24 release cholecalciferol (vitamin D3) 50 50 mcg PO DAILY #90 ca ps 08/08/24 mcg (2,000 unit) capsule clonazepam 1 mg tablet 1 mg PO DAILY PRN anxiety 7 days 08/16/24 #7 tabs cyclobenzaprine 10 mg tablet 10 mg PO BEDTIME PRN musc le spasm 08/22/24 15 days #15 tabs CPAP (CPAP Machine/Device) #1 ea 10/12/24 albuterol sulfate 2.5 mg/3 mL 2.5 mg (3 mL) inhalation QID PRN 10/25/24 (0.083 %) solution for nebulization shortness of breat h or wheezing 30 days #180 mL fluticasone propionate 50 See Rx Instructions .Route 0 10/25/24 mcg/actuation nasal .COMPLEX #32 mL spray,suspension triamcinolone acetonide 0.1 % 1 appl topical DAILY 30 days #80 10/25/24 topical cream grams cefpodoxime 200 mg tablet 200 mg PO BID #20 tabs 11/27 ondansetron 4 mg disintegrating 4 mg PO Q8H PRN nausea and 11/27/24 tablet vomiting #10 tabs phenazopyridine 200 mg tablet 200 mg PO TID 6 doses #6 tabs 11/27/24 docusate sodium 100 mg capsule 100 mg PO DAILY 30 days #30 caps 12/23/24 (Colace) sennosides 8.6 mg tablet (senna) 17.2 mg (2 x 8.6 mg) PO DAILY for 12/23/24 constipation #60 tabs magnesium citrate 148 ml PO DAILY PRN constipa tion 01/25/25 #296 mL polyethylene glycol 3350 17 17 g PO DAILY 2 weeks #238 grams 01/25/25 gram/dose oral powder (Miralax) Allergies Allergy/AdvReac Type Severity Reaction Status Date / Time No Known Allergies (No Known Allergy Verified 01/24/25 19:41 Allergies*) Review of Systems Constitutional: Denies chills and Denies fever(s) Gastrointestinal: Reports as per HPI, Reports abdominal pain, Denies constipation, Reports diarrhea, Reports loose stools, Reports nausea, Denies vomiting and Denies hematemesis Musculoskeletal: Reports back pain and Reports radiating pain into limb PMFSH Past Medical History Medical History (Updated 01/25/25 @ 01:47 by Kevin Marcum) Chronic abdominal pain GERD (gastroesophageal reflux disease) UTI (urinary tract infection) Surgical History History of hysterectomy History of foot surgery History of cholecystectomy Family History Family History Father No problems noted. Mother No problems noted. Maternal Grandfather Throat cancer Maternal Aunt Breast cancer Paternal Uncle Stomach cancer Paternal Aunt Colon cancer Social History Social History Housing: Apartment Alcohol intake: never Patient Tobacco Use Status: Never used Tobacco e-Cigarette/Vaping Use: Never Used Second Hand Smoke Exposure: No Advance Directives: Yes Advance Directives on File: Yes Advance Directives Date on File: 04/13/21 Do you have a plan to hurt others: No Plan service: No Current occupational status: unemployed and disabled Cognitive needs: No Hearing needs: No Vision needs: No Physical Exam ED Exam Exam: No rashes or skin lesions upon inspection of the abdomen. Hypoactive bowel sounds in all four quadrants. Diffuse tenderness to palpation most prominent in the right and left lower quadrants. Vital Signs: Vital Signs - 24 hr 01/24/25 19:39 01/24/25 22:09 Temperature 98 F 97.8 F Pulse Rate 74 75 Respiratory Rate 16 16 Blood Pressure 139/87 135/78 Pulse Oximetry 99 98 Oxygen Delivery Method Room Air Room Air BMI result Body Mass Index 32.3 Const General: cooperative, alert and awake Nutritional Appearance: well nourished Orientation/consciousness: patient oriented x3 HENMT Head: Yes normocephalic and Yes atraumatic Resp Effort & Inspection: normal respiratory effort, able to speak in complete sentences, no audible wheezes and not labored GI Inspection: No distended Palpation (GI): Soft to palpation, not firm, Tenderness to palpation present (GI) (Diffuse tenderness), Guarding due to palpation present (GI) (Guarding in the periumbilical region) and not rigid Neuro General: patient oriented x3 Cognition (Neuro): normal cognition Extrem Other: Moving all extremities well without any obvious deformities Course Course Course Narrative: This is an RME: Additional HPI, ROS, PE not included below will be deferred to primary provider. RME assessment and note performed by: Essie Akhtar PA-C This is a [id number]-female, with a history of diabetes, MDD, fibromyalgia, MITCH, GERD, who presents emergency department with complaints of abdominal pain. History of total hysterectomy. Patient reports that pain started last night and your umbilical area. Was at urgent Care and pain worsened with palpation to the lower abdomen. She has tenderness palpation in the right lower quadrant and left lower quadrant. Plan: Labs, UA, further ER evaluation needed. Reevaluation(s) Reevaluation #1: CT scan without acute findings to explain her pain. We will treat for constipation as she has right-sided stool burden in my evaluation of the CT scan Time: 01:45 Medical Decision Making Medical Decision Making [facility] Narrative: 45-year-old female presents for evaluation of abdominal pain, nausea and diarrhea. She is quite tender in the periumbilical region with guarding. There is some rebound tenderness as well. No abdominal distention. Vitals are stable, she has no fever, no white count. Given the location of her pain we will get a CT scan to evaluate for appendicitis but I feel this is less likely as she also has tenderness in the left lower abdomen epigastric region periumbilical, right lower quadrant. I suspect constipation may be more likely as her pain is diffuse. Urinalysis is clear. The patient is not , she is already status post hysterectomy Differential Diagnosis Differential Diagnoses: The differential diagnosis associated with the presentation includes Appendicitis Constipation Cystitis Pyelonephritis Diverticulitis Lab Data [facility] Lab Attestation statement: I reviewed the patient's lab results. Labs are largely within normal limits. 01/24/25 20:36 01/24/25 20:36 Labs: Lab Results 01/24/25 01/24/25 Range/Units 20:36 22:11 WBC 6.1 (4.8-10.8) X10*3/uL RBC 4.73 (4.20-5.50) X10*6/uL Hgb 13.7 (12.0-16.0) g/dl Hct 39.6 (37.0-47.0) % MCV 83.7 (80.0-98.0) fL MCH 29.0 (27.0-33.0) pg MCHC 34.6 (31.0-35.0) g/dl RDW 13.2 (11.0-16.0) % Plt Count 287 (160-400) X10*3/uL MPV 10.4 (9.4-12.3) fL Immature Gran % (Auto) 0.5 H (0.0-0.4) % Neut % (Auto) 56.7 (45-73) % Lymph % (Auto) 28.4 (20-40) % [place] % (Auto) 10.7 (2-11) % Eos % (Auto) 3.0 (0-4) % Baso % (Auto) 0.7 (0-2) % Lymph # (Auto) 1.7 (1.2-4.9) X10*3/uL [place] # (Auto) 0.7 (0.1-1.2) X10*3/uL Eos # (Auto) 0.2 (0.0-0.4) X10*3/uL Baso # (Auto) 0.0 (0.0-0.2) X10*3/uL Abs Immat Gran (auto) 0.03 (0.00-0.03) X10*3/uL Absolute Neuts (auto) 3.4 (2.0-8.3) x10*3/uL Absolute Nucleated RBC 0.000 (0.0-0.012) X10*3/uL Nucleated RBC % (auto) 0.0 (0.0-0.2) /100WBC ESR 10 (0-20) MM/HR Sodium 141 (135-145) mmol/L Potassium 3.7 (3.3-5.1) mmol/L Chloride 107 (96-108) mmol/L Carbon Dioxide 24 (22-29) mmol/L Anion Gap 14 (12-20) BUN 10 (9-16) mg/dL Creatinine 0.73 (0.5-1.4) mg/dL Estim Creat Clear Calc 84.4 Estimated GFR > 60 Random Glucose 97 (60-115) mg/dL Calcium 9.8 D (8.4-10.2) mg/dL Magnesium 2.0 (1.6-2.6) mg/dL Total Bilirubin 0.9 (0.0-1.0) mg/dL Direct Bilirubin 0.2 (0.0-0.5) mg/dL AST 22 (5-31) U/L ALT 20 (0-31) U/L Alkaline Phosphatase 96 (39-117) U/L C-Reactive Protein 0.56 H (< or = 0.50) mg/dL Total Protein 7.9 (6.5-8.0) g/dL Albumin 5.1 H (3.5-5.0) g/dL Lipase 20 (8-78) U/L Beta HCG, Quant < 2 mIU/mL Urine Color Yellow Urine Appearance Clear Urine pH 5.0 (5.0-9.0) Ur Specific [place] 1.025 (1.005-1.025) Urine Protein Negative (Neg-Trace) mg/dL Urine Glucose (UA) Negative (Negative) mg/dL Urine Ketones Negative (Negative) mg/dL Urine Blood Negative (Negative) Urine Nitrite Negative (Negative) Ur Leukocyte Esterase Negative (Negative) Independent Interpretation I performed an independent interpretation of an: CT Scan Interpretation: Moderate right-sided stool burden Radiology Impression Discussion of test interpretation with radiology: I have reviewed the radiologist's reading. Radiologist Impression: FINDINGS: Normal liver. Splenomegaly. Nonobstructing bilateral renal calculi. No visible ureteral calculi. No hydronephrosis. Normal adrenal glands. Normal pancreas. Status post cholecystectomy. No abnormal biliary dilation. No evidence of bowel obstruction or colitis. Normal appendix. Unremarkable bladder. Similar chronic left ovarian cysts. Right ovary is not visualized. Status post hysterectomy. No ascites. No pneumoperitoneum. No lymphadenopathy. No acute fracture. No abdominal aortic aneurysm. IMPRESSION: No acute findings. Nonemergent/incidental findings above. This document has been electronically signed by: Obdulio Price MD on 01/25/2025 01:42:05 Medications Administered Discontinued Medications Generic Name Dose Route Start Last Admin Trade Name Freq PRN Reason Stop Dose Admin Iohexol 85 ml 01/25/25 00:38 01/25/25 00:39 Iohexol 350 Mg/Ml 100 Ml Infus..Btl IV 01/25/25 00:39 85 ml ONCE ONE Administration Ketorolac Tromethamine 30 mg 01/24/25 23:20 01/25/25 00:04 Ketorolac Tromethamine 30 Mg/Ml Vial IVPUSH 01/24/25 23:21 30 mg ONCE ONE Administration Discharge Plan Discharge Clinical Impression: Abdominal pain, Constipation Patient Disposition: Home, Self-Care Instructions: Constipation (ED), High Fiber Diet (ED) Additional Instructions: Your CT scan does not show any concerning findings. You do have mild to moderate constipation in the right side which is likely contributing to your pain. No obvious hernia was seen pain Your appendix was visualized as normal. Take magnesium citrate tomorrow to help with the constipation. You should take MiraLax every night for the next 2 weeks Increase fluid and fiber intake in your diet Prescriptions: New magnesium citrate Solution 148 ml PO DAILY PRN (Reason: constipation) Qty: 296 0RF polyethylene glycol 3350 [Miralax] 17 gram/dose powder 17 g PO DAILY 14 Days Qty: 238 0RF No Action hydroxyzine HCl 25 mg tablet 25 mg PO BEDTIME 30 Days Qty: 30 0RF pantoprazole 40 mg tablet,delayed release (DR/EC) 40 mg PO QAM Qty: 90 1RF cholecalciferol (vitamin D3) 50 mcg (2,000 unit) capsule 50 mcg PO DAILY Qty: 90 3RF clonazepam 1 mg tablet 1 mg PO DAILY PRN (Reason: anxiety) 7 Days Qty: 7 0RF cyclobenzaprine 10 mg tablet 10 mg PO BEDTIME PRN (Reason: muscle spasm) 15 Days Qty: 15 3RF (DME) CPAP Machine/Device Device See Rx Instructions .Route Qty: 1 0RF Rx Instructions: Need for pressure setting 6-12cm H2o fluticasone propionate 50 mcg/actuation spray,suspension See Rx Instructions .ROUTE .COMPLEX Qty: 32 0RF Dose Instruction: USE 1 SPRAY INTRANASALLY DAILY FOR 30 DAYS ADMINISTER INTO EACH NOSTRIL Rx Instructions: USE 1 SPRAY INTRANASALLY DAILY FOR 30 DAYS ADMINISTER INTO EACH NOSTRIL albuterol sulfate 2.5 mg /3 mL (0.083 %) solution for nebulization 2.5 mg inhalation QID PRN (Reason: shortness of breath or wheezing) 30 Days Qty: 180 1RF triamcinolone acetonide 0.1 % cream 1 appl topical DAILY 30 Days Qty: 80 2RF sennosides [senna] 8.6 mg tablet 17.2 mg PO DAILY Qty: 60 3RF docusate sodium [Colace] 100 mg capsule 100 mg PO DAILY 30 Days Qty: 30 3RF cefpodoxime 200 mg tablet 200 mg PO BID Qty: 20 0RF Rx Instructions: must administer with a meal/food phenazopyridine 200 mg tablet 200 mg PO TID Qty: 6 0RF ondansetron 4 mg tablet,disintegrating 4 mg PO Q8H PRN (Reason: nausea and vomiting) Qty: 10 0RF albuterol sulfate 90 mcg/actuation HFA aerosol inhaler 2 puff inhalation Q6H PRN (Reason: shortness of breath or wheezing) 30 Days Qty: 8.5 3RF gabapentin 300 mg capsule 300 mg PO BEDTIME 30 Days Qty: 30 3RF loratadine 10 mg tablet 10 mg PO DAILY 90 Days Qty: 90 1RF tramadol 50 mg tablet 50 mg PO BID PRN (Reason: pain) 7 Days Qty: 14 1RF hydrocortisone [Proctosol HC] 2.5 % cream with perineal applicator 1 appl KS BID-QID PRN (Reason: hemorrhoids) Qty: 30 0RF Print Language: English
[2025-01-25] MEDS: iohexoL 350 MG/ML 100 ML INFUS..BTL 85 ML IV (00:39)
--- NOTE | 2025-01-25 01:07 | PC.NURSE ---
Ivline placed in L AC PT tolerated well. PT medicated as per jun. Plan of care on going
[2025-01-25 01:53] VITALS: BP 101/55; PULSE 66; RESP 16; TEMP 36.4; O2SAT 97
[2025-01-25 02:06] VITALS: BP 101/55; PULSE 66; RESP 16; TEMP 36.4; O2SAT 97
== END 2025-01-25 02:11 | disposition home or self-care (01) ==
PROVIDERS: Physician Assistant; Physician Assistant Medical; Emergency Provider Emergency Medicine; PCP Physician Assistant
DX: R10.31 Right lower quadrant pain (principal); K59.00 Constipation, unspecified; R11.2 Nausea with vomiting, unspecified; R19.7 Diarrhea, unspecified; Z71.3 Dietary counseling and surveillance
CPT/HCPCS: 36415; 74177; 80048; 80076; 81003; 83690; 83735; 84702; 85025; 85652; 86140; 96374; 99283; 99285; J1885; Q9967

== ENCOUNTER → 2025-01-25 00:01 | Outpatient (BNV) | payer OTHER, SELFPAY | PROVIDERS: Emergency Provider Emergency Medicine; PCP Physician Assistant; Visit Provider Radiology Diagnostic Radiology | DX: R10.31 Right lower quadrant pain (principal) | CPT/HCPCS: 74177 ==

== ENCOUNTER 2025-01-28 17:30 | Emergency (ER) | payer OTHER, SELFPAY ==
[2025-01-28 18:03] VITALS: BP 126/87; PULSE 96; RESP 18; TEMP 37.2; O2SAT 100; BMI 35.1
--- NOTE | 2025-01-28 18:06 | ED_ITS ---
HPI - General Adult General Chief complaint: General Medical Stated complaint: here couple days ago/reaction to the meds given Time Seen by Provider: 01/28/25 21:52 Related Data Previous Rx's ?Medication ?Instructions ?Recorded albuterol sulfate 90 mcg/actuation 2 puff inhalation Q 6H PRN 07/14/24 aerosol inhaler shortness of breath or wheez ing 30 days #8.5 grams gabapentin 300 mg capsule 300 mg PO BEDTIME 30 days #3 0 caps 07/14/24 loratadine 10 mg tablet 10 mg PO DAILY 90 days #90 t abs 07/14/24 tramadol 50 mg tablet 50 mg PO BID PRN pain 7 days #14 07/14/24 tabs pantoprazole 40 mg tablet,delayed 40 mg PO QAM #90 tab s 08/01/24 release cholecalciferol (vitamin D3) 50 50 mcg PO DAILY #90 ca ps 08/08/24 mcg (2,000 unit) capsule clonazepam 1 mg tablet 1 mg PO DAILY PRN anxiety 7 days 08/16/24 #7 tabs CPAP (CPAP Machine/Device) #1 ea 10/12/24 albuterol sulfate 2.5 mg/3 mL 2.5 mg (3 mL) inhalation QID PRN 10/25/24 (0.083 %) solution for nebulization shortness of breat h or wheezing 30 days #180 mL fluticasone propionate 50 See Rx Instructions .Route 0 10/25/24 mcg/actuation nasal .COMPLEX #32 mL spray,suspension triamcinolone acetonide 0.1 % 1 appl topical DAILY 30 days #80 10/25/24 topical cream grams phenazopyridine 200 mg tablet 200 mg PO TID 6 doses #6 tabs 11/27/24 sennosides 8.6 mg tablet (senna) 17.2 mg (2 x 8.6 mg) PO DAILY for 12/23/24 constipation #60 tabs polyethylene glycol 3350 17 17 g PO DAILY 2 weeks #238 grams 01/25/25 gram/dose oral powder (Miralax) hydroxyzine HCl 25 mg tablet 25 mg PO BEDTIME 30 days #30 tabs 02/03/25 prednisone 20 mg tablet 20 mg PO DAILY 10 days #10 t abs 02/03/25 Allergies Allergy/AdvReac Type Severity Reaction Status Date / Time lactulose Allergy Intermediate Rash Verified 02/03/25 08:49 [facility] Past Medical History Medical History (Updated 02/03/25 @ 09:13 by Alycia Crow NP) Rash and nonspecific skin eruption Chronic abdominal pain GERD (gastroesophageal reflux disease) UTI (urinary tract infection) Surgical History History of hysterectomy History of foot surgery History of cholecystectomy Family History Family History Father No problems noted. Mother No problems noted. Maternal Grandfather Throat cancer Maternal Aunt Breast cancer Paternal Uncle Stomach cancer Paternal Aunt Colon cancer Social History Social History Housing: Apartment Alcohol intake: never Patient Tobacco Use Status: Never used Tobacco e-Cigarette/Vaping Use: Never Used Second Hand Smoke Exposure: No Advance Directives Date on File: 04/13/21 service: No Current occupational status: unemployed and disabled Cognitive needs: No Hearing needs: No Vision needs: No Physical Exam ED Vital Signs: Vital Signs - 24 hr 01/28/25 18:03 Temperature 98.9 F Pulse Rate 96 Respiratory Rate 18 Blood Pressure 126/87 Pulse Oximetry 100 Oxygen Delivery Method Room Air BMI result Body Mass Index 35.1 Course Course Course Narrative: Medical screening exam performed. Please refer to detailed history, exam, evaluation, and management by primary provider. 44-year-old female seen on January 24 and 2 January 25. For abdominal pain and constipation. Head CT confirming. Tried MiraLax and Mag citrate. States not moving her bowels. Now also reporting sporadic rash. Reevaluation(s) Reevaluation #1: Patient left before I could assess her Medical Decision Making Medical Decision Making MDM Narrative: Labs: No leukocytosis, not anemic, no electrolyte abnormality CT abdomen and pelvis:FINDINGS: Normal liver. Splenomegaly. Nonobstructing bilateral renal calculi. No visible ureteral calculi. No hydronephrosis. Normal adrenal glands. Normal pancreas. Status post cholecystectomy. No abnormal biliary dilation. No evidence of bowel obstruction or colitis. Normal appendix. Unremarkable bladder. Similar chronic left ovarian cysts. Right ovary is not visualized. Status post hysterectomy. No ascites. No pneumoperitoneum. No lymphadenopathy. No acute fracture. No abdominal aortic aneurysm. IMPRESSION: No acute findings. Nonemergent/incidental findings above. Lab Data 01/28/25 19:38 01/28/25 19:38 Labs: Lab Results 01/28/25 Range/Units 19:38 WBC 3.3 L (4.8-10.8) X10*3/uL RBC 4.49 (4.20-5.50) X10*6/uL Hgb 13.1 (12.0-16.0) g/dl Hct 36.9 L (37.0-47.0) % MCV 82.2 (80.0-98.0) fL MCH 29.2 (27.0-33.0) pg MCHC 35.5 H (31.0-35.0) g/dl RDW 13.2 (11.0-16.0) % Plt Count 190 D (160-400) X10*3/uL MPV 10.2 (9.4-12.3) fL Immature Gran % (Auto) 1.5 H (0.0-0.4) % Neut % (Auto) 65.4 (45-73) % Lymph % (Auto) 26.1 (20-40) % [place] % (Auto) 6.4 (2-11) % Eos % (Auto) 0.0 (0-4) % Baso % (Auto) 0.6 (0-2) % Lymph # (Auto) 0.9 L (1.2-4.9) X10*3/uL [place] # (Auto) 0.2 (0.1-1.2) X10*3/uL Eos # (Auto) 0.0 (0.0-0.4) X10*3/uL Baso # (Auto) 0.0 (0.0-0.2) X10*3/uL Abs Immat Gran (auto) 0.05 H (0.00-0.03) X10*3/uL Absolute Neuts (auto) 2.2 (2.0-8.3) x10*3/uL Absolute Nucleated RBC 0.000 (0.0-0.012) X10*3/uL Nucleated RBC % (auto) 0.0 (0.0-0.2) /100WBC Sodium 137 (135-145) mmol/L Potassium 3.7 (3.3-5.1) mmol/L Chloride 107 (96-108) mmol/L Carbon Dioxide 23 (22-29) mmol/L Anion Gap 11 L (12-20) BUN 8 L (9-16) mg/dL Creatinine 0.81 (0.5-1.4) mg/dL Estim Creat Clear Calc 79.6 Estimated GFR > 60 Random Glucose 135 H (60-115) mg/dL Calcium 8.8 D (8.4-10.2) mg/dL Total Bilirubin 0.8 (0.0-1.0) mg/dL AST 33 H (5-31) U/L ALT 24 (0-31) U/L Alkaline Phosphatase 90 (39-117) U/L Total Protein 7.3 (6.5-8.0) g/dL Albumin 4.5 (3.5-5.0) g/dL Lipase 29 (8-78) U/L Beta HCG, Quant < 2 mIU/mL Discharge Plan Discharge Clinical Impression: Abdominal pain Patient Disposition: Left W/O Completing Treatment Prescriptions: No Action pantoprazole 40 mg tablet,delayed release (DR/EC) 40 mg PO QAM Qty: 90 1RF cholecalciferol (vitamin D3) 50 mcg (2,000 unit) capsule 50 mcg PO DAILY Qty: 90 3RF clonazepam 1 mg tablet 1 mg PO DAILY PRN (Reason: anxiety) 7 Days Qty: 7 0RF (DME) CPAP Machine/Device Device See Rx Instructions .Route Qty: 1 0RF Rx Instructions: Need for pressure setting 6-12cm H2o fluticasone propionate 50 mcg/actuation spray,suspension See Rx Instructions .ROUTE .COMPLEX Qty: 32 0RF Dose Instruction: USE 1 SPRAY INTRANASALLY DAILY FOR 30 DAYS ADMINISTER INTO EACH NOSTRIL Rx Instructions: USE 1 SPRAY INTRANASALLY DAILY FOR 30 DAYS ADMINISTER INTO EACH NOSTRIL albuterol sulfate 2.5 mg /3 mL (0.083 %) solution for nebulization 2.5 mg inhalation QID PRN (Reason: shortness of breath or wheezing) 30 Days Qty: 180 1RF triamcinolone acetonide 0.1 % cream 1 appl topical DAILY 30 Days Qty: 80 2RF sennosides [senna] 8.6 mg tablet 17.2 mg PO DAILY Qty: 60 3RF phenazopyridine 200 mg tablet 200 mg PO TID Qty: 6 0RF polyethylene glycol 3350 [Miralax] 17 gram/dose powder 17 g PO DAILY 14 Days Qty: 238 0RF albuterol sulfate 90 mcg/actuation HFA aerosol inhaler 2 puff inhalation Q6H PRN (Reason: shortness of breath or wheezing) 30 Days Qty: 8.5 3RF gabapentin 300 mg capsule 300 mg PO BEDTIME 30 Days Qty: 30 3RF loratadine 10 mg tablet 10 mg PO DAILY 90 Days Qty: 90 1RF tramadol 50 mg tablet 50 mg PO BID PRN (Reason: pain) 7 Days Qty: 14 1RF hydroxyzine HCl 25 mg tablet 25 mg PO BEDTIME 30 Days Qty: 30 0RF prednisone 20 mg tablet 20 mg PO DAILY 10 Days Qty: 10 0RF Discharge Date/Time: 01/28/25 22:51
[2025-01-28 19:47] LABS: MANUAL DIFF FLAG NO
[2025-01-28 19:48] LABS: Hematocrit 36.9 % (37.0-47.0); Hemoglobin 13.1 g/dl (12.0-16.0); Imm Gran Abs Auto 0.05 X10*3/uL (0.00-0.03); Imm Gran Pct Auto 1.5 % (0.0-0.4); Lymphocytes Absolute Auto 0.9 X10*3/uL (1.2-4.9); Mean Corpuscular HGB Conc 35.5 g/dl (31.0-35.0); Mean Corpuscular Hemoglobin 29.2 pg (27.0-33.0); Mean Corpuscular Volume 82.2 fL (80.0-98.0); NRBC Abs Auto 0.000 X10*3/uL (0.0-0.012); NRBC Pct Auto 0.0 /100WBC (0.0-0.2); Platelet Count 190 X10*3/uL (160-400); Red Blood Count 4.49 X10*6/uL (4.20-5.50); White Blood Count 3.3 X10*3/uL (4.8-10.8)
[2025-01-28 20:02] LABS: Alanine Aminotransferase 24 U/L (0-31); Albumin Level 4.5 g/dL (3.5-5.0); Anion Gap 11 (12-20); Aspartate Amino Transferase 33 U/L (5-31); Blood Urea Nitrogen 8 mg/dL (9-16); Calcium 8.8 mg/dL (8.4-10.2); Carbon Dioxide 23 mmol/L (22-29); Chloride 107 mmol/L (96-108); Creatinine Clr Calc Pharmacy 79.6; Estimated Glomerular Filt Rate > 60; Lipase 29 U/L (8-78); Potassium 3.7 mmol/L (3.3-5.1); Sodium 137 mmol/L (135-145); Total Protein 7.3 g/dL (6.5-8.0)
[2025-01-28 20:13] LABS: Alkaline Phosphatase 90 U/L (39-117)
--- OUTSIDE RECORDS SUMMARY | 2025-01-28 21:37 | XMS_ITS | Clinical Summary ---
Author Organization [facility] Address [address] [place] [address] Phone Care Team Providers Care Lead Installer Name Role Phone Physician, No Pcp Primary Care Provider Unavaila ble Allergies No known active allergies Medications oxyCODONE (ROXICODONE) 5 mg immediate release tabletIndication s:Complex ovarian cyst Take 1 tablet (5 mg total) by mouth every 6 (six) hours if needed for severe pain. Max Daily Amount: 20 mg 15 tablet 06/09/2024 Active Surgical History Surgery Date Site/Laterality Comments CHOLECYSTECTOMY 01/1998 PROCEDURE: HISTORICAL CHOLECYSTECTOMY TUBAL LIGATION PROCEDURE: HISTORICAL TUBAL LIGATION BUNIONECTOMY 05/21/2017 Right PROCEDURE: BUNION SURGERY, SIMPLE REMOVAL; COMMENT: Right roberto bunionectomy OTHER SURGICAL HISTORY 05/21/2017 Right PROCEDURE: OR OSTEOT W/WO LNGTH SHRT/CORRJ METAR XCP 1ST [...] 82 06/09/2024 9:07 PM EST Temperature 36.6 C (97.9 F) 06/09/2024 9:07 PM EST Respiratory Rate 18 06/09/2024 9:07 PM EST Oxygen Saturation 99% 06/09/2024 9:07 PM EST Inhaled Oxygen Concentration - - Weight 68 kg (150 lb) 06/09/2024 1:33 PM EST Height 149.9 cm (4' 11 ) 06/09/2024 1:33 PM EST Body Mass Index 30.3 06/09/2024 1:33 PM EST Plan of Treatment Health Maintenance Due Date Last Done Comments Breast Cancer Screening 1979 Colorectal Cancer Screening: Colonoscopy 1979 Hepatitis B Vaccines (1 of 3 - 19+ 3-dose series) 1998 Pneumococcal Vaccine: Pediatrics (0 to 5 Years) and At-Risk Patients (6 to 49 Years) (1 of 2 - PCV) 1998 Cervical Cancer Screening: Pap Smear 2000 HPV Vaccines (1 - 3-dose SCDM series) 2006 Depression Screening 04/27/2024 Cholesterol Screening (Lipid Panel) 06/10/2024 HIV Screening 06/10/2024 Hepatitis C Screening 06/10/2024 Social Influencers of Health Screening 06/10/2024 COVID-19 Vaccine ( season) 2024 09/20/2020, 08/22/2020 Influenza Vaccine (#1) 2024 , 03/07/2019, 02/25/2018, Additional history exists DTaP,Tdap,and Td Vaccines (2 - Td or Tdap) 12/01/2033 12/02/2023 RSV Immunization Adult Patients (1 - 1-dose 75+ series) 2054 HIB Vaccines Aged Out No longer eligi [...] on patient's age to complete this topic Insurance [place] - [place] [facility] Member Subscriber Plan / Payer (Ef fective 2014-Present) Name:Cielo Barreto Relation to Subscriber:Self Name:Cielo Barreto Payer ID:[id number] Group ID:Not on file Type:Not on file Address: [address] [place] [address] Care Teams Lead Installer Relationship Specialty Start Date End Date Physician, No Pcp PCP - General 06/09/24
--- OUTSIDE RECORDS SUMMARY | 2025-01-28 21:37 | XMS_ITS | Clinical Summary ---
Author Organization [facility] Address [address] [place] [id number] Phone Care Team Providers Care Power Project Manager Name Role Phone Unknown, Unknown MD Primary [...] B [place] MEDICARE PART A & B [facility] MEDIC[facility] PART A & B Care Teams Power Project Manager Relationship Specialty Start Date End Date Unknown, Unknown, PCP - General 03/11/17 Additional Source Comments The information contained in this document represents components of the legal health record. It is not the complete legal health record.[facility]
--- OUTSIDE RECORDS SUMMARY | 2025-01-28 21:37 | XMS_ITS | Encounter Summary ---
Author Organization [facility] Address [address] [place] [address] Phone Care Team Providers Care Studio Operations Manager Name Role Phone Unknown, Unknown Primary Care Provider Kartik collins Encounter Details Date Type Department Care Team (Late st Contact Info) Description 03/11/2017 Procedure Pass [facility], Ct Scan - [address] [id number] Social History Tobacco Use Types Packs/Day Years [...] on filedocumented in this encounter Care Teams Studio Operations Manager Relationship Specialty Start Date End Date Unknown, Unknown, PCP - General 03/11/17 documented as of this encounter Additional Source Comments The information contained in this document represents components of the legal health record. It is not the complete legal health record.[facility]
== END 2025-01-28 22:51 | disposition left against medical advice (07) ==
PROVIDERS: Physician Assistant; Physician Assistant Medical; Emergency Provider Emergency Medicine; PCP Physician Assistant
DX: R10.9 Unspecified abdominal pain (principal); Z53.21 Procedure and treatment not carried out due to patient leaving prior to being seen by health care provider
CPT/HCPCS: 36415; 80053; 83690; 84702; 85025; 99281; 99283

== ENCOUNTER 2025-02-03 08:38 | Outpatient (AMB) | payer OTHER, SELFPAY ==
--- NOTE | 2025-02-03 08:42 | A.OFFPC_ITS ---
Vital Signs 02/03/25 08:44 Height 4 ft 11 in Weight 176 lb BMI 35.5 BP 160/66 H Blood Pressure Location Lt brachial Position Sitting Pulse 80 Pulse Source Pulse Oximeter Temp 97.1 F Temp Source Temporal Artery Scan Pulse Oximetry (%) 98 Oxygen Delivery Method Room Air Intake Visit Reasons: [facility] 01/28 & [facility] 02/01 Intake Note: Patient is here for hospital discharge follow up. Patient was discharged from [facility] & [facility] on 01/28/25, 02/01/25. 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: Present Accompanied by: Mother Allergies lactulose Allergy (Intermediate, Verified 02/03/25 08:49) Rash Medication List - Last Reconciled 02/03/25 by Alycia Crow, KIM albuterol sulfate 2.5 mg (3 mL) inhalation QID PRN 30 days albuterol sulfate 90 mcg/actuation 2 puffs inhalation Q6H PRN 30 days cholecalciferol (vitamin D3) 50 mcg PO DAILY clonazepam 1 mg PO DAILY PRN 7 days CPAP (CPAP Machine/Device) Need for pressure setting 6-12cm H2o fluticasone propionate 50 mcg/actuation USE 1 SPRAY INTRANASALLY DAILY FOR 30 DAYS ADMINISTER INTO EACH NOSTRIL gabapentin 300 mg PO BEDTIME 30 days hydroxyzine HCl 25 mg PO BEDTIME 30 days loratadine 10 mg PO DAILY 90 days pantoprazole 40 mg PO QAM phenazopyridine 200 mg PO TID 6 doses polyethylene glycol 3350 (Miralax) 17 grams PO DAILY 2 weeks sennosides (senna) 17.2 mg (2 x 8.6 mg) PO DAILY tramadol 50 mg PO BID PRN 7 days triamcinolone acetonide 0.1% 1 appl topical DAILY 30 days Tobacco use date assessed: 02/03/25 Dental Screening Dental Screen Date: 07/14/24 HPI HPI Comments History of Present Illness Details 44 y/o Female patient who presents to [facility] today for HDF. She was originally admitted at [facility] on 01/28 for abdominal pain but left w/o being treated. CT Abdomen Negative for Acute Findings. She was subsequently admitted back to [facility] on 02/01 for Rash on her Face, torso and B/L Upper/lower extremities. Reports that she was given Maalox at [facility] for constipation and believes the medication caused the Rash. Reports that rash is Itchy and hurt. Pt also reports feeling dizzy, and just not feeling right. She has been using Calamine lotion with mild relief. [facility] provider sent Prednisone but Pharmacy had issues with filling Rx. Pt eventually did have a Normal Bowel movement on SennaKot and Miralax. Denies any Nausea or vomiting. [facility] Medical History (Updated 02/03/25 @ 09:13 by Alycia Crow NP) Rash and nonspecific skin eruption Chronic abdominal pain GERD (gastroesophageal reflux disease) UTI (urinary tract infection) Surgical History History of hysterectomy History of foot surgery History of cholecystectomy Family History Father No problems noted. Mother No problems noted. Maternal Grandfather Throat cancer Maternal Aunt Breast cancer Paternal Uncle Stomach cancer Paternal Aunt Colon cancer Social History Housing: Apartment Alcohol intake: never Patient Tobacco Use Status: Never used Tobacco e-Cigarette/Vaping Use: Never Used Second Hand Smoke Exposure: No Advance Directives Date on File: 04/13/21 service: No Current occupational status: unemployed and disabled Cognitive needs: No Hearing needs: No Vision needs: No Female Reproductive History Menstrual Age of Menarche: 7 Questionnaire PHQ-9 Over the last 2 weeks, how often have you been bothered by any of the following problems? 1. Little interest or pleasure in doing things: nearly every day 2. Feeling down, depressed, or hopeless: nearly every day 3. Trouble falling or staying asleep, or sleeping too much: nearly every day 4. Feeling tired or having little energy: nearly every day 5. Poor appetite or overeating: nearly every day 6. Feeling bad about yourself - or that you are a failure or have let yourself or your family down: nearly every day 7. Trouble concentrating on things, such as reading the newspaper or watching television: nearly every day 8. Moving or speaking so slowly that other people could have noticed. Or the opposite - being so fidgety or restless that you have been moving around a lot more than usual: nearly every day 9. Thoughts that you would be better off or of hurting yourself in some way: not at all Total score: 24 Depression Screening Interpretation: Positive Depression Screening Done: Yes Source: Developed by Drs. Roni Alberts, Eugenie Lockett, Ty Becker and colleagues, with an educational rochelle from [employer]. Thrive Questionnaire Date Thrive assessed: 07/14/24 I am a: Parent/Caregiver What is your living situation today?: I choose not to answer this question Within the past 12 months, did the food you bought not last and you didn't have the money to get more?: I choose not to answer this question Within the past 12 months, did you worry whether your food would run out before you got money to buy more?: I choose not to answer this question Do you have trouble paying for medicines?: I choose not to answer this question Do you have trouble getting transportation to medical appointments?: Yes Do you have trouble paying your heating and electricity bill?: I choose not to answer this question Do you have trouble taking care of your child, family member or friend?: I choose not to answer this question Do you have trouble with day-to-day activities such as bathing, preparing meals, shopping, managing finances, etc.?: I choose not to answer this question Are you currently unemployed and looking for a job?: I choose not to answer this question Are you interested in more education?: I choose not to answer this question Please select the resources that you would like help with: Transportation Currently or been in a relationship where the following occur: I choose not to answer THRIVE Score: 1 AUDIT C Alcohol Use Questionnaire (AUDIT-C) 1. How often do you have a drink containing alcohol?: Never Total Score: 0 DEON-7 AMB Questionnaire DEON-7 Date DEON - 7 assessed: 07/14/24 Feeling nervous, anxious, or on edge: 3 = Nearly every day Not being able to stop or control worryin = Nearly every day Worrying too much about different things: 3 = Nearly every day Trouble relaxin = Nearly every day Being so restless that it is hard to sit still: 3 = Nearly every day Becoming easily annoyed or irritable: 3 = Nearly every day Feeling afraid as if something awful might happen: 3 = Nearly every day Total DEON-7 score (0-4 normal; 5-9 mild; 10-14 moderate; 15-21 severe): 21 Source: Developed by Drs. Roni Alberts, Eugenie Lockett, Ty Becker and colleagues, with an educational rochelle from [employer]. Review of Systems Const All systems reviewed & are unremarkable except as noted in HPI and below Physical exam (Primary Care) Vital Signs: Last Vital Signs Temp 97.1 F 02/03/25 08:44 Pulse 80 02/03/25 08:44 BP 160/66 H 02/03/25 08:44 Pulse Ox 98 02/03/25 08:44 Oxygen Delivery Method Room Air 02/03/25 08:44 BMI result Body Mass Index 35.5 Tobacco/Smoking Status: Tobacco use Status Tobacco use date assessed 02/03/25 02/03/25 08:48 Patient Tobacco Use Status Never used Tobacco 02/03/25 08:48 e-Cigarette/Vaping Use Never Used 02/03/25 08:48 PHQ-9: PHQ-9 Score PHQ-9: Total score 24 02/03/25 08:59 Depression Screening Interpretation: Positive Thrive Assessment: Date of Thrive Assessment Date Thrive assessed 07/14/24 02/03/25 08:48 Currently or been in a relationship where the following occur: I choose not to answer Const General: no acute distress Nutritional Appearance: obese Orientation/consciousness: patient oriented x3 Resp Effort & Inspection: normal respiratory effort Cardio Rate: regular rate GI Inspection: Yes obesity Palpation (GI): Soft to palpation, not firm, Tenderness to palpation present (GI) (generalized tenderness), no guarding, not rigid and No hepatosplenomegaly present Skin Rashes: rashes noted (Maculapapular on hands, torso ) Neuro General: patient oriented x3, gait normal and moves all extremities Coding Level of Care Code Est Pt Level 4 (84851) Diagnoses Chronic abdominal pain R10.9; G89.29 Rash and nonspecific skin eruption R21 Time Spent (min) 20 Assessment & Plan Assessment & Plan (1) Chronic abdominal pain: Code(s): R10.9 - Unspecified abdominal pain; G89.29 - Other chronic pain Category: Medical Plan: Continue on SennKot and Miralax PRN for Constipation Increase Fiber in Diet Hydrate well with Fluids. (2) Rash and nonspecific skin eruption: Code(s): R21 - Rash and other nonspecific skin eruption Category: Medical Plan: Ordered Prednisone 20 mg for 10 days. Ordered Hydroxyzine for itching. May use Calamine lotion PRN Medications: New prednisone 20 mg PO DAILY 10 tabs 0RF 10 days R21 - Rash and other nonspecific skin eruption Refilled hydroxyzine HCl 25 mg PO BEDTIME 30 tabs 0RF 30 days F41.9 - Anxiety disorder, unspecified Discontinued magnesium citrate Discontinued Reason: Patient no longer taking 148 mL PO DAILY PRN 296 mL 0RF constipation ondansetron Discontinued Reason: Patient Completed Course 4 mg PO Q8H PRN 10 tabs 0RF nausea and vomiting hydrocortisone 2.5% (Proctosol HC) Discontinued Reason: Patient Completed Course 1 appl DE BID-QID PRN 30 grams 0RF hemorrhoids cyclobenzaprine Discontinued Reason: Patient Completed Course 10 mg PO BEDTIME 15 days PRN 15 tabs 3RF muscle spasm M50.90 - Cervical disc disorder, unspecified, unspecified cervical region docusate sodium (Colace) Discontinued Reason: Patient Completed Course 100 mg PO DAILY 30 days 30 caps 3RF K59.09 - Other constipation
[2025-02-03 08:44] VITALS: BP 160/66; PULSE 80; TEMP 36.2; O2SAT 98; BMI 35.5
== END 2025-02-03 09:45 | disposition home or self-care (01) ==
LOC: HO.HMCH 08:39
PROVIDERS: PCP Physician Assistant; Visit Provider Nurse Practitioner Family
DX: R10.9 Unspecified abdominal pain (principal); G89.29 Other chronic pain; R21 Rash and other nonspecific skin eruption

== ENCOUNTER → 2025-02-03 08:38 | Outpatient (BNVA) | payer OTHER, SELFPAY | PROVIDERS: PCP Physician Assistant; Visit Provider Nurse Practitioner Family | DX: R10.9 Unspecified abdominal pain (principal); G89.29 Other chronic pain; R21 Rash and other nonspecific skin eruption; Z13.31 Encounter for screening for depression | CPT/HCPCS: 96127; 99212 ==

== ENCOUNTER 2025-04-18 14:55 | Outpatient (AMB) | payer OTHER, SELFPAY ==
--- NOTE | 2025-04-18 15:29 | MHC.PC.OV ---
Vital Signs 04/18/25 15:30 Height 4 ft 11 in Weight 176 lb 6 oz BMI 35.6 BP 120/70 Blood Pressure Location Lt brachial Position Sitting Pulse 80 Pulse Source Pulse Oximeter Temp 97.3 F Temp Source Temporal Artery Scan Pulse Oximetry (%) 98 Oxygen Delivery Method Room Air Intake Visit Reasons: Pain in stomach, hair loss Intake Note: Patient is here to follow up on Pain in stomach and hair loss. 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 Accompanied by: Dependent of Minor Dependent Allergies lactulose Allergy (Intermediate, Verified 04/18/25 15:46) Rash Medication List - Last Reconciled 04/18/25 by Ad Burrell PA-C albuterol sulfate 2.5 mg (3 mL) inhalation QID PRN 30 days albuterol sulfate 90 mcg/actuation 2 puffs inhalation Q6H PRN 30 days cholecalciferol (vitamin D3) 50 mcg PO DAILY clonazepam 1 mg PO DAILY PRN 7 days CPAP (CPAP Machine/Device) Need for pressure setting 6-12cm H2o fluticasone propionate 50 mcg/actuation USE 1 SPRAY INTRANASALLY DAILY FOR 30 DAYS ADMINISTER INTO EACH NOSTRIL gabapentin 300 mg PO BEDTIME 30 days hydroxyzine HCl 25 mg PO BEDTIME 90 days loratadine 10 mg PO DAILY 90 days pantoprazole 40 mg PO QAM phenazopyridine 200 mg PO TID 6 doses polyethylene glycol 3350 (Miralax) 17 grams PO DAILY 2 weeks sennosides (senna) 17.2 mg (2 x 8.6 mg) PO DAILY tramadol 50 mg PO BID PRN 7 days triamcinolone acetonide 0.1% 1 appl topical DAILY 30 days Tobacco use date assessed: 04/18/25 Dental Screening Dental Screen Date: 07/14/24 HPI Pain in stomach, hair loss HPI Details The patient is a 44 year old female presenting for a physical examination as part of a foster care application and to address multiple ongoing health concerns. She reports significant hair loss, which has led to bald spots and is causing her daughter concern. She denies this is related to stress. The patient has been attempting to lose weight and reports difficulty, particularly with her stomach. She experiences abdominal bloating and constipation, noting that she consumes rice in small amounts as larger quantities seem to cause constipation. She also experiences pain when passing gas. She reports difficulty in getting appointments with both gastroenterology and weight management clinics in the past. Her last fasting blood sugar was 104 in November of 2023, consistent with prediabetes. She reports a history of fibromyalgia. She has new complaints of finger pain when carrying objects. She also reports intermittent episodes of dyspnea and loses her voice with prolonged use. Based on a sleep study from September of 2024, she has a diagnosis of mild obstructive sleep apnea and reports snoring and choking episodes at night. She was informed she needed a CPAP machine but has not yet received one. Her Tdap vaccine is current as of 2023, but she has not had a flu shot since 2019. She has previously applied for a handicap placard for severe knee osteoarthritis but never received it, and prefers the placard over a license plate tag. [facility] Medical History Rash and nonspecific skin eruption Chronic abdominal pain GERD (gastroesophageal reflux disease) UTI (urinary tract infection) Surgical History History of hysterectomy History of foot surgery History of cholecystectomy Family History Father No problems noted. Mother No problems noted. Maternal Grandfather Throat cancer Maternal Aunt Breast cancer Paternal Uncle Stomach cancer Paternal Aunt Colon cancer Social History Housing: Apartment Alcohol intake: never Patient Tobacco Use Status: Never used Tobacco e-Cigarette/Vaping Use: Never Used Second Hand Smoke Exposure: No Advance Directives Date on File: 04/13/21 service: No Current occupational status: unemployed and disabled Cognitive needs: No Hearing needs: No Vision needs: No Female Reproductive History Menstrual Age of Menarche: 7 Questionnaire Thrive Questionnaire Date Thrive assessed: 02/03/25 I am a: Parent/Caregiver What is your living situation today?: I choose not to answer this question Within the past 12 months, did the food you bought not last and you didn't have the money to get more?: I choose not to answer this question Within the past 12 months, did you worry whether your food would run out before you got money to buy more?: I choose not to answer this question Do you have trouble paying for medicines?: I choose not to answer this question Do you have trouble getting transportation to medical appointments?: Yes Do you have trouble paying your heating and electricity bill?: I choose not to answer this question Do you have trouble taking care of your child, family member or friend?: I choose not to answer this question Do you have trouble with day-to-day activities such as bathing, preparing meals, shopping, managing finances, etc.?: I choose not to answer this question Are you currently unemployed and looking for a job?: I choose not to answer this question Are you interested in more education?: I choose not to answer this question Currently or been in a relationship where the following occur: I choose not to answer THRIVE Score: 1 DEON-7 AMB Questionnaire DEON-7 Date DEON - 7 assessed: 07/14/24 Source: Developed by Drs. Roni Alberts, Eugenie Lockett, Ty Becker and colleagues, with an educational rochelle from [employer]. Review of Systems Const Denies headache(s) Eyes Denies loss of vision ENT Denies vertigo, Denies dizziness, Denies headache(s) and Denies sore throat Card Denies chest pain, Denies leg edema and Denies lightheadedness Resp Denies cough, Denies hemoptysis and Denies wheezing GI Reports abdominal pain, Denies melena, Reports bloating, Denies constipation, Denies diarrhea and Denies vomiting Denies urinary frequency, Denies dysuria and Denies urinary urgency Musc Details: + bilateral hand pain Reports arthralgias, Denies joint swelling, Denies numbness and Denies tingling Neuro Denies Abnormal speech present, Denies behavioral changes, Denies vertigo, Denies dizziness, Denies headache(s), Denies loss of vision, Denies memory loss, Denies numbness and Denies tingling Psych Denies anxiety, Denies behavioral changes, Denies depression, Denies memory loss and Denies panic attacks George/Lymph Denies easy bleeding and Denies easy bruising Aller/Immun Denies wheezing Physical exam (Primary Care) Vital Signs: Last Vital Signs Temp 97.3 F 04/18/25 15:30 Pulse 80 04/18/25 15:30 BP 120/70 04/18/25 15:30 Pulse Ox 98 04/18/25 15:30 Oxygen Delivery Method Room Air 04/18/25 15:30 BMI result Body Mass Index 35.6 BMI Assessment/Plan discussion: High BMI High, discussed plan: lifestyle, weight reduction, dietary and physical activity Tobacco/Smoking Status: Tobacco use Status Tobacco use date assessed 04/18/25 04/18/25 15:34 Patient Tobacco Use Status Never used Tobacco 04/18/25 15:34 e-Cigarette/Vaping Use Never Used 04/18/25 15:34 Thrive Assessment: Date of Thrive Assessment Date Thrive assessed 02/03/25 04/18/25 15:34 Currently or been in a relationship where the following occur: I choose not to answer Const General: healthy appearing, no acute distress, alert and awake Nutritional Appearance: well nourished Orientation/consciousness: oriented to person, oriented to place and oriented to time HENMT Ears: TM's normal bilaterally General nose exam: Normal nasal mucous membranes and turbinates present Eyes Conjunctivae: conjunctivae normal Sclerae: sclerae normal Pupils: Equal, round and reactive pupils present Neck Neck: Yes no lymphadenopathy and Yes no JVD Thyroid: Thyroid normal Carotids: no bruits Resp Effort & Inspection: normal respiratory effort and not tachypneic Auscultation: no crackles, no rales, no rhonchi and no wheezes Cardio Rate: regular rate Rhythm: regular rhythm Heart sounds: no murmurs and normal S1 and S2 GI Palpation (GI): Soft to palpation, nontender, no hepatomegaly and no splenomegaly Auscultation: normal bowel sounds Skin General skin exam: no rashes or lesions noted and dry skin Neuro General: oriented to person, oriented to place and oriented to time Cranial nerves: Yes Equal, round and reactive pupils present Speech: No Abnormal speech present Gait exam (Neuro): Normal gait present Motor exam (neuro): no tremor noted Extrem Right upper extremity: full ROM Left upper extremity: full ROM Right lower extremity: full ROM; no edema Left lower extremity: full ROM; no edema Psych Mental Status: mental status grossly normal Speech and movement: Normal speech and movement present Affect: normal affect Attitude: cooperative Thought process: Normal thought process present Coding Level of Care Code Est Pt Level 4 (73486) Diagnoses MITCH (obstructive sleep apnea) G47.33 Elevated fasting blood sugar R73.01 Hair loss L65.9 Abdominal distention R14.0 Assessment & Plan Assessment & Plan (1) MITCH (obstructive sleep apnea): Code(s): G47.33 - Obstructive sleep apnea (adult) (pediatric) Category: Medical Plan: To manage her mild obstructive sleep apnea, a prescription for a CPAP machine and a copy of her sleep study will be printed and also faxed to a medical [employer] company to facilitate her obtaining the device. (2) Elevated fasting blood sugar: Code(s): R73.01 - Impaired fasting glucose Category: Medical Plan: Has a history of an elevated fasting blood sugar, will get new fasting labs including an A1c to eval for diabetes. (3) Hair loss: Code(s): L65.9 - Nonscarring hair loss, unspecified Category: Medical Plan: To investigate the patient's hair loss, new fasting labs will be ordered to assess for thyroid dysfunction and vitamin deficiencies. These labs will also be used to re-evaluate her blood sugar, given her prior fasting glucose of 104. (4) Abdominal distention: Code(s): R14.0 - Abdominal distension (gaseous) Category: Medical Plan: For her gastrointestinal symptoms of bloating and painful gas, further testing for gluten intolerance will be ordered via bloodwork, and a stool test will be ordered to check for H. pylori infection. The patient was counseled to reduce intake of carbohydrates such as rice, bread, and baked goods to help with weight management. A re-referral will be placed to the weight management clinic. Orders: Orders IRON PROFILE 04/18/25 D50.9 - Iron deficiency anemia, unspecified Vitamin A 04/18/25 L65.9 - Nonscarring hair loss, unspecified Vitamin E 04/18/25 L65.9 - Nonscarring hair loss, unspecified Transglutaminase Ab IgG 04/18/25 R14.0 - Abdominal distension (gaseous) Transglutaminase IgA 04/18/25 R14.0 - Abdominal distension (gaseous) Complete Blood Count no Diff 04/18/25 D50.9 - Iron deficiency anemia, unspecified Vitamin D 25-OH (D2 and D3) 04/18/25 L65.9 - Nonscarring hair loss, unspecified H pylori Ag Stool 04/18/25 R14.0 - Abdominal distension (gaseous) Lipase 04/18/25 R14.0 - Abdominal distension (gaseous) Referrals Medical Weight Management Referral E66.812 - Obesity, class 2 Medications: Refilled albuterol sulfate 90 mcg/actuation 2 puffs inhalation Q6H PRN 8.5 grams 3RF shortness of breath or wheezing 30 days J45.909 - Unspecified asthma, uncomplicated CPAP (CPAP Machine/Device) Need for pressure setting 6-12cm H2o 1 ea 0RF G47.33 - Obstructive sleep apnea (adult) (pediatric) tramadol 50 mg PO BID PRN 14 tabs 1RF pain 7 days M50.90 - Cervical disc disorder, unspecified, unspecified cervical region loratadine 10 mg PO DAILY 90 tabs 1RF 90 days T78.40XA - Allergy, unspecified, initial encounter triamcinolone acetonide 0.1% 1 appl topical DAILY 80 grams 2RF 30 days L30.9 - Dermatitis, unspecified
[2025-04-18 15:30] VITALS: BP 120/70; PULSE 80; TEMP 36.3; O2SAT 98; BMI 35.6
--- OUTSIDE RECORDS SUMMARY | 2025-04-18 16:12 | XMS_ITS | Encounter Summary ---
Author Organization [facility] Address [address] [place] [address] Phone Care Team Providers Care Band Saw Marker Name Role Phone Unknown, Unknown Primary Care Provider Kartik collins Encounter Details Date Type Department Care Team (Late st Contact Info) Description 03/11/2017 Procedure Pass [facility], Ct Scan - [address] [address] Social History Tobacco Use Types Packs/Day Years [...] on filedocumented in this encounter Care Teams Band Saw Marker Relationship Specialty Start Date End Date Unknown, Unknown, PCP - General 03/11/17 documented as of this encounter Additional Source Comments The information contained in this document represents components of the legal health record. It is not the complete legal health record.[facility]
--- OUTSIDE RECORDS SUMMARY | 2025-04-18 16:12 | XMS_ITS | Clinical Summary ---
Author Organization [facility] Address [address] [place] [phone] Phone Care Team Providers Care Rubber Insulator Name Role Phone Ad Burrell Primary Care Provider [phone]- [phone] Allergies No known active allergies Medications oxyCODONE (ROXICODONE) 5 mg immediate release tabletIndication s:Complex ovarian cyst Take 1 tablet (5 mg total) by mouth every 6 (six) hours if needed for severe pain. Max Daily Amount: 20 mg 15 tablet 06/09/2024 Active Encounters Date Type Department Care Team Description 02/01/2025 3:50 PM EDT - 02/01/2025 7:50 PM EDT Emergency [facility] Emergency [address] [place] [phone] Discharge Disposition: Home or Self Care 01/30/2025 11:29 AM EDT - 01/30/2025 5:52 PM EDT Emergency [facility] Emergency [address] [place] [phone] Sangeeta Jacobson MD Nausea and vomiting, unspecified vomiting type (Primary Dx) Discharge Disposition: Home or Self Care from Last 3 Months Surgical History Surgery Date Site/Laterality Comments CHOLECYSTECTOMY 01/1998 PROCEDURE: HISTORICAL CHOLECYSTECTOMY TUBAL LIGATION PROCEDURE: HISTORICAL TUBAL LIGATION BUNIONECTOMY 05/21/2017 Right PROCEDURE: BUNION SURGERY, SIMPLE REMOVAL; COMMENT: Right roberto bunionectomy OTHER SURGICAL HISTORY 05/21/2017 Right PROCEDURE: ME OSTEOT W/WO LNGTH SHRT/CORRJ METAR XCP 1ST [...] Years Used Date Smoking Tobacco: Former Cigarettes 0 Q uit: 12/12/2014 Smokeless Tobacco: Never Alcohol Use Standard Drinks/Week Comments No 0 (1 standard drink = 0.6 oz pur e alcohol) Comments Unknown Sex and Gender Information Value Date Recorded Sex Assigned at Female 06/09/2024 5:01 PM EST Legal Sex Female 3:32 PM EST Gender Identity Female 06/09/2024 5:01 PM EST Sexual Orientation Straight 06/09/2024 5: 01 PM EST Last Filed Vital Signs Vital Sign Reading Time Taken Comments Blood Pressure 121/84 02/01/2025 4:05 PM EDT Pulse 83 02/01/2025 4:05 PM EDT Temperature 36.5 C (97.7 F) 02/01/2025 4:05 PM EDT Respiratory Rate 18 02/01/2025 4:05 PM EDT Oxygen Saturation 97% 02/01/2025 4:05 PM EDT Inhaled Oxygen Concentration - - Weight 75.8 kg (167 lb) 02/01/2025 4:05 PM EDT Height 149.9 cm (4' 11 ) 02/01/2025 4:05 PM EDT Body Mass Index 33.73 02/01/2025 4:05 PM EDT Plan of Treatment Health Maintenance Due [...] HIV Screening 06/10/2024 Hepatitis C Screening 06/10/2024 Medicare Annual Wellness Visit 06/10/2024 Social Influencers of Health Screening 06/10/2024 COVID-19 Vaccine ( - season) 2024 09/20/2020, 08/22/2020 Influenza Vaccine (#1) [...] Comments CT ABDOMEN PELVIS W CONTRAST STAT 01/30/2025 3:36 PM EDT RESPIRATORY VIRUS PANEL MOLECULAR STUDY STAT 01/30/2025 12:15 PM EDT HCG, SERUM, QUALITATIVE STAT Add-on 01/30/2025 12:11 PM EDT SEDIMENTATION RATE STAT 01/30/2025 12 :11 PM EDT CBC WITH AUTO DIFFERENTIAL STAT 01/30/2025 12:11 PM EDT MAGNESIUM STAT 01/30/2025 12:11 PM EDT C-REACTIVE PROTEIN STAT 01/30/2025 12 :11 PM EDT LIPASE STAT 01/30/2025 12:11 PM EDT CBC AND DIFFERENTIAL STAT 01/30/2025 12:11 PM EDT COMPREHENSIVE METABOLIC PANEL STAT 01/30/2025 12:11 PM EDT VARICELLA ZOSTER ANTIBODY IGG STAT 01/30/2025 12:11 PM EDT from Last 3 Months Results * CT Abdomen Pelvis w Contrast (01/30/2025 3:36 PM EDT) Anatomical Region Laterality Modality Body Computed Tomogra phy 01/30/2025 3:43 PM EDT Impressions 01/30/2025 3:52 PM EDT Impression: 1. No acute abdominal process identified. 2. Decrease in size of a complex cystic lesion in the pelvis, possibly a peritoneal inclusion cyst in the setting of prior hysterectomy. 3. Borderline splenomegaly. Telerad OLIVIA ([id number]) -------- FINAL REPORT -------- Dictated By: Arlen Devlin Dictated Date: 01/30/2025 15:43 ET Assigned Physician: Arlen Devlin Reviewed and Electronically Signed By: Arlen Devlin Signed Date: 01/30/2025 15:52 ET Workstation ID: [id number] Transcribed By: Self Edit Transcribed Date: 01/30/2025 15:43 ET Narrative 01/30/2025 3:52 PM EDT History: Abdominal pain, acute. Diffuse skin rash. Comparison: 06/09/24 Technique: Helical volumetric imaging of the abdomen and pelvis was performed without oral contrast and during the uneventful intravenous administration of 90 cc Isovue-370. DLP: 1105.44 mGy/cm GE ArthroCADpeed VCT Iterative reconstruction technique Findings: The liver is normal in size and configuration. No masses are identified. The portal and hepatic veins are patent. Cholecystectomy sequela are noted. No evidence of biliary obstruction is seen. The spleen is top normal in size, approximately 13.5 cm in maximum diameter, slightly increased since the previous exam enthesis 12.2 cm). The pancreas and adrenal glands are unremarkable. The kidneys are normal in position and size, with symmetric, intact nephrograms and no evidence of hydronephrosis. A 2 mm nonobstructing calculus is seen in the upper pole of the left kidney. A borderline celiac axis lymph node is noted. There is no lymphadenopathy by size criteria. A trace amount of free fluid is seen in the pelvis. Hysterectomy sequela are noted. A complex cystic lesion extending from midline to the left is again seen in the low pelvis but has decreased in size, possibly a peritoneal inclusion cyst in the setting of prior hysterectomy. The lesion currently measures 5.7 cm transverse by 4.9 cm in length by 5.8 cm in width compared to 5.9 cm in width by 6 cm in length by 9.4 cm AP previously. The urinary bladder is empty. No evidence of bowel obstruction is seen. The appendix is normal in caliber in the right lower quadrant. No abnormal perienteric or pericolonic fat stranding is seen. The regional skeleton is intact. Procedure Note Arlen Devlin MD - 01/30/2025 History: Abdominal pain, acute. Diffuse skin rash. Comparison: 06/09/24 Technique: Helical volumetric imaging of the abdomen and pelvis wasperformed without oral contrast and during the uneventful intravenousadministration of 90 cc Isovue-370. DLP: 1105.44 mGy/cm My SourceboxpeViViFi VCT Iterative reconstruction technique Findings: The liver is normal in size and configuration. No masses are identified.The portal and hepatic veins are patent. Cholecystectomy sequela arenoted. No evidence of biliary obstruction is seen. The spleen is top normal in size, approximately 13.5 cm in maximumdiameter, slightly increased since the previous exam enthesis 12.2 cm).The pancreas and adrenal glands are unremarkable. The kidneys are normal in position and size, with symmetric, intactnephrograms and no evidence of hydronephrosis. A 2 mm nonobstructingcalculus is seen in the upper pole of the left kidney. A borderline celiac axis lymph node is noted. There is no lymphadenopathyby size criteria. A trace amount of free fluid is seen in the pelvis.Hysterectomy sequela are noted. A complex cystic lesion extending frommidline to the left is again seen in the low pelvis but has decreased insize, possibly a peritoneal inclusion cyst in the setting of priorhysterectomy. The lesion currently measures 5.7 cm transverse by 4.9 cm inlength by 5.8 cm in width compared to 5.9 cm in width by 6 cm in length by9.4 cm AP previously. The urinary bladder is empty. No evidence of bowel obstruction is seen. The appendix is normal incaliber in the right lower quadrant. No abnormal perienteric orpericolonic fat stranding is seen. The regional skeleton is intact. IMPRESSION: Impression: 1. No acute abdominal process identified. 2. Decrease in size of a complex cystic lesion in the pelvis, possibly aperitoneal inclusion cyst in the setting of prior hysterectomy. 3. Borderline splenomegaly. Telerad OLIVIA ([id number]) -------- FINAL REPORT -------- Dictated By: Arlen Devlin Dictated Date: 01/30/2025 15:43 ET Assigned Physician: Arlen Devlin Reviewed and Electronically Signed By: Arlen Devlin Signed Date: 01/30/2025 15:52 ET Workstation ID: [id number] Transcribed By: Self Edit Transcribed Date: 01/30/2025 15:43 ET us Sangeeta Jacobson MD IM CT PROCEDURES Final Result * Respiratory virus panel molecular study (01/30/2025 12:15 PM EDT) Adenovirus Detection by PCR Not Detected Not Detected LAB MICROBIOLOGY METHOD 01/30/2025 1:56 PM EDT [facility] Influenza A PCR Not Detected Not Detected LAB MICROBIOLOGY METHOD 01/30/2025 1:56 PM EDT [facility] Influenza B PCR Not Detected Not Detected LAB MICROBIOLOGY METHOD 01/30/2025 1:56 PM EDT [facility] Coronavirus 229E Not Detected Not Detected LAB MICROBIOLOGY METHOD 01/30/2025 1:56 PM EDT [facility] Coronavirus HKU1 Not Detected Not Detected LAB MICROBIOLOGY METHOD 01/30/2025 1:56 PM EDT [facility] Coronavirus OC43 Not Detected Not Detected LAB MICROBIOLOGY METHOD 01/30/2025 1:56 PM EDT [facility] Coronavirus NL63 Not Detected Not Detected LAB MICROBIOLOGY METHOD 01/30/2025 1:56 PM EDT [facility] Parainfluenza Virus 1 Not Detected Not Detected LAB MICROBIOLOGY METHOD 01/30/2025 1:56 PM EDT [facility] Parainfluenza Virus 2 Not Detected Not Detected LAB MICROBIOLOGY METHOD 01/30/2025 1:56 PM EDT [facility] Parainfluenza Virus 3 Not Detected Not Detected LAB MICROBIOLOGY METHOD 01/30/2025 1:56 PM EDT [facility] Parainfluenza Virus 4 Not Detected Not Detected LAB MICROBIOLOGY METHOD 01/30/2025 1:56 PM EDT [facility] RSV PCR Not Detected Not Detected LAB MICROBIOLOGY METHOD 01/30/2025 1:56 PM EDT [facility] Human Metapneumovirus A and B Not Detected Not Detected LAB MICROBIOLOGY METHOD 01/30/2025 1:56 PM EDT [facility] Rhinovirus/Entero virus Not Detected Not Detected LAB MICROBIOLOGY METHOD 01/30/2025 1:56 PM EDT [facility] Bordetella pertussis Not Detected Not Detected LAB MICROBIOLOGY METHOD 01/30/2025 1:56 PM EDT [facility] Bordetella parapertussis Not Detected Not Detected LAB MICROBIOLOGY METHOD 01/30/2025 1:56 PM EDT [facility] Mycoplasma pneumo by PCR Not Detected Not Detected LAB MICROBIOLOGY METHOD 01/30/2025 1:56 PM EDT [facility] Chlamydia pneumoniae Not Detected Not Detected LAB MICROBIOLOGY METHOD 01/30/2025 1:56 PM EDT [facility] SARS COV-2 Not Detected Not Detected LAB MICROBIOLOGY METHOD 01/30/2025 1:56 PM EDT [facility] Swab Both anterior nares / Unknown Non-blood Collection / Unknown 01/30/2025 12:15 PM EDT 01/30/2025 12:54 PM EDT [facility] - 01/30/2025 1:56 PM EDT Testing was performed using the [employer] Respiratory Pathogen PCR Assay. All results must be correlated with the clinical findings. Results should not be used as the sole basis for diagnosis. False Negative results may occur from the presence of sequence variants in the region targeted by the assay or the presence of inhibitors. Results may be affected by concurrent antiviral/antimicrobial therapy or levels of organisms that are below the limit of detection. us Sangeeta Jacobson MD LAB MICROBIOLOGY - GENERAL ORD ERABLES Final Result [facility] [address] [place] [address], * (ABNORMAL) CBC auto differential (01/30/2025 12:11 PM EDT) WBC 3.7(L) 4.8 - 10.8 K/mcL LAB HEMETOLOGY METHOD 01/30/2025 1:06 PM EDT [facility] RBC 4.80 3.80 - 4.80 M/mcL LAB HEMETOLOGY METHOD 01/30/2025 1:06 PM EDT [facility] Hemoglobin 13.9 11.5 - 16.0 g/dL LAB HEMETOLOGY METHOD 01/30/2025 1:06 PM EDT [facility] Hematocrit 40.1 35.0 - 47.0 % LAB HEMETOLOGY METHOD 01/30/2025 1:06 PM [facility] MCV 83.2 79.0 - 98.0 FL LAB HEMETOLOGY METHOD 01/30/2025 1:06 PM [facility] MCH 28.8 27.0 - 32.0 pcg LAB HEMETOLOGY METHOD 01/30/2025 1:06 PM [facility] MCHC 34.7 32.0 - 37.0 g/dL LAB HEMETOLOGY METHOD 01/30/2025 1:06 PM [facility] RDW 13.2 11.0 - 15.0 % LAB HEMETOLOGY METHOD 01/30/2025 1:06 PM [facility] Platelets 205 130 - 400 K/mcL LAB HEMETOLOGY METHOD 01/30/2025 1:06 PM [facility] MPV 11.2(H) 7.0 - 11.0 FL LAB HEMETOLOGY METHOD 01/30/2025 1:06 PM [facility] NRBC 0.0 <1.0 % LAB HEMETOLOGY METHOD 01/30/2025 1:06 PM [facility] NRBC Absolute 0.00 <0.10 K/mcL LAB HEMETOLOGY METHOD 01/30/2025 1:06 PM [facility] Neutrophils Relative 52.6 % LAB HEMETOLOGY METHOD 01/30/2025 1:06 PM [facility] Lymphocytes Relative 35.5 % LAB HEMETOLOGY METHOD 01/30/2025 1:06 PM [facility] Monocytes Relative 9.5 % LAB HEMETOLOGY METHOD 01/30/2025 1:06 PM [facility] Eosinophils Relative 0.0 % LAB HEMETOLOGY METHOD 01/30/2025 1:06 PM [facility] Basophils Relative 0.5 % LAB HEMETOLOGY METHOD 01/30/2025 1:06 PM EDT [facility] Immature Granulocytes Relative 1.9 % LAB HEMETOLOGY METHOD 01/30/2025 1:06 PM EDT [facility] Neutrophils Absolute 1.94 1.50 - 7.00 K/mcL LAB HEMETOLOGY METHOD 01/30/2025 1:06 PM EDT [facility] Lymphocytes Absolute 1.31 1.00 - 5.00 K/mcL LAB HEMETOLOGY METHOD 01/30/2025 1:06 PM EDT [facility] Monocytes Absolute 0.35 0.20 - 1.00 K/mcL LAB HEMETOLOGY METHOD 01/30/2025 1:06 PM EDT [facility] Eosinophils Absolute 0.00 0.00 - 0.50 K/mcL LAB HEMETOLOGY METHOD 01/30/2025 1:06 PM EDT [facility] Basophils Absolute 0.02 0.00 - 0.20 K/mcL LAB HEMETOLOGY METHOD 01/30/2025 1:06 PM EDT [facility] Immature Granulocytes Absolute 0.07(H) 0.00 - 0.03 K/mcL LAB HEMETOLOGY METHOD 01/30/2025 1:06 PM EDT [facility] Blood Venous blood specimen / Unknown Venipuncture / Unknown 01/30/2025 12:11 PM EDT 01/30/2025 12:55 PM EDT us Sangeeta Jacobson MD LAB BLOOD ORDERABLES Final Res ult [facility] [address] [place] [address], * (ABNORMAL) Sedimentation rate, automated (01/30/2025 12:11 PM EDT) Sed Rate 23(H) 0 - 20 mm/hr LAB HEMETOLOGY METHOD 01/30/2025 1:14 PM EDT [facility] Blood Venous blood specimen / Unknown Venipuncture / Unknown 01/30/2025 12:11 PM EDT 01/30/2025 12:55 PM EDT us Sangeeta Jacobson MD LAB BLOOD ORDERABLES Final Res ult Performing Organization Address [facility] Co de Phone Number [facility] [address] [place] [address], [place] [phone] * Varicella zoster antibody IgG (01/30/2025 12:11 PM EDT) Varicella IgG Positive Positive LAB CHEMISTRY METHOD 01/30/2025 1:49 PM EDT [facility] Varicella Zoster IgG 11.50 >=1.00 S/CO LAB CHEMISTRY METHOD 01/30/2025 1:49 PM EDT [facility] Blood Venous blood specimen / Unknown Venipuncture / Unknown 01/30/2025 12:11 PM EDT 01/30/2025 12:55 PM EDT Narrative [facility] - 01/30/2025 1:49 PM EDT Interpretation >= 1.00 S/CO is considered to be consistent with Immunity us Sangeeta Jacobson MD LAB BLOOD ORDERABLES Final Res ult Performing Organization Address [facility] de Phone Number [facility] [address] [place] [address], [place] [phone] * (ABNORMAL) C-reactive protein (01/30/2025 12:11 PM EDT) C-Reactive Protein 3.07(H) <=0.50 mg/dL LAB CHEMISTRY METHOD 01/30/2025 1:22 PM EDT [facility] Blood Venous blood specimen / Unknown Venipuncture / Unknown 01/30/2025 12:11 PM EDT 01/30/2025 12:55 PM EDT us Sangeeta Jacobson MD LAB BLOOD ORDERABLES Final Res ult Performing Organization Address City/[facility]/ZIP Co de Phone Number [facility] [address] [place] [address], [place] [phone] * hCG, serum, qualitative (01/30/2025 12:11 PM EDT) Pathologist [facility] hCG Qual Negative Negative 01/30/2025 3:13 PM EDT [facility] Blood Venous blood specimen / Unknown Venipuncture / Unknown 01/30/2025 12:11 PM EDT 01/30/2025 12:55 PM EDT us Sangeeta Jacobson MD LAB BLOOD ORDERABLES Final Res ult Performing Organization Address [facility]/ZIP Co de Phone Number [facility] [address] [place] [address], [place] [phone] * Magnesium (01/30/2025 12:11 PM EDT) [facility] Magnesium 2.1 1.9 - 2.6 mg/dL LAB CHEMISTRY METHOD 01/30/2025 1:22 PM EDT [facility] Blood Venous blood specimen / Unknown Venipuncture / Unknown 01/30/2025 12:11 PM EDT 01/30/2025 12:55 PM EDT us Sangeeta Jacobson MD LAB BLOOD ORDERABLES Final Res ult Performing Organization Address [facility]/ZIP Co de Phone Number [facility] [address] [place] [address], [place] [phone] * Lipase (01/30/2025 12:11 PM EDT) [facility] Lipase 42 13 - 75 unit/L LAB CHEMISTRY METHOD 01/30/2025 1:22 PM EDT [facility] Blood Venous blood specimen / Unknown Venipuncture / Unknown 01/30/2025 12:11 PM EDT 01/30/2025 12:55 PM EDT us Sangeeta Jacobson MD LAB BLOOD ORDERABLES Final Res ult [facility] [address] [place] [address], * (ABNORMAL) Comprehensive Metabolic Panel (CMP) (01/30/2025 12:11 PM EDT) Sodium 135 133 - 145 mmol/L LAB CHEMISTRY METHOD 01/30/2025 2:10 PM [facility] Potassium 3.7 3.5 - 5.5 mmol/L LAB CHEMISTRY METHOD 01/30/2025 2:10 PM [facility] Chloride 105 96 - 110 mmol/L LAB CHEMISTRY METHOD 01/30/2025 2:10 PM [facility] CO2 22 21 - 32 mmol/L LAB CHEMISTRY METHOD 01/30/2025 2:10 PM [facility] Anion Gap 8 3 - 11 LAB CHEMISTRY METHOD 01/30/2025 2:10 PM [facility] Glucose 104(H) 70 - 100 mg/dL LAB CHEMISTRY METHOD 01/30/2025 2:10 PM [facility] BUN 7 5 - 25 mg/dL LAB CHEMISTRY METHOD 01/30/2025 2:10 PM [facility] Creatinine 0.87 0.50 - 1.10 mg/dL LAB CHEMISTRY METHOD 01/30/2025 2:10 PM [facility] eGFR 84 >=60 mL/min/1. 73m2 LAB CHEMISTRY METHOD 01/30/2025 2:10 PM [facility] Comment:Calculation based on the Chronic Kidney Disease Epidemiology Collaboration (CKD-EPI) equation refit without adjustment for race. BUN/Creatinine Ratio 8.0 LAB CHEMISTRY METHOD 01/30/2025 2:10 PM [facility] Calcium 9.4 8.5 - 10.5 mg/dL LAB CHEMISTRY METHOD 01/30/2025 2:10 PM [facility] AST (SGOT) 52(H) 10 - 42 unit/L LAB CHEMISTRY METHOD 01/30/2025 2:10 PM T [facility] Comment:Results verified by repeat testing ALT (SGPT) 47 10 - 60 unit/L LAB CHEMISTRY METHOD 01/30/2025 2:10 PM T [facility] Comment:Results verified by repeat testing Alkaline Phosphatase 115 42 - 121 unit/L LAB CHEMISTRY METHOD 01/30/2025 2:10 PM [facility] Total Protein 7.7 6.0 - 8.0 g/dL LAB CHEMISTRY METHOD 01/30/2025 2:10 PM [facility] Albumin 3.8 3.2 - 5.0 g/dL LAB CHEMISTRY METHOD 01/30/2025 2:10 PM [facility] Total Bilirubin 0.8 0.0 - 1.4 mg/dL LAB CHEMISTRY METHOD 01/30/2025 2:10 PM [facility] Blood Venous blood specimen / Unknown Venipuncture / Unknown 01/30/2025 12:11 PM EDT 01/30/2025 12:55 PM EDT us Sangeeta Jacobson MD LAB BLOOD ORDERABLES Final Res ult [facility] [address] [place] [address], [place] [phone] from Last 3 Months Insurance [employer] MEDICARE Member Subscriber Plan / Payer (Ef fective 2022-Present) Name:CEDRIC WEBER Relation to Subscriber:Self Name:Cedric Weber Payer ID:[id number] Group ID:[id number] Type:Not on file Address: [place] [address] [address] [address] [phone] Care Teams Rubber Insulator Relationship Specialty Start Date End Date Ad Burrell PA [address] [place] [phone] PCP - General Physician Soil Conservationist 01/30/25
--- OUTSIDE RECORDS SUMMARY | 2025-04-18 16:12 | XMS_ITS | Clinical Summary ---
Author Organization [facility] Address [address] [place] [phone] Phone Care Team Providers Care Wafer Production Worker Name Role Phone Unknown, Unknown MD Primary [...] B [place] MEDICARE PART A & B [facility] MEDICARE PART A & B Care Teams Wafer Production Worker Relationship Specialty Start Date End Date Unknown, Unknown, PCP - General 03/11/17 Additional Source Comments The information contained in this document represents components of the legal health record. It is not the complete legal health record.[facility]
== END 2025-04-18 16:13 | disposition home or self-care (01) ==
LOC: HO.HMCH 14:56
PROVIDERS: PCP Physician Assistant; Visit Provider Physician Assistant
DX: G47.33 Obstructive sleep apnea (adult) (pediatric) (principal); R73.01 Impaired fasting glucose; L65.9 Nonscarring hair loss, unspecified; R14.0 Abdominal distension (gaseous)

== ENCOUNTER → 2025-04-18 14:55 | Outpatient (BNVA) | payer OTHER, SELFPAY | PROVIDERS: PCP Physician Assistant; Visit Provider Physician Assistant | DX: G47.33 Obstructive sleep apnea (adult) (pediatric) (principal); R73.01 Impaired fasting glucose; L65.9 Nonscarring hair loss, unspecified; R14.0 Abdominal distension (gaseous); Z99.89 Dependence on other enabling machines and devices | CPT/HCPCS: 99212 ==